=== PATIENT | male | born 1945 | race Caucasian/White ===

== ENCOUNTER 2017-10-13 13:30 | Emergency (ER) | payer MEDICARE, OTHER, SELFPAY ==
[2017-10-13 13:32] VITALS: BP 150/75; PULSE 58; RESP 14; TEMP 36.5; O2SAT 100; BMI 25.9
--- NOTE | 2017-10-13 14:58 | ED.DCSUM_ITS ---
- ER Visit Summary Date of Service: 10/13/17 Chief Complaint: Left arm injury History of Present Illness: The patient is a 72 M who wrenched his left arm when using a drill earlier today. He has continued pain in the midshaft of the left forearm. He is left-hand dominant. He denies paresthesias. Physical Examination: Vital signs are unremarkable. Patient sitting in a bedside chair. He is in no acute distress. Left upper extremity examination reveals no tenderness of the shoulder or elbow. He has mild tenderness in the midshaft of the left forearm. No obvious deformity. He has full range of motion with strong hand grasp. Strong distal pulses are noted. Test Results: Left forearm x-rays were obtained per nursing protocol and reveal a nondisplaced oblique fracture of the distal ulna. Emergency Department Course and Treatment: Test results are discussed with patient. He is placed in an AP Ortho-Glass splint. Following splint application patient has good cap refill distally. He wishes to follow-up with Dr. Smith, who family has seen in the past. Treatment Plan: [] Disposition: Discharge Impression: Left ulna fracture status post splint This note was generated with [employer] dictation software. It may contain incorrect words, spelling, and punctuation that were not noted in review of the chart prior to signing ED Disposition - Plan for ED Patient: Chief Complaint: Upper Extremity Injury Referrals: Destinee Burton MD [Primary Care Provider] -
--- NOTE | 2017-10-13 14:58 | ED.DEP ---
ED Disposition - Plan for ED Patient: Disposition: Home or Assisted Living Chief Complaint: Upper Extremity Injury Instructions: ED Fx Forearm Radius Ulna No Redu Requ Referrals: Fernando Smith DO [STAFF PHYSICIAN] - 5-7 Days
== END 2017-10-13 15:13 | disposition home or self-care (01) ==
PROVIDERS: Emergency Provider Emergency Medicine; Family Provider Internal Medicine; PCP Internal Medicine
DX: S52.692A Other fracture of lower end of left ulna, initial encounter for closed fracture (principal); X58.XXXA Exposure to other specified factors, initial encounter; Y93.89 Activity, other specified; Y92.9 Unspecified place or not applicable; I48.0 Paroxysmal atrial fibrillation; Z79.82 Long term (current) use of aspirin; Z79.899 Other long term (current) drug therapy
CPT/HCPCS: 29125; 73090; 99282

== ENCOUNTER 2017-12-26 15:27 | Emergency (ER) | payer MEDICARE, OTHER, SELFPAY ==
[2017-12-26 15:28] VITALS: BP 147/89; PULSE 56; RESP 16; TEMP 36.7; O2SAT 97; BMI 25.2
--- NOTE | 2017-12-26 15:41 | CT_ITS ---
STUDY: CT CHEST WITHOUT CONTRAST REASON FOR EXAM: Male, 72 years old. Injury. Fell. RADIATION DOSAGE (If Supplied By Facility): CTDIvol = ( 15.96 ) mGy, DLP = ( 614.25 ) mGycm TECHNIQUE: Transaxial imaging was performed without the administration of intravenous contrast material. Individualized dose optimization techniques were used for this CT. COMPARISON: None. FINDINGS: There is bilateral dependent atelectasis within the lower lobes associated with groundglass opacities, most pronounced within the right lower lobe. There is a 3.9, 4.5 and 1.5 mm nodule within the right middle lobe. There is a 4.5 mm nodule within the left upper lobe. Normal heart and pericardium. Normal mediastinum. Normal hilar regions. Normal unenhanced pulmonary arteries. There is atherosclerotic calcification of the aortic arch. There are multi-level degenerative changes of the thoracic spine. There are right posterior fourth, fifth, sixth , seventh, eighth and ninth rib fractures. The limited images of the upper abdomen demonstrate gallstones within the gallbladder. There is a left renal cyst. CT/Chest without Contrast IMPRESSION: Acute right posterior fourth through ninth rib fractures. Bilateral dependent consolidation, most pronounced within the right lower lobe associated with groundglass opacities, may reflect underlying pulmonary contusions. Bilateral pulmonary nodules measuring up to 4.5 mm within the right middle lobe. Cholelithiasis Atherosclerosis. Electronically Signed: Nara Galloway MD at 16:30 EST Tel , Service support ,
--- NOTE | 2017-12-26 15:43 | ED.VISSUMM ---
- ER Visit Summary Date of Service: 12/26/17 Chief Complaint: Fall, right upper back injury History of Present Illness: The patient is a 72 M presents evaluation of fall off a 2 foot ladder 1 hour prior to arrival. States placing stuff away in a crawl space in the house. Ladder slipped falling directly on his scapula on the right side. States he lost his breath. Denies any current dyspnea. Does complain of pain with deep breaths. Pain with palpation. No head injuries. No neck pain. No extremity pain. No chest pains. No nausea or vomiting. He does take a full dose aspirin daily along with diltiazem for paroxysmal atrial fibrillation history. 2 months ago and ulnar fracture from twisting injury from a drill followed by Dr. Smith. Physical Examination: General: Alert and oriented ?3, no acute distress HEENT: Normocephalic, atraumatic. Moist mucosa membranes Neck: supple, nontender. No midline tenderness. Cardiovascular: Regular rate and rhythm, no murmurs Respiratory: Normal breath sounds, symmetric, no distress Back: No midline tenderness. There is tenderness right mid scapula, no ecchymosis. There is no crepitus palpated. No lateral rib or anterior chest wall tenderness. Abdomen: Soft, nontender, nondistended Extremities: Nontender, no edema, pulses intact ?4. Splint to the left upper forearm Neuro: no focal neurological deficits. Test Results: Noncontrast CT chest: Rib fractures 4 through 9 on the right posterior. No scapular fracture. Possible pulmonary contusion. No pneumothorax. Small pulmonary nodules largest 4.5 mm right middle lobe. Emergency Department Course and Treatment: Patient symmetric breath sounds on exam. There is no crepitus, is tender posterior scapula. With his mechanism fallen off a two-step ladder, CT scan was obtained. Initial given oxycodone for comfort. Results noted multiple rib fractures on the right with concerns for pulmonary contusion. Pulse ox stable. Patient non-smoker. Labs were drawn for baseline, given fentanyl with improved pain control. Hemoglobin 14. He is on full dose aspirin. Isolated injury and stability I did speak with critical care information systems manager Dr. Beth who would be okay following at this hospital however he requests I speak with surgeon in case complications requiring chest tube. Spoke with Dr. oDnahue, she is concerned that he would need somebody in-house for intervention if needed in case he decompensates and recommended transfer to higher level of care. Discussed options, [facility] transfer on page. D/w Dr. Miller for transfer to ED at [facility]. Treatment Plan: [] Disposition: Transfer to [facility] emergency department Impression: 1. Multiple closed right posterior rib fracture 2. Pulmonary contusion 3. Fall 5. Pulmonary nodule This note was generated with [employer] dictation software. It may contain incorrect words, spelling, and punctuation that were not noted in review of the chart prior to signing ED Disposition - Plan for ED Patient: Disposition: [facility] Chief Complaint: Fall Diagnosis: Multiple rib fractures, Pulmonary contusion, Fall, Pulmonary nodule Referrals: Destinee Burton MD [Primary Care Provider] -
[2017-12-26 15:46] VITALS: BP 139/82; RESP 14; O2SAT 95
[2017-12-26] MEDS: oxyCODONE 5 MG Tablet PO (16:13)
[2017-12-26] MEDS: fentaNYL 100 MCG/2 ML Ampul 50 MCG IV ×2 (17:18→19:16)
[2017-12-26 17:31] LABS: Absolute Lymphocyte Count 0.96 X10^3/ul (0.83-4.51); Absolute Neutrophil Count 14.1 X10^3/uL (2.0-7.7); Basophil# 0.01 X10^3/uL; Basophil% 0.1 % (0-1); Eosinophil# 0.04 X10^3/uL; Eosinophils% 0.2 % (0-5); Hematocrit 42.4 % (40-54); Hemoglobin 14.2 g/dl (13.0-16.5); Lymphocyte # 0.96 X10^3/ul (4.0); Lymphocyte % 5.9 % (19-41); Mean Corp Hgb Conc 33.5 g/gl (32-36); Mean Corpuscular Hgb 28.4 pg (27.0-32.0); Mean Corpuscular Volume 84.8 fL (80-94); Mean Platelet Vol. 8.7 fl (6.2-12.0); Monocyte# 1.03 X10^3/uL; Monocyte% 6.4 % (0-10); Neutrophil # 14.09 X10^3/uL (2.7-7.7); Neutrophil % 86.9 % (47-70); Platelet Count 185 K/mm3 (150-450); RBC Distribution Width CV 14.1 % (11.6-14.6); RBC Distribution Width SD 43.6 fl (35.1-43.9); White Blood Count 16.2 K/mm3 (4.4-11.0)
[2017-12-26 17:33] LABS: POSITIVE COUNT NO; POSITIVE DIFFERENTIAL NO; POSITIVE MORPHOLOGY NO
[2017-12-26 17:35] LABS: Prothrombin Time (Protime)PT. 13.3 SECONDS (11.7-14.9)
[2017-12-26 17:36] LABS: Partial Thromboplast Time 32.8 Seconds (24.1-36.2)
[2017-12-26 18:23] VITALS: BP 124/84; PULSE 63; RESP 17; O2SAT 95
[2017-12-26 18:32] VITALS: BP 124/84; PULSE 61; RESP 16; TEMP 36.7; O2SAT 96
[2017-12-26 19:03] LABS: Anion Gap 8 (5-15); BUN 23 mg/dL (7-18); BUN/Creat Ratio 20.5 RATIO (10-20); Calcium,Total 8.7 mg/dL (8.5-10.1); Chloride 106 mmol/L (98-107); Creatinine, Serum 1.12 mg/dL (0.70-1.30); EST Glomerular Filtration Rate 69 mL/min (>60); Est Glom Filt Rate - Afr Amer 83 mL/min (>60); Estimated Creatinine Clearance 67.36 ml/min; Glucose 99 mg/dL (74-106); Sodium Level 141 mmol/L (136-145)
== END 2017-12-26 19:24 | disposition short-term general hospital (02) ==
PROVIDERS: Emergency Provider Emergency Medicine; Family Provider Internal Medicine; PCP Internal Medicine
DX: S22.41XA Multiple fractures of ribs, right side, initial encounter for closed fracture (principal); S27.322A Contusion of lung, bilateral, initial encounter; W11.XXXA Fall on and from ladder, initial encounter; Y93.89 Activity, other specified; Y92.008 Other place in unspecified non-institutional (private) residence as the place of occurrence of the external cause; R91.1 Solitary pulmonary nodule; I50.9 Heart failure, unspecified; I48.0 Paroxysmal atrial fibrillation; Z79.82 Long term (current) use of aspirin
CPT/HCPCS: 71250; 80048; 85025; 85610; 85730; 86850; 86900; 96374; 96376; 99284; A4216

== ENCOUNTER → 2019-08-15 08:37 | Outpatient (CLI) | payer MEDICARE, SELFPAY ==
[2019-07-26 09:40] VITALS: BMI 23.6
--- NOTE | 2019-08-15 08:40 | ECHOD_ITS ---
Procedure This was a 2D Doppler, Color Flow transthoracic echocardiogram. Exam performed in department. Left Ventricle Normal size and thickness. The estimated ejection fraction is 65 %. Stage 2 diastolic dysfunction. No regional wall motion abnormalities noted. Right Ventricle Moderately dilated right ventricle. Normal systolic function. Atria Normal left atrium. Normal right atrium. Normal atrial septum. Mitral Valve The mitral valve is structurally normal. No prolapse or stenosis seen. Trivial mitral valve insufficiency. Tricuspid Valve Normal tricuspid valve. Mild (1+) tricuspid valve insufficiency. Right ventricular systolic pressure estimated to be 31 mmHg. Aortic Valve Trisinus/trileaflet aortic valve. Mild-Moderate (1-2+) eccentric aortic valve insufficiency. Pulmonic Valve Normal pulmonic valve. Great Vessels Normal aortic root. Normal arch. Normal inferior vena cava. Inferior vena cava collapse with sniff. Pericardium/Pleural No pericardial effusion. MMode/2D Measurements & Calculations LVIDd: 4.4 cm IVSd: 1.0 cm LVOT diam: 2.0 cm LVIDs: 3.0 cm LVPWd: 1.0 cm LVOT area: 3.2 cm2 RVDd: 4.2 cm FS: 31.7 % Ao root diam: 3.6 cm LAV(MOD-bp): 67.9 ml LA A4 area: 20.2 cm2 LAV(MOD-bp) Indexed: 33.9 ml/m2 LAV(MOD-sp2): 73.6 ml LAV(MOD-sp4): 56.4 ml LA dimension(2D): 3.4 cm RA A4 area: 20.7 cm2 Time Measurements MV dec time: 0.18 sec Doppler Measurements & Calculations MV E max madhu: 71.3 cm/sec Lat Peak E' Madhu: 10.6 cm/sec Med Peak E' Madhu: 7.7 cm/sec MV A max madhu: 54.9 cm/sec E/E' lat: 6.7 E/E' med: 9.3 MV E/A: 1.3 Ao V2 max: 125.0 cm/sec AI max madhu: 504.3 cm/sec LV V1 max: 107.9 cm/sec Ao max P.3 mmHg AI max P.7 mmHg LV V1 max P.7 mmHg Ao V2 mean: 84.6 cm/sec AI dec slope: 189.4 cm/sec2 LV V1 mean P.4 mmHg Ao mean P.2 mmHg AI P1/2t: 779.8 msec LV V1 mean: 72.9 cm/sec Ao V2 VTI: 29.3 cm LV V1 VTI: 24.7 cm BRANDON(I,D): 2.7 cm2 BRANDON(V,D): 2.7 cm2 SV(LVOT): 78.5 ml PA V2 max: 85.8 cm/sec TR max madhu: 255.0 cm/sec TR max P.0 mmHg Interpretation Summary The estimated ejection fraction is 65 %. Stage 2 diastolic dysfunction. Moderately dilated right ventricle. Trivial mitral valve insufficiency. Mild (1+) tricuspid valve insufficiency. Right ventricular systolic pressure estimated to be 31 mmHg. Mild-Moderate (1-2+) eccentric aortic valve insufficiency. Compared to echo report dated 11/17/2016, LV function and pulmonary pressures have remained about the same, and aortic insufficiency has gone from mild to mild to moderate. Ordering Physician: Bakari Hernandez Referring Physician: Destinee Burton Performed By: Kelly Page, JESÚS, RVT
== END ==
PROVIDERS: PCP Internal Medicine; Referring Provider Internal Medicine Cardiovascular Disease; Visit Provider Internal Medicine Cardiovascular Disease
DX: I51.89 Other ill-defined heart diseases (principal)
CPT/HCPCS: 93306

== ENCOUNTER 2020-01-19 05:39 | Inpatient (IN) | payer MEDICARE, SELFPAY ==
[2019-07-26 09:40] VITALS: BMI 23.6
[2020-01-19] VITALS (21 sets, daily range): BP systolic 87–113; BP diastolic 63–79; PULSE 52–165; RESP 12–20; TEMP 36.3–36.8; O2SAT 94–100; BMI 25.9; BMI 25.5; BMI 25.6
--- NOTE | 2020-01-19 05:43 | EKG12_ITS ---
Test Reason : DYSRHYTHMIA Blood Pressure : / mmHG Vent. Rate : 143 BPM Atrial Rate : 187 BPM P-R Int : 000 ms QRS Dur : 080 ms QT Int : 304 ms P-R-T Axes : 000 028 -27 degrees QTc Int : 469 ms Atrial fibrillation with rapid ventricular response Nonspecific ST and T wave abnormality Abnormal ECG Confirmed by OLEG PERDOMO, MAYLIN ([id number]), news copy editor NICO MEADOWS ([id number]) on 01/21/2020 8:43:22 AM Referred By: YAMIL Confirmed By:MAYLIN DEJESUS MD
[2020-01-19 05:50] LABS: Absolute Lymphocyte Count 2.41 X10^3/uL (0.83-4.51); Basophil# 0.08 X10^3/uL; Basophil% 0.9 % (0-1); Eosinophil# 0.31 X10^3/uL; Eosinophils% 3.6 % (0-5); Hematocrit 46.9 % (40-54); Hemoglobin 15.5 g/dL (13.0-16.5); Lymphocyte # 2.41 X10^3/ul (4.0); Lymphocyte % 27.7 % (19-41); Mean Corpuscular Volume 84.7 fL (80-94); Mean Platelet Vol. 8.2 fl (6.2-12.0); Monocyte# 0.87 X10^3/uL; NRBC Flagged by Analyzer 0 % (0-5); Neutrophil # 4.99 X10^3/uL (2.7-7.7); Neutrophil % 57.5 % (47-70); Platelet Count 236 K/mm3 (150-450); RBC Distribution Width CV 13.2 % (11.6-14.6); RBC Distribution Width SD 41.2 fl (35.1-43.9); Red Blood Count 5.54 M/mm3 (4.6-6.2); White Blood Count 8.7 K/mm3 (4.4-11.0)
--- NOTE | 2020-01-19 05:52 | RAD_ITS ---
STUDY: X-RAY CHEST REASON FOR EXAM: Male, 74 years old patient experienced heart palpitations. Past medical history of of atrial fibrillation. TECHNIQUE: Single AP portable view of the chest. COMPARISON: 11/17/2016. FINDINGS: Cardiac monitoring leads are present. The lungs are hyperexpanded. Appears to be a left-sided subsegmental atelectasis. This is new since previous study. There is no demonstrated pleural abnormality. Normal size heart. Normal mediastinum and dafne. There is prominence of the pulmonary hilar arteries without peripheral pulmonary vascular congestion. There is atherosclerotic calcification of the aortic arch with tortuosity. Normal visualized thoracic spine. Normal visualized ribs, clavicles, and shoulders. There is no demonstrated abnormality of the visualized soft tissue structures of the upper abdomen. RAD/Chest 1 View (Portable) IMPRESSION: Left basilar subsegmental atelectasis. Electronically Signed: Krista Tanner MD at 6:12 EST , Service support ,
--- NOTE | 2020-01-19 05:54 | ED.DCSUM_ITS ---
- ER Visit Summary Date of Service: 01/19/20 Chief Complaint: Accelerated heart rate History of Present Illness: The patient is a 74 M history of A. fib and dilated right ventricle. Prior prostatectomy for prostate cancer. Patient is on Cardizem at home for his A. fib and aspirin. No other anticoagulation. States he is normally pretty well controlled. 4:00 this morning he noticed his heart rate was racing and is continued. He denies chest pain. He denies shortness of breath. He denies nausea. Most recent echocardiogram showed a EF of 65%. Physical Examination: Older male no acute distress vital signs stable. Afebrile. He is in A. fib rate around 140. H EENT exam unremarkable. Neck nontender. Lungs clear to auscultation bilaterally. Heart irregularly irregular tachycardic rate about 140 consistent with A. fib. No murmur appreciated. Abdomen soft nontender. Normal bowel sounds no peritoneal signs. Patient moving all 4 extremities. Nontender. No edema. Normal motor strength. Neurologically is awake alert with no focal motor deficits. Test Results: EKG shows A. fib with rapid ventricular rate of 143. Nonspecific ST-T wave changes unchanged from prior EKG from 2017 in which she was also in A. fib at that time. Order chest x-ray 1 view interpreted by myself shows normal cardiac silhouette mediastinum. No signs of pleural effusions nor congestive heart failure. Unchanged from prior chest x-ray from 2017. Normal bony structures. White count 8. Hemoglobin 15. Chemistries unremarkable normal creatinine and gap. Troponin normal. Emergency Department Course and Treatment: 74-year-old male history of prior A. fib currently in recurrent A. fib RVR. Treated with IV Cardizem bolus. Cardiac work-up. Repeat exam patient is doing well at 6:45 AM. However patient remains in A. fib RVR despite the Cardizem bolus. Heart rate is currently about 140. Blood pressure is 98/56. He will be started on Cardizem drip. I have the hospitalist on page for admission. Treatment Plan: Cardizem bolus and drip. Admission. Disposition: Admission Impression: Recurrent atrial fibrillation with rapid ventricular rate History of prostate cancer with resection This note was generated with bluebird [employer] dictation software. It may contain incorrect words, spelling, and punctuation that were not noted in review of the chart pr ior to signing ED Disposition - Plan for ED Patient: Referrals: Destinee Burton MD [Primary Care Provider] -
[2020-01-19] MEDS: dilTIAZem 25 MG/5 ML Vial IV BOLUS (05:57)
[2020-01-19 06:07] LABS: Anion Gap 5 (5-15); BUN 18 mg/dL (7-18); BUN/Creat Ratio 15.8 RATIO (10-20); Calcium,Total 9.1 mg/dL (8.5-10.1); Chloride 107 mmol/L (98-107); Creatinine, Serum 1.14 mg/dL (0.70-1.30); EST Glomerular Filtration Rate 67 mL/min (>60); Est Glom Filt Rate - Afr Amer 81 mL/min (>60); Estimated Creatinine Clearance 60.48 ml/min; Glucose 101 mg/dL (74-106); Potassium 3.9 mmol/L (3.5-5.1); Sodium Level 141 mmol/L (136-145)
--- NOTE | 2020-01-19 07:15 | HP.PCM_ITS ---
History of Present Illness Date of Admission: 01/19/20 Chief Complaint: palpitations The patient is a 74 year old M with a past medical history of A. fib and obstructive sleep apnea on CPAP as well as prostate cancer. he was admitted via the ED on 01/19/2020 with a complaint of palpitations. Symptoms started in the early hours of the day of admission. He denied any chest pain, dizziness or lightheadeness, nausea or vomiting. Review f systems was otherwise negative. He says he has been compliant with his home dose of cardizem. He only takes aspirin 325mg daily , and was told he doesnt need to be on any other anticoagulant. On admission, his heart rate was in the 130s -140s, and this required the start of cardizem drip. Chemistry was unremarkable, and initial troponin was initially negative, but trened up slightly to 0.046. BNp was 267.9, and TSh was 2.44. CBC was unremarkable. EKG showed afib with RVR. CXR showed left basilar subsegmental atelectasis. He is being admitted to be managed for Afib with RVR. 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 heart failure (Chronic) I51.89 Paroxysmal a-fib (Chronic) I48.0 Obstructive sleep apnea G47.33 CPAP Prostate cancer C61 Allergies No Known Allergies Allergy (Verified 01/14/19 08:53) Home Medications: Ambulatory Orders Medication Instructions Recorded Aspirin 325 mg PO DAILY@0800 11/17/16 omega-3 fatty acids 1,000 mg 1,000 mg PO QDAY 08/06/17 capsule Fiber Therapy 2 cap PO BID 12/26/17 levothyroxine 50 mcg capsule 50 mcg PO DAILY 01/14/19 diltiazem HCl 120 mg 120 mg PO QDAY #90 cap 07/26/19 capsule,extended release 24 hr Multivitamin [Daily Value] 1 ea PO DAILY 01/19/20 Rosuvastatin Calcium [Crestor] 10 mg PO QHS 01/19/20 Surgical History: Surgical History (Last Reviewed 07/26/19 @ 09:40 by Josephine Ferreira) H/O left inguinal hernia repair Z98.890, Z87.19 excision of tumor right knee Surgical History: tonsillectomy, - - prostatectomy Psychiatric History: No pertinent psych hx Lives: Spouse/ Significant Other Smoking Status: Never smoker Tobacco Use: Non-smoker Alcohol: None Drugs: None - *Family History Maternal Family History: Family History (Last Reviewed 07/26/19 @ 09:40 by Josephine Ferreira) Mother Heart disease Hypertension Father Hypertension History Items: Cancer - Leukemia, Dementia, Heart Disease - Atrial fibrillation, Paternal Family History: Family History (Last Reviewed 07/26/19 @ 09:40 by Josephine Ferreira) Mother Heart disease Hypertension Father Hypertension History Items: Heart Disease - [place] Sibling Family History: Family History (Last Reviewed 07/26/19 @ 09:40 by Josephine Ferreira) Mother Heart disease Hypertension Father Hypertension History Items: Heart Disease - [place],, - - Bipolar Review of Systems Constitutional: Denies: Chills, Fever, Malaise, Weakness, Weight Change Eyes: Denies: Blurred vision HEENT: Denies: Head Aches, Sinus Congestion, Sinus Drainage Cardiovascular: Reports: Palpitations. Denies: Chest Pain, Chest Pressure, Chest Tightness, Heaviness, Light Headedness, Orthopnea Respiratory: Denies: Cough, Shortness of Breath, Shortness of breath at rest, Shortness of breath upon exertion, Sputum production Gastrointestinal: Denies: Abdominal Pain, Nausea, Vomiting Genitourinary: Denies: Dysuria Musculoskeletal: Denies: Joint Pain, Joint Tenderness Skin: Denies: Rash, Wounds Neurological: Denies: Numbness, Tingling, Focal weakness Psychiatric: Denies: Anxiety, Depression, Homicidal Ideations, Suicidal Ideations Hematologic/ Lymphatic: Denies: Easy Bruising, Easy Bleeding VTE Information - Inpt Only VTE Present on Admission: No VTE Pharm Prophylaxis ordered?: Yes - Physical Exam Vitals/I&O's: Vital Signs Temp Pulse Resp BP Pulse Ox 98 F 118 H 12 94/68 95 01/19/20 05:40 01/19/20 06:44 01/19/20 06:44 01/19/20 06:44 01/19/20 06:44 Oxygen Delivery Method Room Air Weight: 180 lb 15.992 oz Body Mass Index (BMI) 25.9 General: Alert, Oriented x3, Cooperative, No apparent distress HEENT: Atraumatic, PERRLA, EOMI, Normocephalic Oral: Dry Mucosa Neck: Supple, No JVD, Negative Carotid Bruits Lungs: Clear to auscultation, Normal air movement, No rhonchi, No wheeze, No rales Cardiovascular: Irregular Rate - afib, with RVR, Tachycardic Abdomen: Bowel Sounds Present, Soft, Non Tender, Non-Distended, No Hepato- splenomegaly Extremities: No clubbing, No cyanosis, No edema, Capillary Refill Less than 3 Seconds Skin: No rashes, No breakdown Musculoskeletal: No Tenderness to Palpation of Joints or Extremities Lymphatic: No Cervical, Supraclavicular, or Inguinal Adenopathy Neurological: Cranial nerves II-XII grossly intact, Neuro grossly intact, Motor Exam 5/5 strength throughout Psych/Mental Status: Normal Affect, Appropriate, Alert and oriented to time, place, person, mood and affect Laboratory Results 01/19/20 05:48: WBC 8.7, RBC 5.54, Hgb 15.5, Hct 46.9, MCV 84.7, MCH 28.0, MCHC 33.0, RDW Std Deviation 41.2, RDW Coeff of Diane 13.2, Plt Count 236, MPV 8.2, Immature Gran % (Auto) 0.300, Neut % (Auto) 57.5, Lymph % (Auto) 27.7, Dupage % (Auto) 10.0, Eos % (Auto) 3.6, Baso % (Auto) 0.9, Absolute Neuts (auto) 5.0, Absolute Lymphs (auto) 2.41, Nucleated RBC % 0 01/19/20 05:48: Sodium 141, Potassium 3.9, Chloride 107, Carbon Dioxide 29.0, Anion Gap 5, BUN 18, Creatinine 1.14, Estim Creat Clear Calc 60.48, Est GFR (MDRD) Af Amer 81, Est GFR (MDRD) Non-Af 67, BUN/Creatinine Ratio 15.8, Glucose 101, Calcium 9.1, Troponin I < 0.015 Diagnostic Data Chest X-Ray 01/19/20 05:52 IMPRESSION: Left basilar subsegmental atelectasis. Electronically Signed: Krista Tanner MD at 6:12 EST , Service support , Current Medications Diltiazem HCl 125 mg/ Dextrose 125 mls @ 5 mls/hr IV .Q25H NAZARIO; Protocol Assessment/Plan All Active Problems (Last Reviewed 07/26/19 @ 09:40 by Josephine Ferreira) Paroxysmal atrial fibrillation with rapid ventricular response (Resolved) 74 y/o admitted with a complaint of palpitations #Afib with RVR * admit to PCU with telemetry * patient on cardizem drip; however HR was still up in the 130s and 140s even whilst on cardizem drip * consult cardiology in light of persistent afib with RVR * start on therapeutic lovenox * 2D echo ordered * TSH WNL * cycle troponins * # Hypothyroidism: on synthroid # Hyperlipidemia: on rosuvastatin #JACOB: on CPAP DVT prophylaxis: not indicated as patient is on therapeutic lovenox Code status; full code * Patient counseled extensively about different types of CODE STATUS including full code, DNR CCA and DNR CCA. Patient elects to be full code. * Total [id number]-[id number] time 16 minutes. Inpatient E&M: 96567 Init Hosp L3 Procedures: 30159 Advncd Care Plan 30 Min
[2020-01-19 09:51] LABS: Thyroid Stim Hormone (TSH) 2.44 uIU/mL (0.358-3.74)
[2020-01-19 10:14] LABS: BNP,B-Type NATRIURETIC PEPTIDE 267.9 pg/mL (0-100)
--- NOTE | 2020-01-19 10:24 | PCM.CONS.C ---
Problem List (1) Paroxysmal a-fib Status: Chronic (2) Diastolic dysfunction without heart failure Status: Chronic (3) Aortic valve insufficiency Status: Chronic Qualifiers: Cardiac valve disease etiology: nonrheumatic Qualified Code(s): I35.1 - Nonrheumatic aortic (valve) insufficiency (4) JACOB (obstructive sleep apnea) Status: Chronic Reason for Consult Date of Consultation: 01/19/20 History of Present Illness: The patient is a 74 year oldiiv-anhi-xio white male with a past cardiovascular history which is included paroxysmal atrial fibrillation, diastolic dysfunction, aortic valve insufficiency, superimposed upon a history of obstructive sleep apnea. He has previously been followed by my former colleague Dr. Bakari Hernandez for the aforementioned cardiovascular conditions. He has been on medical therapy with aspirin, diltiazem CD, and beta-blockers as needed. He states he has approximately 1-2 episodes of his atrial fibrillation per year. He notes he awoke this morning with a sensation of a fast irregular heart rate. He subsequently presented to the emergency department for further evaluation and care. He was found to be in atrial fibrillation with RVR. He was placed on medical therapy with IV diltiazem. He underwent evaluation with cardiac enzymes which were considered negative troponin I level. His ECG demonstrated atrial fibrillation with RVR with nonspecific ST/T wave abnormality. His chest x-ray was reported with no acute cardiopulmonary condition-please see official report. He has undergone previous noninvasive cardiovascular evaluation as noted below. He states other than noticing he has irregular fast heart rate he had no other concerns of chest discomfort or difficulty breathing. There was no orthopnea or PND. He has had no peripheral pitting edema. He did not have any nausea, emesis, or diaphoresis. There was no near syncope or syncope. He states he is otherwise a relatively healthy active gentleman. He states he walks approximately 2 miles per day. He also rides his bicycle. He usually feels good with doing these type of activities. [] Past Medical History Allergies/Adverse Reactions: Allergies No Known Allergies Allergy (Verified 01/14/19 08:53) Home Medications: Ambulatory Orders Medication Instructions Recorded Aspirin 325 mg PO DAILY@0800 11/17/16 omega-3 fatty acids 1,000 mg 1,000 mg PO QDAY 08/06/17 capsule Fiber Therapy 2 cap PO BID 12/26/17 levothyroxine 50 mcg capsule 50 mcg PO DAILY 01/14/19 diltiazem HCl 120 mg 120 mg PO QDAY #90 cap 07/26/19 capsule,extended release 24 hr Multivitamin [Daily Value] 1 ea PO DAILY 01/19/20 Rosuvastatin Calcium [Crestor] 10 mg PO QHS 01/19/20 Past Medical History (Chronic Problems): Chronic Problems (Last Reviewed 07/26/19 @ 09:40 by Josephine Ferreira) Aortic valve insufficiency (Chronic) JACOB (obstructive sleep apnea) (Chronic) Diastolic dysfunction without heart failure (Chronic) Paroxysmal a-fib (Chronic) Surgical History: tonsillectomy, - - prostatectomy Psychiatric History: No pertinent psych hx - *Family History Maternal Family History: Family History (Last Reviewed 07/26/19 @ 09:40 by Josephine Ferreira) Mother Heart disease Hypertension Father Hypertension History Items: Cancer - Leukemia, Dementia, Heart Disease - Atrial fibrillation, Paternal Family History: Family History (Last Reviewed 07/26/19 @ 09:40 by Josephine Ferreira) Mother Heart disease Hypertension Father Hypertension History Items: Heart Disease - [place] Sibling Family History: Family History (Last Reviewed 07/26/19 @ 09:40 by Josephine Ferreira) Mother Heart disease Hypertension Father Hypertension History Items: Heart Disease - [place],, - - Bipolar Lives: Spouse/ Significant Other Smoking Status: Never smoker Alcohol: None Drugs: None Review of Systems - Review of Systems General: Denies: Fever, Night Sweats, Fatigue Cardiovascular: Reports: Palpitations. Denies: Chest Discomfort, Shortness of Breath, Orthopnea, PND, Peripheral Edema, Lightheadedness, Dizziness, Near Syncope, Syncope Respiratory: Denies: Cough, Sputum Production, Hemoptysis Gastrointestinal: Denies: Hematemesis, Hematochezia, Melena Genitourinary: Denies: Dysuria, Hematuria Skin: Denies: Rash Subjectve: This is a pleasant 74-year-old white male who appears to be resting comfortably at the moment in no acute distress. Objective: Vital Signs Temp Pulse Resp BP Pulse Ox 98.2 F 135 H 18 90/71 98 01/19/20 09:00 01/19/20 09:15 01/19/20 09:15 01/19/20 09:15 01/19/20 09:00 Oxygen Delivery Method Room Air Weight: 178 lb 5.663 oz Body Mass Index (BMI) 25.5 Intake and Output for Last 24 Hours 01/17/20 01/18/20 01/19/20 23:59 23:59 23:59 Intake Total 18.75 / 18.75 Balance 18.75 / 18.75 General: Awake, Alert, Oriented x 3, Cooperative, No Acute Distress HEENT: Atraumatic, Normocephalic, PERRL, EOMI, Sclera Non Icteric Neck: Supple, Good ROM, No JVD Lungs: Clear to auscultation Cardiovascular: Irregular Rhythm, Normal S1, Normal S2 Vascular: No Carotid Bruits Abdomen: Bowel Sounds Present, Soft, Non Tender Extremities: No edema Neurological: No Focal Motor or Sensory Deficit Psych/Mental Status: Appropriate 01/19/20 05:48: WBC 8.7, RBC 5.54, Hgb 15.5, Hct 46.9, MCV 84.7, MCH 28.0, MCHC 33.0, Plt Count 236, MPV 8.2, Immature Gran % (Auto) 0.300, Neut % (Auto) 57.5, Lymph % (Auto) 27.7, [place] % (Auto) 10.0, Eos % (Auto) 3.6, Baso % (Auto) 0.9, Absolute Neuts (auto) 5.0, Nucleated RBC % 0 01/19/20 05:48: Sodium 141, Potassium 3.9, Chloride 107, Carbon Dioxide 29.0, Anion Gap 5, BUN 18, Creatinine 1.14, Est GFR (MDRD) Af Amer 81, Est GFR (MDRD) Non-Af 67, BUN/Creatinine Ratio 15.8, Glucose 101, Calcium 9.1, Troponin I < 0.015 01/19/20 05:48: B-Natriuretic Peptide 267.9 H 01/19/20 09:40: Troponin I 0.038 Rhythm: Atrial fibrillation EKG: Atrial fibrillation with RVR; nonspecific ST/T wave abnormality ECHO: ? Interpretation Summary The estimated ejection fraction is 65 %. Stage 2 diastolic dysfunction. Moderately dilated right ventricle. Trivial mitral valve insufficiency. Mild (1+) tricuspid valve insufficiency. Right ventricular systolic pressure estimated to be 31 mmHg. Mild-Moderate (1-2+) eccentric aortic valve insufficiency. Compared to echo report dated 11/17/2016, LV function and pulmonary pressures have remained about the same, and aortic insufficiency has gone from mild to mild to moderate. Stress Test: 11-18-2016 Stress Test Report: Treadmill EKG report: Resting EKG sinus bradycardia, normal axis, normal intervals, no evidence of previous myocardial infarction. Treadmill EKG patient exercised according to a Grzegorz protocol for 9 minutes achieving a maximum workload of 10.10 mets. Resting heart rate was initially 50 beats a minute and radhika to maximum 139 beats a minute which represents 92% of the maximal age corrected heart rate. Resting blood pressure was 1 2 0/72, and radhika to maximum 160/82. Test terminated due to chest discomfort and attainment of target heart rate. No chest pain noted. During exercise the patient's heart rate increased as expected. Patient had no dynamic EKG changes to suggest ischemia. Patient had rare PACs noted. No ventricular arrhythmias noted. Conclusions normal adequate treadmill EKG. Negative for ischemia by EKG criteria. No anginal symptoms noted although the patient did describe chest discomfort. Appropriate blood pressure response to exercise. Average exercise capacity for age. Patient taught procedure well no complications, nuclear medicine results to follow. IMPRESSION: 1. NORMAL REST-MAXIMAL STRESS 99m Tc SESTAMIBI MYOCARDIAL PERFUSION SPECT. A. No evidence of maximal exercise induced left ventricular ischemia. B. Preservation of resting left ventricular systolic function. (Mary et al, J Nucl Med 37: 105P, 1995). Electronically Signed: Bin uY DO at 9:05 EDT CXR: FINDINGS: Cardiac monitoring leads are present. The lungs are hyperexpanded. Appears to be a left-sided subsegmental atelectasis. This is new since previous study. There is no demonstrated pleural abnormality. Normal size heart. Normal mediastinum and dafne. There is prominence of the pulmonary hilar arteries without peripheral pulmonary vascular congestion. There is atherosclerotic calcification of the aortic arch with tortuosity. Normal visualized thoracic spine. Normal visualized ribs, clavicles, and shoulders. There is no demonstrated abnormality of the visualized soft tissue structures of the upper abdomen. RAD/Chest 1 View (Portable) IMPRESSION: Left basilar subsegmental atelectasis. Electronically Signed: Krista Tanner MD at 6:12 EST Assessment/Plan 1. Atrial fibrillation The patient has a longstanding history of paroxysmal atrial fibrillation with RVR. He states he has approximately 1-2 episodes per year. He has undergone noninvasive evaluation as noted in the past. He has been treated medically with aspirin therapy and rate control therapy. At the present time as his episode appears to be lasting somewhat longer than his usual he presented to the hospital for further evaluation. He will continue to be monitored. He will continue rate control therapy as he is on IV diltiazem which can be adjusted as needed. He will have an attempted additional rate control therapy with IV digitalis x1. It may be reasonable to consider additional medical therapy with IV amiodarone with the hopes of assisting with rate control and regaining sinus rhythm. He is also been placed on anticoagulant therapy with Lovenox. Depending upon his clinical course, if he returns to sinus rhythm, then he may need continued antiplatelet/anticoagulant therapy and rate control therapy. Consideration would be given as to whether or not he needs long-term arrhythmic therapy. If his rhythm does not return then he may need to be considered for future synchronized biphasic DC cardioversion. 2. Diastolic dysfunction The patient is reported as having a history of diastolic dysfunction. He has not had any evidence of acute CHF or pulmonary edema. He will continue his cardiovascular evaluation and medical therapy. 3. Aortic valve insufficiency He also has a history of aortic valve insufficiency which has been followed by echocardiographic studies as noted. On examination, at least during his atrial fibrillation with RVR, it was challenging to detect his aortic valve insufficiency. He will be followed with echocardiographic studies. 4. Obstructive sleep apnea He does have a history of JACOB. This may be part of his etiology of his atrial fibrillation. He states he does wear device at night. This note was generated using a voice recognition system and there may be incorrect words, spelling or punctuation that were not noted when reviewing the office note prior to saving.
--- NOTE | 2020-01-19 11:22 | EKG12_ITS ---
Test Reason : Blood Pressure : / mmHG Vent. Rate : 055 BPM Atrial Rate : 055 BPM P-R Int : 216 ms QRS Dur : 074 ms QT Int : 408 ms P-R-T Axes : 049 028 024 degrees QTc Int : 390 ms Sinus bradycardia with sinus arrhythmia with 1st degree A-V block Otherwise normal ECG Confirmed by OLEG PERDOMO, MAYLIN ([id number]), content editor NICO MEADOWS ([id number]) on 01/22/2020 1:21:31 PM Referred By: YOANNA Confirmed By:MAYLIN DEJESUS MD
[2020-01-19] MEDS: Enoxaparin 80 MG/0.8 ML Syringe SC ×2 (11:45→22:36)
[2020-01-19] MEDS: Aspirin 325 MG Tablet PO (11:45)
[2020-01-19] MEDS: dilTIAZem CD 120 MG Capsule PO (12:15)
[2020-01-19] MEDS: Atorvastatin Calcium 20 MG Tablet PO (22:35)
[2020-01-20] VITALS (7 sets, daily range): BP systolic 106–135; BP diastolic 63–85; PULSE 51–59; RESP 12–17; TEMP 35.9–36.8; O2SAT 98–100
--- NOTE | 2020-01-20 05:55 | EKG12_ITS ---
Test Reason : AM EKG Blood Pressure : / mmHG Vent. Rate : 053 BPM Atrial Rate : 053 BPM P-R Int : 200 ms QRS Dur : 082 ms QT Int : 446 ms P-R-T Axes : 057 048 047 degrees QTc Int : 418 ms Sinus bradycardia Otherwise normal ECG Confirmed by OLEG PERDOMO, MAYLIN ([id number]), acquisitions editor NICO MEADOWS ([id number]) on 01/22/2020 1:39:11 PM Referred By: YOANNA Confirmed By:MAYLIN DEJESUS MD
--- NOTE | 2020-01-20 05:55 | ECHOD_ITS ---
Version 2 Reason For Study: AFIB Procedure This was a 2D Doppler, Color Flow transthoracic echocardiogram. Exam performed portable in patient room. Left Ventricle Normal LV size. Left ventricular systolic function is normal. The estimated ejection fraction is 60 %. Stage 2 diastolic dysfunction. No regional wall motion abnormalities noted. Right Ventricle Normal RV size. Normal systolic function. Atria Normal left atrium. Normal right atrium. Mitral Valve Normal mitral valve. Tricuspid Valve Normal tricuspid valve. Mild tricuspid valve insufficiency. Pulmonary artery systolic pressure is 30 mmHg. Aortic Valve Normal aortic valve. Trisinus/trileaflet aortic valve. Mild (1+) eccentric aortic valve insufficiency. Pulmonic Valve Normal pulmonic valve. Great Vessels Mildly dilated aortic root. The pulmonary artery is normal size. Normal inferior vena cava. Pericardium/Pleural No pericardial effusion. MMode/2D Measurements & Calculations LVIDd: 4.4 cm IVSd: 1.2 cm Ao root diam: 4.1 cm LVIDs: 3.0 cm LVPWd: 0.93 cm RVDd: 4.2 cm FS: 31.6 % LAV(MOD-bp): 69.1 ml LVAd ap4: 32.0 cm2 SV(MOD-sp4): 62.3 ml LAV(MOD-bp) Indexed: 34.8 ml/m2 EDV(MOD-sp4): 96.6 ml LAV(MOD-sp2): 82.0 ml EDV(sp4-el): 101.7 ml LAV(MOD-sp4): 53.8 ml LVAs ap4: 16.7 cm2 ESV(MOD-sp4): 34.2 ml ESV(sp4-el): 35.0 ml EF(MOD-sp4): 64.6 % EF(sp4-el): 65.6 % SV(sp4-el): 66.7 ml LA A4 area: 19.8 cm2 LA dimension(2D): 3.7 cm RA A4 area: 17.8 cm2 Time Measurements MV dec time: 0.19 sec Doppler Measurements & Calculations MV E max madhu: 60.9 cm/sec Lat Peak E' Madhu: 9.4 cm/sec Med Peak E' Madhu: 6.1 cm/sec MV A max madhu: 43.4 cm/sec E/E' lat: 6.5 E/E' med: 10.0 MV E/A: 1.4 Ao V2 max: 111.8 cm/sec AI max madhu: 478.3 cm/sec LV V1 max: 116.6 cm/sec Ao max P.0 mmHg AI max P.6 mmHg LV V1 max P.4 mmHg AI dec slope: 183.9 cm/sec2 AI P1/2t: 761.8 msec PA V2 max: 82.2 cm/sec TR max madhu: 253.2 cm/sec TR max P.7 mmHg Interpretation Summary Normal LV size. Left ventricular systolic function is normal. The estimated ejection fraction is 60 %. Stage 2 diastolic dysfunction. Mildly dilated aortic root. Mild (1+) eccentric aortic valve insufficiency. Pulmonary artery systolic pressure is 30 mmHg. The global longitudinal strain is normal. The global longitudinal strain = -20 % (normal). Ordering Physician: Leydi Ag Performed By: Marina Best, JESÚS, RVT
[2020-01-20 06:23] LABS: Absolute Lymphocyte Count 2.08 X10^3/uL (0.83-4.51); Absolute Neutrophil Count 3.4 X10^3/uL (2.0-7.7); Basophil# 0.06 X10^3/uL; Basophil% 0.9 % (0-1); Eosinophil# 0.25 X10^3/uL; Eosinophils% 3.8 % (0-5); Hematocrit 39.9 % (40-54); Hemoglobin 13.3 g/dL (13.0-16.5); Lymphocyte # 2.08 X10^3/ul (4.0); Lymphocyte % 31.4 % (19-41); Mean Corp Hgb Conc 33.3 g/dL (32-36); Mean Corpuscular Hgb 27.9 pg (27.0-32.0); Mean Corpuscular Volume 83.8 fL (80-94); Mean Platelet Vol. 8.2 fl (6.2-12.0); Monocyte# 0.78 X10^3/uL; Monocyte% 11.8 % (0-10); NRBC Flagged by Analyzer 0 % (0-5); Neutrophil # 3.43 X10^3/uL (2.7-7.7); Neutrophil % 51.8 % (47-70); Platelet Count 180 K/mm3 (150-450); RBC Distribution Width CV 13.2 % (11.6-14.6); RBC Distribution Width SD 41.1 fl (35.1-43.9); Red Blood Count 4.76 M/mm3 (4.6-6.2); White Blood Count 6.6 K/mm3 (4.4-11.0)
[2020-01-20] MEDS: Levothyroxine 50 MCG Tablet PO (06:36)
[2020-01-20] MEDS: Aspirin 325 MG Tablet PO (06:36)
[2020-01-20 06:57] LABS: Anion Gap 6 (5-15); BUN 22 mg/dL (7-18); BUN/Creat Ratio 20.6 RATIO (10-20); Calcium,Total 8.4 mg/dL (8.5-10.1); Chloride 107 mmol/L (98-107); Creatinine, Serum 1.07 mg/dL (0.70-1.30); EST Glomerular Filtration Rate 72 mL/min (>60); Est Glom Filt Rate - Afr Amer 87 mL/min (>60); Estimated Creatinine Clearance 64.43 ml/min; Glucose 89 mg/dL (74-106); Sodium Level 138 mmol/L (136-145)
--- NOTE | 2020-01-20 08:05 | NURSING ---
To stress test.
[2020-01-20] MEDS: Multivitamins,Therapeutic Tablet 1 TABLET PO (10:39)
[2020-01-20] MEDS: dilTIAZem CD 120 MG Capsule PO (10:39)
[2020-01-20] MEDS: Senna/Docusate Sodium 1 Tablet PO (10:39)
[2020-01-20] MEDS: Omega-3 Acid Ethyl Esters 1 GM Capsule PO (10:39)
--- NOTE | 2020-01-20 10:55 | NURSING ---
Returned from stress testing
--- NOTE | 2020-01-20 12:33 | STRESSREP ---
Stress Test Report Date: 01-20-2020 Procedure: Exercise tolerance test/imaging study Indications: Atrial fibrillation; abnormal cardiac enzymes Consent: Per the patient Procedure: The patient exercised on a Grzegorz protocol for 7 minutes completing Stage II and 1 minute of Stage III achieving a peak heart rate of 136 bpm (91% predicted maximal heart rate) with a peak blood pressure 166/88 mmHg and a peak MET capacity of 8 METs. The baseline ECG demonstrated normal sinus rhythm. The peak exercise ECG demonstrated somatic/motion artifact with subtle diffuse nonspecific ST segment variability with resolution towards baseline less than 1 minute in recovery. There were occasional PACs pretest and in recovery as well as an atrial triplet in recovery. The functional capacity was considered good. There was no complaint of chest discomfort during exercise or recovery. The examination was discontinued secondary to dyspnea. Impression: 1. Technically adequate (percent predicted maximal heart rate greater than 85%) exercise tolerance test 2. Peak exercise ECG with somatic/motion artifact with subtle diffuse nonspecific ST segment variability with resolution towards baseline less than 1 minute in recovery 3. There were occasional PACs pretest and in recovery as well as an atrial triplet in recovery 4. Nuclear images pending Myocardial perfusion imaging study: Technique: The patient was injected with 11.5 mCi of technetium 99m Cardiolite and subsequently rest SPECT Cardiolite nuclear imaging was obtained in the horizontal long, vertical long, and short axis views. The patient exercised on a Grzegorz protocol for 7 minutes completing Stage II and 1 minute of Stage III achieving a peak heart rate of 136 bpm (91% predicted maximal heart rate) with a peak blood pressure 166/88 mmHg and a peak MET capacity of 8 METs. The patient was injected with 34.2 mCi of technetium 99m Cardiolite and subsequently stress SPECT Cardiolite nuclear imaging was obtained in the horizontal long, vertical long, and short axis views. A gated Cardiolite study at peak stress was obtained. Interpretation: Rest and stress SPECT Cardiolite nuclear imaging status post realignment, normalization, and attenuation correction, demonstrates an element of body motion during image acquisition and also demonstrates an area of extracardiac/gastrointestinal tracer uptake near the inferior segments and otherwise demonstrates relative uniform tracer uptake and myocardial perfusion appearing within normal limits. There is end systolic thickening and brightening. The gated Cardiolite study demonstrates myocardial thickening and inward wall motion. The reported LVEF is 68%. Impression: 1. Rest and stress SPECT Cardiolite nuclear imaging demonstrate relative uniform tracer uptake and myocardial perfusion appearing within normal limits. 2. The gated Cardiolite study reports an LVEF of 68%. This note was generated with [employer] software. It may contain incorrect words, spelling, and punctuation that were not noted in checking the note before signing.
--- NOTE | 2020-01-20 12:55 | CASEMGMT ---
RN JAQUAN MERCHANDISE EXECUTION LEADER CM to room to meet with patient for initial transition planning/care coordination assessment. RN JAQUAN introduced self and role at [facility]. Pt voices understanding and consents to assessment at this time. Pt resting in bed in no distress at this time. Pt is A/O at this time and answers all questions appropriately. Care providers, pharmacy, and demographics verified/updated at this time. PCP: Dr Burton Specialists: [facility]--cardiology Preferred Pharmacy:[facility]. Insurance: [employer] [facility] Prescription Benefit: Yes Living Will/HPOA: Has both LW and Healthcare POA, who is his , Jazmyn LNOK: , Jazmyn. 2 living adult children. Living Arrangements: Lives w/his , Jazmyn. Independent. Transportation: Pt states drives self and states no transportation concerns at this time. will take him home @ d/c. DME: Has a CPAP. Pt states no need for further DME at this time. HHC/SNF: No history of either. No needs identified. Pt wishes to return home and states has no concerns with going home at time of discharge. CM to follow for any discharge planning/needs. Pt voices no concerns/needs at this time. Advised pt to ask for CM if any questions/concerns/needs arise. Voices understanding. PLAN: Home Jimi GONZALES RN, CM
--- NOTE | 2020-01-20 13:49 | DCINST_ITS ---
- Discharge Diagnoses Current Active Problems: Current Active and Chronic Problems (Last Reviewed 07/26/19 @ 09:40 by Josephine Ferreira) Aortic valve insufficiency (Chronic) JACOB (obstructive sleep apnea) (Chronic) Diastolic dysfunction without heart failure (Chronic) Paroxysmal a-fib (Chronic) You will use the following diet at home:: Cardiac Discharge Activity: Return to Normal Activity Call your doctor if you observe: Shortness of breath, Dizziness, Fainting spells, Chest pain, Increased palpitations (irregular heartbeat) Allergies/Adverse Reactions: Allergies No Known Allergies Allergy (Verified 01/14/19 08:53) Medications to take at Discharge Aspirin 325 mg PO DAILY@0800 11/17/16 omega-3 fatty acids 1,000 mg capsule 1,000 mg PO QDAY 08/06/17 Fiber Therapy 2 cap PO BID 12/26/17 levothyroxine 50 mcg capsule 50 mcg PO DAILY 01/14/19 diltiazem HCl 120 mg capsule,extended release 24 hr 120 mg PO QDAY #90 cap 07/26/19 Multivitamin [Daily Value] 1 ea PO DAILY 01/19/20 Rosuvastatin Calcium [Crestor] 10 mg PO QHS 01/19/20 Primary Care Physician: Destinee Burton MD [Primary Care Provider] - Please follow up with your Primary Care Physician in: 1 Week Test Results: Test results from this visit will be discussed in further detail at your follow- up appointment, if applicable. Please Follow Up With: Shirin Wilcox, PA When: As scheduled 01/23/2020 Proposed Discharge Date: 01/20/20
--- NOTE | 2020-01-20 13:51 | DS.PCM_ITS ---
<Amaya Allen DIRECTOR OF FOOD AND NUTRITION SERVICES - Last Filed: 01/20/20 14:00> Discharge Date and Diagnosis Date of Admission: 01/19/20 Date of Discharge: 01/20/20 - Primary Discharge Diagnosis Acute Problems: 1. Paroxysmal atrial fibrillation with RVR 2. Indeterminate troponin, demand ischemia as a result of #1 3. Chronic diastolic dysfunction 4. Aortic valve insufficiency 5. Hypothyroidism 6. Hyperlipidemia 7. JACOB - Secondary Discharge Diagnosis Chronic Problems: Chronic Problems (Last Reviewed 07/26/19 @ 09:40 by Josephine Ferreira) Aortic valve insufficiency (Chronic) JACOB (obstructive sleep apnea) (Chronic) Diastolic dysfunction without heart failure (Chronic) Paroxysmal a-fib (Chronic) Hospital Course and Treatment Imaging Results: Diagnostic Data Chest X-Ray 01/19/20 05:52 IMPRESSION: Left basilar subsegmental atelectasis. Electronically Signed: Krista Tanner MD at 6:12 EST , Service support , Dr. Ramirez- Cardiology Operations: None Procedures: 2-D Echocardiogram, Stress test Summary of Care Provided: The patient is a 74 year old M admitted 01/19/2020 due to palpitations. 1. Paroxysmal atrial fibrillation with RVR-patient received IV Cardizem admission along with IV digoxin x1. Converted to sinus rhythm. Patient underwent nuclear stress test which was negative for ischemia, LVEF 68%. Echocardiogram completed, report pending and will be reviewed prior to discharge. Patient had recent echo August 2019 as noted below. Plan to continue home aspirin 325 mg daily and home Cardizem 120 mg daily regimen per cardiology recommendations. Patient has upcoming follow-up with cardiology 01/23/2020 for further outpatient follow-up. 2. Indeterminate troponin, demand ischemia as a result of #1-enzymes did not trend. 3. Chronic diastolic dysfunction-echo August 2019 with EF 65%, stage II diastolic dysfunction, mild tricuspid valve insufficiency, mild to moderate aortic valve insufficiency, RVSP estimated to be 31 mmHg. Repeat echo completed during admission, report pending. 4. Aortic valve insufficiency-mild to moderate aortic valve insufficiency noted on echo August 2019. 5. Hypothyroidism-continue Synthroid. 6. Hyperlipidemia-continue statin. 7. JACOB-on CPAP. Patient seen and examined prior to discharge. Physical assessment as noted below. Patient is stable for discharge with follow up recommendations as noted above. This patient was seen by ELAYNE Larkin under the supervision of Dr. Choudhury. - Physical Exam Vitals/I&O's: Vital Signs Temp Pulse Resp BP Pulse Ox 96.6 F L 56 L 12 109/76 100 01/20/20 10:36 01/20/20 10:36 01/20/20 10:36 01/20/20 10:36 01/20/20 10:36 Oxygen Delivery Method Room Air Weight: 178 lb 5.663 oz Body Mass Index (BMI) 25.5 Intake and Output for Last 24 Hours 01/18/20 01/19/20 01/20/20 23:59 23:59 23:59 Intake Total 540.00 / 540.00 850 / 850 Balance 540.00 / 540.00 850 / 850 General: Alert, Oriented x3, Cooperative HEENT: Atraumatic, PERRLA, EOMI, Normocephalic Neck: Supple, No JVD, Negative Carotid Bruits Lungs: Clear to auscultation, Normal air movement Cardiovascular: Regular Rhythm, Bradycardic Abdomen: Bowel Sounds Present, Soft, Non Tender, Non-Distended Extremities: No clubbing, No cyanosis, No edema, Capillary Refill Less than 3 Seconds Skin: No rashes, No breakdown Musculoskeletal: No Tenderness to Palpation of Joints or Extremities Neurological: Cranial nerves II-XII grossly intact, Neuro grossly intact Psych/Mental Status: Normal Affect, Appropriate Laboratory Results 01/20/20 06:15: WBC 6.6, RBC 4.76, Hgb 13.3, Hct 39.9 L, MCV 83.8, MCH 27.9, MCHC 33.3, RDW Std Deviation 41.1, RDW Coeff of Diane 13.2, Plt Count 180, MPV 8.2, Immature Gran % (Auto) 0.300, Neut % (Auto) 51.8, Lymph % (Auto) 31.4, Walton % (Auto) 11.8 H, Eos % (Auto) 3.8, Baso % (Auto) 0.9, Absolute Neuts (auto) 3.4, Absolute Lymphs (auto) 2.08, Nucleated RBC % 0 01/20/20 06:15: Sodium 138, Potassium 4.0, Chloride 107, Carbon Dioxide 25.0, Anion Gap 6, BUN 22 H, Creatinine 1.07, Estim Creat Clear Calc 64.43, Est GFR (MDRD) Af Amer 87, Est GFR (MDRD) Non-Af 72, BUN/Creatinine Ratio 20.6 H, Glucose 89, Calcium 8.4 L, Troponin I 0.024 Current Medications Aspirin (Aspirin 325 Mg Tablet) 325 mg PO DAILY@0800 [facility] Last Admin: 01/20/20 06:36 Dose: 325 mg Documented by: Atorvastatin Calcium (Atorvastatin Calcium 20 Mg Tablet) 20 mg PO QHS [facility] Last Admin: 01/19/20 22:35 Dose: 20 mg Documented by: Diltiazem HCl (Diltiazem Cd 120 Mg Capsule) 120 mg PO DAILY [facility] Last Admin: 01/20/20 10:39 Dose: 120 mg Documented by: Enoxaparin Sodium (Enoxaparin 80 Mg/0.8 Ml Syringe) 80 mg SC Q12 [facility] Last Admin: 01/19/20 22:36 Dose: 80 mg Documented by: Levothyroxine Sodium (Levothyroxine 50 Mcg Tablet) 50 mcg PO DAILY@0600 [facility] Last Admin: 01/20/20 06:36 Dose: 50 mcg Documented by: Multivitamins (Multivitamins,Therapeutic Tablet) 1 tablet PO DAILYCM [facility] Last Admin: 01/20/20 10:39 Dose: 1 tablet Documented by: Nitroglycerin (Nitroglycerin (Inpatient Use) 0.4 Mg Tab.Subl) 0.4 mg SUBLINGUAL Q5M PRN PRN Reason: CARDIAC/CHEST PAIN [id number] Ethyl Esters ([place]-3 Acid Ethyl Esters 1 Gm Capsule) 1 gm PO DAILY [facility] Last Admin: 01/20/20 10:39 Dose: 1 gm Documented by: Ondansetron HCl (Ondansetron 4 Mg/2 Ml Vial) 4 mg IV Q8H PRN PRN PRN Reason: NAUSEA/VOMITING Senna/Docusate Sodium (Senna/Docusate Sodium 1 Tablet) 1 tablet PO BID [facility] Last Admin: 01/20/20 10:39 Dose: 1 tablet Documented by: Sodium Chloride (0.9% Saline Lock 10 Ml Syringe) 10 - 40 ml IV UD PRN PRN Reason: SALINE FLUSH Discharge Diet: Low fat/ Low Cholesterol Discharge Activity: Return to Normal Activity Call your doctor if you observe: Shortness of breath, Dizziness, Fainting spells, Chest pain, Increased palpitations (irregular heartbeat) Home Medications: Medications to take at Discharge Aspirin 325 mg PO DAILY@0800 11/17/16 omega-3 fatty acids 1,000 mg capsule 1,000 mg PO QDAY 08/06/17 Fiber Therapy 2 cap PO BID 12/26/17 levothyroxine 50 mcg capsule 50 mcg PO DAILY 01/14/19 diltiazem HCl 120 mg capsule,extended release 24 hr 120 mg PO QDAY #90 cap 07/26/19 Multivitamin [Daily Value] 1 ea PO DAILY 01/19/20 Rosuvastatin Calcium [Crestor] 10 mg PO QHS 01/19/20 Primary Care Physician: Destinee Burton MD [Primary Care Provider] - Please follow up with your Primary Care Physician in: 1 Week Please Follow Up With: Shirin Wilcox, PA When: As scheduled 01/23/2020 Disposition: Home Minutes spent on discharge:: 35 Patient Condition:: Stable Medical Necessity - Tobacco Use Smoking Status: Never smoker Tobacco Use: Non-smoker Meaningful Use Info Meaningful Use Diagnoses (Choose all that apply): None applicable <Douglas Choudhury - Last Filed: 01/20/20 15:25> Discharge Date and Diagnosis - Secondary Discharge Diagnosis Chronic Problems: Chronic Problems (Last Reviewed 07/26/19 @ 09:40 by Josephine Ferreira) Aortic valve insufficiency (Chronic) JACOB (obstructive sleep apnea) (Chronic) Diastolic dysfunction without heart failure (Chronic) Paroxysmal a-fib (Chronic) Hospital Course and Treatment Operations: None Procedures: 2-D Echocardiogram, Stress test Summary of Care Provided: Patient seen and examined independently. Data reviewed. I agree with the above note by the nurse practitioner. The patient is a 74 year old M presents with palpitations. Patient was found in A. fib with RVR. Patient did receive one-time dose of digoxin. Patient has remained in sinus rhythm. Patient was seen in consultation by cardiology. S tress test was performed and was unremarkable. Patient will follow up with cardiology as outpatient. Patient did also have slight elevation in troponins but that is likely related with atrial fibrillation. [] - Physical Exam Vitals/I&O's: Vital Signs Temp Pulse Resp BP Pulse Ox 35.9 C L 56 L 12 109/76 100 01/20/20 10:36 01/20/20 10:36 01/20/20 10:36 01/20/20 10:36 01/20/20 10:36 Oxygen Delivery Method Room Air Weight: 80.9 kg Body Mass Index (BMI) 25.5 Intake and Output for Last 24 Hours 01/18/20 01/19/20 01/20/20 23:59 23:59 23:59 Intake Total 540.00 / 540.00 850 / 850 Balance 540.00 / 540.00 850 / 850 General: Alert, Cooperative HEENT: Atraumatic, Normocephalic Lungs: Clear to auscultation, Normal air movement Cardiovascular: Regular Rhythm, Bradycardic Abdomen: Bowel Sounds Present, Soft, Non Tender, Non-Distended Extremities: No edema, No Calf Tenderness Skin: No rashes, No breakdown Neurological: Cranial nerves II-XII grossly intact, Neuro grossly intact Psych/Mental Status: Normal Affect, Appropriate Laboratory Results 01/20/20 06:15: WBC 6.6, RBC 4.76, Hgb 13.3, Hct 39.9 L, MCV 83.8, MCH 27.9, MCHC 33.3, RDW Std Deviation 41.1, RDW Coeff of Diane 13.2, Plt Count 180, MPV 8.2, Immature Gran % (Auto) 0.300, Neut % (Auto) 51.8, Lymph % (Auto) 31.4, Walton % (Auto) 11.8 H, Eos % (Auto) 3.8, Baso % (Auto) 0.9, Absolute Neuts (auto) 3.4, Absolute Lymphs (auto) 2.08, Nucleated RBC % 0 01/20/20 06:15: Sodium 138, Potassium 4.0, Chloride 107, Carbon Dioxide 25.0, Anion Gap 6, BUN 22 H, Creatinine 1.07, Estim Creat Clear Calc 64.43, Est GFR (MDRD) Af Amer 87, Est GFR (MDRD) Non-Af 72, BUN/Creatinine Ratio 20.6 H, Glucose 89, Calcium 8.4 L, Troponin I 0.024 Current Medications Aspirin (Aspirin 325 Mg Tablet) 325 mg PO DAILY@0800 [facility] Last Admin: 01/20/20 06:36 Dose: 325 mg Documented by: Atorvastatin Calcium (Atorvastatin Calcium 20 Mg Tablet) 20 mg PO QHS [facility] Last Admin: 01/19/20 22:35 Dose: 20 mg Documented by: Diltiazem HCl (Diltiazem Cd 120 Mg Capsule) 120 mg PO DAILY [facility] Last Admin: 01/20/20 10:39 Dose: 120 mg Documented by: Enoxaparin Sodium (Enoxaparin 80 Mg/0.8 Ml Syringe) 80 mg SC Q12 [facility] Last Admin: 01/19/20 22:36 Dose: 80 mg Documented by: Levothyroxine Sodium (Levothyroxine 50 Mcg Tablet) 50 mcg PO DAILY@0600 [facility] Last Admin: 01/20/20 06:36 Dose: 50 mcg Documented by: Multivitamins (Multivitamins,Therapeutic Tablet) 1 tablet PO DAILYCM [facility] Last Admin: 01/20/20 10:39 Dose: 1 tablet Documented by: Nitroglycerin (Nitroglycerin (Inpatient Use) 0.4 Mg Tab.Subl) 0.4 mg SUBLINGUAL Q5M PRN PRN Reason: CARDIAC/CHEST PAIN Hdfnw-6-Yhyd Ethyl Esters ([place]-3 Acid Ethyl Esters 1 Gm Capsule) 1 gm PO DAILY [facility] Last Admin: 01/20/20 10:39 Dose: 1 gm Documented by: Ondansetron HCl (Ondansetron 4 Mg/2 Ml Vial) 4 mg IV Q8H PRN PRN PRN Reason: NAUSEA/VOMITING Senna/Docusate Sodium (Senna/Docusate Sodium 1 Tablet) 1 tablet PO BID [facility] Last Admin: 01/20/20 10:39 Dose: 1 tablet Documented by: Sodium Chloride (0.9% Saline Lock 10 Ml Syringe) 10 - 40 ml IV UD PRN PRN Reason: SALINE FLUSH Discharge Diet: Low fat/ Low Cholesterol Discharge Activity: Return to Normal Activity Call your doctor if you observe: Shortness of breath, Dizziness, Fainting spells, Chest pain, Increased palpitations (irregular heartbeat) Disposition: Home Minutes spent on discharge:: 35 Patient Condition:: Stable Medical Necessity - Tobacco Use Smoking Status: Never smoker Tobacco Use: Non-smoker Meaningful Use Info Meaningful Use Diagnoses (Choose all that apply): None applicable Inpatient E&M: 13326 [facility]
--- NOTE | 2020-01-20 14:07 | PHA.DC.MR ---
Pharmacy Service has performed discharge medication reconciliation for this patient. The patient's discharge medication list was reviewed for discrepancies and discrepancies were resolved. Home Medications Aspirin 325 mg PO DAILY@0800 11/17/16 omega-3 fatty acids 1,000 mg capsule 1,000 mg PO QDAY 08/06/17 Fiber Therapy 2 cap PO BID 12/26/17 levothyroxine 50 mcg capsule 50 mcg PO DAILY 01/14/19 diltiazem HCl 120 mg capsule,extended release 24 hr 120 mg PO QDAY #90 cap 07/26/19 Multivitamin [Daily Value] 1 ea PO DAILY 01/19/20 Rosuvastatin Calcium [Crestor] 10 mg PO QHS 01/19/20
== END 2020-01-20 16:44 | disposition home or self-care (01) | DRG 309 ==
LOC: ED 06:26 → PCU 08:05
PROVIDERS: Admitting Provider Student in an Organized Health Care Education/Training Program; Emergency Provider Emergency Medicine; PCP Internal Medicine
DX: I48.0 Paroxysmal atrial fibrillation (principal); I24.8 Other forms of acute ischemic heart disease; I50.32 Chronic diastolic (congestive) heart failure; I08.2 Rheumatic disorders of both aortic and tricuspid valves; E03.9 Hypothyroidism, unspecified; E78.5 Hyperlipidemia, unspecified; G47.33 Obstructive sleep apnea (adult) (pediatric); Z85.46 Personal history of malignant neoplasm of prostate; Z90.79 Acquired absence of other genital organ(s); Z79.82 Long term (current) use of aspirin; Z79.890 Hormone replacement therapy; Z79.01 Long term (current) use of anticoagulants; Z79.899 Other long term (current) drug therapy
CPT/HCPCS: 36415; 71045; 78452; 80048; 83880; 84443; 84484; 85025; 93005; 93017; 93306; 99285; A9500; A4216; J2785

== ENCOUNTER → 2022-07-27 | Outpatient (CLI) | payer MEDICARE, SELFPAY ==
--- NOTE | 2022-07-27 07:37 | CT_ITS ---
STUDY: CTA CHEST REASON FOR EXAM: Male, 76 years old. Dilated aortic root RADIATION DOSAGE (If Supplied By Facility): CTDIvol = ( 9.71 ) mGy, DLP = ( 352.91 ) mGycm TECHNIQUE: The examination was performed with the intravenous administration of IV 100mL Isovue-370. Post-processing of the angiographic images was performed, with multiplanar reformation and 3D reconstruction. Individualized dose optimization techniques were used for this CT. COMPARISON: Comparison is made with prior examination dated December 26, 2017. FINDINGS: Normal enhancement of the main pulmonary artery and right and left pulmonary arteries. Normal enhancement of the bilateral peripheral pulmonary arteries. There is no demonstrated pulmonary embolism. There is aneurysmal dilatation of the ascending aorta. The transverse diameter of the ascending aorta measures 40.5 mm''s. There is no demonstrated aortic dissection. Normal heart and pericardium. There are calcifications of the coronary arteries. Normal mediastinum. Normal hilar regions. Normal visualized trachea and bronchi. Hyperinflation. Mild degree of emphysematous changes. Increased linear markings at the lung bases suggestive of linear scarring. There has been improvement as compared to prior study. Stable 4 mm and 1.5 mm noncalcified nodules in the peripheral aspect of the right middle lobe. Stable 4.5 mm noncalcified nodule in the posterior lateral aspect of the left upper lobe. Normal pleura. Normal chest wall structures. There are degenerative changes of thoracic spine. Once again, there is evidence of a healed right posterior fourth fifth and sixth rib fractures. Left renal cyst. This measures [address]/CTA Chest W/WO Contrast IMPRESSION: The root of the ascending thoracic aorta measures 40.5 mm. Stable tiny nodules in the right middle lobe and lingular segment of the left upper lobe. Electronically Signed: Ulysses Wilburn MD at 15:12 EDT ,
[2022-07-27 08:14] LABS: CREATININE FINGERSTICK < 0.9 mg/dL (0.70-1.30)
== END | disposition home or self-care (01) ==
PROVIDERS: PCP Internal Medicine; Referring Provider Physician Assistant Medical; Visit Provider Physician Assistant Medical
DX: I77.810 Thoracic aortic ectasia (principal)
CPT/HCPCS: 71275; Q9967

== ENCOUNTER → 2023-06-09 | Outpatient (CLI) | payer MEDICARE, SELFPAY | END | disposition home or self-care (01) | LOC: PSN 07:17 | PROVIDERS: PCP Internal Medicine; Referring Provider Nurse Practitioner Family; Visit Provider Nurse Practitioner Family | DX: I48.0 Paroxysmal atrial fibrillation (principal) | CPT/HCPCS: 93225; 93226 ==

== ENCOUNTER → 2024-01-09 | Outpatient (CLI) | payer MEDICARE, SELFPAY | END | disposition home or self-care (01) | LOC: PSN 07:26 | PROVIDERS: PCP Internal Medicine; Referring Provider Physician Assistant Medical; Visit Provider Physician Assistant Medical | DX: R00.2 Palpitations (principal); I48.91 Unspecified atrial fibrillation; R00.0 Tachycardia, unspecified | CPT/HCPCS: 93225; 93226 ==

== ENCOUNTER 2024-01-24 10:21 | Day surgery (SDC) | payer MEDICARE, SELFPAY ==
--- NOTE | 2024-01-16 21:19 | HP.PCM_ITS ---
History and Physical Date of Admission: 01/24/24 ZORAIDA AMBROSE, is a 78 M who presents to the cardiac cath lab radiology technologist today for a cardioversion.? He has a cardiac history of paroxysmal atrial fibrillation and diastolic dysfunction.? He also has a history of objective sleep apnea with CPAP therapy and prostate cancer.? He was admitted in November 2016 for atrial fibrillation.? He converted on his own.? He had a Holter from monitor placed in May of this year and had an episode of atrial fibrillation approximately 0.1% of the time and was started on anticoagulation. He had a Holter monitor completed in December 2023 that showed atrial fibrillation with an elevated heart rate. On account of this, he will proceed with cardioversion. Previous 12 lead ECG in November 2023 show sinus rhythm. He denies chest, arm, jaw, or neck discomfort. He states intermittent palpitations. He denies bilateral lower extremity edema. He denies claudication. He denies shortness of breath with activity, shortness of breath at rest, orthopnea, or PND. He denies chronic cough. He denies significant, sudden weight gain. He denies lightheadedness, dizziness, near-syncope, or syncope. He denies blood in urine, blood in stool, or epistaxis. He denies fever with chills. He denies myalgia. He denies fatigue. His exercise level has remained stable two miles a day. Intake Vital Signs: See EMR Intake Visit Reasons: 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 Required: No Accompanied by: Self Is patient in pain?: No Allergies No Known Allergies Allergy (Verified 12/14/23 13:11) Medications: See EMR Have you fallen in the past year?: No PFSH Medical History JACOB on CPAP Nonrheumatic aortic (valve) insufficiency Aortic valve insufficiency Diastolic dysfunction without heart failure Prostate cancer Obstructive sleep apnea Paroxysmal a-fib Surgical History excision of tumor right knee H/O left inguinal hernia repair Family History Mother Heart disease A-FIB HypertensionFather Hypertension Social History Smoking Status: Never smoker ROS Const Const: Negative for fatigue, weakness, headache(s), daytime sleepiness or difficulty sleeping ENT ENT: Negative for headache(s), dizziness or Nosebleed/epistaxis Cardio Chest Pain: No Palpitations: Yes (rarely usually at night) Resp Respiratory: Negative for SOB with activity, SOB at rest, SOB orthopnea\SOB lying down or Cough GI GI: Negative nausea, vomiting or heartburn Neuro Neuro: Negative for dizziness, lightheadedness, near syncope, headache(s) or weakness Endo Endo: Negative for fatigue Cardiology Exam Const Appearance: cooperative, healthy appearing, comfortable and no acute distress Nutritional Appearance: well nourished and overweight Orientation: alert, awake and oriented x3 Head Head: normal to inspection Ears: hearing grossly normal bilaterally Nose: external nose normal Face and Sinus: face symmetric Mouth: moist mucous membranes Eyes General: appearance normal, both eyes and all related structures Eyelids: eyelids normal EOM: EOM intact bilaterally Neck Neck: normal visual inspection and no JVD Carotids: normal carotid upstroke Chest Chest inspection: normal inspection of the chest, symmetric chest movement and normal respiratory effort; Negative cough Auscultation: Bilateral: Clear to Auscultation Cardio Rhythm: irregular rhythm Heart sounds: S1 normal and S2 normal; Negative rub, gallop or murmur GI GI: normal to inspection Neuro General: patient alert, patient awake, patient oriented x3 and CN's II-XI intact bilaterally Skin Skin: no rashes or lesions noted Extremities Pulses: Normal: Right Posterior Tibial Pulse, Left Posterior Tibial Pulse, Right Radial Pulse and Left Radial Pulse Lower Extremity Edema: None: Bilateral Psych Psychological: normal affect Supplemental Info Supplemental Information Echocardiogram 01/20/2020: Normal LV size. Left ventricular systolic function is normal. The estimated ejection fraction is 60 %. Stage 2 diastolic dysfunction. Mildly dilated aortic root. Mild (1+) eccentric aortic valve insufficiency. Pulmonary artery systolic pressure is 30 mmHg. The global longitudinal strain is normal. The global longitudinal strain = -20 % (normal). Stress Test Report 01-20-2020 Impression: 1. Rest and stress SPECT Cardiolite nuclear imaging demonstrate relative uniform tracer uptake and myocardial perfusion appearing within normal limits. 2. The gated Cardiolite study reports an LVEF of 68%. Chest CTA 07/27/22 FINDINGS: Normal enhancement of the main pulmonary artery and right and left pulmonary arteries. Normal enhancement of the bilateral peripheral pulmonary arteries. There is no demonstrated pulmonary embolism. There is aneurysmal dilatation of the ascending aorta. The transverse diameter of the ascending aorta measures 40.5 mm''s. There is no demonstrated aortic dissection. Normal heart and pericardium. There are calcifications of the coronary arteries. Assessment and Plan Assessment and Plan (1) Paroxysmal a-fib: Status: Chronic Plan: He does have a history of paroxysmal atrial fibrillation. Based on Holter results and ongoing atrial fibrillation, he will proceed with cardioversion. (2) Dilated aortic root: Status: Chronic Plan: He does have a mildly dilated aortic root. Will continue to monitor the above. His CT scan from 2022 demonstrated a transverse ascending aorta measuring 4 cm. (3) Nonrheumatic aortic (valve) insufficiency: Status: Chronic Plan: He has mild aortic regurgitation which is likely secondary to the dilated aortic root. We will follow.
[2024-01-23 08:38] VITALS: BMI 25.4
--- NOTE | 2024-01-24 10:40 | EKG12_ITS ---
Test Reason : AFIB Blood Pressure : */* mmHG Vent. Rate : 125 BPM Atrial Rate : 107 BPM P-R Int : * ms QRS Dur : 76 ms QT Int : 332 ms P-R-T Axes : * 14 -36 degrees QTcB Int : 479 ms Atrial fibrillation Nonspecific ST abnormality , probably digitalis effect Abnormal ECG Confirmed by ANGEL PERDOMO, RANDY ([id number]), design editor NICO MEADOWS ([id number]) on 01/25/2024 6:28:45 AM Referred By: Randy Sousa Confirmed By: RANDY SOUSA MD
--- NOTE | 2024-01-24 12:14 | PRO.PCM_ITS ---
Problems Associated Problem List Diagnoses (1) Paroxysmal a-fib: Non-invasive Procedural Procedure Information Date of Procedure: 01/24/24 Pre-Procedure Diagnosis: Atrial fibrillation Post-Procedure Diagnosis: Same Procedure Performed:: DC cardioversion Procedure Time Out: : Procedure Start Time: :07 Procedure Stop Time: :08 Special Medications: Intravenous propofol 40 mg Fluids Replaced: KVO Description of procedure: Patient was brought to the cardiac catheterization lab in the postabsorptive nonsedated state. Informed consent was obtained. The patient was seen by Dr. Villatoro of the critical care division. Informed consent was obtained. Anterior- posterior pads were applied. The patient was administered 40 mg intravenous propofol. 200 J of synchronized biphasic DC cardioversion energy were applied with prompt reversal to sinus rhythm. Procedure findings: Successful DC cardioversion from atrial fibrillation to sinus rhythm Complications Complications: No
--- NOTE | 2024-01-24 12:55 | CARDIOVERS ---
Cardioversion Cardioversion: CONSCIOUS SEDATION REPORT DATE OF SERVICE: January 24, 2024 BRIEF HISTORY OF PRESENT ILLNESS: The patient is a 78-year-old male who presented to [facility] to undergo an elective outpatient cardioversion due to underlying atrial fibrillation. The patient is a lifelong non-smoker. He denied any prior anesthetic complications. The patient is systemically anticoagulated on Eliquis. His last surface echocardiogram demonstrated an ejection fraction of approximately 60%. The patient does have a known history of obstructive sleep apnea on nocturnal PAP therapy. PHYSICAL EXAMINATION: VITAL SIGNS: Reviewed and were acceptable. GENERAL: The patient is a male, in no apparent distress, speaking in full sentences. HEENT: Normocephalic, atraumatic. Mucous membranes are moist and pink. Good mouth opening noted. Trachea is midline. Good neck mobility. CHEST: S1, S2 irregularly irregular. No murmurs, rubs or gallops were noted. LUNGS: Clear to auscultation bilaterally without appreciable wheezes, rales or rhonchi. ABDOMEN: Soft, nontender, nondistended. Positive bowel sounds. EXTREMITIES: There is no clubbing, cyanosis or edema. ASA Class: II DESCRIPTION OF PROCEDURE: After confirmation of informed consent, the patient's anesthesia plan was reviewed in detail. Propofol was chosen. Risks and benefits were reviewed and the patient agreed to proceed. At 1207, the patient was given 40 mg of propofol. The patient achieved an appropriate level of sedation and was given a 200 joule synchronized cardioversion by Dr. Sousa at the bedside. This was successful in achieving normal sinus rhythm. The patient was monitored until 1220, at which time he reached his baseline mental status and function. The patient tolerated the procedure well. COMPLICATIONS: None ESTIMATED BLOOD LOSS: None RECOMMENDATIONS: Okay to recover in usual fashion. Procedures Pulmonary Pulmonary Procedures /Diagnostic Testin Con Sedation
== END 2024-01-24 13:15 | disposition home or self-care (01) ==
PROVIDERS: PCP Internal Medicine; Referring Provider Internal Medicine Cardiovascular Disease; Visit Provider Internal Medicine Cardiovascular Disease
DX: I48.0 Paroxysmal atrial fibrillation (principal); I35.1 Nonrheumatic aortic (valve) insufficiency; I77.819 Aortic ectasia, unspecified site
CPT/HCPCS: 92960; 93005

== ENCOUNTER → 2024-11-21 | Outpatient (CLI) | payer MEDICARE, SELFPAY ==
--- NOTE | 2024-11-21 09:14 | ECHOD_ITS ---
Reason For Study Reason For Study: AFib/Flutter Procedure This was a 2D Doppler, Color Flow transthoracic echocardiogram. Techncially difficult due to HR. Exam performed in department. Left Ventricle Normal LV size. The left ventricular ejection fraction is 45 %. No regional wall motion abnormalities noted. Right Ventricle Mildly dilated right ventricle. Normal systolic function. Atria The left atrium is moderately enlarged. The right atrium is moderately enlarged. Tricuspid Valve Normal tricuspid valve. Mild (1+) tricuspid valve insufficiency. Pulmonary artery systolic pressure is 25 mmHg. Aortic Valve Trisinus/trileaflet aortic valve. Mild diffuse aortic valve thickening. Mild (1+) eccentric aortic valve insufficiency. Pulmonic Valve Normal pulmonic valve. Great Vessels Mild to moderately dilated aortic root. The pulmonary artery is normal size. Inferior vena cava collapse with respiration. Pericardium/Pleural No pericardial effusion. MMode/2D Measurements & Calculations LVIDd: 4.4 cm IVSd: 1.2 cm Ao root diam: 4.1 cm LVIDs: 2.7 cm LVPWd: 0.82 cm RVDd: 4.0 cm FS: 38.5 % asc Aorta Diam: 3.9 cm LAV(MOD-bp): 81.2 ml LVAd ap4: 23.4 cm2 LAV(MOD-bp) Indexed: 41.3 ml/m2 LVLd ap4: 7.3 cm LAV(MOD-sp2): 73.1 ml EDV(MOD-sp4): 62.2 ml LAV(MOD-sp4): 93.0 ml EDV(sp4-el): 63.9 ml LVAs ap4: 16.4 cm2 LVLs ap4: 6.5 cm ESV(MOD-sp4): 35.3 ml ESV(sp4-el): 35.0 ml EF(MOD-sp4): 43.2 % EF(sp4-el): 45.2 % SV(MOD-sp4): 26.8 ml SV(sp4-el): 28.9 ml LA A4 area: 27.2 cm2 SI(MOD-sp4): 13.6 ml/m2 LA dimension(2D): 4.1 cm RA A4 area: 27.0 cm2 Doppler Measurements & Calculations MV E max ana: 73.7 cm/sec MV V2 max: 82.0 cm/sec Ao V2 max: 77.8 cm/sec MV max P.7 mmHg Ao max P.4 mmHg MV V2 mean: 41.4 cm/sec MV mean P.89 mmHg MV V2 VTI: 10.1 cm AI max ana: 483.2 cm/sec LV V1 max: 57.2 cm/sec MR max ana: 447.7 cm/sec AI max P.4 mmHg LV V1 max P.3 mmHg MR max P.2 mmHg AI dec slope: 328.8 cm/sec2 AI P1/2t: 430.4 msec TR max ana: 235.7 cm/sec TR max P.4 mmHg ECHO/Echo Complete Interpretation Summary The left ventricular ejection fraction is 45 %. Normal LV size. Mildly dilated right ventricle. Mild to moderately dilated aortic root. The left atrium is moderately enlarged. The right atrium is moderately enlarged. Ordering Physician: Luther Ryan Referring Physician: Luther Ryan Performed By: Prashant Zuñiga RCS
[2024-11-21 09:39] LABS: Hematocrit 41.2 % (40-54); Hemoglobin 14.2 g/dL (13.0-16.5); Immature Granulocytes Count 0.020 X10^3/uL (0.0-0.0); Mean Corp Hgb Conc 34.5 g/dL (32-36); Mean Corpuscular Volume 87.5 fL (80-94); Mean Platelet Vol. 8.9 fl (6.2-12.0); NRBC Flagged by Analyzer 0 % (0-5); Platelet Count 174 K/mm3 (150-450); RBC Distribution Width CV 13.4 % (11.6-14.6); RBC Distribution Width SD 43.0 fl (35.1-43.9); Red Blood Count 4.71 M/mm3 (4.6-6.2); White Blood Count 7.3 K/mm3 (4.4-11.0)
[2024-11-21 10:21] LABS: Magnesium 2.2 mg/dL (1.5-2.2)
[2024-11-21 11:55] LABS: Anion Gap 9 (5-15); BUN 19 mg/dL (4-19); BUN/Creat Ratio 18.4 RATIO (10-20); Calcium,Total 9.3 mg/dL (7.6-11.0); Carbon Dioxide 25.8 mmol/L (21.0-32.0); Chloride 103 mmol/L (98-108); Glucose 87 mg/dL (70-99); Potassium 4.7 mmol/L (3.3-5.1)
== END | disposition home or self-care (01) ==
PROVIDERS: PCP Internal Medicine; Referring Provider Nurse Practitioner Family; Visit Provider Nurse Practitioner Family
DX: I77.810 Thoracic aortic ectasia (principal); I48.0 Paroxysmal atrial fibrillation; I35.1 Nonrheumatic aortic (valve) insufficiency; I51.89 Other ill-defined heart diseases
CPT/HCPCS: 36415; 80048; 83735; 84439; 84443; 85025; 93306

== ENCOUNTER 2024-11-25 10:08 | Day surgery (SDC) | payer MEDICARE, SELFPAY ==
--- NOTE | 2024-11-21 09:15 | RAD_ITS ---
PROCEDURE: CHEST PA AND LATERAL 11/21/2024 REASON FOR EXAM: PRE-OPERATIVE: DCCV TECHNIQUE: Procedure Code: RADCXR Modality: DX Procedure: CHEST PA AND LATERAL COMPARISON: None FINDINGS: Hardware: None Heart: The heart size is normal. Mediastinum: The mediastinal contour is unremarkable. Lungs: Chronic interstitial changes in both lung [place] without a superimposed acute pulmonary process Bones: Degenerative bony changes, old healed right rib fractures RAD/Chest PA and Lateral IMPRESSION: Chronic interstitial changes, no superimposed acute pulmonary process Reading Location: [place] [id number]
[2024-11-22 08:58] VITALS: BMI 25.0
--- NOTE | 2024-11-25 12:20 | PRO.PCM_ITS ---
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 Informed consent was obtained. Patient was seen by Dr. Villatoro electrical cardioversion. Anterior-posterior pads were applied. 40 mg of intravenous propofol was administered and then 200 J of DC cardioversion energy with prompt reversal to sinus rhythm. Patient tolerated the procedure well. Procedure findings: Successful DC cardioversion from atrial fibrillation to sinus rhythm.
--- NOTE | 2024-11-25 12:47 | PRO.PCM_ITS ---
Procedures Pulmonary Pulmonary Procedures /Diagnostic Testin Con Sedation Bedside Procedural Bedside Procedure Information Date of Procedure: 11/25/24 Description of procedure: CONSCIOUS SEDATION REPORT DATE OF SERVICE: November 25, 2024 BRIEF HISTORY OF PRESENT ILLNESS: The patient is a 79-year-old male who presented to [facility] to undergo an elective outpatient cardioversion due to underlying atrial fibri llation. The patient is a lifelong non-smoker. He did undergo a prior cardioversion in January 2024. He denied any history of any anesthetic complications. The patient is systemically anticoagulated on Eliquis. His last surface echocardiogram demonstrated an ejection fraction of approximately 60%. He does have a known history of obstructive sleep apnea on nocturnal PAP therapy. PHYSICAL EXAMINATION: VITAL SIGNS: Reviewed and were acceptable. GENERAL: The patient is a male, in no apparent distress, speaking in full sentences. HEENT: Normocephalic, atraumatic. Mucous membranes are moist and pink. Good mouth opening noted. Trachea is midline. Good neck mobility. CHEST: S1, S2 irregularly irregular. No murmurs, rubs or gallops were noted. LUNGS: Clear to auscultation bilaterally without appreciable wheezes, rales or rhonchi. ABDOMEN: Soft, nontender, nondistended. Positive bowel sounds. EXTREMITIES: There is no clubbing, cyanosis or edema. ASA Class: II DESCRIPTION OF PROCEDURE: After confirmation of informed consent, the patient's anesthesia plan was reviewed in detail. Propofol was chosen. Risks and benefits were reviewed and the patient agreed to proceed. At 1212, the patient was given 40 mg of propofol. The patient achieved an appropriate level of sedation and was given a 200 joule synchronized cardioversion by Dr. Sousa at the bedside. This was successful in achieving normal sinus rhythm. The patient was monitored until 1226, at which time he reached his baseline mental status and function. The patient tolerated the procedure well. COMPLICATIONS: None ESTIMATED BLOOD LOSS: None RECOMMENDATIONS: Okay to recover in usual fashion.
== END 2024-11-25 13:20 | disposition home or self-care (01) ==
PROVIDERS: PCP Internal Medicine; Referring Provider Internal Medicine Cardiovascular Disease; Visit Provider Internal Medicine Cardiovascular Disease
DX: I48.0 Paroxysmal atrial fibrillation (principal); I48.19 Other persistent atrial fibrillation; Z79.01 Long term (current) use of anticoagulants; Z79.899 Other long term (current) drug therapy; Z79.82 Long term (current) use of aspirin; Z79.890 Hormone replacement therapy; I35.1 Nonrheumatic aortic (valve) insufficiency; I51.89 Other ill-defined heart diseases; I77.810 Thoracic aortic ectasia; Z99.89 Dependence on other enabling machines and devices
CPT/HCPCS: 71046; 92960; 93005

== ENCOUNTER 2024-12-30 10:41 | Day surgery (SDC) | payer MEDICARE, SELFPAY ==
[2024-12-17 15:35] LABS: Anion Gap 9 (5-15); BUN 25 mg/dL (4-19); BUN/Creat Ratio 24.2 RATIO (10-20); Calcium,Total 9.3 mg/dL (7.6-11.0); Carbon Dioxide 25.3 mmol/L (21.0-32.0); Chloride 105 mmol/L (98-108); Glucose 80 mg/dL (70-99); Potassium 4.5 mmol/L (3.3-5.1)
[2024-12-27 09:07] VITALS: BMI 25.2
--- NOTE | 2024-12-30 12:27 | PCM.OP.PRO2 ---
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 Informed consent was obtained. Anterior-posterior pads were applied. The patient was seen by Dr. Villatoro of the critical care division. 40 mg of intravenous propofol was administered and then 200 J of synchronized biphasic DC cardioversion energy were applied with prompt reversal to sinus rhythm. Patient tolerated the procedure well. Procedure findings: Continue anticoagulation Continue antiarrhythmic for least 2 to 3 months and then see how patient is doing and consider discontinuation. Patient claims that he is short of breath since starting the antiarrhythmic.
--- NOTE | 2024-12-30 12:33 | EKG12_ITS ---
Test Reason : DCCV Blood Pressure : */* mmHG Vent. Rate : 45 BPM Atrial Rate : 45 BPM P-R Int : 226 ms QRS Dur : 78 ms QT Int : 508 ms P-R-T Axes : 5 21 1 degrees QTcB Int : 439 ms Sinus bradycardia with 1st degree A-V block with Premature atrial complexes Otherwise normal ECG When compared with ECG of 30-Dec-2024 11:06, MANUAL COMPARISON REQUIRED DATA IS UNCONFIRMED Confirmed by ANGEL PERDOMO, RANDY ([id number]), videotape editor NICO MEADOWS ([id number]) on 12/30/2024 1:50:56 PM Referred By: Randy Sousa Confirmed By: RANDY SOUSA MD
--- OUTSIDE RECORDS SUMMARY | 2024-12-30 12:34 | XMS RPT_ITS | CCD ---
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 Amrit Birmingham MD Primary Care Provider Dr. Amrit Birmingham MD Referring Provider Roof WASHER OPERATOR-CJacobo Attending Provider Dr. Amrit Birmingham MD Primary Care Physician Shelby WASHER OPERATOR-Jacobo Falcon Attending Physician Kathi Sanchez Attending Physician Shelby WASHER OPERATOR-CJacobo Referring Provider Dr. Randy Sousa MD Attending Physician Dr. Randy Sousa MD Referring Provider Dr. Randy Sousa MD Nurse Practitioner Dr. Jhon Villatoro DO Attending Physician AMRIT BIRMINGHAM Attending Unavailable AMRIT BIRMINGHAM Primary Care Unavailable OLDER, LALY Referring Unavailable AMRIT BIRMINGHAM Primary Care Unavailable AMRIT BIRMINGHAM Primary Care Unavailable OLDER, LALY Attending Unavailable LENI TANNER Referring Unavailable GANTA, AMRIT Primary Care Unavailable LENI TANNER Attending Unavailable GANTA, AMRIT Primary Care Unavailable GANTA, AMRIT Primary Care Unavailable GANTA, AMRIT Referring Unavailable GANTA, AMRIT Primary Care Unavailable SELF Referring Unavailable GANTA, AMRIT Attending Unavailable GANTA, AMRIT Primary Care Unavailable GANTA, AMRIT Primary Care Unavailable GANTA, AMRIT Referring Unavailable GANTA, AMRIT Primary Care Unavailable ROOF JACOBO H Referring Unavailable GANTA, AMRIT Primary Care Unavailable Ganta, Amrit Primary Care Unavailable Merry, Randy Attending Unavailable Merry, Joliet Referring Unavailable Ganta, Amrit Primary Care Unavailable Shirin Eagle Referring Unavail able Shirin Eagle Attending Unavail able Tyson WASHER OPERATOR, Kathi Attending Unavailable Ganta, Amrit Primary Care Unavailable Ganta, Amrit Referring Unavailable Tyson WASHER OPERATOR, Kathi Attending Unavailable Ganta, Amrit Primary Care Unavailable Ganta, Amrit Referring Unavailable Tyson WASHER OPERATOR, Kathi Attending Unavailable Ganta, Amrit Primary Care Unavailable Ganta, Amrit Referring Unavailable Ganta, Amrit Primary Care Unavailable Ganta, Amrit Referring Unavailable Merry, Randy Attending Unavailable Ganta, Amrit Primary Care Unavailable Merry, Joliet Attending Unavailable Ganta, Amrit Primary Care Unavailable Merry, Randy Attending Unavailable Merry, Randy Consulting Unavailable Merry, Randy Referring Unavailable BrownJhon Attending Unavailable Ganta, Amrit Primary Care Unavailable Merry, Joliet Consulting Unavailable Merry, Randy Referring Unavailable Merry, Randy Referring Unavailable Ganta, Amrit Primary Care Unavailable Merry, Joliet Attending Unavailable Merry, Joliet Consulting Unavailable Ganta, Amrit Primary Care Unavailable Merry, Joliet Consulting Unavailable Merry, Joliet Attending Unavailable Merry, Randy Referring Unavailable [place] Attending Unavailable Ganta, Amrit Primary Care Unavailable Merry, Joliet Consulting Unavailable Ganta, Amrit Primary Care Unavailable Reji Nevarez Attending Unavailable Shirin Eagle Referring Unavail able Ganta, Amrit Primary Care Unavailable Ganta, Amrit Referring Unavailable Roof WASHER OPERATOR, Jacobo Arora Attending Unavailable Merry, Joliet Referring Unavailable Ganta, Amrit Primary Care Unavailable Merry, Randy Attending Unavailable Ganta, Amrit Primary Care Unavailable Merry, Joliet Referring Unavailable Merry, Randy Attending Unavailable Ganta, Amrit Primary Care Unavailable Shelby WASHER OPERATORJacobo Referring Unavailable [facility] WASHER OPERATOR, Jacobo Arora Attending Unavailable Dr. Amrit Birmingham MD Primary Care Physician Josephine PERDOMO, Dr. Felipe Referring Provider Shelby WASHER OPERATOR-C, Jacobo Arora Attending Physician Kathi Sanchez Attending Physician Shelby WASHER OPERATOR-C, Jacobo Arora Referring Provider Merry PERDOMO, Dr. Padilla Attending Physician Dr. Randy Sousa MD Referring Provider Dr. Randy Sousa MD Nurse Practitioner Dr. Jhon Villatoro DO Attending Physician Allergies Allergy Classification Reported Allergen(s) Allergy Type Date of Onset Reaction(s) Facility (20 sources) Seasonal allergy; Translations: [SEASONAL ALLERGIES] Allergy to substance 7 Other: See Comments [facility] Work Phone: Medications Current Medications Medication Drug Class(es) Dates Sig (Normalized) Sig (Original) amiodarone hydrochloride 200 mg oral tablet (1 source) Antiarrhythmic Start: 12-13-2024 take 1 tablet by mouth twice daily, then take 1 tablet by mouth once daily Start: 12-13-2024 take 1 tablet by marvin th twice daily, then take 1 tablet by mouth once daily aspirin 81 mg delayed release oral tablet (20 sources) Nonsteroidal Anti-inflammatory Drug Start: 11-22-2023 take 1 tablet by mouth once daily Start: 11-17-2016 End: 07-17-2023 take 1 tablet by mouth once daily Aspirin 325 MG tablet Discontinued 325 mg PO DAILY@0800 November 16, 2016 11:00pm July 17, 2023 4:19pm ANTIPLATELET Start: 01-21-2013 End: 11-22-2023 take 1 tablet by mouth once daily at mealtime aspirin, enteric coated 325 mg EC tablet Take 1 tablet by mouth once daily. Take with food. 30 tablet 11 01/21/2013 11/22/2023 Discontinued Comment on above: Take 1 tablet by marvin th once daily. Take with food. benzonatate 100 mg oral capsule (6 sources) Non-narcotic Antitussive Start: 5 End: take 1 capsule by mouth three times daily as needed for cough benzonatate (TESSALON PERLE) 100 mg capsule Indications: Community acquired pneumonia, unspecified laterality Take 1 capsule by mouth three times a day as needed for cough for up to 7 days. 21 capsule 10/28/2024 11/04/2024 Active Start: 02-01-2023 End: 02-17-2023 take 1 capsule by mouth every eight hours as needed benzonatate (TESSALON PERLES) 100 mg capsule Take 1 capsule by mouth three times a day as needed for cough. 14 capsule 02/01/2023 02/17/2023 Discontinued Comment on above: Take 1 capsule by mo ut three times a day as needed for cough. cholecalciferol 0.05 mg oral capsule (6 sources) Vitamin D Start: 01-23-2020 take 1 capsule by mouth once daily coconut oil 1000 mg oral capsule (4 sources) Start: 12-14-2023 take 1 capsule by mouth once daily CPAP/BIPAP/OTHER (20 sources) Start: 10-22-2024 End: 03-08-2052 CPAP/BIPAP/OTHER Type .CPAPSettings into a note to see current settings/supplie s/DME information. 1 each 10/22/2024 03/08/2052 Active Start: 07-27-2022 End: 12-11-2049 CPAP/BIPAP/OTHER Indications : Sleep apnea, unspecified type Type .CPAPSettings into a note to see current settings/supplies/DME information. 1 Each 07/27/2022 12/11/2049 Active Start: 07-27-2022 End: 12-11-2049 CPAP/BIPAP/OTHER Indications : Sleep apnea, unspecified type Type .CPAPSettings into a note to see current settings/supplies/DME information. 1 Each 0 07/27/2022 12/11/2049 Active Comment on above: Type .CPAPSettings i nto a note to see current settings/supplies/DME information. doxycycline hyclate 100 mg oral capsule (3 sources) Tetracycline-class Drug Start: 025 End: 025 take 1 capsule by mouth twice daily doxycycline hyclate (VIBRAMYCIN) 100 mg capsule Indications: Community acquired pneumonia, unspecified laterality Take 1 capsule by mouth two times a day for 5 days. 10 capsule 10/28/2024 11/02/2024 Active Fiber Therapy (6 sources) Start: 018 Start: 12-26-2017 Start: 12-26-2017 Fiber Therapy Active 2 NMA PO TWICE A DAY December 26, 2017 1:00am fiber Complies with drug therapy Start: 12-26-2017 Fiber Therapy Active 2 NMA PO TWICE A DAY December 26, 2017 1:00am fiber Start: 12-26-2017 take 2 capsules by m outh twice daily Fiber Therapy Active 2 CAP PO TWICE A DAY December 26, 2017 1:00am levocetirizine dihydrochloride 5 mg oral tablet (7 sources) Histamine-1 Receptor Antagonist Start: 11-21-2024 take 1 tablet by mouth once daily Start: 12-14-2023 End: 10-23-2024 take 1 tablet by mouth once daily Levocetirizine (Xyzal) 5 mg tablet Discontinued 5 mg PO daily December 13, 2023 11:00pm October 23, 2024 9:08am levothyroxine sodium 0.05 mg oral tablet (20 sources) l-Thyroxine Start: 10-23-2024 take 1 tablet by marvin th once daily Start: 11-03-2021 End: 06-20-2023 take 1 tablet by mouth once daily for thyroid dysfunction levothyroxine (LEVOXYL) 50 mcg tablet Indications: Acquired hypothyroidism Take 1 tablet by mouth once daily. Take on empty stomach. For Thyroid 90 tablet 3 06/20/2023 Active Start: 01-04-2021 take 1 tablet by marvin th once daily for thyroid dysfunction levothyroxine (LEVOXYL) 50 mcg tablet Indications: Acquired hypothyroidism Take 1 tablet by mouth once daily. Take on empty stomach. For Thyroid 90 tablet 3 01/04/2021 Active Start: 01-14-2019 End: 10-23-2024 take 1 capsule by mouth once daily Levothyroxine 50 mcg capsule Discontinued 50 ug PO DAILY January 14, 2019 12:00am October 23, 2024 9:08am thyroid Comment on above: Take 1 tablet by marvin th once daily. Take on empty stomach. For Thyroid Magnesium Aspart,Citrate,Oxi de 400 mg magnesium capsule (8 sources) Start: 12-14-2023 Start: 12-14-2023 Start: 12-14-2023 Magnesium Aspa rt,Citrate,Oxide 400 mg magnesium capsule Active 250 mg PO DAILY December 14, 2023 1:12pm Complies with drug therapy Start: 12-14-2023 Magnesium Aspa rt,Citrate,Oxide 400 mg magnesium capsule Active 250 mg PO DAILY December 14, 2023 1:12pm Start: 08-30-2021 End: 12-14-2023 take 1 capsule by mouth once daily Magnesium Aspart,Citrate,Oxide 400 mg magnesium capsule Discontinued 400 mg PO DAILY August 29, 2021 11:00pm December 14, 2023 12:14pm Start: 08-30-2021 End: 12-14-2023 take 1 capsule by mouth once daily Magnesium Aspart,Citrate,Oxide 400 mg magnesium capsule Discontinued 400 mg PO DAILY August 30, 2021 12:00am December 14, 2023 1:14pm Magnesium Oxide,Aspartate,Citr (2 sources) Start: 08-30-2021 take 400 mg by mouth once daily Magnesium Oxide,Aspartate,Citr Active 400 MG PO DAILY August 30, 2021 12:00am MAGNESIUM OXIDE,ASPARTATE,CITR ORAL (20 sources) Start: 08-30-2021 MAGNESIUM OXIDE,ASPARTATE,CITR ORAL Take by mouth. 08/30/2021 Active Start: 08-30-2021 MAGNESIUM OXID E,ASPARTATE,CITR ORAL Take by mouth. 0 08/30/2021 Active Comment on above: Take by mouth. metoprolol tartrate 50 mg oral tablet (20 sources) beta-Adrenergic Mega Start: 12-05-2024 take 1 tablet by mouth twice daily Start: 12-05-2024 take 1 tablet by marvin th twice daily Metoprolol Tartrate 50 mg tablet Active 50 mg PO TWICE A DAY 60 December 05, 2024 10:20am afib Complies with drug therapy Start: 12-05-2024 End: 12-05-2024 take 2 tablets by mouth twice daily Metoprolol Tartrate 25 mg tablet Discontinued 50 mg PO TWICE A DAY 180 December 05, 2024 8:25am December 05, 2024 9:20am afib Start: 01-24-2020 End: 10-23-2025 take 1 tablet by mouth twice daily Metoprolol Tartrate 25 mg tablet Discontinued 25 mg PO TWICE A DAY 60 January 10, 2024 4:12pm October 23, 2024 9:10am palpitions Start: 01-23-2020 End: 01-10-2024 take 1 tablet by mouth once daily as needed Metoprolol Tartrate 25 mg tablet Discontinued 25 mg PO DAILY as needed for palpitions 30 June 20, 2023 10:52am January 10, 2024 4:13pm Start: 01-19-2018 End: 01-14-2019 take 1 tablet by mouth once daily as needed Metoprolol Tartrate 25 mg tablet Discontinued 25 mg PO DAILY as needed for Elevated heart rate 10 January 19, 2018 12:00am January 14, 2019 9:07am Comment on above: Use 2/3 times a day 6 hours apart for increased heart rate prn Multivitamin 1 EACH tablet (4 sources) Start: 01-19-2020 Start: 01-19-2020 Start: 01-19-2020 Multivitamin 1 EACH tablet Active 1 NMA PO DAILY January 19, 2020 1:00am vitamin Complies with drug therapy Start: 01-19-2020 Multivitamin 1 EACH tablet Active 1 NMA PO DAILY January 19, 2020 1:00am vitamin Multivitamin preparation (2 sources) Start: 01-19-2020 Multivitamin A ctive 1 EACH PO DAILY January 19, 2020 1:00am multivitamin tablet (20 sources) take 1 tablet by mouth once daily multivitamin tablet Take 1 tablet by mouth once daily. Active take 1 tablet by mouth once [place] multivitamin tablet Take 1 tablet by mouth once daily. 0 Active Comment on above: Take 1 tablet by marvin once daily. nutraceuticals q defend capsule (3 sources) Start: 11-21-2024 take 1 capsule by mouth once daily Start: 11-21-2024 take 1 capsule by mo ut once daily Start: 11-21-2024 take 1 capsule by mo [facility] once daily nutraceuticals q defend capsule Active PO daily November 21, 2024 12:00am Complies with drug therapy omega 7-ddb-wlz-fish oil (FI SH OIL) 100-160-1,000 mg cap (20 sources) omega 3-dha-epa- fish oil (FISH OIL) 100-160-1,000 mg cap Take 1,000 mg by mouth. Active omega 3-dha-epa- fish oil (FISH OIL) 100-160-1,000 mg cap Take 1,000 mg by mouth. 0 Active Comment on above: Take 1,000 mg by marvin th. [place]-3 Fatty Acids (2 sources) Start: 08-06-2017 take 1000 mg by mouth once daily [place]-3 Fatty Acids Active 1000 MG PO daily August 06, 2017 12:00am [place]-3 Fatty Acids 1,000 mg capsule (4 sources) Start: 08-06-2017 take 1 capsule by mouth once daily Start: 08-06-2017 take 1 capsule by mo uth once daily Start: 08-06-2017 take 1 capsule by mo uth once daily [place]-3 Fatty Acids 1,000 mg capsule Active 1000 mg PO daily August 06, 2017 12:00am SUPPLEMENT Complies with drug therapy Start: 08-06-2017 take 1 capsule by mo uth once daily [place]-3 Fatty Acids 1,000 mg capsule Active 1000 mg PO daily August 06, 2017 12:00am SUPPLEMENT rosuvastatin calcium 10 mg oral tablet (20 sources) HMG-CoA Reductase Inhibitor Start: 11-29-2024 take 1 tablet by mouth at bedtime Start: 11-29-2024 take 1 tablet by marvin th at bedtime Start: 01-03-2020 End: 11-29-2024 take 1 tablet by mouth at bedtime Rosuvastatin 10 mg tablet Discontinued 10 mg PO AT BEDTIME 90 4 August 30, 2023 4:10pm November 29, 2024 1:08pm cholesterol Comment on above: Take 1 tablet by marvin th once daily. sodium chloride 0.111 meq/ml nasal spray (3 sources) Start: 10-28-2024 sodium chloride (SALINE NASAL) 0.65 % nasal spray Indications: Community acquired pneumonia, unspecified laterality Use 1 spray in the nose two times a day. 10/28/2024 Active Vitamin B Complex (2 sources) Start: 12-07-2020 take 1 capsule by mouth once daily Vitamin B Complex Active 1 CAP PO DAILY December 07, 2020 12:00am Vitamin B Complex capsule (4 sources) Start: 12-07-2020 Start: 12-07-2020 Start: 12-07-2020 Vitamin B Comp chris capsule Active 1 NMA PO DAILY December 07, 2020 12:00am Complies with drug therapy Start: 12-07-2020 Vitamin B Comp chris capsule Active 1 NMA PO DAILY December 07, 2020 12:00am vitamin b12 1 mg oral tablet (3 sources) Vitamin B12 Start: 11-21-2024 take 1 tablet by marvin once daily vitamin e 180 mg oral capsule (4 sources) Start: 12-14-2023 Completed/Discontinued Medications Medication Drug Class(es) Dates Sig (Normalized) Sig (Original) apixaban 5 mg oral tablet (20 sources) Factor Xa Inhibitor Start: 07-17-2023 End: 11-21-2024 take 1 tablet by mouth twice daily Apixaban (Eliquis) 5 mg tablet Discontinued 5 mg PO TWICE A DAY 180 3 September 19, 2024 8:07am November 21, 2024 7:39am cetirizine hydrochloride 10 mg oral tablet (3 sources) Histamine-1 Receptor Antagonist Start: 12-06-2016 take 1 tablet by mouth once daily CETIRIZINE HCL 10 MG TABS One tablet by mouth daily CETIRIZINE HCL [id number] Shirin Wilcox PA-C 24 hr dilTIAZem hydrochloride 120 mg extended release oral capsule (20 sources) Calcium Channel Mega Start: 08-06-2017 End: 12-13-2024 take 1 capsule by mouth once daily, then take 1 capsule by mouth every twenty-four hours Diltiazem Hcl (Cardizem Cd) 120 mg capsule,extended release 24hr Discontinued 120 mg PO daily 90 3 January 03, 2024 10:57am October 23, 2024 7:05am atrial fibrillation Start: 01-10-2017 CARDIZEM CD 12 0 MG [id number] One tablet by mouth as needed for atrial fibrillation. DILTIAZEM HCL [place]ATED [place] [id number] Bakari Hernandez MD Comment on above: Take 1 capsule by mo [facility] once daily. loratadine 10 mg oral tablet (6 sources) Start: 08-07-2017 End: 08-23-2018 take 1 tablet by mouth once daily Loratadine (Allergy Relief (Loratadine)) 10 mg tablet Discontinued 10 mg PO daily August 06, 2017 11:00pm August 23, 2018 12:20pm ALLERGIES MULTIPLE VITAMINS-MINERALS (3 sources) Start: 12-06-2016 take 1 tablet by mouth once daily MULTIVITAMIN ADULT TABS One tablet by mouth daily MULTIPLE VITAMINS-MINERALS [id number] Shirin Wilcox PA-C [place]-3 FATTY ACIDS (3 sources) Start: 12-06-2016 take 1 tablet by mouth once daily OMEGA 3 1000 MG CAPS One tablet by mouth daily OMEGA-3 FATTY ACIDS [id number] Shirin Wilcox PA-C [place]-3 Fatty Acids-Vitamin E (FISH OIL) 1,000 mg cap (3 sources) take 1 capsule by mouth once daily [place]-3 Fatty Acids-Vitamin E (FISH OIL) 1,000 mg cap Take 1 capsule by mouth once daily. 0 Active Comment on above: Take 1 capsule by mo ut once daily. [place]-3 Fatty Acids-Vitamin E 1,000 mg cap (1 source) take 1 capsule by mouth once daily [place]-3 Fatty Acids-Vitamin E 1,000 mg cap Take 1 capsule by mouth once daily. 0 Active Comment on above: Take 1 capsule by [facility] once daily. predniSONE 20 mg oral tablet (2 sources) Start: 02-01-2023 End: 02-05-2023 take 2 tablets by mouth once daily at mealtime predniSONE (DELTASONE) 20 mg tablet Take 2 tablets by mouth once daily for 4 days. Take daily with food. 8 tablet 02/01/2023 02/05/2023 Comment on above: Take 2 tablets by [facility] once daily for 4 days. Take daily with food. psyllium (20 sources) Start: 12-06-2016 take 1 tablet by mouth three times daily FIBER LAXATIVE 0.52 GM CAPS One tablet by mouth three times daily PSYLLIUM [id number] Shirin Wilcox PA-C psyllium Husk 0. 52 gram capsule Take 0.52 g by mouth three times daily. Active Comment on above: Take 0.52 g by mouth three times daily. Problems Active Problems Problem Classification Problem Date Documented Date Episodic/Chronic Aortic; peripheral; and visceral artery aneurysms (20 sources) Aortic root dilatation; Translations: [Thoracic aortic ectasia] Onset: 02-17-2023 08-30-2021 Chronic Cardiac dysrhythmias (20 sources) Permanent atrial fibrillation ; Translations: [Atrial arrhythmia] Onset: 09-20-2016 12-06-2016 Chronic Comment on above: DCCV on 11/25/2024; Cardiac dysrhythmias (14 sources) Palpitations; Translations: [Palpitations] Onset: 01-16-2024 05-31-2023 Episodic Crushing injury or internal injury (6 sources) Contusion of lung; Translations: [Contusion of lung, unspecified, initial encounter] 12-27-2017 Episodic Disorders of lipid metabolism (3 sources) Hyperlipidemia; Translations: [Hyperlipidemia, unspecified] Chronic Disorders of teeth and jaw (6 sources) Degenerative arthritis of temporomandibular joint; 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] Onset: 07-30-2024 07-30-2024 Episodic E Codes: Fall (6 sources) Fall; Translations: [Unspecified fall, initial encounter] 12-27-2017 Episodic Essential hypertension (2 sources) Essential hypertension; Translations: [Essential (primary) hypertension] Onset: 07-30-2024 07-30-2024 Chronic Heart valve disorders (20 sources) Aortic incompetence, non-rheumatic ; Translations: [Nonrheumatic aortic (valve) insufficiency] Onset: 10-23-2024 11-23-2020 Chronic Immunizations and screening for infectious disease (7 sources) Patient encounter status; Translations: [Encounter for immunization] Episodic Other and ill-defined heart disease (13 sources) Diastolic dysfunction; Translations: [Other ill-defined heart diseases] 08-06-2017 Chronic Other and ill-defined heart disease (3 sources) Other ill-defined heart diseases; Translations: [Other ill-defined heart diseases] Onset: 10-23-2024 Chronic Other and unspecified benign neoplasm (1 source) Benign neoplasm, unspecified site; Translations: [Tubular adenoma] Onset: 12-12-2024 Episodic Other circulatory disease (6 sources) Elevated blood-pressure reading without diagnosis of hypertension; Translations: [Elevated blood-pressure reading, without diagnosis of hypertension] 08-30-2021 Episodic Other circulatory disease (1 source) Elevated blood-pressure reading, without diagnosis of hypertension; Translations: [Elevated blood-pressure reading, without diagnosis of hypertension] Onset: 12-03-2024 Episodic Other diseases of kidney and ureters (2 sources) Cyst of kidney; Translations: [Cyst of kidney, acquired] 11-22-2023 Episodic Other ear and sense organ disorders (6 sources) Sudden idiopathic hearing loss; Translations: [Sudden idiopathic hearing loss, left ear] Onset: 07-30-2024 07-30-2024 Episodic Other fractures (6 sources) Fracture of multiple ribs ; Translations: [Multiple fractures of ribs, unspecified side, initial encounter for closed fracture] 12-27-2017 Episodic Other lower respiratory disease (6 sources) Nodule of lung; Translations: [Solitary pulmonary nodule] 12-27-2017 Episodic Other lower respiratory disease (2 sources) Cough; Translations: [Acute cough] 02-01-2023 Episodic Other lower respiratory disease (3 sources) Multiple nodules of lung; Translations: [Other nonspecific abnormal finding of lung field] 02-17-2023 Episodic Other screening for suspected conditions (not mental disorders or infectious disease) (5 sources) Raised TSH level; Translations: [Other specified abnormal findings of blood chemistry] Onset: 01-21-2013 01-21-2013 Episodic Pneumonia (except that caused by tuberculosis or sexually transmitted disease) (3 sources) Community acquired pneumonia; Translations: [Pneumonia, unspecified organism] Onset: 12-06-2024 10-28-2024 Episodic Residual codes; unclassified (20 sources) Obstructive sleep apnea syndrome; Translations: [Obstructive sleep apnea (adult) (pediatric)] Onset: 07-20-2015 07-20-2015 Chronic Residual codes; unclassified (2 sources) Sleep apnea; Translations: [Sleep apnea, unspecified] 07-30-2024 Chronic Residual codes; unclassified (2 sources) Obstructive sleep apnea (adult) (pediatric); Translations: [Obstructive sleep apnea syndrome] Onset: 07-20-2015 Chronic Residual codes; unclassified (1 source) Sleep apnea, unspecified; Translations: [Sleep apnea, unspecified type] Onset: 09-17-2024 Chronic Residual codes; unclassified (1 source) Dependence on other enabling machines and devices; Translations: [Dependence on other enabling machines and devices] Onset: 12-03-2024 Chronic Thyroid disorders (20 sources) Acquired hypothyroidism; Translations: [Hypothyroidism, unspecified] Onset: 01-04-2022 Chronic Unclassified (1 source) Osteoarthritis of temporomandibular joint; 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] Onset: 07-30-2024 Unclassified (2 sources) Other persistent atrial fibrillation; Translations: [Other persistent atrial fibrillation] Onset: 02-23-2024 Past or Other Problems Problem Classification Problem Date Documented Date Episodic/Chronic Abdominal hernia (20 sources) Left inguinal hernia ; Translations: [Unilateral inguinal hernia, without obstruction or gangrene, not specified as recurrent] Onset: 08-05-2015 Resolved: 01-04-2022 08-05-2015 Episodic Cancer of prostate (20 sources) History of malignant neoplasm of prostate; Translations: [Personal history of malignant neoplasm of prostate] Onset: 01-21-2013 02-08-2021 Episodic Malignant neoplasm without specification of site (20 sources) Malignant neoplastic disease; Translations: [Malignant (primary) neoplasm, unspecified] Onset: 02-17-2023 Resolved: 11-22-2023 02-19-2023 Chronic Other aftercare (1 source) Other detention (current) drug therapy; Translations: [Medication management] Onset: 07-25-2024 Episodic Other ear and sense organ disorders (1 source) Sudden idiopathic hearing loss, left ear; Translations: [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, unspecified hearing status on contralateral side] Onset: 07-30-2024 Episodic Unclassified (3 sources) Body mass index (BMI) 25.0-25.9, adult; Translations: [Body mass index (BMI) 25.0-25.9, adult] Onset: 12-06-2016 12-06-2016 Episodic Results Test Name Value Interpretation Reference Range Facility Basic Metabolic Profile (BMP )on 12-17-2024 BUN/CRE 24.2 RATIO High 12-02 [facility] Comment on above: Performed By: #### L 500.2500 #### [facility] [address] [place], [address] Calcium [Mass/Vol] 9.3 mg/dL Normal 7.6-11.0 [facility] Comment on above: Performed By: #### L 500.2500 #### [facility] [address] [place], [address] Chloride [Moles/Vol] 105 mmol/L Normal 98-108 [facility] Comment on above: Performed By: #### L 500.2500 #### [facility] [address] [place], [address] CO2 [Moles/Vol] 25.3 mmol/L Normal 21.0-32.0 [facility] Comment on above: Performed By: #### L 500.2500 #### [facility] [address] [place], [address] Creatinine [Mass/Vol] 1.02 mg/dL Normal 0.70-1.20 [facility] Comment on above: Performed By: #### L 500.2500 #### [facility] [address] [place], [address] GAP 9 Normal 5-15 [facility] Comment on above: Performed By: #### L 500.2500 #### [facility] [address] [place], [address] GFR/1.73 sq M.predicted among non-blacks MDRD (S/P/Bld) [Vol rate/Area] 76 mL/min/{1.73_m2} Normal >60 [facility] Comment on above: Result Comment: mL/m in/1.73m2 CKD-EPI Creatinine Equation (2020) Performed By: #### L 500.2500 #### [facility] [address] [place], [address] Glucose [Mass/Vol] 80 mg/dL Normal 70-99 [facility] Comment on above: Performed By: #### L 500.2500 #### [facility] [address] [place], [address] Potassium [Moles/Vol] 4.5 mmol/L Normal 3.3-5.1 [facility] Comment on above: Performed By: #### L 500.2500 #### [facility] [address] [place], [address] Sodium [Moles/Vol] 139 mmol/L Normal 133-145 [facility] Comment on above: Performed By: #### L 500.2500 #### [facility] [address] [place], [place], [address] Urea nitrogen [Mass/Vol] 25 mg/dL High 4-19 [facility] Comment on above: Performed By: #### L 500.2500 #### [facility] [address] [place], [place], [address] Cardiology Visit Reporton Cardiology Visit Report [facility] [address] [place], [place] [address] OFFICE VISIT Date of Service: 12/13/24 MR#: [id number] Acct: [id number] Name: ZORAIDA AMBROSE [facility] Rep #: [id number] : 1945 Provider: ELAYNE strickland Age/Sex: 79/M [place] [facility] [place] Status: Signed HPI HPI History of Present Illness Surgical H P: Yes Details: ZORAIDA AMBROSE, is a 79 M who presents to the office today for a cardiovascular follow-up.??? He has a cardiac history of paroxysmal atrial fibrillation and diastolic dysfunction.??? He also has a history of objective sleep apnea with CPAP therapy and prostate cancer.??? He was admitted in November 2016 for atrial fibrillation.??? He converted on his own.??? He had a Holter from monitor placed in May of 2023 and had an episode of atrial fibrillation approximately 0.1% of the time and was started on anticoagulation. He had presented to our office in October in atrial fibrillation. He underwent a cardioversion, which was successful, but a few days later he returned to atrial fibrillation. From a cardiac standpoint, the patient is doing well. He denies any palpitations, chest pain, pressure or heaviness. He does acknowledge SOB with exertion-this is nothing new or worsening. He denies Orthopnea, and PND. He does not have bleeding issues; no blood in urine, stool, or nosebleeds. He does acknowledge occasional fatigue. He denies any decrease in energy level, myalgias, or claudication. He does not have edema, or sudden weight gain. He denies lightheadedness, dizziness, syncopal or near syncopal episodes, and headaches. 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 Is patient in pain?: No Allergies No Known Allergies Allergy (Verified 12/13/24 09:05) Medications ???Medication ???Instructions ???Recorded ???Confirmed ???Type omega-3 fatty acids 1,000 mg 1,000 mg PO QDAY SUPPLEMENT 12/13/24 History capsule Fiber Therapy 2 cap PO BID fiber 12/26/17 History multivitamin 1 ea PO DAILY vitamin 01/19/20 History cholecalciferol (vitamin D3) 50 50 mcg PO DAILY 01/23/20 12/13/24 History mcg (2,000 unit) capsule vitamin B complex 1 cap PO DAILY 12/07/20 12/13/24 H istory aspirin 81 mg tablet,delayed 81 mg PO QDAY 12/14/23 12/13/24 Hi story release (Adult Aspirin Regimen) coconut oil 1,000 mg capsule 1,000 mg PO DAILY 12/14/23 5 History magnesium aspart,citrate,oxide 250 mg PO DAILY 12/14/23 12/13/24 History vitamin E mixed 400 unit capsule unit PO 12/14/23 12/13/24 History levothyroxine 50 mcg tablet 50 mcg PO QDAY 10/23/24 12/13/24 H istory apixaban 5 mg tablet (Eliquis) 5 mg PO BID #180 tabs 11/21/24 Rx cyanocobalamin (vitamin B-12) 1,000 mcg PO QDAY 11/21/24 5 History 1,000 mcg tablet levocetirizine 5 mg tablet (Xyzal) 5 mg PO QDAY 11/21/24 12/13/24 H istory nutraceuticals q defend PO QDAY 11/21/24 12/13/24 History rosuvastatin 10 mg tablet 10 mg PO QHS cholesterol #90 tabs 11/29/24 12/13/24 Rx metoprolol tartrate 50 mg tablet 50 mg PO BID afib #60 tabs 5 12/13/24 Rx amiodarone 200 mg tablet 200 mg PO QDAY #37 tabs 12/13/24 1 Rx Ejection fraction %: 60 Have you fallen in the past year?: No PFSH Medical History Paroxysmal a-fib JACOB on CPAP Nonrheumatic aortic (valve) insufficiency Aortic valve insufficiency Diastolic dysfunction without heart failure Prostate cancer Obstructive sleep apnea Surgical History History of cardioversion excision of tumor right knee H/O left inguinal hernia repair Family History Mother Heart disease A-FIB Hypertension Father Hypertension Social History Smoking Status: Never smoker alcohol intake: current alcohol intake frequency: holidays/special occasions only Alcohol type: beer substance use type: does not use caffeine: No ROS Const Const: Positive for fatigue; Negative for weakness, headache(s) or frequent falls Eyes Eyes: Negative for blurry vision ENT ENT: Negative for headache(s), dizziness or Nosebleed/epistaxis Cardio Chest Pain: No Palpitations: No Edema: None Muscle aches with walking: None Resp Respiratory: Positive for SOB with activity; Negative for SOB at res (more content not included)... Normal [facility] CNOVon 12-12-2024 [facility] Office Visit (GERIWR) ZORAIDA AMBROSE ([id number]) 1945 [facility] Date Time Provider Department 12/12/24 3:30 PM [facility] [place] During your visit today, we recorded the following information about you: Pulse Respiration Blood pressure Weight 60/minute 16/minute 94/62 80.3 kg Amrit Birmingham MD 12/12/2024 3:58 PM Signed We discussed your atrial fibrillation and recent cardioversion: - You had a cardioversion about two weeks ago, but it did not keep your heart in normal rhythm for long. You remain in atrial fibrillation, and your main symptom is shortness of breath. - You are currently taking metoprolol tartrate 250 mg daily and diltiazem to help control your heart rate. - You have a follow-up appointment with your photographic equipment assembler tomorrow to discuss next steps, which may include adjusting your medications or considering an ablation procedure. We discussed your obstructive sleep apnea: - Your home sleep study showed moderate obstructive sleep apnea. - You are using your CPAP machine every night, which is helpful for your heart and overall health. Please continue using your CPAP as you have been. We discussed your colon cancer screening: - Your last colonoscopy was in March 2019, and you were advised to repeat it in five years. - You are now due for another colonoscopy. You plan to schedule this in [place], where you had your previous procedure. We discussed your blood pressure: - Your blood pressure was low today, but you are not experiencing symptoms such as tiredness or dizziness. We will continue to monitor this. Follow-up: - Please follow up with your photographic equipment assembler tomorrow to review your atrial fibrillation and discuss further management. - You plan to schedule your colonoscopy in [place]. Amrit Birmingham MD 12/12/2024 4:59 PM Signed Reason for Visit Follow up HPI Zach Ambrose is a 79-year-old male with a history of A-fib and moderate JACOB, presenting for follow-up. Zach underwent cardioversion on the , which was reportedly ineffective, as he was found to be in A-fib again within a few days. An ECG performed last week confirmed A-fib, and he is scheduled for a follow-up appointment tomorrow to discuss further management options, including the possibility of an ablation. He reports a family history of A-fib, with his mother having had the condition. He is currently experiencing dyspnea as his main symptom, particularly when initiating physical activities such as his daily 2-3 mile walks with his dog. The dyspnea improves after a few minutes of walking. He denies feeling tired or experiencing low heart rate while sitting, but notes that his heart rate is usually around 100-110 bpm, as measured by his ring monitor. He is currently on diltiazem and metoprolol tartrate 250 mg daily for heart rate control, and suspects that these medications may be contributing to occasional naps. He has been diagnosed with moderate JACOB and uses a CPAP machine every night, which he believes has improved his condition. However, he notes a change in his sleep habits, now sometimes staying awake for 30-60 minutes after getting up at night, which he attributes to age. He denies feeling tired during the day. He inquires about his last colonoscopy, which was performed in 2019 by Jacobo Rich and revealed a colon polyp. He was advised to repeat the procedure in 5 years and plans to schedule it soon. He mentions that he will be moving to [place], [place], near [place], around January 22, and will be flexible with scheduling medical appointments. SOCIAL HISTORY[1] Past medical history, appointments, medications, allergies reviewed. Pertinent Lab/Diagnostic Studies are reviewed and discussed today Current Outpatient Medications: metoprolol tartrate, short acting, (LOPRESSOR) 50 mg tablet levothyroxine (LEVOXYL) 50 mcg tablet apixaban (ELIQUIS) 5 mg tab(s) CPAP/BIPAP/OTHER aspirin, enteric coated (ASPIRIN, ENTERIC COATED) 81 mg EC tablet ELIQUIS 5 mg tab(s) CPAP/BIPAP/OTHER MAGNESIUM OXIDE,ASPARTATE,CITR ORAL omega 5-pjs-nzi-fish oil (FISH OIL) 100-160-1,000 mg cap rosuvastatin (CRESTOR) 10 mg tablet dilTIAZem CD (CARDIZEM CD, CARTIA XT) 120 mg 24 hr capsule psyllium Husk 0.52 gram capsule multivitamin tablet azithromycin (ZITHROMAX Z-ROSS) 250 mg tablet sodium chloride (SALINE NASAL) 0.65 % nasal spray metoprolol tartrate, short acting, (LOPRESSOR) 25 mg tablet Health Maintenance DTaP,Tdap,Td Vaccine(2 - Td or Tdap) RSV Vaccine(1 - 1-dose 75+ series) Advance Directive Discussion@ Review Of Systems Constitutional: (-) fatigue Respiratory: (+) shortness of breath Psychiatric: (+) insomnia Physical Exam BP 94/62 Pulse 60 Resp 16 Wt 80.3 kg (177 lb) BMI 25.20 kg/m? GENERAL: NAD, alert and oriented. SKIN: Unremarkable, no rash or skin lesions. H (more content not included)... Normal [facility] XR CHEST 2V FRONTAL/LATon XR CHEST 2V FRONTAL/LAT * * *Final Repor t* * * DATE OF EXAM: Dec 06 2024 10:10AM [id number] [id number] - XR CHEST 2V FRONTAL/LAT / PROCEDURE REASON: Community acquired pneumonia, unspecified laterality * * * * Physician Interpretation * * * * EXAMINATION: CHEST RADIOGRAPH (2 VIEW FRONTAL and LATERAL) CLINICAL HISTORY: Community acquired pneumonia, unspecified laterality MQ: [id number] EXAM DATE/TIME: 12/06/2024 10:10 AM COMPARISON: 10/28/2024 RESULT: Lines, tubes, and devices: None. Lungs and pleura: On the lateral view there is bronchiectasis noted in the posterior lungs possibly in the left lower lobe. Mild peripheral scarring in the right lower lung. No pneumothorax is seen. Cardiomediastinal silhouette: Normal cardiomediastinal silhouette. Bones and soft tissues: Unremarkable. IMPRESSION: Basilar scarring and bronchiectasis. No pneumothorax is seen. Likely chronic change Manager Of Transportation: EDDIE Transcribe Date/Time: Dec 10 2024 4:35P Dictated by : DIVINE ANDRE MD This examination was interpreted and the report reviewed and electronically signed by: DIVINE ANDRE MD on Dec 10 2024 4:35PM EST [id number] Normal [facility] Procedure Reporton 5 Procedure Report [facility] Medical Records Department [address] [place] [address] Procedure Report 11/25/24 1247 MR#: [id number] Acct: [id number] Name: ZORAIDA AMBROSE Rep #: [id number] : 1945 79 From: Jhon Villatoro DO PCP: Dr. Amrit Birmingham MD Status:REG [facility] [place] Location: [facility] Procedures Pulmonary Pulmonary Procedures /Diagnostic Testin Con Sedation Bedside Procedural Bedside Procedure Information Date of Procedure: 11/25/24 Description of procedure: CONSCIOUS SEDATION REPORT DATE OF SERVICE: November 25, 2024 BRIEF HISTORY OF PRESENT ILLNESS: The patient is a 79-year-old male who presented to [facility] to undergo an elective outpatient cardioversion due to underlying atrial fibrillation. The patient is a lifelong non- smoker. He did undergo a prior cardioversion in January 2024. He denied any history of any anesthetic complications. The patient is systemically anticoagulated on Eliquis. His last surface echocardiogram demonstrated an ejection fraction of approximately 60%. He does have a known history of obstructive sleep apnea on nocturnal PAP therapy. PHYSICAL EXAMINATION: VITAL SIGNS: Reviewed and were acceptable. GENERAL: The patient is a male, in no apparent distress, speaking in full sentences. HEENT: Normocephalic, atraumatic. Mucous membranes are moist and pink. Good mouth opening noted. Trachea is midline. Good neck mobility. CHEST: S1, S2 irregularly irregular. No murmurs, rubs or gallops were noted. LUNGS: Clear to auscultation bilaterally without appreciable wheezes, rales or rhonchi. ABDOMEN: Soft, nontender, nondistended. Positive bowel sounds. EXTREMITIES: There is no clubbing, cyanosis or edema. ASA Class: II DESCRIPTION OF PROCEDURE: After confirmation of informed consent, the patient's anesthesia plan was reviewed in detail. Propofol was chosen. Risks and benefits were reviewed and the patient agreed to proceed. At 1212, the patient was given 40 mg of propofol. The patient achieved an appropriate level of sedation and was given a 200 joule synchronized cardioversion by Dr. Sousa at the bedside. This was successful in achieving normal sinus rhythm. The patient was monitored until 1226, at which time he reached his baseline mental status and function. The patient tolerated the procedure well. COMPLICATIONS: None ESTIMATED BLOOD LOSS: None RECOMMENDATIONS: Okay to recover in usual fashion. 11/25/24 1249 Cosigner Signature (if applicable): CC: Dr. Amrit Birmingham MD; Dr. Randy Sousa MD; Dr. Jhon Villatoro DO Signed Normal [facility] Procedure Report [facility] Medical Records Department [address] [place] [address] Procedure Report 11/25/24 1220 MR#: [id number] Acct: [id number] Name: ZORAIDA AMBROSE [facility] Rep #: [id number] : 1945 79 From: Randy Sousa MD PCP: Dr. Amrit Birmingham MD Status[facility] Location: [facility] Bedside Procedural Bedside Procedure Information Date of Procedure: 11/25/24 Pre-Procedure Diagnosis: Atrial fibrillation Post-Procedure Diagnosis: Atrial fibrillation Procedure Performed:: DC cardioversion press breaker: No Procedure Time Out: 12:12 Procedure Start Time: 12:14 Procedure Stop Time: 12:15 Special Medications: Intravenous propofol 40 mg Description of procedure: Patient was brought to cardiac catheterization lab in the postabsorptive nonsedated state. Informed consent was obtained. Patient was seen by Dr. Villatoro electrical cardioversion. Anterior-posterior pads were applied. 40 mg of intravenous propofol was administered and then 200 J of DC cardioversion energy with prompt reversal to sinus rhythm. Patient tolerated the procedure well. Procedure findings: Successful DC cardioversion from atrial fibrillation to sinus rhythm. 11/25/24 1223 Cosigner Signature (if applicable): CC: Dr. Amrit Birmingham MD; Dr. Randy Sousa MD Signed Normal [facility] Absolute lymphocyte countOrd ered By: Jacobo Ryan on 11-21-2024 Lymphocytes Auto (Unsp spec) [#/Vol] 2.26 10*3/uL 0.83-4.51 [facility] Absolute neutrophil countOrd ered By: Jacobo Ryan on 11-21-2024 Neutrophils (Bld) [#/Vol] 3.9 10*3/uL 2.0-7.7 [facility] Anion gap in Serum or Plasma Ordered By: Jacobo Ryan on 11-21-2024 Anion gap [Moles/Vol] 9 mmol/L - [facility] Automated lymphocyte count a s percentage of total leukocytesOrdered By: Jacobo Ryan on 11-21-2024 Lymphocytes/100 WBC Auto (Unsp spec) 31.1 % - [facility] BUN/creatinine ratioOrdered By: Jacobo Ryan on 11-21-2024 Urea nitrogen/Creatinine [Mass ratio] 18.4 mg/mg - [facility] Basic Metabolic Profile (BMP )on 11-21-2024 BUN/CRE 18.4 RATIO Normal 12-02 [facility] Comment on above: Order Comment: for C ardioversion Performed By: #### L 100.0100, L501.9520, L500.2500, L506.0400, L501.5200 #### [facility] [address] [place], [address] Calcium [Mass/Vol] 9.3 mg/dL Normal 7.6-11.0 [facility] Comment on above: Order Comment: for C ardioversion Performed By: #### L 100.0100, L501.9520, L500.2500, L506.0400, L501.5200 #### [facility] [address] [place], [address] Chloride [Moles/Vol] 103 mmol/L Normal 98-108 [facility] Comment on above: Order Comment: for C ardioversion Performed By: #### L 100.0100, L501.9520, L500.2500, L506.0400, L501.5200 #### [facility] [address] [place], [address] CO2 [Moles/Vol] 25.8 mmol/L Normal 21.0-32.0 [facility] Comment on above: Order Comment: for C ardioversion Performed By: #### L 100.0100, L501.9520, L500.2500, L506.0400, L501.5200 #### [facility] [address] [place], [address] Creatinine [Mass/Vol] 1.05 mg/dL Normal 0.70-1.20 [facility] Comment on above: Order Comment: for C ardioversion Performed By: #### L 100.0100, L501.9520, L500.2500, L506.0400, L501.5200 #### [facility] [address] [place], [address] GAP 9 Normal 5-15 [facility] Comment on above: Order Comment: for C ardioversion Performed By: #### L 100.0100, L501.9520, L500.2500, L506.0400, L501.5200 #### [facility] [address] [place], [address] GFR/1.73 sq M.predicted among non-blacks MDRD (S/P/Bld) [Vol rate/Area] 73 mL/min/{1.73_m2} Normal >60 [facility] Comment on above: Order Comment: for C ardioversion Result Comment: mL/m in/1.73m2 CKD-EPI Creatinine Equation (2020) Performed By: #### L 100.0100, L501.9520, L500.2500, L506.0400, L501.5200 #### [facility] [address] [place], [address] Glucose [Mass/Vol] 87 mg/dL Normal 70-99 [facility] Comment on above: Order Comment: for C ardioversion Performed By: #### L 100.0100, L501.9520, L500.2500, L506.0400, L501.5200 #### [facility] [address] [place], [address] Potassium [Moles/Vol] 4.7 mmol/L Normal 3.3-5.1 [facility] Comment on above: Order Comment: for C ardioversion Performed By: #### L 100.0100, L501.9520, L500.2500, L506.0400, L501.5200 #### [facility] [address] [place], [address] Sodium [Moles/Vol] 138 mmol/L Normal 133-145 [facility] Comment on above: Order Comment: for C ardioversion Performed By: #### L 100.0100, L501.9520, L500.2500, L506.0400, L501.5200 #### [facility] [address] [place], [address] Urea nitrogen [Mass/Vol] 19 mg/dL Normal 4-19 [facility] Comment on above: Order Comment: for C ardioversion Performed By: #### L 100.0100, L501.9520, L500.2500, L506.0400, L501.5200 #### [facility] [address] [place], [address] Basophil percentageOrdered B y: Jacobo Shelby on 11-21-2024 Basophils/100 WBC (Bld) 1.4 % High 0-1 [facility] CBC W/Diff, Automatedon Absolute Lymph 2.26 X10 3/uL Normal 0.83-4.51 [facility] Comment on above: Performed By: #### L 100.0100, L501.9520, L500.2500, L506.0400, L501.5200 #### [facility] [address] [place], [address] Absolute Neut 3.9 X10 3/uL Normal 2.0-7.7 [facility] Comment on above: Performed By: #### L 100.0100, L501.9520, L500.2500, L506.0400, L501.5200 #### [facility] [address] [place], [address] Basophils/100 WBC (Bld) 1.4 % High 0-1 [facility] Comment on above: Performed By: #### L 100.0100, L501.9520, L500.2500, L506.0400, L501.5200 #### [facility] [address] [place], [address] Eosinophils/100 WBC (Bld) 3.4 % Normal 0-5 [facility] Comment on above: Performed By: #### L 100.0100, L501.9520, L500.2500, L506.0400, L501.5200 #### [facility] [address] [place], [address] Erythrocyte distribution width (RBC) [Ratio] 13.4 % Normal 11.6-14.6 [facility] Comment on above: Performed By: #### L 100.0100, L501.9520, L500.2500, L506.0400, L501.5200 #### [facility] [address] [place], [address] Hematocrit (Bld) [Volume fraction] 41.2 % Normal 40-54 [facility] Comment on above: Performed By: #### L 100.0100, L501.9520, L500.2500, L506.0400, L501.5200 #### [facility] [address] [place], [address] Hemoglobin (Bld) [Mass/Vol] 14.2 g/dL Normal 13.0-16.5 [facility] Comment on above: Performed By: #### L 100.0100, L501.9520, L500.2500, L506.0400, L501.5200 #### [facility] [address] [place], [address] IG% 0.300 Normal 0.0-0.9 [facility] [facility] Comment on above: Result Comment: IG% - Immature Granulocytes (promyelocytes, myelocytes and metamyelocytes) > 1% indicates that a LEFT SHIFT is Present. Performed By: #### L 100.0100, L501.9520, L500.2500, L506.0400, L501.5200 #### [facility] [address] [place], [address] Lymphocytes/100 WBC (Bld) 31.1 % Normal 19-41 [facility] Comment on above: Performed By: #### L 100.0100, L501.9520, L500.2500, L506.0400, L501.5200 #### [facility] [address] [place], [address] MCH (RBC) [Entitic mass] 30.1 pg Normal 27.0-32.0 [facility] Comment on above: Performed By: #### L 100.0100, L501.9520, L500.2500, L506.0400, L501.5200 #### [facility] [address] [place], [address] MCHC (RBC) [Mass/Vol] 34.5 g/dL Normal 32-36 [facility] Comment on above: Performed By: #### L 100.0100, L501.9520, L500.2500, L506.0400, L501.5200 #### [facility] [address] [place], [address] MCV (RBC) [Entitic vol] 87.5 fL Normal 80-94 [facility] Comment on above: Performed By: #### L 100.0100, L501.9520, L500.2500, L506.0400, L501.5200 #### [facility] [address] [place], [address] Monocytes/100 WBC (Bld) 10.0 % Normal 0-10 [facility] Comment on above: Performed By: #### L 100.0100, L501.9520, L500.2500, L506.0400, L501.5200 #### [facility] [address] [place], [address] Neutrophils/100 WBC (Bld) 53.8 % Normal 47-70 [facility] Comment on above: Performed By: #### L 100.0100, L501.9520, L500.2500, L506.0400, L501.5200 #### [facility] [address] [place], [address] Nucleated RBC (Bld) [#/Vol] 0 10*3/uL Normal 0-5 [facility] Comment on above: Performed By: #### L 100.0100, L501.9520, L500.2500, L506.0400, L501.5200 #### [facility] [address] [place], [address] Platelet mean volume (Bld) [Entitic vol] 8.9 fL Normal 6.2-12.0 [facility] Comment on above: Performed By: #### L 100.0100, L501.9520, L500.2500, L506.0400, L501.5200 #### [facility] [address] [place], [address] Platelets (Bld) [#/Vol] 174 10*3/uL Normal 150-450 [facility] Comment on above: Performed By: #### L 100.0100, L501.9520, L500.2500, L506.0400, L501.5200 #### [facility] [address] [place], [address] RBC (Bld) [#/Vol] 4.71 10*6/uL Normal 4.6-6.2 [facility] Comment on above: Performed By: #### L 100.0100, L501.9520, L500.2500, L506.0400, L501.5200 #### [facility] [address] [place], [address] RDW SD 43.0 fl Normal 35.1-43.9 [facility] Comment on above: Performed By: #### L 100.0100, L501.9520, L500.2500, L506.0400, L501.5200 #### [facility] [address] [place], [address] WBC (Bld) [#/Vol] 7.3 10*3/uL Normal 4.4-11.0 [facility] Comment on above: Performed By: #### L 100.0100, L501.9520, L500.2500, L506.0400, L501.5200 #### [facility] [address] [place], [address] Carbon dioxide, total [Moles /volume] in Central venous bloodOrdered By: Jacobo Ryan on 11-21-2024 CO2 [Moles/Vol] 25.8 mmol/L 21.0-32.0 [facility] Cardiology Visit Reporton Cardiology Visit Report [facility] [address] [place] [address] OFFICE VISIT Date of Service: 11/21/24 MR#: [id number] Acct: [id number] Name: ZORAIDA AMBROSE [facility] Rep #: [id number] : 1945 Provider: ELAYNE strickland Age/Sex: 79/M [place] [facility] [place] Status: Signed HPI HPI History of Present Illness Surgical H P: Yes Details: ZORAIDA AMBROSE, is a 79 M who presents to the office today for a cardiovascular follow-up.??? He has a cardiac history of paroxysmal atrial fibrillation and diastolic dysfunction.??? He also has a history of objective sleep apnea with CPAP therapy and prostate cancer.??? He was admitted in November 2016 for atrial fibrillation.??? He converted on his own.??? He had a Holter from monitor placed in May of 2023 and had an episode of atrial fibrillation approximately 0.1% of the time and was started on anticoagulation. From a cardiac standpoint, the patient is doing well. He does acknowledge occasional fkwtyhqophit-lfsp-lp opping sensation at night. He denies chest pain, pressure or heaviness. He does acknowledge SOB with exertion. He denies Orthopnea, and PND. He does not have bleeding issues; no blood in urine, stool, or nosebleeds. He denies any decrease in energy level, myalgias, or claudication. He does not have edema, or sudden weight gain. He denies lightheadedness, dizziness, syncopal or near syncopal episodes, and headaches. 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 Accompanied by: Self Is patient in pain?: No Allergies No Known Allergies Allergy (Verified 11/21/24 08:34) Medications ???Medication ???Instructions ???Recorded ???Confirmed ???Type omega-3 fatty acids 1,000 mg 1,000 mg PO QDAY SUPPLEMENT 11/21/24 History capsule Fiber Therapy 2 cap PO BID fiber 12/26/17 History multivitamin 1 ea PO DAILY vitamin 01/19/2011/07 History cholecalciferol (vitamin D3) 50 50 mcg PO DAILY 01/23/20 11/21/24 History mcg (2,000 unit) capsule vitamin B complex 1 cap PO DAILY 12/07/20 11/21/24 H istory rosuvastatin 10 mg tablet 10 mg PO QHS cholesterol #90 tabs 08/30/23 11/21/24 Rx aspirin 81 mg tablet,delayed 81 mg PO QDAY 12/14/23 11/21/24 Hi story release (Adult Aspirin Regimen) coconut oil 1,000 mg capsule 1,000 mg PO DAILY 12/14/23 5 History magnesium aspart,citrate,oxide 250 mg PO DAILY 12/14/23 11/21/24 History vitamin E mixed 400 unit capsule unit PO 12/14/23 11/21/24 History diltiazem HCl 120 mg 120 mg PO QDAY atrial fibrillation 10/23/24 11/21/24 Rx capsule,extended release 24 hr #90 caps (Cardizem CD) levothyroxine 50 mcg tablet 50 mcg PO QDAY 10/23/24 11/21/24 H istory metoprolol tartrate 25 mg tablet 25 mg PO BID afib #180 tabs 11/21/24 Rx apixaban 5 mg tablet (Eliquis) 5 mg PO BID #180 tabs 11/21/2411/07 Rx cyanocobalamin (vitamin B-12) 1,000 mcg PO QDAY 11/21/24 5 History 1,000 mcg tablet levocetirizine 5 mg tablet (Xyzal) 5 mg PO QDAY 11/21/24 11/21/24 H istory nutraceuticals q defend PO QDAY 11/21/24 11/21/24 History Ejection fraction %: 60 Have you fallen in the past year?: No PFSH Medical History JACOB on CPAP Nonrheumatic aortic (valve) insufficiency Aortic valve insufficiency Diastolic dysfunction without heart failure Prostate cancer Obstructive sleep apnea Paroxysmal a-fib Surgical History excision of tumor right knee H/O left inguinal hernia repair Family History Mother Heart disease A-FIB Hypertension Father Hypertension Social History Smoking Status: Never smoker alcohol intake: current alcohol intake frequency: holidays/special occasions only Alcohol type: beer substance use type: does not use caffeine: No ROS Const Const: Negative for fatigue, weakness, headache(s) or frequent falls Eyes Eyes: Negative for blurry vision ENT ENT: Negative for headache(s), dizziness or Nosebleed/epistaxis Cardio Chest Pain: No Palpitations: Yes Edema: None Muscle aches with walking: None Resp Respiratory: Positive for SOB with activity; Negative for SOB at rest or SOB orthopnea SOB lying down GI GI: Negative nausea, vomiting, heartburn, bright, red blood in stools or black,tarry stools : Negative for hematuria Neuro Neuro: Negative for diz (more content not included)... Normal [facility] Chest PA and Lateralon 11-21 Chest PA and Lateral [facility] Imaging Services [address] [place] [address] Chest PA and Lateral MR#: [id number] Acct: [id number] Name: ZORAIDA AMBROSE Rep #: [id number] : 1945 79 From: Ganesh Humphrey MD PCP: Dr. Amrit Birmingham MD Status: PRE [facility] [place] Study: Chest PA and Lateral Date of Exam: 11/21/24 Exam# [id number] Ordering Dr: Kathi Tyson NP WASHER OPERATOR- C PROCEDURE: CHEST PA AND LATERAL 11/21/2024 REASON FOR EXAM: PRE-OPERATIVE: DCCV TECHNIQUE: Procedure Code: RADCXR Modality: DX Procedure: CHEST PA AND LATERAL COMPARISON: None FINDINGS: Hardware: None Heart: The heart size is normal. Mediastinum: The mediastinal contour is unremarkable. Lungs: Chronic interstitial changes in both lung headley without a superimposed acute pulmonary process Bones: Degenerative bony changes, old healed right rib fractures RAD/Chest PA and Lateral IMPRESSION: Chronic interstitial changes, no superimposed acute pulmonary process Reading Location: [place] [address] CC: WASHER OPERATOR-C Kathi Tyson; Dr. Amrit Birmingham MD Manager Of Transportation: Signed Normal [facility] Chloride assayOrdered By: Sierra Ryan on 11-21-2024 Chloride [Moles/Vol] 103 mmol/L 98-108 [facility] Echo Completeon 11-21-2024 Echo Complete [facility] [address] [place] [address] Echo Complete 11/21/24 0942 MR#: [id number] Acct: [id number] Name: ZORAIDA AMBROSE Rep #: [id number] : 1945 79 From: Randy Sousa MD Attending Dr: ELAYNE Lam Status: REG CLI Ordering Dr: Jacobo Ryan NP WASHER OPERATOR-C Date: 11/21/24 Location: [facility] Sex: M C Admitted: Reason For Study Reason For Study: AFib/Flutter Procedure This was a 2D Doppler, Color Flow transthoracic echocardiogram. Techncially difficult due to HR. Exam performed in department. Left Ventricle Normal LV size. The left ventricular ejection fraction is 45 %. No regional wall motion abnormalities noted. Right Ventricle Mildly dilated right ventricle. Normal systolic function. Atria The left atrium is moderately enlarged. The right atrium is moderately enlarged. Tricuspid Valve Normal tricuspid valve. Mild (1+) tricuspid valve insufficiency. Pulmonary artery systolic pressure is 25 mmHg. Aortic Valve Trisinus/trileaflet aortic valve. Mild diffuse aortic valve thickening. Mild (1+) eccentric aortic valve insufficiency. Pulmonic Valve Normal pulmonic valve. Great Vessels Mild to moderately dilated aortic root. The pulmonary artery is normal size. Inferior vena cava collapse with respiration. Pericardium/Pleural No pericardial effusion. MMode/2D Measurements Calculations LVIDd: 4.4 cm IVSd: 1.2 cm Ao root diam: 4.1 cm LVIDs: 2.7 cm LVPWd: 0.82 cm RVDd: 4.0 cm FS: 38.5 % asc Aorta Diam: 3.9 cm LAV(MOD-bp): 81.2 ml LVAd ap4: 23.4 cm2 LAV(MOD-bp) Indexed: 41.3 ml/m2 LVLd ap4: 7.3 cm LAV(MOD-sp2): 73.1 ml EDV(MOD-sp4): 62.2 ml LAV(MOD-sp4): 93.0 ml EDV(sp4-el): 63.9 ml LVAs ap4: 16.4 cm2 LVLs ap4: 6.5 cm ESV(MOD-sp4): 35.3 ml ESV(sp4-el): 35.0 ml EF(MOD-sp4): 43.2 % EF(sp4-el): 45.2 % SV(MOD-sp4): 26.8 ml SV(sp4-el): 28.9 ml LA A4 area: 27.2 cm2 SI(MOD-sp4): 13.6 ml/m2 LA dimension(2D): 4.1 cm RA A4 area: 27.0 cm2 Doppler Measurements Calculations MV E max ana: 73.7 cm/sec MV V2 max: 82.0 cm/sec Ao V2 max: 77.8 cm/sec MV max P.7 mmHg Ao max P.4 mmHg MV V2 mean: 41.4 cm/sec MV mean P.89 mmHg MV V2 VTI: 10.1 cm AI max ana: 483.2 cm/sec LV V1 max: 57.2 cm/sec MR max ana: 447.7 cm/sec AI max P.4 mmHg LV V1 max P.3 mmHg MR max P.2 mmHg AI dec slope: 328.8 cm/sec2 AI P1/2t: 430.4 msec TR max ana: 235.7 cm/sec TR max P.4 mmHg ECHO/Echo Complete Interpretation Summary The left ventricular ejection fraction is 45 %. Normal LV size. Mildly dilated right ventricle. Mild to moderately dilated aortic root. The left atrium is moderately enlarged. The right atrium is moderately enlarged. Ordering Physician: Jacobo Ryan Referring Physician: Jacobo Ryan Performed By: Prashant Zuñiga RCS 11/21/24 1243 Date Randy Suosa MD CC: WASHER OPERATOR-C Jacobo Ryan; Dr. Amrit Birmingham MD Date Dictated: 11/21/24941 Date Transcribed: 11/21/241242 Manager Of Transportation: Signed Normal [facility] Eosinophil percentageOrdered By: Jacobo Ryan on 11-21-2024 Eosinophils/100 WBC (Bld) 3.4 % 0-5 [facility] Erythrocyte distribution wid th ratioOrdered By: Jacobo Ryan on 11-21-2024 Erythrocyte distribution width (RBC) [Ratio] 13.4 % 11.6-14.6 [facility] Erythrocyte distribution wid th standard deviationOrdered By: Jacobo Ryan on 11-21-2024 Erythrocyte distribution width (RBC) [Ratio] 43.0 fl 35.1-43.9 [facility] Glomerular filtration rate ( GFR) estimation/1.73 sq m using serum, plasma, or whole bOrdered By: Jacobo Ryan on 11-21-2024 GFR/1.73 sq M.predicted among non-blacks MDRD (S/P/Bld) [Vol rate/Area] 73 mL/min/{1.73_m2} >60 [facility] Comment on above: mL/min/1.73m2 CKD-EP I Creatinine Equation (2020) Hematocrit Auto (Bld) [Volum e fraction]Ordered By: Jacobo Ryan on 11-21-2024 Hematocrit (Bld) [Volume fraction] 41.2 % 40-54 [facility] Hemoglobin measurementOrdere d By: Jacobo Ryan on 11-21-2024 Hemoglobin (Bld) [Mass/Vol] 14.2 g/dL 13.0-16.5 [facility] Immature granulocytes/100 WB C Auto (Bld)Ordered By: Jacobo Ryan on 11-21-2024 Immature granulocytes/100 WBC (Bld) 0.300 % 0.0-0.9 [facility] Comment on above: IG% - Immature Granu locytes (promyelocytes, myelocytes and metamyelocytes) > 1% indicates that a LEFT SHIFT is Present. MCV (mean corpuscular volume ) determinationOrdered By: Jacobo Ryan on 11-21-2024 MCV (RBC) [Entitic vol] 87.5 fL 80-94 [facility] Magnesiumon 11-21-2024 Magnesium [Mass/Vol] 2.2 mg/dL Normal 1.5-2.2 [facility] Comment on above: Performed By: #### L 100.0100, L501.9520, L500.2500, L506.0400, L501.5200 #### [facility] [address] [facility] [place], [address] Magnesium measurement (mass/ volume)Ordered By: Jacobo Ryan on 11-21-2024 Magnesium (Unsp spec) [Mass/Vol] 2.2 mg/dL 1.5-2.2 [facility] Mean corpuscular hemoglobin (MCH) determinationOrdered By: Jacobo Ryan on 11-21-2024 MCH (RBC) [Entitic mass] 30.1 pg 27.0-32.0 [facility] Mean corpuscular hemoglobin concentration (MCHC) determinationOrdered By: Jacobo Ryan on 11-21-2024 MCHC (RBC) [Mass/Vol] 34.5 g/dL 32-36 [facility] Mean platelet volume determi nationOrdered By: Jacobo Ryan on 11-21-2024 Platelet mean volume (Bld) [Entitic vol] 8.9 fL 6.2-12.0 [facility] Monocyte percentageOrdered B y: Jacobo Ryan on 11-21-2024 Monocytes/100 WBC (Bld) 10.0 % 0-10 [facility] Neutrophil percentageOrdered By: Jacobo Ryan on 11-21-2024 Neutrophils/100 WBC (Bld) 53.8 % 47-70 [facility] Nucleated red blood cell per centageOrdered By: Jacobo Ryan on 11-21-2024 Nucleated RBC/100 WBC (Bld) [Ratio] 0 % 0-5 [facility] Platelet countOrdered By: Sierra Ryan on 11-21-2024 Platelets (Bld) [#/Vol] 174 10*3/uL 150-450 [facility] Potassium measurement (mass/ volume)Ordered By: Jacobo Ryan on 11-21-2024 Potassium (Unsp spec) [Mass/Vol] 4.7 mmol/L 3.3-5.1 [facility] RBC Auto (Bld) [#/Vol]Ordere d By: Jacobo Ryan on 11-21-2024 RBC (Bld) [#/Vol] 4.71 10*6/uL 4.6-6.2 [facility] Serum creatinine measurement (mass/volume)Ordered By: Jacobo Ryan on 11-21-2024 Creatinine [Mass/Vol] 1.05 mg/dL 0.70-1.20 [facility] Serum glucose measurement (m ass/volume)Ordered By: Jacobo Ryan on 11-21-2024 Glucose [Mass/Vol] 87 mg/dL 70-99 [facility] Serum or plasma calcium pat urement (mass/volume)Ordered By: Jacobo Ryan on 11-21-2024 Calcium [Mass/Vol] 9.3 mg/dL 7.6-11.0 [facility] Serum or plasma urea nitroge n measurement (mass/volume)Ordered By: Jacobo Ryan on 11-21-2024 Urea nitrogen [Mass/Vol] 19 mg/dL 4-19 [facility] Sodium levelOrdered By: Jacobo Ryan on 11-21-2024 Sodium [Moles/Vol] 138 mmol/L 133-145 [facility] T4 Free Directon 11-21-2024 T4 FREE DIRECT 1.30 ng/dL Normal 0.76-1.46 [facility] Comment on above: Order Comment: for C ardioversion Performed By: #### L 100.0100, L501.9520, L500.2500, L506.0400, L501.5200 #### [facility] [address] [place], [place], [address] T4 freeOrdered By: Jacobo Ryan on 11-21-2024 Free T4 [Mass/Vol] 1.30 ng/dL 0.76-1.46 [facility] TSH DL <= 0.005 mIU/L QnOrde red By: Jacobo Ryan on 11-21-2024 TSH Qn 3.400 uIU/mL 0.300-4.200 [facility] Thyroid Stim Hormone (TSH)on 11-21-2024 TSH 3.400 uIU/mL Normal 0.300-4.200 [facility] Comment on above: Performed By: #### L 100.0100, L501.9520, L500.2500, L506.0400, L501.5200 #### [facility] [address] [place], [place], [address] White blood cell (WBC) count Ordered By: Jacobo Ryan on 11-21-2024 WBC (Bld) [#/Vol] 7.3 10*3/uL 4.4-11.0 [facility] CNOVon 11-06-2024 CNOV Office Visit (INTMWS) ZORAIDA AMBROSE ([id number]) 1945 [facility] Date Time Provider Department 11/06/24 7:40 AM LALY COLON INTJESSIE During your visit today, we recorded the following information about you: Temperature Pulse Respiration Blood pressure 96.9 degrees 77/minute 16/minute 104/72 Laly Colon APRN.CNP 11/06/2024 11:37 AM Signed CC: Patient presents with: Recheck: Follow up UC, cough HPI Zoraida Ambrose is a 79 year old male who presents today for cough and UC pneumonia follow up. Has had a productive cough of yellow sputum for 2 weeks, dyspnea but unsure if this is due to his a-fib, small amount of sinus drainage, and fatigue. Denies fever, chills, chest pain, wheezing, edema, dizziness, syncope or GI symptoms. Has been taking nyquil which helps some. Went to urgent care on 10/28 and was given 5 days doxycycline for suspected CAP as CXR showed some linear opacities which thought to be scarring or atelectasis. Sore throat resolved with treatment and cough somewhat improved but is still deep and concerning to him. Is having a cardioversion on 11/25 and is worried doing this with ongoing cough and illness. 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 Dermatofibroma left leg Herpes zoster Left inguinal hernia 08/05/2015 Mitral regurgitation Obstructive sleep apnea Paroxysmal atrial fibrillation (HCC) Pneumonia Prostate cancer (HCC) 09/2009 Seborrheic keratoses PAST SURGICAL HISTORY Procedure Laterality Date COLONOSCOPY 01/2010 HERNIA REPAIR W/MESH 05/2011 by -right inguinal HERNIA REPAIR W/MESH Left 11/11/15 REMOVE TUMOR,TEMPORAL BONE right knee SKIN BIOPSY HX 02/21/2012 left medial thigh TONSILLECTOMY HX TRURL ELECTROSURG RESCJ PROSTATE BLEED COMPLETE 09/2009 done at [facility]- prostate cancer ALLERGIES Seasonal Allergies MEDICATIONS apixaban (ELIQUIS) 5 mg tab(s) Take by mouth two times a day. sodium chloride (SALINE NASAL) 0.65 % nasal spray Use 1 spray in the nose two times a day. CPAP/BIPAP/OTHER Type .CPAPSettings into a note to see current settings/supplies/DM E information. aspirin, enteric coated (ASPIRIN, ENTERIC COATED) 81 mg EC tablet Take 1 tablet by mouth once daily. Take with food. ELIQUIS 5 mg tab(s) Take 5 mg by mouth two times a day. levothyroxine (LEVOXYL) 50 mcg tablet Take 1 tablet by mouth once daily. Take on empty stomach. For Thyroid CPAP/BIPAP/OTHER Type .CPAPSettings into a note to see current settings/supplies/DM E information. MAGNESIUM OXIDE,ASPARTATE,CITR ORAL Take by mouth. omega 1-wds-npm-fish oil (FISH OIL) 100-160-1,000 mg cap Take 1,000 mg by mouth. metoprolol tartrate, short acting, (LOPRESSOR) 25 mg tablet Use 2/3 times a day 6 hours apart for increased heart rate prn rosuvastatin (CRESTOR) 10 mg tablet Take 1 tablet by mouth once daily. dilTIAZem CD (CARDIZEM CD, CARTIA XT) 120 mg 24 hr capsule Take 1 capsule by mouth once daily. psyllium Husk 0.52 gram capsule Take 0.52 g by mouth three times daily. multivitamin tablet Take 1 tablet by mouth once daily. FAMILY HISTORY Problem Relation Age of Onset Diabetes Mother Heart Mother other (leukemia) Mother Prostate Cancer Father Prostate Alzheimer's Disease Father Prostate Cancer Brother Prostate Psychiatry Brother Manic Depressive SOCIAL HISTORY[1] PHYSICAL EXAM BP 104/72 Pulse 77 Temp 36.1 ?C (96.9 ?F) (Temporal) Resp 16 SpO2 99% General Appearance: well appearing, in no acute distress, alert Lungs: Lungs with expiratory low pitched wheezing in the bases. No rhonchi, rales. Heart: apical irregular without murmur, gallop, or rubs. No ectopy Health maintenance reviewed with patient: Depression Screening Never done Anxiety Screening Never done DTaP,Tdap,Td Vaccine(2 - Td or Tdap) due on 09/14/2021 RSV Vaccine(1 - 1-dose 75+ series) Never done Advance Directive Discussion due on 02/14/2024 Medicare Advantage Annual Wellness Visit Never done Influenza Vaccine(1) due on 10/14/2024 Annual PCP Team Chronic Disease Visit due on 11/06/2025 Diabetes Screening due on 10/24/2027 Hepatitis C Screening Completed Shingrix Vaccine Completed Pneumococcal Vaccine: 50+ Completed Colorectal Cancer Screening Discontinued DATA REVIEWED: Most recent labs and imaging results. Assessment/Plan ASSESSMENT/PLAN: 1. Community acquired pneumonia, unspecified laterality - ICD9: 486, ICD10: J18.9 (primary diagnosis) With the abnormal lung sounds fatigue and xray will treat for pneumonia prior to his cardioversion. Will be done with treatment 2 weeks prior to the cardioversion. Patient to update his cardiology team so they are aware of current infection. Will also fax this note to their office as well. Repeat cxr in 6 (more content not included)... Normal [facility] CNOVon 10-28-2024 CNOV Office Visit (WOUCA) ZORAIDA AMBROSE ([id number]) 1945 [facility] Date Time Provider Department 10/28/24 9:00 AM LENI TANNER During your visit today, we recorded the following information about you: Temperature Pulse Respiration Blood pressure 97.5 degrees 117/minute 20/minute 118/84 Weight 79 kg Leni Tanner APRN.DUCT LAYER 10/28/2024 9:15 AM Signed GENERAL INFORMATION: Pneumonia is a lung infection caused by bacteria, viruses, or bacteria-like germs. It usually cannot be spread to other people. INSTRUCTIONS: 1. If you are given a prescription for antibiotics, take them as ordered by your doctor until they are all gone. 2. Use a cool-mist humidifier or vaporizer to increase air moisture. This will make it easier for you to breathe. Do not use hot steam. 3. Rest in until your temperature is normal (98.6 F or 37 C) and your chest pain and shortness of breath are gone. 4. Slowly restart your normal activities. You may feel weak and tired for up to six weeks. 5. Drink at least one glass of water or other liquid every hour. This will help thin sputum and make it easier to cough up. 6. If you have chest pain, applying a heating pad or warm compresses for 10 to 20 minutes several times a day to the painful area may lessen the pain. 7. Take several deep breaths and then cough frequently during the day. This will help get rid of the infection. 8. You may take medicines that you can buy without a prescription to treat pain and fever. Use cough medicine only if absolutely necessary as coughing helps clear the infection. CONTACT YOUR DOCTOR IF: 1. Your temperature is over 102 F (39 C). 2. Your chest pain, fever or chills do not get better with medicine in 2-3 days. 3. You develop nausea, vomiting or diarrhea. 4. You are coughing up large amounts of bloody sputum. 5. You have any problems that may be related to the medicine that you are taking (such as rash, itching, swelling, or stomach pain). RETURN TO THE EMERGENCY DEPARTMENT IF: 1. You have a lot of trouble breathing or you have dark or bluish fingernails, toenails, or skin. 2. You have a severe headache, neck stiffness, or feel confused. Leni Tanner, DENISE.DUCT LAYER 10/28/2024 9:31 AM Signed [facility] Subjective Zoraida Ambrose is a 79 year old male. Recording using Heap software for draft documentation of the visit was discussed with the patient/authorized signs sales representative; all questions welcomed and answered. Patient/authorized signs sales representative agreed to proceed Patient presents with: Cough: Sore throat x 5 days HPI The patient is a 79-year-old male with a history of atrial fibrillation, presenting with cough and dyspnea x5 days. Cough and Dyspnea: - Symptoms began 5 days ago; no improvement since onset. - Cough is sometimes productive; denies hemoptysis. - c/o some shortness of breath - Associated postnasal drip; denies significant facial or sinus pressure. - Denies otalgia, cephalgia, nausea, emesis, diarrhea, or abdominal discomfort. - Taking NyQuil for symptom relief; no use of nasal sprays. - Denies exposure to sick contacts. - Denies history of asthma or inhaler use. - Denies tobacco use. - No known allergies to antibiotics. Atrial Fibrillation: - Experiences episodes of atrial fibrillation. - Current medications include aspirin, Eliquis, levothyroxine, magnesium, omega, metoprolol, Crestor, Cardizem, and psyllium. Review of Systems Head: (-) headache Ears/Nose/Mouth/Thro at: (+) postnasal drip, (-) ear pain, (-) facial pressure Respiratory: (+) cough, (+) sputum production, (+) dyspnea, (-) wheezing, (-) hemoptysis Gastrointestinal: (-) nausea, (-) vomiting, (-) diarrhea, (-) abdominal pain Objective BP 118/84 Pulse 117 Temp 36.4 ?C (97.5 ?F) Resp 20 Wt 79 kg (174 lb 2.6 oz) SpO2 97% BMI 24.79 kg/m? Physical Exam Vitals and nursing note reviewed. Constitutional: General: He is not in acute distress. Appearance: Normal appearance. He is not ill-appearing or toxic-appearing. HENT: Head: Normocephalic and atraumatic. Right Ear: Ear canal and external ear normal. Left Ear: Ear canal and external ear normal. Ears: Comments: TM's slightly bulging with clear fluid Nose: Congestion (mild mucosal edema) and rhinorrhea (clear fluid in nares) present. Right Turbinates: Swollen. Left Turbinates: Swollen. Right Sinus: No maxillary sinus tenderness or frontal sinus tenderness. Left Sinus: No maxillary sinus tenderness or frontal sinus tenderness. Mouth/Throat: Mouth: Mucous membranes are moist. Pharynx: Oropharynx is clear. Posterior oropharyngeal erythema (mild with clear fluid) present. No pharyngeal swelling or oropharyngeal exudate. Eyes: Extraocular Movements: Extraocular movements intact. Conjunctiva/sclera: Conjunctivae normal. Pupils: Pupils are equa (more content not included)... Normal [facility] XR CHEST 2V FRONTAL/LATon XR CHEST 2V FRONTAL/LAT * * *Final Repor t* * * DATE OF EXAM: Oct 28 2024 9:37AM WOX 5291 - XR CHEST 2V FRONTAL/LAT / PROCEDURE REASON: Community acquired pneumonia, unspecified laterality * * * * Physician Interpretation * * * * EXAMINATION: CHEST RADIOGRAPH (2 VIEW FRONTAL and LATERAL) CLINICAL HISTORY: Community acquired pneumonia, unspecified laterality MQ: XC2_6 EXAM DATE/TIME: 10/28/2024 9:37 AM COMPARISON: 01/16/2024, 05/22/2023 RESULT: Lines, tubes, and devices: None. Lungs and pleura: Similar right basilar scarring. Similar linear opacities in the left lung base. No pneumothorax or pleural effusion. Cardiomediastinal silhouette: Normal cardiomediastinal silhouette. Bones and soft tissues: Unremarkable. IMPRESSION: Similar right basilar scarring. Similar left basilar linear opacities as well suspected to represent atelectasis or scarring. Manager Of Transportation: EDDIE Transcribe Date/Time: Oct 28 2024 9:42A Dictated by : MARGARITO MANCIA MD This examination was interpreted and the report reviewed and electronically signed by: MARGARITO MANCIA MD on Oct 28 2024 9:44AM EST [id number] Normal [facility] XR Chest PA and Lateralon IMPRESSION: Similar right basilar scarring. Similar left basilar linear opacities as well suspected to represent atelectasis or scarring. Manager Of Transportation: [facility] Transcribe Date/Time: Oct 28 2024 9:42A Dictated by : MARGARITO MANCIA MD This examination was interpreted and the report reviewed and electronically signed by: MARGARITO MANCIA MD on Oct 28 2024 9:44AM EST DIVISION OF RADIOLOGY * * *Final Report* * * DATE OF EXAM: Oct 28 2024 9:37AM WOX [id number] - XR CHEST 2V FRONTAL/LAT / PROCEDURE REASON: Community acquired pneumonia, unspecified laterality * * * * Physician Interpretation * * * * EXAMINATION: CHEST RADIOGRAPH (2 VIEW FRONTAL & LATERAL) CLINICAL HISTORY: Community acquired pneumonia, unspecified laterality MQ: XC2_6 EXAM DATE/TIME: 10/28/2024 9:37 AM COMPARISON: 01/16/2024, 05/22/2023 RESULT: Lines, tubes, and devices: None. Lungs and pleura: Similar right basilar scarring. Similar linear opacities in the left lung base. No pneumothorax or pleural effusion. Cardiomediastinal silhouette: Normal cardiomediastinal silhouette. Bones and soft tissues: Unremarkable. DIVISION OF RADIOLOGY Provider, [facility] - 10/28/2024 * * *Final Report* * * DATE OF EXAM: Oct 28 2024 9:37AM WOX 5291 - XR CHEST 2V FRONTAL/LAT / PROCEDURE REASON: Community acquired pneumonia, unspecified laterality * * * * Physician Interpretation * * * * EXAMINATION: CHEST RADIOGRAPH (2 VIEW FRONTAL & LATERAL) CLINICAL HISTORY: Community acquired pneumonia, unspecified laterality MQ: XC2_6 EXAM DATE/TIME: 10/28/2024 9:37 AM COMPARISON: 01/16/2024, 05/22/2023 RESULT: Lines, tubes, and devices: None. Lungs and pleura: Similar right basilar scarring. Similar linear opacities in the left lung base. No pneumothorax or pleural effusion. Cardiomediastinal silhouette: Normal cardiomediastinal silhouette. Bones and soft tissues: Unremarkable. IMPRESSION IMPRESSION: Similar right basilar scarring. Similar left basilar linear opacities as well suspected to represent atelectasis or scarring. Manager Of Transportation: EDDIE Transcribe Date/Time: Oct 28 2024 9:42A Dictated by : MARGARITO MANCIA MD This examination was interpreted and the report reviewed and electronically signed by: MARGARITO MANCIA MD on Oct 28 2024 9:44AM EST [facility] Radiology Study observation (narrative) [facility] XR Chest PA and LateralOrder ed By: [facility] Provider on 10-28-2024 [facility] Basic metabolic 2000 panelon 10-23-2024 Anion gap [Moles/Vol] 9 mmol/L Normal 8-15 [facility] Comment on above: Order Comment: Speci men Type: BLOOD SPECIMENOrdering Facility: [facility] Address: [address] [place], [place] [address] [place] [address] Performed By: #### 2 4321-2, 67368-3, 3024-7, 3016-3 ####[facility] [id number] [address] [address] [place] Calcium [Mass/Vol] 9.2 mg/dL Normal 8.5-10.2 [facility] Comment on above: Order Comment: Speci [facility] Type: BLOOD SPECIMENOrdering Facility: [facility] Address: [address] [place], [place] [address]A [address] [place] [address] Performed By: #### 2 4321-2, 99473-7, 3024-7, 3016-3 ####[facility] LABIA [id number] [address] [address] [place] Chloride [Moles/Vol] 104 mmol/L Normal 98-107 [facility] Comment on above: Order Comment: Speci men Type: BLOOD SPECIMENOrdering Facility: [facility] Address: [address] [place], [place] [address] [place] [address] Performed By: #### 2 4321-2, 21497-8, 3023-7, 6-3 ####[facility] LABCLIA [id number] [address] [address] [place] CO2 [Moles/Vol] 25 mmol/L Normal 22-30 [facility] Comment on above: Order Comment: Speci men Type: BLOOD SPECIMENOrdering Facility: [facility] Address: [address] [place] [address] [place] [address] Performed By: #### 2 4321-2, 18973-1, 3023-7, 6-3 ####[facility] LABIA [id number] [place] [id number] [place] Creatinine [Mass/Vol] 1.06 mg/dL Normal 0.73-1.22 [facility] Comment on above: Order Comment: Speci men Type: BLOOD SPECIMENOrdering Facility: [facility] Address: [address] [place] [address] Performed By: #### 2 4321-2, 14935-2, 7, 3 ####[facility] [id number] [place] [address] [place] eGFRcr SerPlBld CKD-EPI 2020 72 mL/min/1.73m??? Normal >=60 [facility] Comment on above: Order Comment: [facility] Type: BLOOD SPECIMENOrdering Facility: [facility] Address: [address] [place] [address] Result Comment: Marina mated Glomerular Filtration Rate (eGFR) is calculated using the 2020 CKD-EPI creatinine equation. This equation utilizes serum creatinine, sex, and age as parameters. The creatinine assay has traceable calibration to isotope dilution-mass spectrometry. Refer to KDIGO guidelines for clinical interpretation. In patients with unstable renal function, e.g. those with acute kidney injury, the eGFR may not accurately reflect actual GFR. Performed By: #### 2 4321-2, 51507-7, 3023-7, 6-3 ####[facility] LABCLIA [id number] [address] [address] [place] Glucose [Mass/Vol] 86 mg/dL Normal 74-99 [facility] Comment on above: Order Comment: Speci men Type: BLOOD SPECIMENOrdering Facility: [facility] Address: [address], [place] [address] Result Comment: The [place] [employer] (ADA) provides guidance for cutoff values for fasting glucose and random glucose. The ADA defines fasting as no caloric intake for at least 8 hours. Fasting plasma glucose results between 100 to 125 mg/dL indicate increased risk for diabetes (prediabetes). Fasting plasma glucose results greater than or equal to 126 mg/dL meet the criteria for diagnosis of diabetes. In the absence of unequivocal hyperglycemia, results should be confirmed by repeat testing. In a patient with classic symptoms of hyperglycemia or hyperglycemic crisis, random plasma glucose results greater than or equal to 200 mg/dL meet the criteria for diagnosis of diabetes. Reference: Standards of Medical Care in Diabetes 2016, [place] [employer]. Diabetes Care. 2016.39(Suppl 1). Performed By: #### 2 4321-2, 22416-6, 3024-7, 3016-3 ####[facility] LABIA [id number] [address] [address] [place] Potassium [Moles/Vol] 4.7 mmol/L Normal 3.7-5.1 [facility] Comment on above: Order Comment: Speci men Type: BLOOD SPECIMENOrdering Facility: [facility] Address: [facility] [address] [place] [address] Performed By: #### 2 4321-2, 98959-3, 3024-7, 3016-3 ####[facility] LABIA [id number] [address] [address] [place] Sodium [Moles/Vol] 138 mmol/L Normal 136-144 [facility] Comment on above: Order Comment: Speci men Type: BLOOD SPECIMENOrdering Facility: [facility] Address: [address]US[facility]ily [address] [place] [address] Performed By: #### 2 4321-2, 80013-3, 3024-7, 3016-3 ####[facility] LABCLIA [id number] [address] [address] [place] [facility] Urea nitrogen [Mass/Vol] 19 mg/dL Normal 9-24 [facility] Comment on above: Order Comment: Speci men Type: BLOOD SPECIMENOrdering Facility: [facility] Address: [address] [place], [place] [address] [place] [address] Performed By: #### 2 4321-2, 83242-3, 3024-7, 3016-3 ####[facility] LABCLIA [id number] [place] [id number] [place] CBC W Auto Differential pane l (Bld)on 10-23-2024 Basophils (Bld) [#/Vol] 0.09 10*3/uL Normal <0.11 [facility] Comment on above: Order Comment: Speci men Type: BLOOD SPECIMENOrdering Facility: [facility] Address: [address] [place], [place] [address] [place] [id number] Performed By: #### 5 7021-8 ####[facility] LABIA [id number] [address] [place] Basophils/100 WBC (Bld) 1.1 % Normal C [facility] Comment on above: Order Comment: Speci men Type: BLOOD SPECIMENOrdering Facility: [facility] Address: [address] [place], [place] [address] [place] [address] Performed By: #### 5 7021-8 ####[facility] LABCLIA [id number] [place] [id number] [facility] Differential cell count method Nom (Bld) Auto Normal [facility] Comment on above: Order Comment: Speci men Type: BLOOD SPECIMENOrdering Facility: [facility] Address: [address] [place], [place] [address] [place] [address] Performed By: #### 5 7021-8 ####[facility] LABCLIA [id number] [address] [address] [place] Eosinophils (Bld) [#/Vol] 0.15 10*3/uL Normal <0.46 [facility] Comment on above: Order Comment: Speci men Type: BLOOD SPECIMENOrdering Facility: [facility] Address: [address] [place] [address] Performed By: #### 5 7021-8 ####[facility] LABCLIA [id number] [address] [address] [place] Eosinophils/100 WBC (Bld) 1.8 % Normal [facility] Comment on above: Order Comment: Speci men Type: BLOOD SPECIMENOrdering Facility: [facility] Address: [address] [place] [address] Performed By: #### 5 7021-8 ####[facility] LABCLIA [id number] [place] [id number] [place] Erythrocyte distribution width (RBC) [Ratio] 14.2 % Normal 11.5-15.0 [facility] Comment on above: Order Comment: Speci men Type: BLOOD SPECIMENOrdering Facility: [facility] Address: [address] [place] [address] Performed By: #### 5 7021-8 ####[facility] LABCLIA [id number] [place] [address] [place] Hematocrit (Bld) [Volume fraction] 42.2 % Normal 39.0-51.0 [facility] Comment on above: Order Comment: Speci men Type: BLOOD SPECIMENOrdering Facility: [facility] Address: [address] [place] [address] Performed By: #### 5 7021-8 ####[facility] LABCLIA [id number] [address] [address] [place] Hemoglobin (Bld) [Mass/Vol] 13.6 g/dL Normal 13.0-17.0 [facility] Comment on above: Order Comment: Speci men Type: BLOOD SPECIMENOrdering Facility: [facility] Address: [facility] [address] [place] [address] Performed By: #### 5 7021-8 ####[facility] LABCLIA [id number] [address] [address] [place] Immature granulocytes (Bld) [#/Vol] 10*3/uL Normal <0.10 [facility] Comment on above: Order Comment: Speci men Type: BLOOD SPECIMENOrdering Facility: [facility] Address: [address] [place], [place] [address] [place] [address] Performed By: #### 5 7021-8 ####[facility]CLIA [id number] [place] [id number] [place] Immature granulocytes/100 WBC (Bld) 0.2 % Normal [facility] Comment on above: Order Comment: Speci men Type: BLOOD SPECIMENOrdering Facility: [facility] Address: [address] [place], [place] [address] [place] [address] Performed By: #### 5 7021-8 ####[facility] LABCLIA [id number] [address] [address] [place] Lymphocytes (Bld) [#/Vol] 1.73 10*3/uL Normal 1.00-4.00 [facility] Comment on above: Order Comment: Speci men Type: BLOOD SPECIMENOrdering Facility: [facility] Address: [address] [place], [place] [address] [place] [address] Performed By: #### 5 7021-8 ####[facility] LABCLIA [id number] [address] [address] [place] Lymphocytes/100 WBC (Bld) 20.4 % Normal [facility] Comment on above: Order Comment: Speci men Type: BLOOD SPECIMENOrdering Facility: [facility] Address: [address] [place], [place] [address] [place] [address] Performed By: #### 5 7021-8 ####[facility] LABIA [id number] [place] [address] [place] MCH (RBC) [Entitic mass] 29.4 pg Normal 26.0-34.0 [facility] Comment on above: Order Comment: Speci men Type: BLOOD SPECIMENOrdering Facility: [facility] Address: [address] [place] [address] Performed By: #### 5 7021-8 ####[facility]IA [id number] [place] [address] [place] MCHC (RBC) [Mass/Vol] 32.2 g/dL Normal 30.5-36.0 [facility] Comment on above: Order Comment: Speci men Type: BLOOD SPECIMENOrdering Facility: [facility] Address: [address] [place] [address] Performed By: #### 5 7021-8 ####[facility] [id number] [address] [place] MCV (RBC) [Entitic vol] 91.3 fL Normal 80.0-100.0 C [facility] Comment on above: Order Comment: Speci men Type: BLOOD SPECIMENOrdering Facility: [facility] Address: [address] [place] [address] Performed By: #### 5 7021-8 ####[facility] [id number] [place] [address] [place] Monocytes (Bld) [#/Vol] 0.84 10*3/uL Normal <0.87 [facility] Comment on above: Order Comment: Speci men Type: BLOOD SPECIMENOrdering Facility: [facility] Address: [address] [place] [address] Performed By: #### 5 7021-8 ####[facility] [id number] [address] [id number] [address] [place] Monocytes/100 WBC (Bld) 9.9 % Normal [facility] Comment on above: Order Comment: Speci men Type: BLOOD SPECIMENOrdering Facility: [facility] Address: [address] [place], [place] [address] [place] [address] Performed By: #### 5 7021-8 ####[facility] LABCLIA [id number] [place] [address] [place] Neutrophils (Bld) [#/Vol] 5.65 10*3/uL Normal 1.45-7.50 [facility] Comment on above: Order Comment: Speci men Type: BLOOD SPECIMENOrdering Facility: [facility] Address: [address] [place], [place] [address] [address] Performed By: #### 5 7021-8 ####[facility] LABCLIA [id number] [place] [address] [place] Neutrophils/100 WBC (Bld) 66.6 % Normal [facility] Comment on above: Order Comment: Speci men Type: BLOOD SPECIMENOrdering Facility: [facility] Address: [address] [place], [place] [address] [address] Performed By: #### 5 7021-8 ####[facility] LABCLIA [id number] [place] [address] [place] Nucleated RBC (Bld) [#/Vol] 10*3/uL Normal <0.01 [facility] Comment on above: Order Comment: Speci men Type: BLOOD SPECIMENOrdering Facility: [facility] Address: [address] [place], [place] [address] [address] Performed By: #### 5 7021-8 ####[facility] LABCLIA [id number] [place] [address] [place] Nucleated RBC/100 WBC (Bld) [Ratio] 0.0 /100 WBC Normal [facility] Comment on above: Order Comment: Speci men Type: BLOOD SPECIMENOrdering Facility: [facility] Address: [address] [place] [address], [place] [address] Performed By: #### 5 7021-8 ####[facility] LABCLIA [id number] [address] [address] [place] Platelet mean volume (Bld) [Entitic vol] 9.1 fL Normal 9.0-12.7 [facility] Comment on above: Order Comment: Speci men Type: BLOOD SPECIMENOrdering Facility: [facility] Address: [facility] [address] [place] [address] Performed By: #### 5 7021-8 ####[facility] LABIA [id number] [place] [id number] [place] Platelets (Bld) [#/Vol] 198 10*3/uL Normal 150-400 [facility] Comment on above: Order Comment: Speci men Type: BLOOD SPECIMENOrdering Facility: [facility] Address: [facility] [address] [place] [address] Performed By: #### 5 7021-8 ####[facility]IA [id number] [address] [address] [place] RBC (Bld) [#/Vol] 4.62 10*6/uL Normal 4.20-6.00 [facility] Comment on above: Order Comment: Speci men Type: BLOOD SPECIMENOrdering Facility: [facility] Address: [facility] [address] [place] [address] Performed By: #### 5 7021-8 ####[facility]IA [id number] [address] [address] [place] WBC (Bld) [#/Vol] 8.48 10*3/uL Normal 3.70-11.00 [facility] Comment on above: Order Comment: Speci men Type: BLOOD SPECIMENOrdering Facility: [facility] Address: [facility] [address] [place] [address] Performed By: #### 5 7021-8 ####[facility] LABDEAN [id number] MERRY KRISHNAN [address] [address] [place] Cardiology Visit Reporton Cardiology Visit Report [facility] [address] [place] [address] OFFICE VISIT Date of Service: 10/23/24 MR#: [id number] Acct: [id number] Name: ZORAIDA AMBROSE [facility] Rep #: [id number] : 1945 Provider: ELAYNE marquez Age/Sex: 79/M [place] [facility] Status: Signed HPI HPI History of Present Illness Details: ZORAIDA AMBROSE, is a 79 M who presents to the office today for a cardiovascular follow-up.??? He has a cardiac history of paroxysmal atrial fibrillation and diastolic dysfunction.??? He also has a history of objective sleep apnea with CPAP therapy and prostate cancer.??? He was admitted in November 2016 for atrial fibrillation.??? He converted on his own.??? He had a Holter from monitor placed in May of this year and had an episode of atrial fibrillation approximately 0.1% of the time and was started on anticoagulation. He denies chest, arm, jaw, or neck discomfort. He states occasional palpitations at night over the last 3-4 weeks. He denies bilateral lower extremity edema. He denies claudication. He states shortness of breath with activity during his morning walk. This has been ongoing for 3-4 weeks and not worsening. He denies shortness of breath at rest, orthopnea, or PND. He denies chronic cough. He denies significant, sudden weight gain. He denies lightheadedness, dizziness, near-syncope, or syncope. He denies blood in urine, blood in stool, or epistaxis. He denies fever with chills. He denies myalgia. He denies fatigue. His exercise level has remained stable. Intake Vital Signs 01/24/24 10:56 10/23/24 09:24 Height 5 ft 10 in 5 ft 10 in Weight: 177 lb 175 lb BMI 25.1 BP 117/94 H Blood Pressure Location Lt brachial Position Sitting Respiration 16 Pulse 98 Pulse Source NIBP Pulse Oximetry (%) 97 Oxygen Delivery Method room air Intake Visit Reasons: Variable HR: see clinicals. 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 Is patient in pain?: No Allergies No Known Allergies Allergy (Verified 10/23/24 10:07) Medications ???Medication ???Instructions ???Recorded ???Confirmed ???Type omega-3 fatty acids 1,000 mg 1,000 mg PO QDAY SUPPLEMENT 10/23/24 History capsule Fiber Therapy 2 cap PO BID fiber 12/26/17 History multivitamin 1 ea PO DAILY vitamin 01/19/2012/07 History cholecalciferol (vitamin D3) 50 50 mcg PO DAILY 01/23/20 10/23/24 History mcg (2,000 unit) capsule vitamin B complex 1 cap PO DAILY 12/07/20 10/23/24 H istory rosuvastatin 10 mg tablet 10 mg PO QHS cholesterol #90 tabs 08/30/23 10/23/24 Rx aspirin 81 mg tablet,delayed 81 mg PO QDAY 12/14/23 10/23/24 Hi story release (Adult Aspirin Regimen) coconut oil 1,000 mg capsule 1,000 mg PO DAILY 12/14/23 5 History magnesium aspart,citrate,oxide 250 mg PO DAILY 12/14/23 10/23/24 History vitamin E mixed 400 unit capsule unit PO 12/14/23 10/23/24 History apixaban 5 mg tablet (Eliquis) 5 mg PO BID #180 tabs 09/19/2412/07 Rx diltiazem HCl 120 mg 120 mg PO QDAY atrial fibrillation 10/23/24 10/23/24 Rx capsule,extended release 24 hr #90 caps (Cardizem CD) levothyroxine 50 mcg tablet 50 mcg PO QDAY 10/23/24 10/23/24 H istory metoprolol tartrate 25 mg tablet 25 mg PO BID afib #180 tabs 10/23/24 Rx Ejection fraction %: 60 Have you fallen in the past year?: No PFSH Medical History JACOB on CPAP Nonrheumatic aortic (valve) insufficiency Aortic valve insufficiency Diastolic dysfunction without heart failure Prostate cancer Obstructive sleep apnea Paroxysmal a-fib Surgical History excision of tumor right knee H/O left inguinal hernia repair Family History Mother Heart disease A-FIB Hypertension Father Hypertension Social History (Updated 10/23/24 @ 10:11 by Chloe Jang) Smoking Status: Never smoker alcohol intake: current alcohol intake frequency: holidays/special occasions only Alcohol type: beer substance use type: does not use caffeine: No ROS Const Const: Negative for fatigue or weakness Eyes Eyes: Negative for change in vision ENT ENT: Negative for dizziness or balance problems Cardio Chest Pain: No Palpitations: Yes (Occasionally at night) Edema: None Muscle aches with walking: None Resp Respiratory: Positive for SOB with activity (With morning walk); Negative for SOB at rest or SOB orthopnea SOB lying down GI GI: Negative nausea or heartburn : Negative for hematuria or frequent nighttime urination/ nocturia Musc Musc: Negative for balance problems Skin Skin: Negative non-healing lesions or rash Neuro Neuro: Negative for dizz (more content not included)... Normal [facility] Magnesium SerPl-mCncon 10-23 Magnesium [Mass/Vol] 2.2 mg/dL Normal 1.7-2.3 [facility] Comment on above: Order Comment: Speci men Type: BLOOD SPECIMENOrdering Facility: [facility] Address: [address] [place] [address] Performed By: #### 2 4321-2, 01018-9, 4-7, 3016-3 ####[facility] LABCLIA [id number] [address] [address] [place] T4 Free SerPl-mCncon 025 Free T4 [Mass/Vol] 1.3 ng/dL Normal 0.9-1.7 [facility] Comment on above: Order Comment: Speci men Type: BLOOD SPECIMENOrdering Facility: [facility] Address: [address] [place] [address] Performed By: #### 2 4321-2, 63785-0, 3024-7, 3016-3 ####[facility] LABCLIA [id number] [address] [address] [place] TSH SerPl-aCncon 10-23-2024 TSH Qn 3.020 m[IU]/L Normal 0.270-4.200 [facility] Comment on above: Order Comment: Speci men Type: BLOOD SPECIMENOrdering Facility: [facility] Address: [address] [place], [place] [address] [id number] Performed By: #### 2 4321-2, 96875-2, 3024-7, 3016-3 ####[facility] LABCLIA [id number] [address] [address] [place] POLYSOMNOGRAM (PSG)/HOME SLE EP APNEA TEST (HSAT)on 09-18-2024 POLYSOMNOGRAM (PSG)/HOME SLEEP APNEA TEST (HSAT) [facility] at [address], [place] [address] ; Home Sleep Apnea Test (HSAT) Study Report Name: ZORAIDA AMBROSE Date of Study: 09/18/2024 [facility]#: [id number] Age: 78 (: 1945) ESS: 11/06 Neck Circ. (cm): 38 Height (cm): 178 cm Weight (kg): 75 kg BMI: 24.5 Referring Provider: AMRIT BIRMINGHAM Mailcode: [id number] Sleep history: The patient is a 78 year old male with a history of obstructive sleep apnea (records not available for review) treated using PAP who presents with waking up with a dry mouth. He endorses being a habitual side and back sleeper. The patient is here for reassessment of obstructive sleep apnea. Pertinent medical history: Atrial fibrillation, Obstructive sleep apnea Medications: Diltiazem, Rosuvastatin, Levothyroxine, Eliquis, Aspirin Sleep procedure: PSG unattended Type III, minimum of 4 parameters (68642) Procedure: This study was performed using a Type III ambulatory PSG device and was unattended. The patient was instructed on proper use of the device by a registered molecular technologist. The monitored parameters included heart rate, oxygen saturation, continuous airflow with thermistor and nasal pressure transducer, snoring via nasal pressure transducer, chest and abdominal effort, and body position. MELLISA definition: Respiratory event index (MELLISA), calculated as respiratory events x 60 / TRT (total recording time in minutes). Note: the apnea hypopnea index has been replaced by the respiratory event index for home sleep apnea test. Since the home sleep apnea test does not measure sleep, the MELLISA is most accurate index of respiratory events. The MELLISA is a surrogate of the AHI per the AASM Manual for Scoring of Sleep and Associated Events version 3. Apnea definition: The peak signal excursions drop by >90% of pre-event baseline using an oronasal thermal sensor (diagnostic study), PAP device flow (titration study) or an alternative apnea sensor (diagnostic study). The duration of the >90% drop in signal excursion is >=10 seconds. Hypopnea definition: The peak signal excursions drop by >= 30% of pre-event baseline using nasal pressure (diagnostic study), PAP device flow (titration study) or an alternative hypopnea sensor (diagnostic study). The duration of the >= 30% drop in signal excursion is >=10 seconds. There is a greater than or equal to 4% oxygen desaturation from pre-event baseline. RESPIRATORY DATA: The study started at 22:45:08 and ended at 06:27:34 and the total recording time was 462 minutes. By convention, sleep is assumed for the whole recording. Snoring was noted. There was a total of 151 respiratory events. Of these events, the total number of apneas was 100 (58 obstructive, 21 mixed, and 21 central (13.9%)) and 51 hypopneas. The central apnea index (STERLING) was 2.7. The respiratory event index (MELLISA) was 19.6 events per hour of study time. The mean oxygen saturation during the study was 94.0%, with a minimum oxygen saturation of 71.0%. The patient spent 12.5 minutes at oxygen saturation measured less than 90% (2.7% of recording time) and 9.2 minutes at oxygen saturation measured at or less than 88% (2.0% of recording time). Time MELLISA/AHI Supine 180.5 min 29.9 Off-Supine 282.0 min 13.0 Total 462.5 min 19.6 ECG DATA: The average heart rate was 50 bpm with a range of 39 bpm to 76 bpm. ICSD DIAGNOSIS: Obstructive Sleep Apnea Syndrome [G47.33] IMPRESSION/RECOMMEND ATIONS: 1. This study confirms a diagnosis of at least moderate obstructive sleep apnea. 2. The results of this study may represent an underestimation of the degree of obstructive sleep apnea, especially hypopneas, because of the known limitations of HSAT, such as inability to record arousals because EEG is not recorded. 3. Untreated sleep apnea is associated with a variety of consequences including but not limited to hypertension, heart disease, stroke, obesity and daytime sleepiness that can affect normal daytime functioning. 4. PAP therapy is the usual first line therapy. Other treatment options for JACOB may include positional therapy, oral appliance, upper airway surgery, upper airway stimulation, treatment of allergies and avoidance of alcohol and sedating medications (such as opioids, benzodiazepines, and muscle relaxers) that can cause respiratory depression. INTERPRETING PHYSICIAN: Gabriel Dailey MD I attest that I have performed epoch by epoch review of the entire raw data and find this study to be technically adequate. Report Digitally Signed By: GABRIEL DAILEY MD (10/11/2024 5:37:47 PM) Normal [facility] CNOVon 07-30-2024 CNOV Office Visit (INTMWS) ZORAIDA AMBROSE ([id number]) 1945 [facility] Date Time Provider Department 07/30/24 8:00 AM AMRIT BIRMINGHAM INTMWS During your visit today, we recorded the following information about you: Pulse Respiration Blood pressure Weight 53/minute 16/minute 132/70 78.1 kg Height 1.785 m Amrit Birmingham MD 08/09/2024 6:13 PM Addendum Zoraida Ambrose is a 78 year old male here for a Medicare wellness visit. Medicare Health Risk Assessment General Health Very good Exercise: Minutes/Day 40 min Exercise: Days/Week 4 days Alcohol: Daily Use Monthly or less Alcohol: Drinks/Day 1 or 2 Alcohol: 6 or more drinks Never Feel off balance No Concerns: Teeth/Dentures No Concerns: Sexual function no Troubled by feelings None of the above Frequency: Eating healthy diet Nearly every day ADLs requiring help None of the above Safety precautions in home/vehicle Yes Smoke, vape, chews tobacco No Difficulty hearing Yes Difficulty seeing No Current Providers Specialists: I have reviewed specialist-related care of the patient in the medical record. Medical/Family history review Reviewed and updated problem list, medical/surgical/fam teri/social history, medications, and allergies. Opioid use review Opioid Medications (last 90 days) No data to display Anxiety/Depression screening BILL-7 Score: 3 (Minimal Anxiety) Recommendation: no further intervention at this time Cognitive screening Mini Cog Score: 5 Cognitive screening reviewed and Recommended referral for further evaluation (score 0-2). Functional Observation Was the patient's Timed Up AND Go test unsteady or >= 12 seconds? No Advance Care Planning Surrogate decision maker and/or advance care plan documented Measurements BP 132/70 Pulse (!) 53 Resp 16 Ht 178.5 cm (5' 10.28") Wt 78.1 kg (172 lb 1.9 oz) BMI 24.50 kg/m? Vision Screening: Follows with optometry/ophthalmol ogy Assessment/Plan Medicare annual wellness visit, subsequent (Z00.00) - Counseled on healthy diet and regular exercise - Fall avoidance information provided - Personalized prevention plan provided Reason for Visit HPI Zach Ambrose is a 78-year-old male with a history of AFib, sudden sensorineural hearing loss, and sleep apnea, presenting for a follow-up visit. Zach reports a recent evaluation by a photographic equipment assembler for AFib and a consultation for otalgia, which has since resolved. 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 He denies any current otalgia and has not required treatment for the past month. 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 He received two courses of steroids, which initially improved his hearing, but the hearing loss recurred after a few weeks. He reports poor hearing in the left ear and finds his hearing aids unhelpful due to high-frequency squealing. He also notes a history of exposure to loud noises during service. Zach is currently taking Eliquis, Crestor, aspirin, thyroid medication, and metoprolol, though he rarely takes metoprolol. He reports easy bruising since starting Eliquis six months ago. He denies feeling tired and maintains an exercise routine of brisk walking for 40 minutes, four days a week, totaling approximately 160 minutes per week. He also walks a couple of miles with his dog regularly. Zach expresses dissatisfaction with his CPAP machine, stating that it disrupts his sleep. He reports nocturia every two hours but is able to return to sleep easily. He acknowledges feeling somewhat tired at times and has a history of sleep apnea, with at least two overnight studies conducted in the past. He denies snoring. Zach is socially active, living with his son, [id number], and three granddaughters in [place]. He participates in a prayer group and enjoys playing cards with friends. He reports good general health, does not drink alcohol, smoke, or use tobacco, and denies feelings of sadness or depression. He is independent in his activities of daily living and has advance directives in place. Social History Tobacco Use Smoking status: Never Smokeless tobacco: Never Substance Use Topics Alcohol use: Yes Comment: occasional beer - once a month Drug use: No Past medical history, appointments, medications, allergies reviewed. Pertinent Lab/Diagnostic Studies are reviewed and discussed today Current Outpatient Medications: aspirin, enteric coated (ASPIRIN, ENTERIC COATED) 81 mg EC tablet ELIQUIS 5 mg tab(s) levothyroxine (LEVOXYL) 50 mcg tablet CPAP/BIPAP/OTHER MAGNESIUM OXIDE,ASPARTATE,CITR ORAL omega 6-job-uiu-fish oil (FISH OIL) 100-160-1,000 mg cap metoprolol tar (more content not included)... Normal [facility] CBC panel Auto (Bld)on 07-25 Erythrocyte distribution width (RBC) [Ratio] 13.3 % Normal 11.5-15.0 [facility] Comment on above: Order Comment: Speci men Type: BLOOD SPECIMENOrdering Facility: [facility] Address: [address] [place] [address] Performed By: #### 5 8410-2 ####[facility] LABCLIA [id number] [place] [address] [place] Hematocrit (Bld) [Volume fraction] 40.8 % Normal 39.0-51.0 [facility] Comment on above: Order Comment: Speci men Type: BLOOD SPECIMENOrdering Facility: [facility] Address: [address] [place] [address] Performed By: #### 5 8410-2 ####[facility] LABCLIA [id number] [place] [address] [place] Hemoglobin (Bld) [Mass/Vol] 14.0 g/dL Normal 13.0-17.0 [facility] Comment on above: Order Comment: Speci men Type: BLOOD SPECIMENOrdering Facility: [facility] Address: [address] [place] [address] Performed By: #### 5 8410-2 ####[facility] LABCLIA [id number] [place] [address] [place] MCH (RBC) [Entitic mass] 30.4 pg Normal 26.0-34.0 [facility] Comment on above: Order Comment: Speci men Type: BLOOD SPECIMENOrdering Facility: [facility] Address: [address] [place] [address] Performed By: #### 5 8410-2 ####[facility] LABCLIA [id number] [place] [id number] [place] MCHC (RBC) [Mass/Vol] 34.3 g/dL Normal 30.5-36.0 [facility] Comment on above: Order Comment: Speci men Type: BLOOD SPECIMENOrdering Facility: [facility] Address: [address] [place] [address] Performed By: #### 5 8410-2 ####[facility] LABIA [id number] [place] [address] [place] MCV (RBC) [Entitic vol] 88.7 fL Normal 80.0-100.0 C [facility] Comment on above: Order Comment: Speci men Type: BLOOD SPECIMENOrdering Facility: [facility] Address: [address] [place] [address] Performed By: #### 5 8410-2 ####[facility] LABIA [id number] [place] [address] [place] Nucleated RBC (Bld) [#/Vol] 10*3/uL Normal <0.01 [facility] Comment on above: Order Comment: Speci men Type: BLOOD SPECIMENOrdering Facility: [facility] Address: [address] [place] [address] Performed By: #### 5 8410-2 ####[facility] [id number] [place] [address] [place] Platelet mean volume (Bld) [Entitic vol] 9.0 fL Normal 9.0-12.7 [facility] Comment on above: Order Comment: Speci men Type: BLOOD SPECIMENOrdering Facility: [facility] Address: [address] [place] [address] Performed By: #### 5 8410-2 ####[facility] LABIA [id number] [place] [address] [place] Platelets (Bld) [#/Vol] 215 10*3/uL Normal 150-400 [facility] Comment on above: Order Comment: Speci men Type: BLOOD SPECIMENOrdering Facility: [facility] Address: [address] [place] [address] Performed By: #### 5 8410-2 ####[facility] LABIA [id number] [place] [address] [place] RBC (Bld) [#/Vol] 4.60 10*6/uL Normal 4.20-6.00 [facility] Comment on above: Order Comment: Speci men Type: BLOOD SPECIMENOrdering Facility: [facility] Address: [address] [place] [address] Performed By: #### 5 8410-2 ####[facility] LABCLIA [id number] [place] [address] [place] WBC (Bld) [#/Vol] 7.14 10*3/uL Normal 3.70-11.00 [facility] Comment on above: Order Comment: Speci men Type: BLOOD SPECIMENOrdering Facility: [facility] Address: [address] [place] [address] Performed By: #### 5 8410-2 ####[facility] LABCLIA [id number] [place] [address] [place] 12 Lead EKG performed by [facility] on 01-31-2024 12 Lead EKG performed by [facility] [address] [place] [address] 12 Lead EKG performed by [facility] 01/31/24 1005 MR#: [id number] Acct: [id number] Name: ZORAIDA AMBROSE Rep #: [id number] : 1945 78 From: Randy Sousa MD Attending Dr: Dr. Randy Sousa MD Status: DEP A MB Ordering Dr: Randy Sousa MD Date: 01/31/24 [place] [facility] Sex: M C Admitted: BMS/12 Lead EKG performed by [facility] ECG Report Interpretation ------ atrial fibrillation Low voltage -possible pulmonary disease. ABNORMAL Electronically signed on 02/08/2024 at 09:49 by Randy Sousa Software Version [id number] 02/08/24 0951 Date Randy Sousa MD CC: Dr. Amrit Birmingham MD Date Dictated: 01/31/241004 Date Transcribed: 01/31/241004 Manager Of Transportation: [place] Signed [facility] Office Visit Reporton 2023 Office Visit Report [facility] [address] [facility] [place] [address] OFFICE VISIT Date of Service: 01/31/24 MR#: [id number] Acct: [id number] Patient: ZORAIDA AMBROSE Rep #: [id number] : 1945 Provider: Dr. Randy Sousa MD Age/Sex: 78/M Location: [facility] Status: Signed Intake Vital Signs 12/14/23 12:57 01/24/24 10:56 Height 5 ft 10 in 5 ft 10 in Intake Visit Reasons: s/p DCCV Allergies No Known Allergies Allergy (Verified 12/14/23 13:11) Have you fallen in the past year?: No Nursing Note Patient in office for post DCCV EKG. States he has been feeling much better since the procedure, less SOB. EKG done and given to MMM to review. She states she will discuss with Dr. Sousa and call patient later today. Assessment and Plan Assessment and Plan Orders: Orders 12 Lead EKG performed by [facility] 01/31/24 I48.19 - Other persistent atrial fibrillation Clinical Quality Measures Falls Risk Screening/Assistive Devices Have you fallen in the past year?: No 02/01/24 0852 Date Randy Sousa MD Cosigner Signature: Date (if applicable) CC: [facility] 12 Lead EKGon 01-24-2024 12 Lead EKG [facility] Cardiovascular Services [address] [place] [address] 12 Lead EKG 01/24/24 1040 MR#: [id number] Acct: [id number] Name: ZORAIDA AMBROSE [facility] Rep #: [id number] : 1945 78 From: Randy Sousa MD Attending Dr: Dr. Randy Sousa MD Status: DEP DC Ordering Dr: Randy Sousa MD Date: 01/24/24 Location: [facility] Sex: M C Admitted: Test Reason : AFIB Blood Pressure : */* mmHG Vent. Rate : 125 BPM Atrial Rate : 107 BPM P-R Int : * ms QRS Dur : 76 ms QT Int : 332 ms P-R-T Axes : * 14 -36 degrees QTcB Int : 479 ms Atrial fibrillation Nonspecific ST abnormality , probably digitalis effect Abnormal ECG Confirmed by RANDY SOUSA MD ([id number]), telegraph editor NICO MEADOWS ([id number]) on 01/25/2024 6:28:45 AM Referred By: Randy Sousa Confirmed By: RANDY SOUSA MD 01/25/24 0628 Date Randy Sousa MD CC: Dr. Amrit Birmingham MD; Dr. Randy Sousa MD Signed Normal [facility] Cardioversion Reporton 01-23 Cardioversion Report [facility] [address] [place] [address] MR#: [id number] Acct: [id number] Name: ZORAIDA AMBROSE [facility] Rep #: [id number] : 1945 78 From: Jhon Villatoro DO Primary Care: Dr. Amrit Birmingham MD Status: [facility] Referring Dr: Randy Sousa MD Sex: M C Cardioversion Cardioversion: CONSCIOUS SEDATION REPORT DATE OF SERVICE: January 24, 2024 BRIEF HISTORY OF PRESENT ILLNESS: The patient is a 78-year-old male who presented to [facility] to undergo an elective outpatient cardioversion due to underlying atrial fibrillation. The patient is a lifelong non- smoker. He denied any prior anesthetic complications. The patient is systemically anticoagulated on Eliquis. His last surface echocardiogram demonstrated an ejection fraction of approximately 60%. The patient does have a known history of obstructive sleep apnea on nocturnal PAP therapy. PHYSICAL EXAMINATION: VITAL SIGNS: Reviewed and were acceptable. GENERAL: The patient is a male, in no apparent distress, speaking in full sentences. HEENT: Normocephalic, atraumatic. Mucous membranes are moist and pink. Good mouth opening noted. Trachea is midline. Good neck mobility. CHEST: S1, S2 irregularly irregular. No murmurs, rubs or gallops were noted. LUNGS: Clear to auscultation bilaterally without appreciable wheezes, rales or rhonchi. ABDOMEN: Soft, nontender, nondistended. Positive bowel sounds. EXTREMITIES: There is no clubbing, cyanosis or edema. ASA Class: II DESCRIPTION OF PROCEDURE: After confirmation of informed consent, the patient's anesthesia plan was reviewed in detail. Propofol was chosen. Risks and benefits were reviewed and the patient agreed to proceed. At 1207, the patient was given 40 mg of propofol. The patient achieved an appropriate level of sedation and was given a 200 joule synchronized cardioversion by Dr. Sousa at the bedside. This was successful in achieving normal sinus rhythm. The patient was monitored until 1220, at which time he reached his baseline mental status and function. The patient tolerated the procedure well. COMPLICATIONS: None ESTIMATED BLOOD LOSS: None RECOMMENDATIONS: Okay to recover in usual fashion. Procedures Pulmonary Pulmonary Procedures /Diagnostic Testin Con Sedation 01/24/24 1256 Date Jhon Villatoro DO CC: Dr. Amrit Birmingham MD; Dr. Randy Sousa MD Date Dictated: 01/24/24 1255 Date Transcribed: 01/24/24 125 Manager Of Transportation: DB Signed Normal [facility] Procedure Reporton Procedure Report [facility] Medical Records Department [address] [place] [address] Procedure Report 01/24/241213 MR#: [id number] Acct: [id number] Name: ZORAIDA AMBROSE TAMIE Rep #: [id number] : 1945 78 From: Randy Sousa MD PCP: Dr. Amrit Birmingham MD Status:REG [facility] Location: [facility] Problems Associated Problem List Diagnoses (1) Paroxysmal a-fib: Non-invasive Procedural Procedure Information Date of Procedure: 01/24/24 Pre-Procedure Diagnosis: Atrial fibrillation Post-Procedure Diagnosis: Same Procedure Performed:: DC cardioversion Procedure Time Out: 12:02 Procedure Start Time: 12:07 Procedure Stop Time: 12:08 Special Medications: Intravenous propofol 40 mg Fluids Replaced: KVO Description of procedure: Patient was brought to the cardiac catheterization lab in the postabsorptive nonsedated state. Informed consent was obtained. The patient was seen by Dr. Villatoro of the critical care division. Informed consent was obtained. Anterior-posterior pads were applied. The patient was administered 40 mg intravenous propofol. 200 J of synchronized biphasic DC cardioversion energy were applied with prompt reversal to sinus rhythm. Procedure findings: Successful DC cardioversion from atrial fibrillation to sinus rhythm Complications Complications: No 01/24/24 1216 Cosigner Signature (if applicable): CC: Dr. Amrit Birmingham MD; Dr. Randy Souas MD Signed Normal [facility] Basic metabolic 2000 panelon 01-16-2024 Anion gap [Moles/Vol] 11 mmol/L Normal 8-15 [facility] Comment on above: Order Comment: Speci men Type: BLOOD SPECIMENOrdering Facility: [facility] Address: [address] [place] [address] Performed By: #### 2 4321-2 ####[facility] LABCLIA [id number] [place] [id number] [place] Calcium [Mass/Vol] 9.3 mg/dL Normal 8.5-10.2 [facility] Comment on above: Order Comment: Speci men Type: BLOOD SPECIMENOrdering Facility: [facility] Address: [address] [place] [address] Performed By: #### 2 4321-2 ####[facility] LABCLIA [id number] [address] [address] [place] Chloride [Moles/Vol] 107 mmol/L Normal 98-107 [facility] Comment on above: Order Comment: Speci men Type: BLOOD SPECIMENOrdering Facility: [facility] Address: [address] [place] [address] Performed By: #### 2 4321-2 ####[facility] LABCLIA [id number] [place] [id number] [place] CO2 [Moles/Vol] 24 mmol/L Normal 22-30 [facility] Comment on above: Order Comment: Speci men Type: BLOOD SPECIMENOrdering Facility: [facility] Address: [address] [place], [place] [address]E., [place] [address] Performed By: #### 2 4321-2 ####[facility] LABCLIA [id number] [address] [place] Creatinine [Mass/Vol] 1.17 mg/dL Normal 0.73-1.22 [facility] Comment on above: Order Comment: Speci men Type: BLOOD SPECIMENOrdering Facility: [facility] Address: [address] [place] [address] [address] [place] [address] Performed By: #### 2 4321-2 ####[facility] LABCLIA [id number] [address] Creatinine and Glomerular filtration rate.predicted panel (S/P/Bld) 65 mL/min/1.73m??? Normal >=60 [facility] Comment on above: Order Comment: Speci men Type: BLOOD SPECIMENOrdering Facility: [facility] Address: [address] [place] [address] [address] [place] [address] Result Comment: Marina mated Glomerular Filtration Rate (eGFR) is calculated using the 2020 CKD-EPI creatinine equation. This equation utilizes serum creatinine, sex, and age as parameters. The creatinine assay has traceable calibration to isotope dilution-mass spectrometry. Refer to KDIGO guidelines for clinical interpretation. In patients with unstable renal function, e.g. those with acute kidney injury, the eGFR may not accurately reflect actual GFR. Performed By: #### 2 4321-2 ####[facility] LABCLIA [id number] [address] [address] [place] Glucose [Mass/Vol] 85 mg/dL Normal 74-99 [facility] Comment on above: Order Comment: Speci men Type: BLOOD SPECIMENOrdering Facility: [facility] Address: [address] [place] [address] [address] [place] [address] Result Comment: The [place] [employer] (ADA) provides guidance for cutoff values for fasting glucose and random glucose. The ADA defines fasting as no caloric intake for at least 8 hours. Fasting plasma glucose results between 100 to 125 mg/dL indicate increased risk for diabetes (prediabetes). Fasting plasma glucose results greater than or equal to 126 mg/dL meet the criteria for diagnosis of diabetes. In the absence of unequivocal hyperglycemia, results should be confirmed by repeat testing. In a patient with classic symptoms of hyperglycemia or hyperglycemic crisis, random plasma glucose results greater than or equal to 200 mg/dL meet the criteria for diagnosis of diabetes. Reference: Standards of Medical Care in Diabetes 2016, [place] [employer]. Diabetes Care. 2016.39(Suppl 1). Performed By: #### 2 4321-2 ####[facility] LABCLIA [id number] [place] [address] [place] Potassium [Moles/Vol] 4.3 mmol/L Normal 3.7-5.1 [facility] Comment on above: Order Comment: Speci men Type: BLOOD SPECIMENOrdering Facility: [facility] Address: [address] [place], [place] [address] [place] [address] Performed By: #### 2 4321-2 ####[facility] LABCLIA [id number] [place] [id number] [place] Sodium [Moles/Vol] 142 mmol/L Normal 136-144 [facility] Comment on above: Order Comment: Speci men Type: BLOOD SPECIMENOrdering Facility: [facility] Address: [address] [place] [address] [place] [address] Performed By: #### 2 4321-2 ####[facility] LABCLIA [id number] [address] [address] [place] Urea nitrogen [Mass/Vol] 17 mg/dL Normal 9-24 [facility] Comment on above: Order Comment: Speci men Type: BLOOD SPECIMENOrdering Facility: [facility] Address: [address], [place] [id number] Performed By: #### 2 4321-2 ####[facility] LABCLIA [id number] [address] [address] [place] XR CHEST 2V FRONTAL/LATon XR CHEST 2V FRONTAL/LAT * * *Final Repor t* * * DATE OF EXAM: Jan 16 2024 12:16PM WOX 5291 - XR CHEST 2V FRONTAL/LAT / PROCEDURE REASON: palpitations * * * * Physician Interpretation * * * * EXAMINATION: CHEST RADIOGRAPH (2 VIEW FRONTAL and LATERAL) CLINICAL HISTORY: Tachycardia. Palpitations MQ: XC2_6 EXAM DATE/TIME: 01/16/2024 12:16 PM COMPARISON: Chest x-ray dated 02/03/2023 RESULT: Lines, tubes, and devices: None. Lungs and pleura: New patchy opacities at the right greater than left lung bases. No significant discernible pleural effusion. No pneumothorax. Cardiomediastinal silhouette: Study cardiomediastinal silhouette. Bones and soft tissues: Degenerative changes are present within the thoracic spine. IMPRESSION: New patchy opacities at the right greater than left lung bases suspect for pneumonia in the appropriate clinical setting. Manager Of Transportation: EDDIE Transcribe Date/Time: Jan 16 2024 1:15P Dictated by : ANNMARIE MONTIEL MD This examination was interpreted and the report reviewed and electronically signed by: ANNMARIE MONTIEL MD on Jan 16 2024 1:16PM EST [id number] Normal [facility] XR Chest PA and Lateralon IMPRESSION: New patchy opacities at the right greater than left lung bases suspect for pneumonia in the appropriate clinical setting. Manager Of Transportation: EDDIE Transcribe Date/Time: Jan 16 2024 1:15P Dictated by : ANNMARIE MONTIEL MD This examination was interpreted and the report reviewed and electronically signed by: ANNMARIE MONTIEL MD on Jan 16 2024 1:16PM [facility] DIVISION OF RADIOLOGY * * *Final Report* * * DATE OF EXAM: Jan 16 2024 12:16PM WOX [id number] - XR CHEST 2V FRONTAL/LAT / PROCEDURE REASON: palpitations * * * * Physician Interpretation * * * * EXAMINATION: CHEST RADIOGRAPH (2 VIEW FRONTAL & LATERAL) CLINICAL HISTORY: Tachycardia. Palpitations MQ: XC2_6 EXAM DATE/TIME: 01/16/2024 12:16 PM COMPARISON: Chest x-ray dated 02/03/2023 RESULT: Lines, tubes, and devices: None. Lungs and pleura: New patchy opacities at the right greater than left lung bases. No significant discernible pleural effusion. No pneumothorax. Cardiomediastinal silhouette: Study cardiomediastinal silhouette. Bones and soft tissues: Degenerative changes are present within the thoracic spine. DIVISION OF RADIOLOGY Provider, [facility] - 01/16/2024 * * *Final Report* * * DATE OF EXAM: Jan 16 2024 12:16PM WOX [id number] - XR CHEST 2V FRONTAL/LAT / PROCEDURE REASON: palpitations * * * * Physician Interpretation * * * * EXAMINATION: CHEST RADIOGRAPH (2 VIEW FRONTAL & LATERAL) CLINICAL HISTORY: Tachycardia. Palpitations MQ: XC2_6 EXAM DATE/TIME: 01/16/2024 12:16 PM COMPARISON: Chest x-ray dated 02/03/2023 RESULT: Lines, tubes, and devices: None. Lungs and pleura: New patchy opacities at the right greater than left lung bases. No significant discernible pleural effusion. No pneumothorax. Cardiomediastinal silhouette: Study cardiomediastinal silhouette. Bones and soft tissues: Degenerative changes are present within the thoracic spine. IMPRESSION IMPRESSION: New patchy opacities at the right greater than left lung bases suspect for pneumonia in the appropriate clinical setting. Manager Of Transportation: EDDIE Transcribe Date/Time: Jan 16 2024 1:15P Dictated by : ANNMARIE MONTIEL MD This examination was interpreted and the report reviewed and electronically signed by: ANNMARIE MONTIEL MD on Jan 16 2024 1:16PM [facility] Radiology Study observation (narrative) [facility] XR Chest PA and LateralOrder ed By: [facility] Provider on 01-16-2024 [facility] XR Chest PA and LateralOrder ed By: [facility] Provider on 02-03-2023 Interpretation and review of laboratory results Abnormal [facility] Radiology Result ACTIONABLE Abnormal [facility] Comment on above: This report contains an incidental or actionable finding. This finding may be a new finding separate from the reason your provider ordered the imaging test or it may be an already known finding that needs additional or continued follow-up. Because of this incidental or actionable finding, you may need another test (imaging or a different type of test). Please contact your provider for the next steps. [facility] XR Chest PA and Lateralon IMPRESSION: 1. Linear nodular density noted in the mid right lung which may represent an area of scarring. Recommend correlation with prior plain films or follow-up radiographs or chest CT to monitor stability. 2. Findings suggestive of bibasilar discoid atelectasis or scarring 3. Nondisplaced right rib fractures of uncertain chronicity. ACTIONABLE RESULT: FOLLOW-UP Acuity: Actionable Findings: Thoracic-Lung nodules Routing code: RI_1 Recommendation: CT Chest WO IVCON Time Frame: 1-3 months COMMUNICATION: Results will be communicated with the ordering provider via [email or web address] staff message or phone message by [employer] within 2 business days of report finalization. --END OF FINDING-- Manager Of Transportation: EDDIE Transcribe Date/Time: Feb 03 2023 3:46P Dictated by : SAGAR BEDOLLA MD This examination was interpreted and the report reviewed and electronically signed by: SAGAR BEDOLLA MD on Feb 03 2023 3:52PM [facility] DIVISION OF RADIOLOGY * * *Final Report* * * DATE OF EXAM: Feb 03 2023 3:42PM WOX [id number] - XR CHEST 2V FRONTAL/LAT / PROCEDURE REASON: Acute cough * * * * Physician Interpretation * * * * EXAMINATION: CHEST RADIOGRAPH (2 VIEW FRONTAL & LATERAL) CLINICAL HISTORY: Acute cough MQ: XC2_6 EXAM DATE/TIME: 02/03/2023 3:42 PM COMPARISON: No relevant prior studies available. RESULT: Lines, tubes, and devices: None. Lungs and pleura: No consolidation. No lung mass. No pleural effusion. No pneumothorax. There is a linear nodular density noted in the peripheral aspect of the right near the posterior aspect of the right eighth rib. Mild linear densities are noted the lung bases suggestive of scarring/atelectasis . Cardiomediastinal silhouette: The cardiac silhouette appears within normal limits. The thoracic aorta is tortuous and ectatic. Bones and soft tissues: Degenerative changes are present within the thoracic spine. There are nondisplaced rib fractures involving the right sixth and seventh ribs which are of uncertain chronicity DIVISION OF RADIOLOGY Provider, [facility] - 02/03/2023 * * *Final Report* * * DATE OF EXAM: Feb 03 2023 3:42PM WOX [id number] - XR CHEST 2V FRONTAL/LAT / PROCEDURE REASON: Acute cough * * * * Physician Interpretation * * * * EXAMINATION: CHEST RADIOGRAPH (2 VIEW FRONTAL & LATERAL) CLINICAL HISTORY: Acute cough MQ: XC2_6 EXAM DATE/TIME: 02/03/2023 3:42 PM COMPARISON: No relevant prior studies available. RESULT: Lines, tubes, and devices: None. Lungs and pleura: No consolidation. No lung mass. No pleural effusion. No pneumothorax. There is a linear nodular density noted in the peripheral aspect of the right near the posterior aspect of the right eighth rib. Mild linear densities are noted the lung bases suggestive of scarring/atelectasis . Cardiomediastinal silhouette: The cardiac silhouette appears within normal limits. The thoracic aorta is tortuous and ectatic. Bones and soft tissues: Degenerative changes are present within the thoracic spine. There are nondisplaced rib fractures involving the right sixth and seventh ribs which are of uncertain chronicity IMPRESSION IMPRESSION: 1. Linear nodular density noted in the mid right lung which may represent an area of scarring. Recommend correlation with prior plain films or follow-up radiographs or chest CT to monitor stability. 2. Findings suggestive of bibasilar discoid atelectasis or scarring 3. Nondisplaced right rib fractures of uncertain chronicity. ACTIONABLE RESULT: FOLLOW-UP Acuity: Actionable Findings: Thoracic-Lung nodules Routing code: RI_1 Recommendation: CT Chest WO IVCON Time Frame: 1-3 months COMMUNICATION: Results will be communicated with the ordering provider via [email or web address] staff message or phone message by [facility] within 2 business days of report finalization. --END OF FINDING-- Manager Of Transportation: EDDIE Transcribe Date/Time: Feb 03 2023 3:46P Dictated by : SAGAR BEDOLLA MD This examination was interpreted and the report reviewed and electronically signed by: SAGAR BEDOLLA MD on Feb 03 2023 3:52PM EST [facility] Radiology Study observation (narrative) [facility] Basophil percentageOrdered B y: Shirin Wilcox on 07-27-2022 Basophil percentage < 0.9 mg/dL 0.70-1.30 [facility] XR CHEST 2 VIEWSon 8 XR CHEST 2 VIEWS ORIGINALXR CHEST 2 VIEWS CLINICAL STATEMENT: right rib injury COMPARISON: CT of the thorax dated 12/26/2017 FINDINGS:Multiple RIGHT rib fractures are again identified. No vascular congestion or pneumothorax is seen. There is linear atelectasis within the RIGHT lung. There is a decreased opacity within the RIGHT midlung, likely related to the pleural thickening/hematoma seen on the recent CT exam. No pleural effusion is identified. Degenerative changes are seen within the spine. IMPRESSION:Redemonst ration of multiple RIGHT rib fractures. No pneumothorax is identified. Interpreted By: Sun Charles MDPreliminary Report By: Sun Charles MDElectronically Signed By: Sun Charles MD Dictated Date: 12/27/2017 9:14:37 AM Prelim Date: 12/27/2017 9:14:37 AM Sign Date: 12/27/2017 9:18:09 AM Normal [facility] (MD) Office Visiton 01-10-2017 Documentation of current medications (procedure) Done Invalid Interpretation Code [facility] Work Phone: Clinical Lists Update: Prelo tissue packer 01-02-2017 Left ventricular Ejection fraction 65 % Invalid Interpretation Code [facility] Work Phone: Office Visit: [facility] 12-07-19 Fall risk assessment No Invalid Interpretation Code [facility] Work Phone: Tobacco use [facility] Never smoker Invalid Interpretation Code [facility] Work Phone: Vital Signs Date Time Vital Sign Value Performing Clinician Facility 12-13-2024 07:50-0400 Body height 177.[address] Amrit Birmingham MD Work Phone: 9(455)256-409387 [place] [address] 12-13-2024 07:50-0400 Body mass index (BMI) [Ratio] 25.2 kg/m2 Dr. Amrit Birmingham MD Work Phone: 1(986)286-674587 [place] [address] 12-13-2024 07:50-0400 Body weight 79.[address] Amrit Birmingham MD Work Phone: 1(814)839-721587 [place] [address] 12-13-2024 07:50-0400 Diastolic blood pressure 72 mm[Hg] Dr. Amrit Birmingham MD Work Phone: 7(183)739-770287 [place] [address] 12-13-2024 07:50-0400 Heart rate 87 /min Dr. Amrit Birmingham MD Work Phone: 1(506)459-514187 [place] [address] 12-13-2024 07:50-0400 Respiratory rate 18 /min Dr. Amrit Birmingham MD Work Phone: 1(504)540-632287 [place] [address] 12-13-2024 07:50-0400 SaO2% (BldA) [Mass fraction] 99 % Dr. Amrit Birmingham MD Work Phone: 0(624)796-192887 [place] [address] 12-13-2024 07:50-0400 Systolic blood pressure 100 mm[Hg] Dr. Amrit Birmingham MD Work Phone: 9(605)235-225187 [place] [address] 11-25-2024 10:52-0400 Body height 177.[address] Amrit Birmingham MD Work Phone: 5(353)295-452687 [place] [address] 11-25-2024 10:52-0400 Body weight 78.[address] Amrit Birmingham MD Work Phone: 0(263)223-827987 [place] [address] 11-22-2024 08:58-0400 Body mass index (BMI) [Ratio] 25 kg/m2 Dr. Amrit Birmingham MD Work Phone: 9(554)631-692287 [place] [address] 11-21-2024 07:51-0400 Body height 177.[address] Amrit Birmingham MD Work Phone: 4(448)655-710587 [place] [address] 11-21-2024 07:51-0400 Body mass index (BMI) [Ratio] 25 kg/m2 Dr. Amrit Birmingham MD Work Phone: [facility] 11-21-2024 07:51-0400 Body weight 78.[address] Amrit Birmingham MD Work Phone: [facility] 11-21-2024 07:51-0400 Diastolic blood pressure 72 mm[Hg] Dr. Amrit Birmingham MD Work Phone: [facility] 11-21-2024 07:51-0400 Heart rate 127 /min Dr. Amrit Birmingham MD Work Phone: [facility] 11-21-2024 07:51-0400 Respiratory rate 14 /min Dr. Amrit Birmingham MD Work Phone: [facility] 11-21-2024 07:51-0400 Systolic blood pressure 103 mm[Hg] Dr. Amrit Birmingham MD Work Phone: [facility] 10-28-2024 09:02-0400 Body mass index (BMI) [Ratio] 24.79 kg/m2 Leni Tanner APRN.[employer] Work Phone: [facility] 10-28-2024 09:02-0400 Body temperature 97.5 [degF] Leni Tanner APRN.[employer] Work Phone: [facility] 10-28-2024 09:02-0400 Body weight 79 kg Leni Tanner APRN.[employer] Work Phone: [facility] 10-28-2024 09:02-0400 Diastolic blood pressure 84 mm[Hg] Leni Tanner APRN.[employer] Work Phone: [facility] 10-28-2024 09:02-0400 Heart rate 117 /min Leni Tanner APRN.[employer] Work Phone: [facility] 10-28-2024 09:02-0400 Respiratory rate 20 /min Leni Tanner APRN.[employer] Work Phone: [facility] 10-28-2024 09:02-0400 SaO2% (BldA) [Mass fraction] 97 % Leni Tanner WASTE COLLECTION DRIVER.[employer] Work Phone: [facility] 10-28-2024 09:02-0400 Systolic blood pressure 118 mm[Hg] Leni Tanner WASTE COLLECTION DRIVER.[employer] Work Phone: [facility] 10-23-2024 09:24-0400 Body height 177.[address] Amrit Birmingham MD Work Phone: [facility] 10-23-2024 09:24-0400 Body mass index (BMI) [Ratio] 25.1 kg/m2 Dr. Amrit Birmingham MD Work Phone: [facility] 10-23-2024 09:24-0400 Body weight 79.[address] Amrit Birmingham MD Work Phone: [facility] 10-23-2024 09:24-0400 Diastolic blood pressure 94 mm[Hg] Dr. Amrit Birmingham MD Work Phone: [facility] 10-23-2024 09:24-0400 Heart rate 98 /min Dr. Amrit Birmingham MD Work Phone: [facility] 10-23-2024 09:24-0400 Respiratory rate 16 /min Dr. Amrit Birmingham MD Work Phone: [facility] 10-23-2024 09:24-0400 SaO2% (BldA) [Mass fraction] 97 % Dr. Amrit Birmingham MD Work Phone: [facility] 10-23-2024 09:24-0400 Systolic blood pressure 117 mm[Hg] Dr. Amrit Birmingham MD Work Phone: [facility] 07-30-2024 08:07-0400 Body height 178.5 cm Amrit Birmingham MD Work Phone: [facility] 07-30-2024 08:07-0400 Body mass index (BMI) [Ratio] 24.5 kg/m2 Amrit Birmingham MD Work Phone: [facility] 07-30-2024 08:07-0400 Body weight 78.07 kg Amrit Birmingham MD Work Phone: [facility] 07-30-2024 08:07-0400 Diastolic blood pressure 70 mm[Hg] Amrit Birmingham MD Work Phone: [facility] 07-30-2024 08:07-0400 Heart rate 53 /min Amrit Birmingham MD Work Phone: [facility] 07-30-2024 08:07-0400 Respiratory rate 16 /min Amrit Birmingham MD Work Phone: [facility] 07-30-2024 08:07-0400 Systolic blood pressure 132 mm[Hg] Amrit Birmingham MD Work Phone: [facility] 11-22-2023 08:31-0400 Body mass index (BMI) [Ratio] 25.99 kg/m2 Laly Older W[employer]E COLLECTION DRIVER[employer] Work Phone: [facility] 11-22-2023 08:31-0400 Body weight 79.83 kg Laly Older [employer]E COLLECTION DRIVER[employer] Work Phone: [facility] 11-22-2023 08:31-0400 Diastolic blood pressure 78 mm[Hg] Laly Older W[employer]E COLLECTION DRIVER.[employer] Work Phone: [facility] 11-22-2023 08:31-0400 Heart rate 56 /min Laly Older WASTE COLLECTION DRIVER.[employer] Work Phone: [facility] 11-22-2023 08:31-0400 Respiratory rate 16 /min Laly Older WASTE COLLECTION DRIVER.[employer] Work Phone: [facility] 11-22-2023 08:31-0400 SaO2% (BldA) [Mass fraction] 96 % Laly Older W[employer]E COLLECTION DRIVER.[employer] Work Phone: [facility] 11-22-2023 08:31-0400 Systolic blood pressure 120 mm[Hg] Laly Older WASTE COLLECTION DRIVER[employer] Work Phone: [facility] 06-05-2023 08:48-0400 Body mass index (BMI) [Ratio] 26.05 kg/m2 Gely Augustine Work Phone: [facility] 06-05-2023 08:48-0400 Body weight 80 kg Gely Augustine Work Phone: [facility] 06-05-2023 08:48-0400 Diastolic blood pressure 74 mm[Hg] Gely Augustine Work Phone: [facility] 06-05-2023 08:48-0400 Heart rate 47 /min Gely Augustine Work Phone: [facility] 06-05-2023 08:48-0400 SaO2% (BldA) [Mass fraction] 96 % Gely Augustine Work Phone: [facility] 06-05-2023 08:48-0400 Systolic blood pressure 131 mm[Hg] Gely Augustine Work Phone: [facility] 02-17-2023 09:47-0500 Body weight 82.1 kg Laly Older WASTE COLLECTION DRIVER.[employer] Work Phone: [facility] 02-17-2023 09:47-0500 Diastolic blood pressure 80 mm[Hg] Laly Older WASTE COLLECTION DRIVER.DU[employer] LAYER Work Phone: [facility] 02-17-2023 09:47-0500 Heart rate 60 /min Laly Older WASTE COLLECTION DRIVER.DU[employer] LAYER Work Phone: [facility] 02-17-2023 09:47-0500 Respiratory rate 16 /min Laly Older WASTE COLLECTION DRIVER.DUCT LAYER Work Phone: [facility] 02-17-2023 09:47-0500 SaO2% (BldA) [Mass fraction] 97 % Laly Older WASTE COLLECTION DRIVER.DUCT LAYER Work Phone: [facility] 02-17-2023 09:47-0500 Systolic blood pressure 128 mm[Hg] Laly Older WASTE COLLECTION DRIVER.DUCT LAYER Work Phone: [facility] 02-01-2023 11:48-0500 Body temperature 97.59 [degF] Sharla TRINH Work Phone: [facility] 02-01-2023 11:48-0500 Body weight 82.64 kg Krislyn Aberegg PA Work Phone: [facility] 02-01-2023 11:48-0500 Diastolic blood pressure 80 mm[Hg] Krislyn Aberegg PA Work Phone: [facility] 02-01-2023 11:48-0500 Heart rate 69 /min Krislyn Aberegg PA Work Phone: [facility] 02-01-2023 11:48-0500 Respiratory rate 18 /min Krislyn Aberegg PA Work Phone: [facility] 02-01-2023 11:48-0500 SaO2% (BldA) [Mass fraction] 100 % Krislyn Aberegg PA Work Phone: [facility] 02-01-2023 11:48-0500 Systolic blood pressure 132 mm[Hg] Krislyn Aberegg PA Work Phone: [facility] 10-10-2022 13:31-0400 Body height 175.3 cm Dian Denbow PA-C Work Phone: [facility] 10-10-2022 13:31-0400 Body temperature 97.39 [degF] Dian Denbow PA-C Work Phone: [facility] 10-10-2022 13:31-0400 Body weight 81.65 kg Dian Denbow PA-C Work Phone: [facility] 10-10-2022 13:31-0400 Diastolic blood pressure 60 mm[Hg] Dian Denbow PA-C Work Phone: [facility] 10-10-2022 13:31-0400 Heart rate 63 /min Dian Denbow PA-C Work Phone: [facility] 10-10-2022 13:31-0400 Respiratory rate 12 /min Dian Denbow PA-C Work Phone: [facility] 10-10-2022 13:31-0400 SaO2% (BldA) [Mass fraction] 96 % Dian Rosa PA-C Work Phone: [facility] 10-10-2022 13:31-0400 Systolic blood pressure 106 mm[Hg] Dian TRINH-Ezekiel Work Phone: [facility] 01-04-2022 10:13-0500 Body height 176.5 cm Amrit Birmingham MD Work Phone: [facility] 01-04-2022 10:13-0500 Body temperature 97.59 [degF] Amrit Birmingham MD Work Phone: [facility] 01-04-2022 10:13-0500 Body weight 79.38 kg Amrit Birmingham MD Work Phone: [facility] 01-04-2022 10:13-0500 Diastolic blood pressure 80 mm[Hg] Amrit Birmingham MD Work Phone: [facility] 01-04-2022 10:13-0500 Heart rate 55 /min Amrit Birmingham MD Work Phone: [facility] 01-04-2022 10:13-0500 Respiratory rate 16 /min Amrit Birmingham MD Work Phone: [facility] 01-04-2022 10:13-0500 SaO2% (BldA) [Mass fraction] 96 % Amrit Birmingham MD Work Phone: [facility] 01-04-2022 10:13-0500 Systolic blood pressure 118 mm[Hg] Amrit Birmingham MD Work Phone: [facility] 01-10-2017 09:53-0500 BMI (Body Mass Index) 25.94 kg/m2 [facility] Work Phone: 01-10-2017 09:53-0500 BP Diastolic 64 mm[Hg] [facility] Work Phone: 01-10-2017 09:53-0500 BP Systolic 118 mm[Hg] [facility] Work Phone: 01-10-2017 09:53-0500 Height 180.34 cm [facility] Work Phone: 01-10-2017 09:53-0500 Pulse (Heart Rate) 58 /min [facility] Work Phone: 01-10-2017 09:53-0500 Respiratory Rate 16 /min [facility] Work Phone: 01-10-2017 09:53-0500 Weight 84.37 kg [facility] Work Phone: 12-06-2016 09:18-0400 BMI (Body Mass Index) 25.14 kg/m2 [facility] Work Phone: 12-06-2016 09:18-0400 BP Diastolic 78 mm[Hg] [facility] Work Phone: 12-06-2016 09:18-0400 BP Systolic 120 mm[Hg] [facility] Work Phone: 12-06-2016 09:18-0400 Height 180.34 cm [facility] Work Phone: 12-06-2016 09:18-0400 Pulse (Heart Rate) 52 /min [facility] Work Phone: 12-06-2016 09:18-0400 Respiratory Rate 18 /min [facility] Work Phone: 12-06-2016 09:18-0400 Weight 81.76 kg [facility] Work Phone: Encounters Encounter Date Encounter Type Care Provider Facility Start: 12-30-2024 ambulatory Randy Sousa Facility:[facility] Start: 12-13-2024 End: 12-13-2024 ambulatory Katih Tyson NP [place] Start: 12-12-2024 End: 12-12-2024 ambulatory AMRIT RODRIGUEZTA Facility:[facility] Start: 12-06-2024 ambulatory LALY COLON Facility:[facility] Start: 12-05-2024 End: 12-05-2024 Patient encounter procedure Kathi Tyson WASHER OPERATOR-C [facility] Work Phone: Start: 12-05-2024 End: 12-05-2024 ambulatory Kathi Tyson WASHER OPERATOR Facility:[facility] Start: 11-25-2024 ambulatory Randy Sousa Facility:[facility] Start: 11-25-2024 Non-patient / Non-visit Dr. Jhon toth DO -[facility] Start: 11-25-2024 End: 11-25-2024 Admission to same day surgery center Dr. Randy Sousa MD -Deal Architect/Special Procedures Work Phone: Start: 11-25-2024 End: 11-25-[address] Amrit Birmingham MD Work Phone: -Deal Architect/Special Procedures Start: 11-21-2024 ambulatory [facility] Facility:[facility] Start: 11-21-2024 Non-patient / Non-visit Dr. Lily PERDOMO -[facility] Start: 11-21-2024 End: 11-21-2024 Patient encounter procedure Kathi Tyson WASHER OPERATOR-C [facility] Work Phone: Start: 11-21-2024 End: 11-21-[address] Amrit Birmingham MD Work Phone: -[facility] Start: 11-21-2024 End: 11-21-2024 [facility] Start: 11-06-2024 End: 11-06-2024 ambulatory [facility] Facility:[facility] Start: 10-28-2024 End: 10-28-2024 E-mail encounter from caregiver Leni Ciro CAI Work Phone: [facility] [place] Start: 10-28-2024 End: 10-28-2024 Subsequent hospital visit by physician 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] Start: 10-28-2024 End: 10-28-2024 Office outpatient visit 25 minutes Leni Tanner APRN.DUCT LAYER Work Phone: [facility] [place] Comment on above: Community acquired p neumonia, unspecified laterality (Primary Dx) Start: 10-28-2024 End: 10-28-2024 ambulatory Leni Tanner APRN.DUCT LAYER Work Phone: [facility] [place] Comment on above: RESULTS Start: 10-23-2024 End: 10-23-2024 ambulatory AMRIT BIRMINGHAM Facility:[facility] Start: 10-23-2024 End: 10-23-2024 Patient encounter procedure Jacobo Ryan WASHER OPERATORSarah [facility] Work Phone: Start: 10-23-2024 End: 10-23-[address] Amrit Birmingham MD Work Phone: -[facility] Start: 09-17-2024 End: 09-18-2024 ambulatory AMRIT [place] Facility:[facility] Start: 08-01-2024 End: 10-01-2024 Follow-up encounter Amrit Birmingham MD Work Phone: [facility] [place] Start: 07-30-2024 End: 07-30-2024 Office outpatient visit 25 minutes Amrit Birmingham MD Work Phone: [facility] [place] Comment on above: Medicare annual well ness visit, subsequent (Primary Dx); Sleep apnea, unspecified type; Paroxysmal A-fib (HCC); Obstructive sleep apnea syndrome; Hypothyroidism, unspecified type; History of prostate cancer; 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 Start: 01-31-2024 End: 01-31-2024 ambulatory [facility] Sosa Facility:[facility] Start: 01-24-2024 ambulatory Jhon Brown Facility:[facility] Start: 01-24-2024 End: 01-24-2024 ambulatory [facility] Facility:[facility] Start: 01-16-2024 ambulatory [facility] Start: 01-16-2024 End: 01-16-2024 ambulatory [facility] Facility:[facility] Start: 01-16-2024 End: 01-16-2024 Subsequent hospital visit by physician [facility] Work Phone: Radiology Start: 01-16-2024 End: 01-16-2024 [facility] Facility:[facility] Start: 01-09-2024 ambulatory [facility] Facility:[facility] Start: 01-09-2024 End: 01-09-2024 ambulatory [facility] Facility:[facility] Start: 11-29-2023 End: 11-29-2023 Subsequent hospital visit by physician [facility] [employer] [employer] 2 Work Phone: Radiology Comment on above: Renal cyst [N28.1] Start: 11-22-2023 End: 11-22-2023 Patient encounter procedure Laly Colon APRN.CNP Work Phone: [facility] Comment on above: Paroxysmal A-fib (HC C) (Primary Dx); Aortic root dilatation (HCC); Mixed hyperlipidemia; Renal cyst; Hypothyroidism, unspecified type; History of prostate cancer Start: 11-07-2023 End: 11-10-2023 ambulatory Amrit Birmingham MD Work Phone: Internal [facility] Start: 08-08-2023 ambulatory Amrit Vaughan Work Phone: Internal [facility] Start: 06-20-2023 Refill Amrit Vaughan Work Phone: [facility] Comment on above: Refill Request Start: 06-09-2023 End: 06-09-2023 [facility] Work Phone: Start: 06-09-2023 End: 06-09-2023 Patient encounter procedure [facility] Work Phone: Start: 06-06-2023 ambulatory Gely hardwick Work Phone: Pulmonary Medicine Comment on above: lung nodules Start: 06-06-2023 E-mail encounter fro m caregiver Gely Augustine Work Phone: Pulmonary Medicine Start: 06-06-2023 Telephone encounter Gely winter Work Phone: Pulmonary Medicine Comment on above: has a few questions from updated visit Start: 06-05-2023 Telephone encounter Gely winter Work Phone: [facility] Comment on above: Results FILM REQ-JOSE LUISLORAINEMARGA Start: 06-05-2023 End: 06-05-2023 Patient encounter procedure Gely Augustine Work Phone: [facility] Comment on above: Lung nodules (Primar y Dx) Start: 05-22-2023 End: 05-22-2023 Subsequent hospital visit by physician [facility] Wstr (I-Stat) Work Phone: Cat Scan Comment on above: Lung nodules [R91.8] Start: 02-17-2023 End: 02-17-2023 Patient encounter procedure Laly Colon APRN.CNP Work Phone: [facility] [place] Comment on above: Paroxysmal A-fib (HC C) (Primary Dx); Obstructive sleep apnea syndrome; Hypothyroidism, unspecified type; Malignant neoplasm (HCC); Lung nodules Start: 02-03-2023 End: 02-03-2023 Subsequent hospital visit by physician Xr [facility] [place] Work Phone: Radiology Comment on above: Acute cough [R05.1] Start: 02-01-2023 End: 02-01-2023 Patient encounter procedure Sharla TRINH Work Phone: [facility] Comment on above: Acute cough (Primary Dx) Start: 12-27-2022 ambulatory Amrit Vaughan Work Phone: [facility] Start: 10-10-2022 End: 10-10-2022 Patient encounter procedure Dian Rosa PA-C Work Phone: Internal [facility] [place] Comment on above: Obstructive sleep ap nelson syndrome (Primary Dx); Acquired hypothyroidism; History of prostate cancer Start: 10-04-2022 Telephone encounter Dian Hilton PA-C Work Phone: [facility] [place] Comment on above: Appointment Start: 07-27-2022 End: 07-27-2022 ambulatory [facility] Work Phone: Start: 07-27-2022 End: 07-27-2022 Patient encounter procedure [facility] Start: 01-04-2022 End: 01-04-2022 Patient encounter procedure Amrit Birmingham MD Work Phone: Internal [facility] [place] Comment on above: Mixed hyperlipidemia (Primary Dx); Paroxysmal A-fib (HCC); Hypothyroidism, unspecified type; Obstructive sleep apnea syndrome Start: 12-21-2021 ambulatory Amrit Vaughan Work Phone: [facility] Start: 10-26-2021 End: 10-26-2021 Nursing evaluation of patient and report Mi Nurse Work Phone: [facility] Comment on above: Need for shingles va ccine (Primary Dx) Start: 10-13-2021 Telephone encounter Amrit hurley MD Work Phone: Internal [facility] [place] Comment on above: Orders Start: 12-26-2017 End: 12-27-2017 Patient encounter procedure PATIENT UNSURE PHYSICIAN Facility:A Procedures Date Procedure Procedure Detail Performing Clinician Start: 11-21-2024 Radiologic exam ches t [address] Amrit Birmingham MD Work Phone: Start: 10-28-2024 Radiologic exam ches t 2 views Leni Tanner APRN.DUCT LAYER Work Phone: Start: 01-16-2024 Radiologic exam ches t 2 views [facility] Provider Start: 02-03-2023 Radiologic exam ches t 2 views Yobany Rut WASTE COLLECTION DRIVER.DUCT LAYER Work Phone: Start: 07-27-2022 CT angiography of ch est with contrast Start: 12-28-2021 Lipid 1996 panel - S bethel or Plasma Amrit Birmingham MD Work Phone: Start: 12-31-2020 Adult depression scr eening assessment Amrit Birmingham MD Work Phone: Start: 04-04-2019 Colonoscopy Amrit hurley MD Work Phone: Start: 01-10-2017 End: 01-10-2017 DJN Bakari Hernandez MD Work Phone: Start: 01-10-2017 End: 01-10-2017 Follow Up Appt 6 months Bakari Hernandez MD Work Phone: Start: 12-06-2016 End: 12-06-2016 Follow Up Appt 6 weeks Shirin diaz PA-C Work Phone: Start: 12-06-2016 End: 12-06-2016 [facility] Shirin Wilcox PA-C Work Phone: Plan of Treatment Date Care Activity Detail Author Start: 10-24-2027 [facility] Start: 01-15-2027 [facility] Screening [facility] Start: 12-28-2026 Lipid 1996 panel - S bethel or Plasma Lipid Screening [facility] Start: 12-28-2026 Lip[address] Lipid Screening [facility] Start: 12-28-2026 LIPID SCREEN LIPID SCREEN [facility] Start: 11-19-2026 Diabetes Screening Diabetes [facility] Start: 01-13-2026 Diabetes Screening [facility] Start: 12-28-2025 LIPID SCREEN LIPID SCREEN [facility] Start: 07-30-2025 Annual PCP Team Income Auditor adriana Disease Visit Annual PCP Team Chronic Disease Visit [facility] Start: 01-29-2025 End: 04-30-2025 CBC panel - Blood by Automated count COMPLETE BLOOD COUNT Lab Routine Paroxysmal A-fib (HCC) Expected: 01/29/2025, Expires: 04/30/2025 [facility] Comment on above: Expected: 01/29/2025 , Expires: 04/30/2025 Start: 01-29-2025 End: 04-30-2025 Comprehensive metabolic 2000 panel - Serum or Plasma COMPREHENSIVE METABOLIC PANEL Lab Routine Paroxysmal A-fib (HCC) Expected: 01/29/2025, Expires: 04/30/2025 [facility] Comment on above: Expected: 01/29/2025 , Expires: 04/30/2025 Start: 01-29-2025 End: 04-30-2025 Lipid 1996 panel - Serum or Plasma LIPID PANEL, FASTING Lab Routine Paroxysmal A-fib (HCC) Expected: 01/29/2025, Expires: 04/30/2025 [facility] Work Phone: Comment on above: Expected: 01/29/2025 , Expires: 04/30/2025 Start: 01-29-2025 End: 04-30-2025 PSA/PROSTATE SPECIFIC ANTIGEN SCREENING PSA/PROSTATE SPECIFIC ANTIGEN SCREENING Lab Routine History of prostate cancer Expected: 01/29/2025, Expires: 04/30/2025 [facility] Comment on above: Expected: 01/29/2025 , Expires: 04/30/2025 Start: 01-29-2025 End: 04-30-2025 Thyrotropin [Units/volume] in Serum or Plasma THYROID STIMULATING HORMONE Lab Routine Hypothyroidism, unspecified type Expected: 01/29/2025, Expires: 04/30/2025 [facility] Comment on above: Expected: 01/29/2025 , Expires: 04/30/2025 Start: 01-29-2025 End: 04-30-2025 Thyroxine (T4) free [Mass/volume] in Serum or Plasma T4 FREE/FREE THYROXINE Lab Routine Hypothyroidism, unspecified type Expected: 01/29/2025, Expires: 04/30/2025 [facility] Comment on above: Expected: 01/29/2025 , Expires: 04/30/2025 Start: 01-29-2025 End: 04-30-2025 Triiodothyronine (T3) [Mass/volume] in Serum or Plasma T3 Lab Routine Hypothyroidism, unspecified type Expected: 01/29/2025, Expires: 04/30/2025 [facility] Comment on above: Expected: 01/29/2025 , Expires: 04/30/2025 Start: 01-14-2025 End: 01-14-2025 Patient encounter procedure 01/14/2025 8:40 AM EST Office Visit [facility] [place] [address] [place] [address] Amrit Birmingham MD [address] [place] [address] 6 month follow up [facility] [place] Comment on above: 6 month follow up Start: 12-30-2024 Cardioversion [facility] Start: 12-28-2024 DIABETES SCREEN DIABETES SCREEN [facility] Start: 12-28-2024 Diabetes Screening [facility] Start: 12-13-2024 End: 12-13-2024 Patient encounter procedure Decreased cardiac ejection fraction -[facility] Work Phone: Start: 12-05-2024 End: 12-05-2024 Evaluation of diagnostic study results [facility] Start: 12-05-2024 End: 12-05-2024 Patient encounter procedure Departed Physician/Provider Office Visit -[facility] Work Phone: Start: 11-25-2024 Patient discharge [facility] Start: 11-21-2024 Annual PCP Team Income Auditor adriana Disease Visit Annual PCP Team Chronic Disease Visit [facility] Start: 11-21-2024 End: 11-21-2024 Evaluation of diagnostic study results [facility] Start: 10-23-2024 T4 free measurement [facility] Start: 10-23-2024 Thyroid stimulating hormone measurement [facility] Start: 10-23-2024 End: 10-23-2024 Evaluation of diagnostic study results [facility] Start: 10-14-2024 Influenza vaccination [facility] Start: 08-12-2024 Influenza vaccination Influenza Vacc ine (#1) [facility] Comment on above: Postponed from 10/14 (Declined at this time) Start: 07-30-2024 End: 07-30-2024 Patient encounter procedure 07/30/2024 8:00 AM EDT Office Visit [facility] [place] [address] [place] [address] Amrit Birmingham MD [address] [place] [address] Medicare wellness [facility] Comment on above: Medicare wellness Start: 07-16-2024 End: 10-15-2024 CBC panel - Blood by Automated count COMPLETE BLOOD COUNT Lab Routine Medication management Expected: 07/16/2024, Expires: 10/15/2024 [facility] Work Phone: Comment on above: Expected: 07/16/2024 , Expires: 10/15/2024 Start: 04-04-2024 Colonoscopy COLONOSCOPY [facility] Start: 04-04-2024 COLORECTAL CANCER SCREENING COLORECTAL CANCER SCREENING [facility] Start: 04-04-2024 Screening for malign ant neoplasm of colon [facility] Start: 02-18-2024 Annual PCP Team Income Auditor adriana Disease Visit Annual PCP Team Chronic Disease Visit [facility] Start: 02-18-2024 Covid-19 Vaccine ( season) Covid-19 Vaccine ( season) [facility] Comment on above: Postponed from 10/14 (Declined at this time) Start: 02-18-2024 RSV Vaccine (1 - 1-d ose 60+ series) RSV Vaccine (1 - 1-dose 60+ series) [facility] Comment on above: Postponed from 09/22 (Declined at this time) Start: 02-18-2024 RSV Vaccine (1 - 1-d ose 75+ series) RSV Vaccine (1 - 1-dose 75+ series) [facility] Comment on above: Postponed from 09/22 (Declined at this time) Start: 02-18-2024 Urine microalbumin profile DTa P,Tdap,Td Vaccine (2 - Td or Tdap) [facility] Comment on above: Postponed from 09/14 (Declined at this time) Start: 02-14-2024 Advance Directive Discussion Advance Directive Discussion [facility] Start: 02-14-2024 Medicare Advantage A nnual Wellness Visit Medicare Advantage Annual Wellness Visit [facility] Start: 12-29-2023 DIABETES SCREEN DIABETES SCREEN [facility] Start: 11-29-2023 End: 11-29-2023 Patient encounter procedure 11/29/2023 8:30 AM EDT Appointment Radiology [address] [place] [address] Renal cyst [N28.1] Radiology Comment on above: Renal cyst [N28.1] Start: 11-22-2023 End: 02-21-2024 Hepatic function 2000 panel - Serum or Plasma [facility] Comment on above: Expected: 11/22/2023 , Expires: 02/21/2024 Start: 11-22-2023 End: 02-21-2024 Prostate specific Ag [Mass/volume] in Serum or Plasma [facility] Comment on above: Expected: 11/22/2023 , Expires: 02/21/2024 Start: 11-22-2023 End: 11-22-2023 Patient encounter procedure 11/22/2023 8:40 AM EDT [facility] [place] [address] [facility] [place] [address] Laly Colon APRN.DUCT LAYER [address] [place] [address] 6 month follow up- Ct scan [facility] [place] Comment on above: 6 month follow up- C t scan Start: 11-07-2023 End: 02-06-2024 Basic metabolic 2000 panel - Serum or Plasma BASIC METABOLIC PANEL Lab Routine Medication management Expected: 11/07/2023, Expires: 02/06/2024 [facility] Work Phone: Comment on above: Expected: 11/07/2023 , Expires: 02/06/2024 Start: 11-07-2023 End: 02-06-2024 Lipid 1996 panel - Serum or Plasma LIPID PANEL BASIC Lab Routine Medication management Expected: 11/07/2023, Expires: 02/06/2024 [facility] Comment on above: Expected: 11/07/2023 , Expires: 02/06/2024 Start: 11-07-2023 End: 02-06-2024 Thyrotropin [Units/volume] in Serum or Plasma THYROID STIMULATING HORMONE Lab Routine Hypothyroidism Expected: 11/07/2023, Expires: 02/06/2024 [facility] Comment on above: Expected: 11/07/2023 , Expires: 02/06/2024 Start: 10-15-2023 Covid-19 Vaccine ( season) Covid-19 Vaccine ( season) [facility] Start: 10-15-2023 Covid-19 Vaccine () Covid-19 Vaccine () [facility] Start: 10-15-2023 Influenza vaccination [facility] Start: 10-11-2023 ANNUAL PCP TEAM SOLAR RESOURCE ASSESSOR ADRIANA DISEASE VISIT ANNUAL PCP TEAM CHRONIC DISEASE VISIT [facility] Start: 08-23-2023 End: 08-23-2023 Patient encounter procedure 08/23/2023 9:00 AM EDT Office Visit [facility] [place] [address] [place] [address] Laly Colon APRN.DUCT LAYER [address] [place], [place] [id number] 6 month follow up- Ct scan [facility] [place] Comment on above: 6 month follow up- C t scan Start: 08-13-2023 Influenza vaccination Influenza Vacc ine (#1) [facility] Comment on above: Postponed from 10/14 (Declined at this time) Start: 08-08-2023 End: 11-07-2023 Lipid 1996 panel - Serum or Plasma LIPID PANEL BASIC Lab Routine Medication management Expected: 08/08/2023, Expires: 11/07/2023 [facility] Work Phone: Comment on above: Expected: 08/08/2023 , Expires: 11/07/2023 Start: 05-19-2023 End: 03-18-2024 Ct thorax w/o contrast material CT CHEST WO IVCON Radiology Routine Lung nodules Expected: 05/19/2023 (Approximate), Expires: 03/18/2024 [facility] Work Phone: Comment on above: Expected: 05/19/2023 (Approximate), Expires: 03/18/2024 Start: 02-13-2023 Behavioral Health Screening Behavioral Health Screening [facility] Start: 01-04-2023 ANNUAL PCP TEAM SOLAR RESOURCE ASSESSOR ADRIANA DISEASE VISIT ANNUAL PCP TEAM CHRONIC DISEASE VISIT [facility] Start: 01-04-2023 COVID-19 VACCINE (2 - Booster for Sanjuana series) COVID-19 VACCINE (2 - Booster for Sanjuana series) [facility] Comment on above: Postponed from 08/10 (Declined at this time) Start: 12-28-2022 End: 02-27-2023 CBC W Auto Differential panel - Blood CBC + DIFF Lab Routine Acquired hypothyroidism Expected: 12/28/2022 (Approximate), Expires: 02/27/2023 [facility] Work Phone: Comment on above: Expected: 12/28/2022 (Approximate), Expires: 02/27/2023 Start: 12-28-2022 End: 02-27-2023 Hepatic function 2000 panel - Serum or Plasma HEPATIC FUNCTION PNL Lab Routine Acquired hypothyroidism Expected: 12/28/2022 (Approximate), Expires: 02/27/2023 [facility] Work Phone: Comment on above: Expected: 12/28/2022 (Approximate), Expires: 02/27/2023 Start: 12-28-2022 End: 02-27-2023 PSA/PROSTSPECAG SCRN PSA/PROSTSPECAG SCRN Lab Routine History of prostate cancer Expected: 12/28/2022 (Approximate), Expires: 02/27/2023 [facility] Work Phone: Comment on above: Expected: 12/28/2022 (Approximate), Expires: 02/27/2023 Start: 12-28-2022 End: 02-27-2023 Thyrotropin [Units/volume] in Serum or Plasma TSH BLD Lab Routine Acquired hypothyroidism Expected: 12/28/2022 (Approximate), Expires: 02/27/2023 [facility] Work Phone: Comment on above: Expected: 12/28/2022 (Approximate), Expires: 02/27/2023 Start: 12-27-2022 End: 03-28-2023 Basic metabolic 2000 panel - Serum or Plasma BASIC METABOLIC PNL Lab Routine Medication management Expected: 12/27/2022, Expires: 03/28/2023 [facility] Work Phone: Comment on above: Expected: 12/27/2022 , Expires: 03/28/2023 Start: 10-14-2022 Covid-19 Vaccine ( season) Covid-19 Vaccine ( season) [facility] Start: 10-14-2022 Influenza vaccination C [facility] Start: 09-22-2022 RSV Vaccine (1 - 1-d ose 75+ series) RSV Vaccine (1 - 1-dose 75+ series) [facility] Start: 08-12-2022 Influenza vaccination INFLUENZA (#1) [facility] Comment on above: Postponed from 10/14 (Declined at this time) Start: 02-13-2022 ADVANCE DIRECTIVE DISCUSSION ADVANCE DIRECTIVE DISCUSSION [facility] Start: 01-04-2022 ANNUAL PCP TEAM SOLAR RESOURCE ASSESSOR ADRIANA DISEASE VISIT ANNUAL PCP TEAM CHRONIC DISEASE VISIT [facility] Start: 12-31-2021 Adult depression scr eening assessment DEPRESSION SCREENING [facility] Start: 12-21-2021 End: 02-20-2022 Basic metabolic 2000 panel - Serum or Plasma BASIC METABOLIC PNL Lab Routine Medication management Expected: 12/21/2021, Expires: 02/20/2022 [facility] Work Phone: Comment on above: Expected: 12/21/2021 , Expires: 02/20/2022 Start: 12-21-2021 End: 02-20-2022 Lipid 1996 panel - Serum or Plasma LIPID PANEL BASIC Lab Routine Hyperlipidemia, unspecified hyperlipidemia type Expected: 12/21/2021, Expires: 02/20/2022 [facility] Work Phone: Comment on above: Expected: 12/21/2021 , Expires: 02/20/2022 Start: 12-21-2021 End: 02-20-2022 SCHEDULE LAB TESTING SCHEDULE LAB TESTING Lab Routine Expected: 12/21/2021, Expires: 02/20/2022 [facility] Work Phone: Comment on above: Expected: 12/21/2021 , Expires: 02/20/2022 Start: 12-21-2021 End: 02-20-2022 Thyrotropin [Units/volume] in Serum or Plasma TSH BLD Lab Routine Acquired hypothyroidism Expected: 12/21/2021, Expires: 02/20/2022 [facility] Work Phone: Comment on above: Expected: 12/21/2021 , Expires: 02/20/2022 Start: 10-19-2021 SHINGRIX VACCINE (3 of 3) SHUKLA GRIX VACCINE (3 of 3) [facility] Start: 10-14-2021 Influenza vaccination INFLUENZA (#1) [facility] Start: 09-14-2021 Urine microalbumin profile [facility] Start: 02-13-2021 ADVANCE DIRECTIVE DISCUSSION ADVANCE DIRECTIVE DISCUSSION [facility] Start: 02-13-2021 DEPRESSION ASSESSMENT DEPRESSION ASS ESSMENT [facility] Start: 08-10-2020 COVID-19 VACCINE (2 - Booster for Sanjuana series) COVID-19 VACCINE (2 - Booster for Sanjuana series) [facility] Start: 08-07-2017 End: 08-07-2017 Appointment Appointment [facility] Work Phone: Start: 01-10-2017 End: 01-10-2017 DEVON OSORIO [facility] Work Phone: Start: 01-10-2017 End: 01-10-2017 Follow Up Appt 6 months Follow Up Appt 6 months [facility] Work Phone: Start: 01-10-2017 End: 01-10-2017 Appointment Appointment [facility] Work Phone: Start: 12-06-2016 End: 12-06-2016 Follow Up Appt 6 weeks Follow Up Appt 6 weeks [facility] Work Phone: Start: 12-06-2016 End: 12-06-2016 MMM MMM [facility] Work Phone: Start: 12-06-2016 End: 12-06-2016 [facility] mobile cv telemetry w/i&report 30 days 30 Day Holter Monitor [facility] Work Phone: Start: 2007 RSV Vaccine (1 - 1-d ose 60+ series) RSV Vaccine (1 - 1-dose 60+ series) [facility] Start: 09-22-1992 COLOGUARD (FIT-DNA) COLOGUARD (FIT-D NA) [facility] Start: 09-22-[address] COLONOGRAPHY [facility] Start: 09-22-1992 FECAL OCCULT BLOOD FECAL OCCULT BLOO D [facility] Start: 09-22-1992 Screening for malign ant neoplasm of colon [facility] Start: 09-22-1992 SIGMOIDOSCOPY SIGMOIDOSCOPY [facility] Start: 09-22-1965 Anxiety Screening Anxiety Screening [facility] Start: 09-22-1965 Depression Screening Depression Scre ening [facility] Basic metabolic 2008 panel with ionized calcium - Serum or Plasma [facility] Basic metabolic 2008 panel with ionized calcium - Serum or Plasma [facility] CBC W Auto Different ial panel - Blood [facility] CT Chest WO contrast CT CHEST WO IVCON Radiology Routine Lung nodules 05/22/2023 8:59 AM EDT [facility] Work Phone: End: 07-30-2025 HOME SLEEP APNEA TEST (HSAT) HOME SLEEP APNEA TEST (HSAT) Procedures Routine Sleep apnea, unspecified type 1 Occurrences starting 07/30/2024 until 07/30/2025 [facility] Comment on above: 1 Occurrences starti ng 07/30/2024 until 07/30/2025 Hzv zoster vacc recombinant adjuvanted im njx ZOSTER VACC RECOMBINANT,IM Immunization/Injection Routine Encounter for immunization Ordered: 10/13/2021 [facility] Work Phone: Comment on above: Ordered: 10/13/2021 Magnesium measurement [facility] US Heart [facility] End: 12-21-2024 US Kidney - bilateral and Urinary bladder US KIDNEY/BLADDER Radiology Routine Renal cyst 1 Occurrences starting 11/22/2023 until 12/21/2024 [facility] Work Phone: Comment on above: 1 Occurrences starti ng 11/22/2023 until 12/21/2024 US Kidney - bilatera l and Urinary bladder US KIDNEY/BLADDER Radiology Routine Renal cyst 11/29/2023 8:39 AM EDT [facility] Work Phone: XR Chest PA and Lateral [facility] Immunizations Immunization Date Immunization Notes Care Provider Cookie santiagomónica 10-26-2021 zoster vaccine recombinant Mi Nurse Work Phone: [facility] Work Phone: 08-24-2021 zoster vaccine recombinant Amrit Birmingham MD Work Phone: [facility] 12-05-2020 influenza, high-dose , quadrivalent vaccine (FLUZONE HIGH DOSE QUADRIVALENT) Amrit Birmingham MD Work Phone: [facility] 12-05-2020 influenza virus vacc ine, unspecified formulation Amrit Birmingham MD Work Phone: [facility] 06-15-2020 COVID-19 vaccine (SANJUANA) Amrit Birmingham MD Work Phone: [facility] 12-07-2019 influenza, high-dose , quadrivalent vaccine (FLUZONE HIGH DOSE QUADRIVALENT) Amrit Birmingham MD Work Phone: [facility] Work Phone: 10-31-2018 influenza, high dose seasonal, preservative-free Amrit Birmingham MD Work Phone: [facility] 11-29-2017 influenza, high dose seasonal, preservative-free Amrit Birmingham MD Work Phone: [facility] 11-18-2016 influenza, injectabl e, quadrivalent, preservative free [facility] 11-18-2016 influenza, seasonal, injectable [facility] 11-17-2016 influenza, injectabl e, quadrivalent, contains preservative Amrit Birmingham MD Work Phone: [facility] Work Phone: 09-20-2016 pneumococcal polysaccharide vaccine, 23 valent Amrit Birmingham MD Work Phone: [facility] Work Phone: 10-14-2015 influenza, high dose seasonal, preservative-free Amrit Birmingham MD Work Phone: [facility] Work Phone: 07-20-2015 pneumococcal conjuga te vaccine, 13 valent Amrit Birmingham MD Work Phone: [facility] Work Phone: 10-14-2012 influenza virus vacc ine, unspecified formulation Amrit Birmingham MD Work Phone: [facility] 09-15-2011 tetanus toxoid, redu sabrina diphtheria toxoid, and acellular pertussis vaccine, adsorbed Amrit Birmingham MD Work Phone: [facility] 09-13-2009 pneumococcal polysaccharide vaccine, 23 valent Amrit Birmingham MD Work Phone: [facility] 09-13-2009 zoster vaccine, live Amrit Birmingham MD Work Phone: [facility] Payers Date Payer Category Payer Self-pay [id number] 2018 Medicare [id number] 2018 Medicare (Managed Care) GRACE VILLASENOR [id number] 2017 Medicare [id number] 2017 Private Health Insurance [id number] 2012 Medicare MEDICARE PART A B [id number] 1945 Unknown [id number] Unknown [id number] .[id number] Unknown [id number] .2.462 Unknown [id number] .[id number] Unknown [id number] .[id number] Unknown [id number] .2.462 Unknown [id number] [id number] .2.462 Unknown [id number] [id number] .2.462 Unknown [id number] [id number] .2.462 Unknown [id number] [id number] .2.462 Unknown [id number] [id number] .2.462 Unknown [id number] [id number] .2.462 Unknown [id number] [id number] .2.462 Unknown [id number] [id number] .2.462 Unknown [id number] .2.462 Unknown [id number] .2.462 Unknown [id number] .2.462 Unknown [id number] .2.462 Social History Date Type Detail Facility Start: 11-29-2017 End: 11-25-2024 Tobacco smoking status AZIS Never smoked tobacco [facility] Start: 11-29-2017 End: 01-04-2022 Tobacco use and exposure Smokeless tobacco non-user [facility] Start: 01-04-2021 End: 10-28-2024 Alcohol intake Current drinker of alcohol (finding) [facility] Start: 01-01-2020 End: 12-31-2021 History SDOH Alcohol Frequency 2 [facility] Start: 01-01-2020 End: 12-31-2021 History SDOH Alcohol Std Drinks 1 [facility] Start: 08-05-2015 History SDOH Alcohol Comment occasional beer - once a month [facility] Start: 01-01-2020 End: 12-31-2021 History SDOH Social Connections Phone 5 [facility] Start: 01-01-2020 End: 12-31-2021 History SDOH Social Connections Anabaptism 3 [facility] Start: 01-01-2020 End: 12-31-2021 History SDOH Physical Activity MPS 4 [facility] Start: 01-01-2020 Education 18 [facility] Start: 1945 Sex Assigned At Male [facility] Start: 12-18-2021 End: 12-28-2021 Exposure to SARS-CoV-2 (event) Not sure [facility] Start: 12-27-2021 End: 10-25-2022 Tobacco smoking status NHIS Unknown if ever smoked [facility] Start: 01-19-2020 None [facility] Start: 01-19-2020 Spouse/ Significant Other [facility] Start: 01-20-2020 Non-smoker [facility] Start: 07-21-2022 End: 11-20-2023 History of Social function [facility] Start: 07-21-2022 End: 11-20-2023 Social connection and isolation panel [facility] Do you belong to any clubs or organizations such as tenriism groups, unions, fraternal or athletic groups, or school groups? Yes [facility] Are you now , , , , never or living with a partner? [facility] How often to you hav e a drink containing alcohol? Monthly or less [facility] Start: 01-21-2013 How many standard drinks containing alcohol do you have on a typical day? Patient does not drink [facility] How often do you hav e 6 or more drinks on 1 occasion? Never [facility] Do you feel stress - tense, restless, nervous, or anxious, or unable to sleep at night because your mind is troubled all the time - these days [OSQ] Only a little [facility] (I/We) worried whejeremiah er (my/our) food would run out before (I/we) got money to buy more. Never true [facility] In the past 12 month s, was there a time when you were not able to pay the mortgage or rent on time? No [facility] Start: 08-02-2018 Gender identity Identifies as male gender (finding) [facility] Start: 08-02-2018 Sexual orientation Bisexual (finding) [facility] Start: 05-31-2023 Sexual orientation Choose not to disclose [facility] How many standard dr inks containing alcohol do you have on a typical day? 1 or 2 [facility] Medical Equipment Procedure Code Equipment Code Equipment Origin al Text Equipment Identifier Dates [id number] Implant - [id number] Start: 11-11-2015 Functional Status Date Assessment Result Facility 01-23-2014 Are you deaf, or do you have serious difficulty hearing No 01/23/2014 8:31 AM Mohini Lal LPN No [facility] 01-23-2014 Are you blind, or do you have serious difficulty seeing, even when wearing glasses No 01/23/2014 8:31 AM Mohini Lal LPN No [facility] 01-23-2014 Do you have serious difficulty walking or climbing stairs No 01/23/2014 8:31 AM Mohini Lal LPN No [facility] 01-23-2014 Do you have difficul ty dressing or bathing No 01/23/2014 8:31 AM Mohini Lal LPN No [facility] 01-23-2014 Because of a physica l, mental, or emotional condition, do you have difficulty doing errands alone such as visiting a physician's office or shopping No 01/23/2014 8:31 AM Mohini Lal LPN No [facility] Mental Status Date Assessment Result Facility 01-23-2014 Because of a physica l, mental, or emotional condition, do you have serious difficulty concentrating, remembering, or making decisions No 01/23/2014 8:31 AM Mohini Lal LPN No [facility] Clinical Notes 08-05-2015 to 12-12-2024 Nata James, RT(R) - 10/28/2024 9:30 AM Leni Gaspar APRN.DUCT LAYER - 10/28/2024 9:25 AM EDTPatient Instructions Note Date & Type Note Facility 12-12-2024 Note HNO ID: [id number] Author: AMRIT BIRMINGHAM MD Service: ? Author Type: Physician Type: Progress Notes Filed: 12/12/2024 16:59 Note Text: Reason for Visit Follow up HPI Zach Ambrose is a 79-year-old male with a history of A-fib and moderate JACOB, presenting for follow-up. Zach underwent cardioversion on the , which was reportedly ineffective, as he was found to be in A-fib again within a few days. An ECG performed last week confirmed A-fib, and he is scheduled for a follow-up appointment tomorrow to discuss further management options, including the possibility of an ablation. He reports a family history of A-fib, with his mother having had the condition. He is currently experiencing dyspnea as his main symptom, particularly when initiating physical activities such as his daily 2-3 mile walks with his dog. The dyspnea improves after a few minutes of walking. He denies feeling tired or experiencing low heart rate while sitting, but notes that his heart rate is usually around 100-110 bpm, as measured by his ring monitor. He is currently on diltiazem and metoprolol tartrate 250 mg daily for heart rate control, and suspects that these medications may be contributing to occasional naps. He has been diagnosed with moderate JACOB and uses a CPAP machine every night, which he believes has improved his condition. However, he notes a change in his sleep habits, now sometimes staying awake for 30-60 minutes after getting up at night, which he attributes to age. He denies feeling tired during the day. He inquires about his last colonoscopy, which was performed in 2019 by Jacobo Rich and revealed a colon polyp. He was advised to repeat the procedure in 5 years and plans to schedule it soon. He mentions that he will be moving to [place], [place], near [place], around January 22, and will be flexible with scheduling medical appointments. SOCIAL HISTORY[1] Past medical history, appointments, medications, allergies reviewed. Pertinent Lab/Diagnostic Studies are reviewed and discussed today Current Outpatient Medications: metoprolol tartrate, short acting, (LOPRESSOR) 50 mg tablet levothyroxine (LEVOXYL) 50 mcg tablet apixaban (ELIQUIS) 5 mg tab(s) CPAP/BIPAP/OTHER aspirin, enteric coated (ASPIRIN, ENTERIC COATED) 81 mg EC tablet ELIQUIS 5 mg tab(s) CPAP/BIPAP/OTHER MAGNESIUM OXIDE,ASPARTATE,CITR ORAL omega 3-chr-nod-fish oil (FISH OIL) 100-160-1,000 mg cap rosuvastatin (CRESTOR) 10 mg tablet dilTIAZem CD (CARDIZEM CD, CARTIA XT) 120 mg 24 hr capsule psyllium Husk 0.52 gram capsule multivitamin tablet azithromycin (ZITHROMAX Z-ROSS) 250 mg tablet sodium chloride (SALINE NASAL) 0.65 % nasal spray metoprolol tartrate, short acting, (LOPRESSOR) 25 mg tablet Health Maintenance DTaP,Tdap,Td Vaccine(2 - Td or Tdap) RSV Vaccine(1 - 1-dose 75+ series) Advance Directive Discussion@ Review Of Systems Constitutional: (-) fatigue Respiratory: (+) shortness of breath Psychiatric: (+) insomnia Physical Exam BP 94/62 Pulse 60 Resp 16 Wt 80.3 kg (177 lb) BMI 25.20 kg/m? GENERAL: NAD, alert and oriented. SKIN: Unremarkable, no rash or skin lesions. HEAD: Normocephalic. EYES: PERRLA, EOMI, conjunctiva clear. NECK: Supple, no lymphadenopathy, normal thyroid, no carotid bruits. LUNGS: Clear to auscultation bilaterally, no wheezes/rhonchi/rales. HEART: Regular rate and rhythm, no murmurs. No ectopy. EXTREMITIES: Normal, no deformities, no skin discoloration, no edema. NEURO: Awake, alert and oriented x3, cranial nerves II-XII grossly intact, normal gait, no involuntary motions. Tests AND Prior Procedures: - (March) Colonoscopy: Colon polyp. - Home sleep study: Moderate obstructive sleep apnea. Assessment and Plan 1. Persistent atrial fibrillation (HCC) (I48.19) Recent cardioversion was unsuccessful in maintaining sinus rhythm; patient remains in persistent AFib with ongoing exertional dyspnea. Current rate control regimen includes diltiazem and metoprolol tartrate 250 mg daily. - Discussed that further medication adjustments or ablation may be considered by cardiology. - Follow-up with cardiology tomorrow to discuss next steps. 2. Obstructive sleep apnea syndrome (G47.33) Home sleep study confirmed moderate JACOB; patient is compliant with nightly CPAP use and reports some improvement in sleep quality. - Continue nightly CPAP use. - Reinforced that effective JACOB management may benefit cardiac status. 3. Tubular adenoma (D36.9) Colonoscopy in 2020 identified a polyp; repeat colonoscopy recommended at 5-year interval. - Advised patient to schedule repeat colonoscopy, as due. 4. Acquired hypothyroidism (E03.9) - tsh was in normal ranges Voice recognition software was used to compose this office note. Please excuse any unintended typographical errors. Recording using Heap software for draft documentation of the visit was discussed with th (more content not included)... [facility] 12-02-2024 Note HNO ID: [id number] Author: JELLY AGUIAR CPhT Service: ? Author Type: Paralegal Instructor Type: Progress Notes Filed: 12/02/2024 13:18 Note Text: Patient is identified through a medication adherence outreach initiative based on pharmacy claims data from: [facility] Medication Adherence Category: Statins Second Attempt Medication(s) Rosuvastatin 10 mg 1 tab daily Last Filled 07/24/24 for 90 DS, Next fill due 10/30/24 Medication Status per portal/Epic "Reconcile Dispense": Filled late - Greater than 7 days after next fill date Date Filled (MM/DD): 12/02 Day Supply: 90 Medication Status per Profile Review: No issues per profile review Patient identified by name and Outreach to patient: No outreach required, patient filled medication Jelly Aguiar CPhT Value Based Care Pharmacy Team [facility] 12-02-2024 Note Patient Outreach ([facility]) ZORAIDA AMBROSE ([id number]) 1945 [facility] Date Time Provider Department 12/02/24 AMRIT BIRMINGHAM LYNNEMDMahad During your visit today, we recorded the following information about you: Jelly Aguiar CPhT 12/02/2024 1:18 PM Signed Patient is identified through a medication adherence outreach initiative based on pharmacy claims data from: [facility] Medication Adherence Category: Statins Second Attempt Medication(s) Rosuvastatin 10 mg 1 tab daily Last Filled 07/24/24 for 90 DS, Next fill due 10/30/24 Medication Status per portal/Epic "Reconcile Dispense": Filled late - Greater than 7 days after next fill date Date Filled (MM/DD): 12/02 Day Supply: 90 Medication Status per Profile Review: No issues per profile review Patient identified by name and Outreach to patient: No outreach required, patient filled medication Jelly Aguiar CPhT [facility] Pharm[facility] Team Allergies As of Date: 12/02/2024 Noted Allergy Reaction SEASONAL ALLERGIES 09/20/2016 14 - Other: See Comments Comments: watery eyes Date Reviewed: 11/06/2024 Reviewed by: Lexii Licea MA - Fully Assessed Reason for Visit: Allied Health Visit [5] Cmt: Medication Adherence Outreach Prescriptions as of 12/02/2024 - azithromycin (ZITHROMAX Z-ROSS) 250 mg tablet Two (2) tablets by mouth the first day and then one (1) tablet by mouth daily for 4 days. - apixaban (ELIQUIS) 5 mg tab(s) Take by mouth two times a day. - sodium chloride (SALINE NASAL) 0.65 % nasal spray Use 1 spray in the nose two times a day. - CPAP/BIPAP/OTHER Type .CPAPSettings into a note to see current settings/supplies/DME information. - aspirin, enteric coated (ASPIRIN, ENTERIC COATED) 81 mg EC tablet Take 1 tablet by mouth once daily. Take with food. - ELIQUIS 5 mg tab(s) Take 5 mg by mouth two times a day. - levothyroxine (LEVOXYL) 50 mcg tablet Take 1 tablet by mouth once daily. Take on empty stomach. For Thyroid - CPAP/BIPAP/OTHER Type .CPAPSettings into a note to see current settings/supplies/DME information. - MAGNESIUM OXIDE,ASPARTATE,CITR ORAL Take by mouth. - omega 7-rsd-mvk-fish oil (FISH OIL) 100-160-1,000 mg cap Take 1,000 mg by mouth. - metoprolol tartrate, short acting, (LOPRESSOR) 25 mg tablet Use 2/3 times a day 6 hours apart for increased heart rate prn - rosuvastatin (CRESTOR) 10 mg tablet Take 1 tablet by mouth once daily. - dilTIAZem CD (CARDIZEM CD, CARTIA XT) 120 mg 24 hr capsule Take 1 capsule by mouth once daily. - psyllium Husk 0.52 gram capsule Take 0.52 g by mouth three times daily. - multivitamin tablet Take 1 tablet by mouth once daily. 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 Amrit Birmingham MD Status: PRE S DC Study:Chest PA and Lateral Date of Exam: 11/21/24 Exam# [id number] Ordering Dr: Kathi Tyson WASHER OPERATOR WASHER OPERATOR-C PROCEDURE: CHEST PA AND LATERAL 11/21/2024 REASON FOR EXAM: PRE-OPERATIVE: DCCV TECHNIQUE: Procedure Code: RADCXR Modality: DX Procedure: CHEST PA AND LATERAL COMPARISON: None FINDINGS: Hardware: None Heart: The heart size is normal. Mediastinum: The mediastinal contour is unremarkable. Lungs: Chronic interstitial changes in both lung headley without a superimposed acute pulmonary process Bones: Degenerative bony changes, old healed right rib fractures RAD/Chest PA and Lateral IMPRESSION: Chronic interstitial changes, no superimposed acute pulmonary process Reading Location: [place] [address] CC: WASHER OPERATOR-C Kathi Tyson; Dr. Amrit Birmingham MD ~ Manager Of Transportation: Signed [facility] 11-20-2024 Note HNO ID: [id number] Author: COREEN ADAMS CPhT Service: ? Author Type: Paralegal Instructor Type: Progress Notes Filed: 11/20/2024 12:01 Note Text: Patient is identified through a medication adherence outreach initiative based on pharmacy claims data from: [employer] Medication Adherence Category: Statins First Review Attribution Status: Correct attribution Medication(s) Rosuvastatin 10 mg Last Filled 07/24 for 90DS, Next fill due 10/30 Medication Status per portal/Epic "Reconcile Dispense": Not filled Medication Status per Profile Review: No issues per profile review Patient/provider appropriate for outreach? Yes Patient identified by name and Outreach to patient: Left Voicemail/message for return call and Sent Puzl message What was primary intervention? Remind patient to meat pickler or fill Coreen Adams CPhT [facility] Pharmacy Team [facility] 11-20-2024 Note Patient Outreach (PH POHE) ZORAIDA AMBROSE ([id number]) 1945 [facility] Date Time Provider Department 11/20/24 [facility] [place] During your visit today, we recorded the following information about you: Coreen Adams CPhT 11/20/2024 12:01 PM Signed Patient is identified through a medication adherence outreach initiative based on pharmacy claims data from: [employer] Medication Adherence Category: Statins First Review Attribution Status: Correct attribution Medication(s) Rosuvastatin 10 mg Last Filled 07/24 for 90DS, Next fill due 10/30 Medication Status per portal/Epic "Reconcile Dispense": Not filled Medication Status per Profile Review: No issues per profile review Patient/provider appropriate for outreach? Yes Patient identified by name and Outreach to patient: Left Voicemail/message for return call and Sent Puzl message What was primary intervention? Remind patient to meat pickler or fill Coreen Adams CPhT [facility] Pharm[facility] Team Allergies As of Date: 11/20/2024 Noted Allergy Reaction SEASONAL ALLERGIES 09/20/2016 14 - Other: See Comments Comments: watery eyes Date Reviewed: 11/06/2024 Reviewed by: Lexii Licea MA - Fully Assessed Reason for Visit: Allied Health Visit [5] Cmt: Medication Adherence Outreach Prescriptions as of 11/20/2024 - azithromycin (ZITHROMAX Z-ROSS) 250 mg tablet Two (2) tablets by mouth the first day and then one (1) tablet by mouth daily for 4 days. - apixaban (ELIQUIS) 5 mg tab(s) Take by mouth two times a day. - sodium chloride (SALINE NASAL) 0.65 % nasal spray Use 1 spray in the nose two times a day. - CPAP/BIPAP/OTHER Type .CPAPSettings into a note to see current settings/supplies/DME information. - aspirin, enteric coated (ASPIRIN, ENTERIC COATED) 81 mg EC tablet Take 1 tablet by mouth once daily. Take with food. - ELIQUIS 5 mg tab(s) Take 5 mg by mouth two times a day. - levothyroxine (LEVOXYL) 50 mcg tablet Take 1 tablet by mouth once daily. Take on empty stomach. For Thyroid - CPAP/BIPAP/OTHER Type .CPAPSettings into a note to see current settings/supplies/DME information. - MAGNESIUM OXIDE,ASPARTATE,CITR ORAL Take by mouth. - omega 6-vdu-iit-fish oil (FISH OIL) 100-160-1,000 mg cap Take 1,000 mg by mouth. - metoprolol tartrate, short acting, (LOPRESSOR) 25 mg tablet Use 2/3 times a day 6 hours apart for increased heart rate prn - rosuvastatin (CRESTOR) 10 mg tablet Take 1 tablet by mouth once daily. - dilTIAZem CD (CARDIZEM CD, CARTIA XT) 120 mg 24 hr capsule Take 1 capsule by mouth once daily. - psyllium Husk 0.52 gram capsule Take 0.52 g by mouth three times daily. - multivitamin tablet Take 1 tablet by mouth once daily. 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 Author Type: Nurse Practitioner Type: Progress Notes Filed: 11/06/2024 11:37 Note Text: CC: Patient presents with: Recheck: Follow up UC, cough HPI Zoraida Workman Halie is a 79 year old male who presents today for cough and UC pneumonia follow up. Has had a productive cough of yellow sputum for 2 weeks, dyspnea but unsure if this is due to his a-fib, small amount of sinus drainage, and fatigue. Denies fever, chills, chest pain, wheezing, edema, dizziness, syncope or GI symptoms. Has been taking nyquil which helps some. Went to urgent care on 10/28 and was given 5 days doxycycline for suspected CAP as CXR showed some linear opacities which thought to be scarring or atelectasis. Sore throat resolved with treatment and cough somewhat improved but is still deep and concerning to him. Is having a cardioversion on 11/25 and is worried doing this with ongoing cough and illness. 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 Dermatofibroma left leg Herpes zoster Left inguinal hernia 08/05/2015 Mitral regurgitation Obstructive sleep apnea Paroxysmal atrial fibrillation (HCC) Pneumonia Prostate cancer (HCC) 09/2009 Seborrheic keratoses PAST SURGICAL HISTORY Procedure Laterality Date COLONOSCOPY 01/2010 HERNIA REPAIR W/MESH 05/2011 by -right inguinal HERNIA REPAIR W/MESH Left 11/11/15 REMOVE TUMOR,TEMPORAL BONE right knee SKIN BIOPSY HX 02/21/2012 left medial thigh TONSILLECTOMY HX TRURL ELECTROSURG RESCJ PROSTATE BLEED COMPLETE 09/2009 done at [facility]- prostate cancer ALLERGIES Seasonal Allergies MEDICATIONS apixaban (ELIQUIS) 5 mg tab(s) Take by mouth two times a day. sodium chloride (SALINE NASAL) 0.65 % nasal spray Use 1 spray in the nose two times a day. CPAP/BIPAP/OTHER Type .CPAPSettings into a note to see current settings/supplies/DME information. aspirin, enteric coated (ASPIRIN, ENTERIC COATED) 81 mg EC tablet Take 1 tablet by mouth once daily. Take with food. ELIQUIS 5 mg tab(s) Take 5 mg by mouth two times a day. levothyroxine (LEVOXYL) 50 mcg tablet Take 1 tablet by mouth once daily. Take on empty stomach. For Thyroid CPAP/BIPAP/OTHER Type .CPAPSettings into a note to see current settings/supplies/DME information. MAGNESIUM OXIDE,ASPARTATE,CITR ORAL Take by mouth. omega 3-rug-pke-fish oil (FISH OIL) 100-160-1,000 mg cap Take 1,000 mg by mouth. metoprolol tartrate, short acting, (LOPRESSOR) 25 mg tablet Use 2/3 times a day 6 hours apart for increased heart rate prn rosuvastatin (CRESTOR) 10 mg tablet Take 1 tablet by mouth once daily. dilTIAZem CD (CARDIZEM CD, CARTIA XT) 120 mg 24 hr capsule Take 1 capsule by mouth once daily. psyllium Husk 0.52 gram capsule Take 0.52 g by mouth three times daily. multivitamin tablet Take 1 tablet by mouth once daily. FAMILY HISTORY Problem Relation Age of Onset Diabetes Mother Heart Mother other (leukemia) Mother Prostate Cancer Father Prostate Alzheimer's Disease Father Prostate Cancer Brother Prostate Psychiatry Brother Manic Depressive SOCIAL HISTORY[1] PHYSICAL EXAM BP 104/72 Pulse 77 Temp 36.1 ?C (96.9 ?F) (Temporal) Resp 16 SpO2 99% General Appearance: well appearing, in no acute distress, alert Lungs: Lungs with expiratory low pitched wheezing in the bases. No rhonchi, rales. Heart: apical irregular without murmur, gallop, or rubs. No ectopy Health maintenance reviewed with patient: Depression Screening Never done Anxiety Screening Never done DTaP,Tdap,Td Vaccine(2 - Td or Tdap) due on 09/14/2021 RSV Vaccine(1 - 1-dose 75+ series) Never done Advance Directive Discussion due on 02/14/2024 Medicare Advantage Annual Wellness Visit Never done Influenza Vaccine(1) due on 10/14/2024 Annual PCP Team Chronic Disease Visit due on 11/06/2025 Diabetes Screening due on 10/24/2027 Hepatitis C Screening Completed Shingrix Vaccine Completed Pneumococcal Vaccine: 50+ Completed Colorectal Cancer Screening Discontinued DATA REVIEWED: Most recent labs and imaging results. Assessment/Plan ASSESSMENT/PLAN: 1. Community acquired pneumonia, unspecified laterality - ICD9: 486, ICD10: J18.9 (primary diagnosis) With the abnormal lung sounds fatigue and xray will treat for pneumonia prior to his cardioversion. Will be done with treatment 2 weeks prior to the cardioversion. Patient to update his cardiology team so they are aware of current infection. Will also fax this note to their office as well. Repeat cxr in 6 weeks - follow up if this does not continue to improve - go to er for worsening symptoms - XR CHEST 2V FRONTAL/LAT 2. Paroxysmal A-fib (HCC) - ICD9: 427.31, ICD10: I48.0 As above Prescription instructions reviewed with patient as applicable. Potential red flag (more content not included)... [facility] 10-28-2024 History of Present illness Narrative Radiology Service Progress Note PATIENT NAME: Zoraida Ambrose DATE OF SERVICE: October 28, 2024 TIME: 9:28 AM PATIENT IDENTITY VERIFICATION COMPLETED USING TWO (2) IDENTIFIERS: Name and Date of confirmed by patient verbally. FALL SCREENING: Has the patient had 2 falls in the last year or 1 fall with injury or currently using an Ambulatory Assistive Device (Walker, Cane, Wheelchair, Crutches, etc.)? No PATIENT GENDER DATA: Assigned male at PATIENT RELEVANT IMPLANT DATA REVIEWED: Yes PATIENT PRESENTS WITH AN IMPLANTABLE OR ATTACHED LEAD LOADER: No RADIOLOGY DEPARTMENT: General X-ray: Exam(s) Completed: Chest X-Ray PERIPHERAL IV DATA: Not applicable SIGNED BY: RT John(Patrick) October 28, 2024 9:28 AM documented in this encounter [facility] 10-28-2024 Note HNO ID: [id number] Author: NATA JAMES RT(R) Service: ? Author Type: Technologist Type: Progress Notes Filed: 10/28/2024 09:37 Note Text: Radiology Service Progress Note PATIENT NAME: Zoraida Ambrose DATE OF SERVICE: October 28, 2024 TIME: 9:28 AM PATIENT IDENTITY VERIFICATION COMPLETED USING TWO (2) IDENTIFIERS: Name and Date of confirmed by patient verbally. FALL SCREENING: Has the patient had 2 falls in the last year or 1 fall with injury or currently using an Ambulatory Assistive Device (Walker, Cane, Wheelchair, Crutches, etc.)? No PATIENT GENDER DATA: Assigned male at PATIENT RELEVANT IMPLANT DATA REVIEWED: Yes PATIENT PRESENTS WITH AN IMPLANTABLE OR ATTACHED LEAD LOADER: No RADIOLOGY DEPARTMENT: General X-ray: Exam(s) Completed: Chest X-Ray PERIPHERAL IV DATA: Not applicable SIGNED BY: RT John(Patrick) October 28, 2024 9:28 AM [facility] 10-28-2024 Note HNO ID: [id number] Author: LENI TANNER APRN.DUCT LAYER Service: ? Author Type: Nurse Practitioner Type: Progress Notes Filed: 10/28/2024 09:31 Note Text: [facility] Subjective Zoraida Ambrose is a 79 year old male. Recording using ambient [employer] software for draft documentation of the visit was discussed with the patient/authorized signs sales representative; all questions welcomed and answered. Patient/authorized signs sales representative agreed to proceed Patient presents with: Cough: Sore throat x 5 days HPI The patient is a 79-year-old male with a history of atrial fibrillation, presenting with cough and dyspnea x5 days. Cough and Dyspnea: - Symptoms began 5 days ago; no improvement since onset. - Cough is sometimes productive; denies hemoptysis. - c/o some shortness of breath - Associated postnasal drip; denies significant facial or sinus pressure. - Denies otalgia, cephalgia, nausea, emesis, diarrhea, or abdominal discomfort. - Taking NyQuil for symptom relief; no use of nasal sprays. - Denies exposure to sick contacts. - Denies history of asthma or inhaler use. - Denies tobacco use. - No known allergies to antibiotics. Atrial Fibrillation: - Experiences episodes of atrial fibrillation. - Current medications include aspirin, Eliquis, levothyroxine, magnesium, omega, metoprolol, Crestor, Cardizem, and psyllium. Review of Systems Head: (-) headache Ears/Nose/Mouth/Throat: (+) postnasal drip, (-) ear pain, (-) facial pressure Respiratory: (+) cough, (+) sputum production, (+) dyspnea, (-) wheezing, (-) hemoptysis Gastrointestinal: (-) nausea, (-) vomiting, (-) diarrhea, (-) abdominal pain Objective BP 118/84 Pulse 117 Temp 36.4 ?C (97.5 ?F) Resp 20 Wt 79 kg (174 lb 2.6 oz) SpO2 97% BMI 24.79 kg/m? Physical Exam Vitals and nursing note reviewed. Constitutional: General: He is not in acute distress. Appearance: Normal appearance. He is not ill-appearing or toxic-appearing. HENT: Head: Normocephalic and atraumatic. Right Ear: Ear canal and external ear normal. Left Ear: Ear canal and external ear normal. Ears: Comments: TM's slightly bulging with clear fluid Nose: Congestion (mild mucosal edema) and rhinorrhea (clear fluid in nares) present. Right Turbinates: Swollen. Left Turbinates: Swollen. Right Sinus: No maxillary sinus tenderness or frontal sinus tenderness. Left Sinus: No maxillary sinus tenderness or frontal sinus tenderness. Mouth/Throat: Mouth: Mucous membranes are moist. Pharynx: Oropharynx is clear. Posterior oropharyngeal erythema (mild with clear fluid) present. No pharyngeal swelling or oropharyngeal exudate. Eyes: Extraocular Movements: Extraocular movements intact. Conjunctiva/sclera: Conjunctivae normal. Pupils: Pupils are equal, round, and reactive to light. Cardiovascular: Rate and Rhythm: Normal rate and regular rhythm. Pulses: Normal pulses. Heart sounds: Normal heart sounds. Pulmonary: Effort: Pulmonary effort is normal. Breath sounds: Wheezing (Right upper lobe faint end expiratory wheeze, clears mostly with coughing and deep breathing) present. No rhonchi. Abdominal: General: Bowel sounds are normal. Palpations: Abdomen is soft. Musculoskeletal: Cervical back: Normal range of motion and neck supple. No tenderness. Lymphadenopathy: Cervical: No cervical adenopathy. Skin: General: Skin is warm. Capillary Refill: Capillary refill takes less than 2 seconds. Neurological: General: No focal deficit present. Mental Status: He is alert and oriented to person, place, and time. General: No acute distress. HEENT: Oropharynx clear. Resp: Lungs clear to auscultation bilaterally. ASSESSMENT/PLAN: 1. Community acquired pneumonia, unspecified laterality - ICD9: 486, ICD10: J18.9 - XR CHEST 2V FRONTAL/LAT - DOXYCYCLINE HYCLATE 100 MG CAPSULE - SALINE NASAL 0.65 % SPRAY AEROSOL - BENZONATATE 100 MG CAPSULE Leni Tanner APRN.DUCT LAYER History and Record Review External record(s) reviewed: prior outpatient record. Findings from review of outpatient records: History of A-fib Differential Diagnoses - Community Acquired Pneumonia is more likely for the following reason(s): suggested by HANDP - Viral URI is less likely for the following reason(s): HANDP not suggestive Management I performed an independent interpretation of the following:imaging Imaging: My interpretation is see CXR Additional Tests or Interventions The following testing was considered but ultimately not selected after discussion with patient/family: Viral Swab Disposition The patient was discharged. Patient given educational materials - see patient instructions. Discussed use, benefit, and side effects of prescribed medications. All patient questions answered. Pt voiced understanding and agrees with treatment plan. Patient advised to follow up with PCP within one week, or sooner if symptoms worsen or persist. If s (more content not included)... [facility] 10-28-2024 History of Present illness Narrative [facility] Hernandez Jacinta Ambrose is a 79 year old male. Recording using [employer] software for draft documentation of the visit was discussed with the patient/authorized signs sales representative; all questions welcomed and answered. Patient/authorized signs sales representative agreed to proceed Patient presents with: Cough: Sore throat x 5 days HPI The patient is a 79-year-old male with a history of atrial fibrillation, presenting with cough and dyspnea x5 days. Cough and Dyspnea: - Symptoms began 5 days ago; no improvement since onset. - Cough is sometimes productive; denies hemoptysis. - c/o some shortness of breath - Associated postnasal drip; denies significant facial or sinus pressure. - Denies otalgia, cephalgia, nausea, emesis, diarrhea, or abdominal discomfort. - Taking NyQuil for symptom relief; no use of nasal sprays. - Denies exposure to sick contacts. - Denies history of asthma or inhaler use. - Denies tobacco use. - No known allergies to antibiotics. Atrial Fibrillation: - Experiences episodes of atrial fibrillation. - Current medications include aspirin, Eliquis, levothyroxine, magnesium, omega, metoprolol, Crestor, Cardizem, and psyllium. Review of Systems Head: (-) headache Ears/Nose/Mouth/Throat: (+) postnasal drip, (-) ear pain, (-) facial pressure Respiratory: (+) cough, (+) sputum production, (+) dyspnea, (-) wheezing, (-) hemoptysis Gastrointestinal: (-) nausea, (-) vomiting, (-) diarrhea, (-) abdominal pain Objective BP 118/84 Pulse 117 Temp 36.4 C (97.5 F) Resp 20 Wt 79 kg (174 lb 2.6 oz) SpO2 97% BMI 24.79 kg/m Physical Exam Vitals and nursing note reviewed. Constitutional: General: He is not in acute distress. Appearance: Normal appearance. He is not ill-appearing or toxic-appearing. HENT: Head: Normocephalic and atraumatic. Right Ear: Ear canal and external ear normal. Left Ear: Ear canal and external ear normal. Ears: Comments: TM's slightly bulging with clear fluid Nose: Congestion (mild mucosal edema) and rhinorrhea (clear fluid in nares) present. Right Turbinates: Swollen. Left Turbinates: Swollen. Right Sinus: No maxillary sinus tenderness or frontal sinus tenderness. Left Sinus: No maxillary sinus tenderness or frontal sinus tenderness. Mouth/Throat: Mouth: Mucous membranes are moist. Pharynx: Oropharynx is clear. Posterior oropharyngeal erythema (mild with clear fluid) present. No pharyngeal swelling or oropharyngeal exudate. Eyes: Extraocular Movements: Extraocular movements intact. Conjunctiva/sclera: Conjunctivae normal. Pupils: Pupils are equal, round, and reactive to light. Cardiovascular: Rate and Rhythm: Normal rate and regular rhythm. Pulses: Normal pulses. Heart sounds: Normal heart sounds. Pulmonary: Effort: Pulmonary effort is normal. Breath sounds: Wheezing (Right upper lobe faint end expiratory wheeze, clears mostly with coughing and deep breathing) present. No rhonchi. Abdominal: General: Bowel sounds are normal. Palpations: Abdomen is soft. Musculoskeletal: Cervical back: Normal range of motion and neck supple. No tenderness. Lymphadenopathy: Cervical: No cervical adenopathy. Skin: General: Skin is warm. Capillary Refill: Capillary refill takes less than 2 seconds. Neurological: General: No focal deficit present. Mental Status: He is alert and oriented to person, place, and time. General: No acute distress. HEENT: Oropharynx clear. Resp: Lungs clear to auscultation bilaterally. ASSESSMENT/PLAN: 1. Community acquired pneumonia, unspecified laterality - ICD9: 486, ICD10: J18.9 - XR CHEST 2V FRONTAL/LAT - DOXYCYCLINE HYCLATE 100 MG CAPSULE - SALINE NASAL 0.65 % SPRAY AEROSOL - BENZONATATE 100 MG CAPSULE Leni Tanner APRN.DUCT LAYER History and Record Review External record(s) reviewed: prior outpatient record. Findings from review of outpatient records: History of A-fib Differential Diagnoses - Community Acquired Pneumonia is more likely for the following reason(s): suggested by H&P - Viral URI is less likely for the following reason(s): H&P not suggestive Management I performed an independent interpretation of the following:imaging Imaging: My interpretation is see CXR Additional Tests or Interventions The following testing was considered but ultimately not selected after discussion with patient/family: Viral Swab Disposition The patient was discharged. Patient given educational materials - see patient instructions. Discussed use, benefit, and side effects of prescribed medications. All patient questions answered. Pt voiced understanding and agrees with treatment plan. Patient advised to follow up with PCP within one week, or sooner if symptoms worsen or persist. If symptoms become severe- GO TO ED. Patient agreeable with treatment plan. documented in this encounter [facility] 10-28-2024 Instructions Leni Tanner APRN.CNP - 10/28/2024 9:15 AM EDT GENERAL INFORMATION: Pneumonia is a lung infection caused by bacteria, viruses, or bacteria-like germs. It usually cannot be spread to other people. INSTRUCTIONS: 1. If you are given a prescription for antibiotics, take them as ordered by your doctor until they are all gone. 2. Use a cool-mist humidifier or vaporizer to increase air moisture. This will make it easier for you to breathe. Do not use hot steam. 3. Rest in until your temperature is normal (98.6 F or 37 C) and your chest pain and shortness of breath are gone. 4. Slowly restart your normal activities. You may feel weak and tired for up to six weeks. 5. Drink at least one glass of water or other liquid every hour. This will help thin sputum and make it easier to cough up. 6. If you have chest pain, applying a heating pad or warm compresses for 10 to 20 minutes several times a day to the painful area may lessen the pain. 7. Take several deep breaths and then cough frequently during the day. This will help get rid of the infection. 8. You may take medicines that you can buy without a prescription to treat pain and fever. Use cough medicine only if absolutely necessary as coughing helps clear the infection. CONTACT YOUR DOCTOR IF: 1. Your temperature is over 102 F (39 C). 2. Your chest pain, fever or chills do not get better with medicine in 2-3 days. 3. You develop nausea, vomiting or diarrhea. 4. You are coughing up large amounts of bloody sputum. 5. You have any problems that may be related to the medicine that you are taking (such as rash, itching, swelling, or stomach pain). RETURN TO THE EMERGENCY DEPARTMENT IF: 1. You have a lot of trouble breathing or you have dark or bluish fingernails, toenails, or skin. 2. You have a severe headache, neck stiffness, or feel confused. 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 November 7:58am Dilated aortic root chronic Octob er 2024 7:58am Nonrheumatic aortic (valve) insufficiency chronic November 7:58am [facility] Work Phone: 1(107) 415-723509-10-2025 Evaluation note* Diagnosis Onset Date Resolution Status Admit Date Diastolic dysfunction withou t heart failure chronic October 23, 2024 9:52am Dilated aortic root chronic Septe mb2024 9:52am Nonrheumatic aortic (valve) insufficiency chronic October 23, 2024 9:52am Persistent atrial fibrillation acute November 21, 2024 7:58am Diastolic dysfunction withou t heart failure chronic November 21 7:58am Dilated aortic root chronic Octob er 2024 7:58am Nonrheumatic aortic (valve) insufficiency chronic November 21 7:58am Decreased cardiac ejection fraction acute December 13 8:34am Persistent atrial fibrillation acute December 13, 2024 8:34am Dilated aortic root chronic Octob er 2024 8:34am Nonrheumatic aortic (valve) insufficiency chronic December 13 8:34am [employer] [facility] Work Phone: 1(131) 566-315408-08-2025 NoteHNO ID: [id number] Author: ?, ?, ? Service: ? Author Type: ? Type: Progress Notes Filed: 09/20/2024 10:43 Note Text: Sleep Study Check-In Documentation Date: September 20, 2024 Name: Zoraida Ambrose Comments: HST was returned in working order with all sleep questionnaires [facility] NoteHNO ID: [id number] Author: ?, ?, ? Service: ? Author Type: ? Type: Progress Notes Filed: 09/20/2024 10:43 Note Text: Nomad # [id number] , date shipped out 09-17-24 FED EX ONLY Tracking mailout: [id number] Tracking return: [id number]07-15-2025 NoteHNO ID: [id number] Author: VIRGINIA DAVIS APRN.CNP Service: ? Author Type: Nurse Practitioner Type: Progress Notes Filed: 09/20/2024 10:43 Note Text: August 27, 2024 Standing PSG Orders signed in the last 90 days None Future PSG Orders signed in the last 90 days Ordered Auth. provider HOME SLEEP APNEA TEST (HSAT) [[id number]] 07/30/24 Amrit Birmingham MD Assoc. diagnoses: Sleep apnea, unspecified type [G47.30] Q: Indications: A: Obstructive sleep apnea Q: STOP-BANG conditions - Select All That Apply: A: GENDER = male A2: AGE > 50 A3: TIREDNESS, fatigue or sleepiness during the day A4: SNORING that is loud or disruptive Q: Current use of supplemental oxygen during sleep period?: A: No All Prior Sleep Studies (past 365 days) 07/30/2024 08:34 Sleep Studies HOME SLEEP APNEA TEST (HSAT) HOME SLEEP APNEA TEST (HSAT) Order Status: Ordered, Future Expires: 07/30/25 BMI Readings from Last 2 Encounters: 07/30/24 : 24.50 kg/m? 11/22/23 : 25.99 kg/m? 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 Indications for study: JACOB suspected without comorbid medical or sleep disorders Sleep study to be performed: Home Sleep Apnea Test (HSAT) Special instructions: None-follow laboratory protocol Kathrin Paulino [facility] Staff Note: I have read the above protocol, edited as needed, and agree to the plan. Virginia Davis APRN.DUCT LAYER 11:36 AM, 08/28/2024[facility]07-15-2025 NoteHNO ID: [id number] Author: ?, ?, ? Service: ? Author Type: ? Type: Progress Notes Filed: 09/20/2024 10:43 Note Text: August 27, 2024 An order has been received for Home Sleep Apnea Test (HSAT) from Amrit Rodríguez a B. [facility] Staff. Visit prep complete. Comments :No The sleep study is scheduled for 09/18. Insurance: Payor: [employer] MEDICARE / Plan: [employer] MEDICARE PPO / Product Type: PPO / Payer/Plan Subscr Sex Relation Sub. Ins. ID Effective Group Num 1. [employer] MEDICA* ZORAIDA AMBROSE 1945 Male Self [id number] 02/13/18 [id number] [address] [address] [facility]06-17-2025 Instructions* Patient Instructions* Amrit Birmingham MD - 07/30/2024 8:36 AM EDT We discussed your ear pain and tinnitus: - Your ear pain has resolved, and no further treatment is needed at this time. - The tinnitus in your left ear is ongoing. 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 Warm compresses and Tylenol as needed were previously recommended, but you have not needed these recently. - Your hearing in the left ear remains poor due to sudden sensorineural hearing loss earlier this year. You received two courses of steroids, which initially helped, but the hearing loss returned andhas not improved. - Your hearing aids are not very helpful due to the nature of the nerve damage. If they provide anybenefit, I recommend using them, especially in social settings, as hearing loss is linked to an increased risk of dementia. We discussed your general health and exercise: - You are maintaining good health habits, including walking briskly with your dog for a couple of miles several times a week. Continue this routine to support your overall health. - Your recent blood tests, including glucose, kidney function, liver function, and thyroid levels, were normal. The bilirubin level was mildly elevated but not concerning. - You are due for your next set of labs in January, including fasting glucose, thyroid function, and PSA (to monitor your history of prostate cancer). These labs can be done without an office visit if you prefer. We discussed your medications: - You are currently taking Eliquis, Crestor, aspirin, thyroid medication, and occasionally metoprolol. You mentioned that you rarely take metoprolol, which is appropriate given your current heart rate. - If you feel tired or have concerns about your medications, please let me know. We discussed your sleep apnea: - You are not sleeping well with your CPAP and would like to reassess your sleep apnea. I have ordered a home sleep study for you. This test will monitor your oxygen levels, heart rate, and breathingpatterns while you sleep. You will be contacted with further instructions. Follow-up: - Please complete your home sleep study as instructed. - Plan to have your labs done in January. If you are unable to come in for a visit, you can complete the labs without an appointment. - If you experience any new or worsening symptoms, please contact our office. Thank you for continuing to prioritize your health. documented in [facility]06-17-2025 NoteHNO ID: [id number] Author: AMRIT BIRMINGHAM MD Service: ? Author Type: Physician Type: Progress Notes Filed: 08/09/2024 18:13 Note Text: Zoraida Ambrose is a 78 year old male here for a Medicare wellness visit. Medicare Health Risk Assessment General Health Very good Exercise: Minutes/Day 40 min Exercise: Days/Week 4 days Alcohol: Daily Use Monthly or less Alcohol: Drinks/Day 1 or 2 Alcohol: 6 or more drinks Never Feel off balance No Concerns: Teeth/Dentures No Concerns: Sexual function no Troubled by feelings None of the above Frequency: Eating healthy diet Nearly every day ADLs requiring help None of the above Safety precautions in home/vehicle Yes Smoke, vape, chews tobacco No Difficulty hearing Yes Difficulty seeing No Current Providers Specialists: I have reviewed specialist-related care of the patient in the medical record. Medical/Family history review Reviewed and updated problem list, medical/surgical/family/social history, medications, and allergies. Opioid use review Opioid Medications (last 90 days) No data to display Anxiety/Depression screening BILL-7 Score: 3 (Minimal Anxiety) Recommendation: no further intervention at this time Cognitive screening Mini Cog Score: 5 Cognitive screening reviewed and Recommended referral for further evaluation (score 0-2). Functional Observation Was the patient's Timed Up AND Go test unsteady or >= 12 seconds? No Advance Care Planning Surrogate decision maker and/or advance care plan documented Measurements BP 132/70 Pulse (!) 53 Resp 16 Ht 178.5 cm (5' 10.28") Wt 78.1 kg (172 lb 1.9 oz) BMI 24.50 kg/m? Vision Screening: Follows with optometry/ophthalmology Assessment/Plan Medicare annual wellness visit, subsequent (Z00.00) - Counseled on healthy diet and regular exercise - Fall avoidance information provided - Personalized prevention plan provided Reason for Visit HPI Zach Ambrose is a 78-year-old male with a history of AFib, sudden sensorineural hearing loss, and sleep apnea, presenting for a follow-up visit. Zach reports a recent evaluation by a photographic equipment assembler for AFib and a consultation for otalgia, which has since resolved. 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 He denies any current otalgia and has not required treatment for the past month. 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 He received two courses of steroids, which initially improved his hearing, but the hearing loss recurred after a few weeks. He reports poor hearing in the left ear and finds his hearing aids unhelpful due to high-frequency squealing. He also notes a history of exposure to loud noises during service. Zach is currently taking Eliquis, Crestor, aspirin, thyroid medication, and metoprolol, though he rarely takes metoprolol. He reports easy bruising since starting Eliquis six months ago. He denies feeling tired and maintains an exercise routine of brisk walking for 40 minutes, four days a week, totaling approximately 160 minutes per week. He also walks a couple of miles with his dog regularly. Zach expresses dissatisfaction with his CPAP machine, stating that it disrupts his sleep. He reports nocturia every two hours but is able to return to sleep easily. He acknowledges feeling somewhat tired at times and has a history of sleep apnea, with at least two overnight studies conducted in the past. He denies snoring. Zach is socially active, living with his son, [id number], and three granddaughters in [place]. He participates in a prayer group and enjoys playing cards with friends. He reports good general health, does not drink alcohol, smoke, or use tobacco, and denies feelings of sadness or depression. He is independent in his activities of daily living and has advance directives in place. Social History Tobacco Use Smoking status: Never Smokeless tobacco: Never Substance Use Topics Alcohol use: Yes Comment: occasional beer - once a month Drug use: No Past medical history, appointments, medications, allergies reviewed. Pertinent Lab/Diagnostic Studies are reviewed and discussed today Current Outpatient Medications: aspirin, enteric coated (ASPIRIN, ENTERIC COATED) 81 mg EC tablet ELIQUIS 5 mg tab(s) levothyroxine (LEVOXYL) 50 mcg tablet CPAP/BIPAP/OTHER MAGNESIUM OXIDE,ASPARTATE,CITR ORAL omega 5-vmo-nxd-fish oil (FISH OIL) 100-160-1,000 mg cap metoprolol tartrate, short acting, (LOPRESSOR) 25 mg tablet rosuvastatin (CRESTOR) 10 mg tablet dilTIAZem CD (CARDIZEM CD, CARTIA XT) 120 mg 24 hr capsule psyllium Husk 0.52 gram capsule multivitamin tablet Health Maintenance Depression Screening Anxiety Screening DTaP,Tdap,Td Vaccine(2 - Td or (more content not included)...[facility]06-17-2025 History of Present illness Narrative* Amrit Birmingham MD - 07/30/2024 8:15 AM EDT Images from the original note were not included. Zoraida Ambrose is a 78 year old male here for a Medicare wellness visit. Medicare Health Risk Assessment General Health Very good Exercise: Minutes/Day 40 min Exercise: Days/Week 4 days Alcohol: Daily Use Monthly or less Alcohol: Drinks/Day 1 or 2 Alcohol: 6 or more drinks Never Feel off balance No Concerns: Teeth/Dentures No Concerns: Sexual function Troubled by feelings None of the above Frequency: Eating healthy diet Nearly every day ADLs requiring help None of the above Safety precautions in home/vehicle Yes Smoke, vape, chews tobacco No Difficulty hearing Yes Difficulty seeing No Current Providers Specialists: I have reviewed specialist-related care of the patient in the medical record. Medical/Family history review Reviewed and updated problem list, medical/surgical/family/social history, medications, and allergies. Opioid use review Opioid Medications (last 90 days) No data to display Anxiety/Depression screening BILL-7 Score: 3 (Minimal Anxiety) Recommendation: no further intervention at this time Cognitive screening Mini Cog Score: 5 Cognitive screening reviewed and Recommended referral for further evaluation (score 0-2). Functional Observation Was the patient's Timed Up & Go test unsteady or >= 12 seconds? No Advance Care Planning Surrogate decision maker and/or advance care plan documented Measurements BP 132/70 Pulse (!) 53 Resp 16 Ht 178.5 cm (5' 10.28") Wt 78.1 kg (172 lb 1.9 oz) BMI 24.50 kg/m Vision Screening: Follows with optometry/ophthalmology Assessment/Plan Medicare annual wellness visit, subsequent (Z00.00) - Counseled on healthy diet and regular exercise - Fall avoidance information provided - Personalized prevention plan provided Reason for Visit HPI Zach Ambrose is a 78-year-old male with a history of AFib, sudden sensorineural hearing loss, andsleep apnea, presenting for a follow-up visit. Zach reports a recent evaluation by a photographic equipment assembler for AFib and a consultation for otalgia, which has since resolved. 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 He deniesany current otalgia and has not required treatment for the past month. 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 He received two courses of steroids, which initially improved his hearing, but the hearing loss recurred after a few weeks. He reports poor hearing in the left ear and finds his hearing aids unhelpful due to high-frequency squealing. He also notes a history of exposure to loud noises during service. Zach is currently taking Eliquis, Crestor, aspirin, thyroid medication, and metoprolol, though he rarely takes metoprolol. He reports easy bruising since starting Eliquis six months ago. He denies feeling tired and maintains an exercise routine of brisk walking for 40 minutes, four days a week, totaling approximately 160 minutes per week. He also walks a couple of miles with his dog regularly. Zach expresses dissatisfaction with his CPAP machine, stating that it disrupts his sleep. He reports nocturia every two hours but is able to return to sleep easily. He acknowledges feeling somewhat tired at times and has a history of sleep apnea, with at least two overnight studies conducted in [facility]. He denies snoring. Zach is socially active, living with his son, [id number], and three granddaughters in [place]. He participates in a prayer group and enjoys playing cards with friends. He reports good general health, does not drink alcohol, smoke, or use tobacco, and denies feelings of sadness or depression. He is independent in his activities of daily living and has advance directives in place. Social History Tobacco Use Smoking status: Never Smokeless tobacco: Never Substance Use Topics Alcohol use: Yes Comment: occasional beer - once a month Drug use: No Past medical history, appointments, medications, allergies reviewed. Pertinent Lab/Diagnostic Studies are reviewed and discussed today Current Outpatient Medications: aspirin, enteric coated (ASPIRIN, ENTERIC COATED) 81 mg EC tablet ELIQUIS 5 mg tab(s) levothyroxine (LEVOXYL) 50 mcg tablet CPAP/BIPAP/OTHER MAGNESIUM OXIDE,ASPARTATE,CITR ORAL omega 8-yte-lee-fish oil (FISH OIL) 100-160-1,000 mg cap metoprolol tartrate, short acting, (LOPRESSOR) 25 mg tablet rosuvastatin (CRESTOR) 10 mg tablet dilTIAZem CD (CARDIZEM CD, CARTIA XT) 120 mg 24 hr capsule psyllium Husk 0.52 gram capsule multivitamin tablet Health Maintenance Depression Screening Anxiety Screening DTaP,Tdap,Td Vaccine(2 - Td or Tdap) RSV Vaccine(1 - 1-dose 75+ series) Covid-19 Vaccine(2 - season) Advance Directive Discussion Medicare Advantage Annual Wellness Visit@ Review Of Systems Constitutional: (+) fatigue, (+) sleep disturbance Ears/Nose/Mouth/Throat: (+) left ear hearing loss, (+) left ear tinnitus, (-) right ear pain Genitourinary: (+) nocturia Musculoskeletal: (-) shoulder pain Psychiatric: (-) depressed mood Hematologic/Lymphatic: (+) easy bruising Physical Exam BP 132/70 Pulse (!) 53 Resp 16 Ht 178.5 cm (5' 10.28") Wt 78.1 kg (172 lb 1.9 oz) BMI 24.50 kg/m GENERAL: NAD, alert and oriented. SKIN: Unremarkable, no rash or skin lesions. HEAD: Normocephalic. EYES: PERRLA, EOMI, conjunctiva clear. LUNGS: Clear to auscultation bilaterally, no wheezes/rhonchi/rales. HEART: Regular rate and rhythm, no murmurs. No ectopy. EXTREMITIES: Normal, no deformities, no skin discoloration, no edema. NEURO: Awake, alert and oriented x3, cranial nerves II-XII grossly intact, normal gait, no involuntary motions. Labs: - - Bilirubin: 0.2 mg/dL (mildly elevated but clinically within normal limits) - Blood counts: Normal - - Glucose: Normal - Kidney function: Normal - Liver function: Normal - PSA: Normal Tests: - (Today) Mini-Co out of 5 (normal) Assessment and Plan 1. Medicare annual wellness visit, subsequent (Z00.00) Patient is in good general health, exercises regularly, and maintains a healthy lifestyle. No cognitive issues noted; Mini-Cog test score is 5/5. Patient is socially active and has advanced directives in place. - Continue current healthy lifestyle and exercise regimen. - Scheduled follow-up in January for annual labs including fasting glucose, thyroid function tests, and PSA. 2. Sleep apnea, unspecified type (G47.30) Obstructive sleep apnea syndrome (G47.33) Patient reports difficulty sleeping with CPAP and frequent nocturia. History of sleep apnea with previous studies conducted. - Ordered home sleep study to assess current status of sleep apnea. 3. Paroxysmal A-fib (HCC) (I48.0) Managed with Eliquis and Dofetilide. Patient rarely takes Metoprolol. Heart rate is consistently inthe 40s-50s. - Continue Eliquis and Dofetilide as prescribed. - Discontinue Metoprolol. 4. Hypothyroidism, unspecified type (E03.9) Stable on current thyroid medication. - Continue current thyroid medication. - Monitor thyroid function tests in January. 5. History of prostate cancer (Z85.46) PSA levels have been undetectable for an extended period. - Monitor PSA levels in January. 6. 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, unspecified hearing status on contralateral side (H91.22) Sudden sensorineural hearing loss in left ear since March 2022. Two courses of steroids providedinitial improvement, but hearing loss recurred. Right ear hearing remains intact. Patient has hearing aids but reports they are not effective due to high-frequency feedback. - Advised patient to continue using hearing aids, especially in social settings, to mitigate risk of cognitive decline. - Consider audiology referral for hearing aid adjustment. 7. Essential (primary) hypertension (I10) Blood pressure is well-controlled. Continue current antihypertensive regimen. 8. 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 No current pain or discomfort. - Continue as needed with warm compresses and Tylenol for any future discomfort. Voice recognition software was used to compose this office note. Please excuse any unintended typographical errors. Recording using Heap software for draft documentation of the visit was discussed with the patient/authorized signs sales representative; all questions welcomed and answered. Patient/authorized signs sales representative agreed to proceed Amrit Birmingham MD documented in this encounterDel[facility]06-03-2025 NotePatient Outreach (INTMMN) HALIEZORAIDA ([id number]) 1945 [facility] Date Time Provider Department 07/16/24 AMRIT BIRMINGHAM During your visit today, we recorded the following information about you: Allergies As of Date: 07/16/2024 Noted Allergy Reaction SEASONAL ALLERGIES 09/20/2016 14 - Other: See Comments Comments: watery eyes Date Reviewed: 11/22/2023 Reviewed by: Lexii Licea MA - Fully Assessed Visit Diagnosis:Medication management [Z79.899] Order(s):COMPLETE BLOOD COUNT [SQCBC] Order #: [id number] FUTURE Prescriptions as of 07/19/2024 - aspirin, enteric coated (ASPIRIN, ENTERIC COATED) 81 mg EC tablet Take 1 tablet by mouth once daily. Take with food. - ELIQUIS 5 mg tab(s) Take 5 mg by mouth two times a day. - levothyroxine (LEVOXYL) 50 mcg tablet Take 1 tablet by mouth once daily. Take on empty stomach. For Thyroid - CPAP/BIPAP/OTHER Type .CPAPSettings into a note to see current settings/supplies/DME information. - MAGNESIUM OXIDE,ASPARTATE,CITR ORAL Take by mouth. - omega 6-ydu-cse-fish oil (FISH OIL) 100-160-1,000 mg cap Take 1,000 mg by mouth. - metoprolol tartrate, short acting, (LOPRESSOR) 25 mg tablet Use 2/3 times a day 6 hours apart for increased heart rate prn - rosuvastatin (CRESTOR) 10 mg tablet Take 1 tablet by mouth once daily. - dilTIAZem CD (CARDIZEM CD, CARTIA XT) 120 mg 24 hr capsule Take 1 capsule by mouth once daily. - psyllium Husk 0.52 gram capsule Take 0.52 g by mouth three times daily. - multivitamin tablet Take 1 tablet by mouth once daily. Problem List As Of Date 07/16/2024 Noted Resolved History of prostate cancer [Z85.46] 01/21/2013 Obstructive sleep apnea syndrome [G47.33] 07/20/2015 Left inguinal hernia [K40.90] 08/05/2015 01/04/2022 Arrhythmia, atrial [I49.8] 09/20/2016 Paroxysmal a-fib (HCC) [I48.0] 09/20/2016 Hypothyroidism [E03.9] 01/04/2022 Aortic root dilatation (HCC) [I77.810] 02/17/2023 Malignant neoplasm (HCC) [C80.1] 02/17/2023 11/22/2023 Encounter Status:Closed by [employer], PRODUSER on 07/19/24[facility] 01-16-2024 [facility] Medical Records Department [address] [place] [address] History Physical Exam 01/16/242118 MR#: [id number] Acct: [id number] Name: ZORAIDA AMBROSE [facility] Rep #: [id number] : 1945 78 From: Randy Sousa MD PCP: Dr. Amrit Birmingham MD Status:PRE [facility] [place] Location: [facility] History and Physical Date of Admission: 01/24/24 ZORAIDA AMBROSE, is a 78 M who presents to the blood bank laboratory professional today for a cardioversion.??? He has a cardiac history of paroxysmal atrial fibrillation and diastolic dysfunction.??? He also has a history of objective sleep apnea with CPAP therapy and prostate cancer.??? He was admitted in November 2016 for atrial fibrillation.??? He converted on his own.??? He had a Holter from monitor placed in May year and had an episode of atrial fibrillation approximately 0.1% of the time and was started on anticoagulation. He had a Holter monitor completed in December 2023 that showed atrial fibrillation with an elevated heart rate. On account of this, he will proceed with cardioversion. Previous 12 lead ECG in November 2023 show sinus rhythm. He denies chest, arm, jaw, or neck discomfort. He states intermittent palpitations. He denies bilateral lower extremity edema. He denies claudication. He denies shortness of breath with activity, shortness of breath at rest, orthopnea, or PND. He denies chronic cough. He denies significant, sudden weight gain. He denies lightheadedness, dizziness, near- syncope, or syncope. He denies blood in urine, blood in stool, or epistaxis. He denies fever with chills. He denies myalgia. He denies fatigue. His exercise level has remained stable two miles a day. 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 Accompanied by: Self Is patient in pain?: No Allergies No Known Allergies Allergy (Verified 12/14/23 13:11) Medications: See EMR Have you fallen in the past year?: No PFSH Medical History JACOB on CPAP Nonrheumatic aortic (valve) insufficiency Aortic valve insufficiency Diastolic dysfunction without heart failure Prostate cancer Obstructive sleep apnea Paroxysmal a-fib Surgical History excision of tumor right knee H/O left inguinal hernia repair Family History Mother Heart disease A-FIB HypertensionFather Hypertension Social History Smoking Status: Never smoker ROS Const Const: Negative for fatigue, weakness, headache(s), daytime sleepiness or difficulty sleeping ENT ENT: Negative for headache(s), dizziness or Nosebleed/epistaxis Cardio Chest Pain: No Palpitations: Yes (rarely usually at night) Resp Respiratory: Negative for SOB with activity, SOB at rest, SOB orthopnea SOB lying down or Cough GI GI: Negative nausea, vomiting or heartburn Neuro Neuro: Negative for dizziness, lightheadedness, near syncope, headache(s) or weakness Endo Endo: Negative for fatigue Cardiology Exam Const Appearance: cooperative, healthy appearing, comfortable and no acute distress Nutritional Appearance: well nourished and overweight Orientation: alert, awake and oriented x3 Head Head: normal to inspection Ears: hearing grossly normal bilaterally Nose: external nose normal Face and Sinus: face symmetric Mouth: moist mucous membranes Eyes General: appearance normal, both eyes and all related structures Eyelids: eyelids normal EOM: EOM intact bilaterally Neck Neck: normal visual inspection and no JVD Carotids: normal carotid upstroke Chest Chest inspection: normal inspection of the chest, symmetric chest movement and normal respiratory effort; Negative cough Auscultation: Bilateral: Clear to Auscultation Cardio Rhythm: irregular rhythm Heart sounds: S1 normal and S2 normal; Negative rub, gallop or murmur GI GI: normal to inspection Neuro General: patient alert, patient awake, patient oriented x3 and CN's II-XI intact bilaterally Skin Skin: no rashes or lesions noted Extremities Pulses: Normal: Right Posterior Tibial Pulse, Left Posterior Tibial Pulse, Right Radial Pulse and Left Radial Pulse Lower Extremity Edema: None: Bilateral Psych Psychological: normal affect Supplemental Info Supplemental Information Echocardiogram 01/20/2020: Normal LV size. Left ventricular systolic function is normal. The estimated ejection fraction is 60 %. Stage 2 diastolic dysfunction. Mildly dilated aortic root. Mild (1+) eccentric aortic valve insufficiency. Pulmonary artery systolic pressure is 30 mmHg. The global longitudinal strain is normal. The global longitudinal strain = -20 % (normal). Stress Test Report 01-20-2020 Impression: 1. Rest and s (more content not included)...[facility]12-03-2024 History of Present illness Narrative* Leni Harden RT(R) - 01/16/2024 11:20 AM EST Radiology Service Progress Note PATIENT NAME: Zoraida Ambrose DATE OF SERVICE: January 16, 2024 TIME: 12:07 PM PATIENT IDENTITY VERIFICATION COMPLETED USING TWO (2) IDENTIFIERS: Name and Date of confirmedby patient verbally. FALL SCREENING: Has the patient had 2 falls in the last year or 1 fall with injury or currently using an Ambulatory Assistive Device (Walker, Cane, Wheelchair, Crutches, etc.)? No PATIENT GENDER DATA: Male PATIENT RELEVANT IMPLANT DATA REVIEWED: Yes PATIENT PRESENTS WITH AN IMPLANTABLE OR ATTACHED LEAD LOADER: No RADIOLOGY DEPARTMENT: General X-ray: Exam(s) Completed: Chest X-Ray PERIPHERAL IV DATA: Not applicable SIGNED BY: KEKE Augustin) January 16, 2024 12:07 PM documented in this encounterDelaware [facility]12-[facility]-2024 NoteHNO ID: [id number] Author: LENI HARDEN RT(R) Service: ? Author Type: Product Test Engineer Type: Progress Notes Filed: 01/16/2024 12:15 Note Text: Radiology Service Progress Note PATIENT NAME: Zoraida Ambrose DATE OF SERVICE: January 16, 2024 TIME: 12:07 PM PATIENT IDENTITY VERIFICATION COMPLETED USING TWO (2) IDENTIFIERS: Name and Date of confirmed by patient verbally. FALL SCREENING: Has the patient had 2 falls in the last year or 1 fall with injury or currently using an Ambulatory Assistive Device (Walker, Cane, Wheelchair, Crutches, etc.)? No PATIENT GENDER DATA: Male PATIENT RELEVANT IMPLANT DATA REVIEWED: Yes PATIENT PRESENTS WITH AN IMPLANTABLE OR ATTACHED LEAD LOADER: No RADIOLOGY DEPARTMENT: General X-ray: Exam(s) Completed: Chest X-Ray PERIPHERAL IV DATA: Not applicable SIGNED BY: RT Charli(R) January 16, 2024 12:07 [facility]10-16-2024 History of Present illness Narrative* Micaela Cameron RDMS - 11/29/2023 8:30 AM EDT Radiology Service Progress Note PATIENT NAME: Zoraida Ambrose DATE OF SERVICE: November 29, 2023 TIME: 8:40 AM PATIENT IDENTITY VERIFICATION COMPLETED USING TWO (2) IDENTIFIERS: Name and Date of confirmedby patient verbally. FALL SCREENING: Has the patient had 2 falls in the last year or 1 fall with injury or currently using an Ambulatory Assistive Device (Walker, Cane, Wheelchair, Crutches, etc.)? No PATIENT GENDER DATA: Male PATIENT RELEVANT IMPLANT DATA REVIEWED: Not Applicable PATIENT PRESENTS WITH AN IMPLANTABLE OR ATTACHED LEAD LOADER: No RADIOLOGY DEPARTMENT: Ultrasound PERIPHERAL IV DATA: Not applicable SIGNED BY: Micaela Cameron RDMS November 29, 2023 8:40 AM documented in this encounterDelaware [facility]10-09-2024 History of Present illness Narrative* Laly Colon APRN.TRISTA - 11/22/2023 8:37 AM EDT CC: Patient presents with: Recheck: 6 month follow up HPI Zoraida Ambrose is a 78 year old male who presents today for routine follow up. Paroxysmal A-fib, aortic root dilation, and HLD : Uses PRN metroprolol a few times a year. Last episode was this past July and started on eliquis. Follow with [facility] annually. For exercise walks his dog a few miles 6 days a week and tries to maintain a healthy low fat low salt diet. Denies chest pain, shortness of breath, palpitations, or exercise intolerance. Hypothyroidism: Taking medication as ordered. Denies any abnormal changes in weight or energy. JACOB: As long as he is home he uses almost nightly but does not take when he is traveling. When usedhe averages 7-8 hours. When used he does sleep well and wakes up feeling refreshed. CT of chest earlier this year incidentally showed left renal cyst that needs further evaluation by US. History of prostate CA with prostatectomy many years ago. No concerns but due for his annual PSA. 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 Dermatofibroma left leg Herpes zoster Left inguinal hernia 08/05/2015 Mitral regurgitation Obstructive sleep apnea Paroxysmal atrial fibrillation (HCC) Pneumonia Prostate cancer (HCC) 09/2009 Seborrheic keratoses PAST SURGICAL HISTORY Procedure Laterality Date COLONOSCOPY 01/2010 HERNIA REPAIR W/MESH 05/2011 by -right inguinal HERNIA REPAIR W/MESH Left 11/11/15 REMOVE TUMOR,TEMPORAL BONE right knee SKIN BIOPSY HX 02/21/2012 left medial thigh TONSILLECTOMY HX TRURL ELECTROSURG RESCJ PROSTATE BLEED COMPLETE 09/2009 done at [facility]- prostate cancer ALLERGIES Seasonal Allergies MEDICATIONS omega 7-yts-itb-fish oil (FISH OIL) 100-160-1,000 mg cap Take 1,000 mg by mouth. rosuvastatin (CRESTOR) 10 mg tablet Take 1 tablet by mouth once daily. levothyroxine (LEVOXYL) 50 mcg tablet Take 1 tablet by mouth once daily. Take on empty stomach. ForThyroid CPAP/BIPAP/OTHER Type .CPAPSettings into a note to see current settings/supplies/DME information. MAGNESIUM OXIDE,ASPARTATE,CITR ORAL Take by mouth. metoprolol tartrate, short acting, (LOPRESSOR) 25 mg tablet Use 2/3 times a day 6 hours apart for increased heart rate prn dilTIAZem CD (CARDIZEM CD, CARTIA XT) 120 mg 24 hr capsule Take 1 capsule by mouth once daily. psyllium Husk 0.52 gram capsule Take 0.52 g by mouth three times daily. multivitamin tablet Take 1 tablet by mouth once daily. aspirin, enteric coated 325 mg EC tablet Take 1 tablet by mouth once daily. Take with food. FAMILY HISTORY Problem Relation Age of Onset Diabetes Mother Heart Mother other (leukemia) Mother Prostate Cancer Father Prostate Alzheimer's Disease Father Prostate Cancer Brother Prostate Psychiatry Brother Manic Depressive Social History Tobacco Use Smoking status: Never Smokeless tobacco: Never Substance Use Topics Alcohol use: Yes Comment: occasional beer - once a month Drug use: No PHYSICAL EXAM BP 120/78 Pulse (!) 56 Resp 16 Wt 79.8 kg (176 lb) SpO2 96% BMI 25.99 kg/m General Appearance: well appearing, in no acute distress, alert Pysch: mood and affect broad and appropriate Eyes: conjunctiva pink and moist, no icterus, sclera white, non-injected Lungs: Lungs clear to auscultation. No wheezing, rhonchi, rales. Heart: RRR without murmur, gallop, or rubs. No ectopy Health maintenance reviewed with patient: Depression Screening Never done Anxiety Screening Never done Covid-19 Vaccine(2023- season) due on 10/15/2023 DTaP,Tdap,Td Vaccine(2 - Td or Tdap) due on 02/18/2024 RSV Vaccine(1 - 1-dose 75+ series) due on 02/18/2024 Influenza Vaccine(1) due on 08/12/2024 Annual PCP Team Chronic Disease Visit due on 11/21/2024 Diabetes Screening due on 11/19/2026 Advance Directive Discussion Completed Hepatitis C Screening Completed Shingrix Vaccine Completed Pneumococcal Vaccine: 65+ Completed HPV Vaccine Aged Out Colorectal Cancer Screening Discontinued DATA REVIEWED: Most recent labs ASSESSMENT/PLAN: 1. Paroxysmal A-fib (HCC) - ICD9: 427.31, ICD10: I48.0 (primary diagnosis) Stable and asymptomatic Continue with current treatments and recommendations by cardiology 2. Aortic root dilatation (HCC) - ICD9: 447.71, ICD10: I77.810 As above 3. Mixed hyperlipidemia - ICD9: 272.2, ICD10: E78.2 - Controlled - Continue current medications - Counseled on healthy diet and regular exercise - Discussed need for and benefit of weight loss. BMI 25.99 kg/(m^2) - HEPATIC FUNCTION PNL 4. Renal cyst - ICD9: 753.10, ICD10: N28.1 Incidentally found and needs further evaluation by US - US KIDNEY/BLADDER 5. Hypothyroidism, unspecified type - ICD9: 244.9, ICD10: E03.9 - asymptomatic and TSH in normal range - Instructed patient on importance of taking on an empty stomach either first thing in the morning or at bedtime. 6. History of prostate cancer - ICD9: V10.46, ICD10: Z85.46 - PROSTATE-SPECIFIC ANTIGEN DIAGNOSTIC Prescription instructions reviewed with patient as applicable. Potential red flag symptoms discussed with the patient. Reviewed appropriate action plan to take if red flag symptoms occur. Patient agreeable to treatment plan. Laly Colon APRN.CNP documented in this encounterDelaware [facility] Hospital05-07-2024 Telephone encounter Note * Telephone Encounter - Jenny Brownlee - 06/20/2023 11:53 AM EDT Pharmacy verified in [facility] Patient has been identified by name and date of : Yes Patient aware RX will be sent to pharmacy. No need to notify patient. Patient phones for refill(s): Requested Prescriptions Pending Prescriptions Disp Refills levothyroxine (LEVOXYL) 50 mcg tablet 90 tablet 3 Sig: Take 1 tablet by mouth once daily. Take on empty stomach. For Thyroid Date of last office visit : 02/17/2023 Date of next office visit : 08/23/2023 Last 2 Encounter Wt Readings: Date: Wt: 06/05/2023 80 kg (176 lb 5.9 oz) 02/17/2023 82.1 kg (181 lb) Not applicable Please advise. Jenny M Sim Pss [facility]05-07-2024 Miscellaneous Notes* Telephone Encounter - Jenny Brownlee - 06/20/2023 11:53 AM EDT Pharmacy verified in Epic Patient has been identified by name and date of : Yes Patient aware RX will be sent to pharmacy. No need to notify patient. Patient phones for refill(s): Requested Prescriptions Pending Prescriptions Disp Refills levothyroxine (LEVOXYL) 50 mcg tablet 90 tablet 3 Sig: Take 1 tablet by mouth once daily. Take on empty stomach. For Thyroid Date of last office visit : 02/17/2023 Date of next office visit : 08/23/2023 Last 2 Encounter Wt Readings: Date: Wt: 06/05/2023 80 kg (176 lb 5.9 oz) 02/17/2023 82.1 kg (181 lb) Not applicable Please advise. Jenny Mesa Pss documented in this encounterDelaware County Hospital04-23-2024 Telephone encounter Note * Telephone Encounter - Gely Augustine - 06/06/2023 4:36 PM EDT Called back . No answer. Left msg [facility]04-23-2024 Miscellaneous Notes* Telephone Encounter - Gely Augustine - 06/06/2023 4:36 PM EDT Called back . No answer. Left msg * Telephone Encounter - Eliza Robles - 06/06/2023 4:13 PM EDT Please call patient at [phone] as he has a few questions from updated visit. Thank you. documented in this encounterDelaware County Hospital04-23-2024 Telephone encounter Note * Telephone Encounter - Eliza Robles - 06/06/2023 4:13 PM EDT Please call patient at [phone] as he has a few questions from updated visit. Thank you. [facility]04-23-[facility] History of Present illness Narrative* Gely Augustine - 06/06/2023 4:01 PM EDT Reviewed uploaded images from [facility] chest CT 2018. All lung nodules from recent scan 05/22/23 were present on 2018 scan and remained stable/unchanged. Therefore given stability >2yrs likely benign-- no follow up needed per current guidelines Called patient to review the above. No answer. Left msg with this information. Will also send [facility] msg with this information and our dept number if aptient should have any questions. Follow Up Diagnosis: Lung Nodule Enrolled in Lung Nodule program: Completed Lung Nodule Program Location: [facility] documented in this encounterDelaware [facility] Hospital04-22-2024 Telephone encounter Note * Telephone Encounter - Kelly Alvarado RN - 06/05/2023 5:00 PM EDT 06/05/23: Gely Augustine requests [facility] to push images for chest CT 12/26/17. Chiquita pushing now. Kelly Alvarado, RN Respiratory [facility]04-22-2024 Miscellaneous Notes* Telephone Encounter - Kelly Alvarado RN - 06/05/2023 5:00 PM EDT 06/05/23: Gely Augustine requests [facility] to push images for chest CT 12/26/17. Chiquita pushing now. Kelly Alvarado, RN Respiratory [facility] documented in this encounterDelaware County Hospital04-22-2024 Telephone encounter Note * Telephone Encounter - Gely Augustine - 06/05/2023 4:19 PM EDT Patient here for lung nodule consult. Can see patient completed chest CT from [facility] in 12/26/17. BREE completed and faxed. Will try to obtain images as only report is available [facility]04-22-2024 Miscellaneous Notes* Telephone Encounter - Gely Augustine - 06/05/2023 4:19 PM EDT Patient here for lung nodule consult. Can see patient completed chest CT from [facility] in 12/26/17. BREE completed and faxed. Will try to obtain images as only report is available documented in this encounterDelaware County Hospital04-22-2024 Instructions* Patient Instructions* Gely Augustine - 06/05/2023 9:38 AM EDT Reviewed your lung nodules with you from your CT chest 05/22/23. Can see you had a chest CT in Dec 2017 at [facility], we will try to get those images to use for comparison. Next steps will be based off the review and comparison of those images. I will give you a call with next steps Gely Augustine [facility] F: documented in this encounterDelaware County Hospital04-22-2024 History of Present illness Narrative* Gely Augustine - 06/05/2023 9:00 AM EDT Images from the original note were not included. [facility] INCIDENTAL LUNG NODULE PROGRAM Impression / Recommendations Lung nodules. Lung nodules incidentally noted on chest CT 05/22/23 on bilateral lungs with largest being 6mm RML nodule. Never smoked, no family hx of lung cancer. Hx of prostate cancer in 2009. There is a prior radiology report for chest CT 12/26/17 from [facility], listing nodules; however the images are not available. Will try to obtain for comparison. If nodules stable, no further follow up will be warranted given stability >2yrs. Will wait for image review to determine next steps and update patient accordingly. ADDENDUM: Chest CT images from [facility] 12/26/17 reviewed. All nodules were present and stable. Given stability >2 yrs, no further nodular surveillance is needed per current guidelines. Zoraida Ambrose presents today for consultation / opinion regarding incidental lung nodule(s). Nature of the lung nodule(s) and the options for further evaluation discussed in detail with patient. Zoraida Ambrose expresses understanding and is in agreement with plan. All questions were answered to their apparent satisfaction. Gely Augustine CNP Follow Up Enrolled in Lung Nodule program: Completed Lung Nodule Program Location: [facility] Thank you for allowing me to participate in the care of Zoraida Ambrose. Please feel free to contact me with any questions or concerns. I spent a total of 30 minutes on the date of the service which included preparing to see the patient, [id number] patient care, completing clinical documentation, obtaining and/or reviewing separately obtained history, performing a medically appropriate examination, counseling and educating the pat ient/family/caregiver, communicating with other HCPs (not separately reported), independently interpreting results (not separately reported), communicating results to the patient/family/caregiver, and care coordination (not separately reported). Consulting Physician Laly Colon [id number] [facility] [id number] Reason for the Consult Zoraida Ambrose presents today for consultation / opinion regarding lung nodule(s). My impressionand final recommendations will be communicated back to the requesting physician by way of shared medical record or letter via US mail. History of Present Illness Zoraida Ambrose is a 77 year old male Never smoker with a past medical history significant for afib, aortic root dilatation, JACOB, hypothyroidism, prostate cancer who is being seen as a new consultation for evaluation of a lung nodule(s). Patient completed chest CT 05/22/23 following abnormal CXR during work up for cough in Jan 2023. Chest CT revealed multiple nodules in bilateral lungs with largest measuring 6mm in size in RML. He was referred to lung nodule clinic Here in office with , reports breathing feels good. Walks dog daily for exercise. States his cough resolved with the abx prescribed back in January. No respiratory concerns or complaints. Patient denies unintentional weight loss. Patient does not have a new or concerning cough, and denies hemoptysis. Patient denies having any respiratory infections or COVID-19 in the past few months. No recent exposure, unusual activity or travel. Denies fever, chills, night sweats, rashes, difficulty swallowing. Hx of prostate cancer 2010 s/p resection. Follows with PCP now who monitors PSA No family history of lung cancer Environmental exposures: working on house reconstruction the last few months, occasional gardening No secondhand smoke exposure Occupational exposures: none COVID History: never Birds/Bat exposure: owned chickens growing up GERD: none Last 12 Encounter Wt Readings: Date: Wt: 06/05/2023 80 kg (176 lb 5.9 oz) 02/17/2023 82.1 kg (181 lb) 02/03/2023 82.1 kg (181 lb) 02/01/2023 82.6 kg (182 lb 3.2 oz) 10/10/2022 81.6 kg (180 lb) 07/27/2022 78.5 kg (173 lb) 01/04/2022 79.4 kg (175 lb) 01/04/2021 77.6 kg (171 lb) 01/03/2020 82.1 kg (181 lb) 09/17/2019 81.2 kg (179 lb) 11/28/2018 79.9 kg (176 lb 0.6 oz) 01/01/2018 84.8 kg (187 lb) Modified Medical Research [place] Dyspnea Scale (MMRC) I only get breathless with strenous exercise 0 ECOG PERFORMANCE STATUS: 1- Restricted in physically strenuous activity. Carries out light duty. Lung Nodule(s) Characteristics Date of imaging study: 05/22/23 Type of imaging study: chest CT Nodule detection: Incidentally Number of nodules: 5 Size of most concerning nodule: 6mm Density of most concerning nodule: Solid Border of most concerning nodule: Smooth Location of most concerning nodule: Right middle lobe Has the patient had prior chest imaging? Yes What type of prior imaging? CT Scan Was the nodule of concern seen on prior imaging? Unknown as there is a report from [facility] CT in 2018 but images are not available. Lung Nodule Risk Factors: Tobacco Use: Never Does the patient have a prior history malignancy? Yes: Prostate Does the patient have COPD/Emphysema? No Does the patient have a family history of lung cancer? No Initial estimation of malignancy based on size was: Low (<=8 mm) Malignancy Risk ([facility] model) Lung Nodule Calculator: (if applicable) 14.3% risk of malignancy. 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 Dermatofibroma left leg Herpes zoster Left inguinal hernia 08/05/2015 Mitral regurgitation Obstructive sleep apnea Paroxysmal atrial fibrillation (HCC) Pneumonia Prostate cancer (HCC) 09/2009 Seborrheic keratoses Past Surgical History PAST SURGICAL HISTORY Procedure Laterality Date COLONOSCOPY 01/2010 HERNIA REPAIR W/MESH 05/2011 by -right inguinal HERNIA REPAIR W/MESH Left 11/11/15 REMOVE TUMOR,TEMPORAL BONE right knee SKIN BIOPSY HX 02/21/2012 left medial thigh TONSILLECTOMY HX TRURL ELECTROSURG RESCJ PROSTATE BLEED COMPLETE 09/2009 done at [facility]- prostate cancer Medications levothyroxine (LEVOXYL) 50 mcg tablet Take 1 tablet by mouth once daily. Take on empty stomach. ForThyroid CPAP/BIPAP/OTHER Type .CPAPSettings into a note to see current settings/supplies/DME information. MAGNESIUM OXIDE,ASPARTATE,CITR ORAL Take by mouth. omega 2-izl-fkh-fish oil (FISH OIL) 100-160-1,000 mg cap Take 1,000 mg by mouth. metoprolol tartrate, short acting, (LOPRESSOR) 25 mg tablet Use 2/3 times a day 6 hours apart for increased heart rate prn rosuvastatin (CRESTOR) 10 mg tablet Take 1 tablet by mouth once daily. dilTIAZem CD (CARDIZEM CD, CARTIA XT) 120 mg 24 hr capsule Take 1 capsule by mouth once daily. psyllium Husk 0.52 gram capsule Take 0.52 g by mouth three times daily. multivitamin tablet Take 1 tablet by mouth once daily. aspirin, enteric coated 325 mg EC tablet Take 1 tablet by mouth once daily. Take with food. Allergies ALLERGIES Allergen Reactions Seasonal Allergies Other: See Comments watery eyes Family History FAMILY HISTORY Problem Relation Age of Onset Diabetes Mother Heart Mother other (leukemia) Mother Prostate Cancer Father Prostate Alzheimer's Disease Father Prostate Cancer Brother Prostate Psychiatry Brother Manic Depressive Social History Social History Tobacco Use Smoking status: Never Smokeless tobacco: Never Substance Use Topics Alcohol use: Yes Comment: occasional beer - once a month Drug use: No Review of Systems Constitutional: Negative for chills, diaphoresis, fever, malaise/fatigue and weight loss. Respiratory: Negative for cough, hemoptysis, sputum production, shortness of breath and wheezing. Cardiovascular: Negative for chest pain, palpitations and orthopnea. Musculoskeletal: Negative for myalgias. Neurological: Negative for dizziness. BP 131/74 Pulse (!) 47 Wt 80 kg (176 lb 5.9 oz) SpO2 96% BMI 26.05 kg/m Physical Exam Vitals reviewed. Constitutional: General: He is not in acute distress. Appearance: He is not ill-appearing, toxic-appearing or diaphoretic. Cardiovascular: Rate and Rhythm: Normal rate and regular rhythm. Heart sounds: Normal heart sounds. No murmur heard. No friction rub. No gallop. Pulmonary: Effort: Pulmonary effort is normal. No respiratory distress. Breath sounds: No stridor. No wheezing, rhonchi or rales. Neurological: Mental Status: He is alert. Diagnostic Data RML nodules, with red arrow showing largest 6mm nodule 5mm JAVED nodule 4mm JAVED nodule 4mm RLL nodule RLL 3mm nodule I have personally reviewed and confirmed the imaging findings. No textual results found for the specified procedure(s). I have personally visualized, reviewed and confirmed the findings on pulmonary function testing. Impression / Recommendations To optimize physician communication via the electronic health record, the Impression & Recommendations section has been placed at the beginning of this note. Gely Augustine CNP Pulmonary & Critical Care Medicine Respiratory Mica June 04, 2023 8:32 PM CC: Laly Colon [id number] [facility] [id number] Amrit Birmingham MD documented in this encounterDelaware [facility] Hospital04-08-2024 History of Present illness Narrative* Mary Kate Rene RT(R) - 05/22/2023 8:40 AM EDT Radiology Service Progress Note PATIENT NAME: Zoraida Ambrose DATE OF SERVICE: May 22, 2023 TIME: 3:29 PM PATIENT IDENTITY VERIFICATION COMPLETED USING TWO (2) IDENTIFIERS: Name and Date of confirmedby patient verbally. FALL SCREENING: Has the patient had 2 falls in the last year or 1 fall with injury or currently using an Ambulatory Assistive Device (Walker, Cane, Wheelchair, Crutches, etc.)? No PATIENT GENDER DATA: Male PATIENT RELEVANT IMPLANT DATA REVIEWED: Yes PATIENT PRESENTS WITH AN IMPLANTABLE OR ATTACHED LEAD LOADER: No RADIOLOGY DEPARTMENT: CT; Exam(s) Completed: Chest PERIPHERAL IV DATA: Not applicable SIGNED BY: RT Octavio(Patrick) May 22, 2023 3:29 PM documented in this encounterDelaware County Hospital01-05-2024 History of Present illness Narrative* Laly Colon APRN.CNP - 02/17/2023 10:04 AM EST CC: Patient presents with: Recheck: 6 month follow up HPI Zoraida Ambrose is a 77 year old male who presents today for routine follow up. JACOB: Uses CPAP nightly on average 5-7 hours, sleeps well, and wakes up refreshed Has not needed his PRN metoprolol in years as he has not had any palpitations or episodes of A-fib.Seems to be sensitive to caffiene which he avoids. Takes his diltiazem as ordered and an aspirin. Mr. Ambrose indicates that he is feeling well and denies any symptoms referable to elevated blood pressure. Specifically denies headache, chest pain, palpitations, dyspnea, and peripheral edema. Patient denies any side effects of his medication(s) and is compliant with their regimen. He does not check BP's generally. Zoraida works out regularly 7 times per week with walking. He watches his diet forsodium, low fat and low cholesterol most of the time. Last 3 Encounter BP Readings: Date: BP: 02/17/2023 128/80 02/03/2023 139/84 02/01/2023 132/80 Hypothyroidism: Takes medication as ordered. Denies any abnormal change in weight or energy. Prostate Cancer: Had prostatectomy a few years ago in [place]. Does not see anyone in urology and just gets PSA checked every now and then without concern Recent respiratory illness incidentally found lung nodule that is recommended to be rechecked in a few months. REVIEW OF SYSTEMS General: no fevers, no chills, no night sweats, no recurrent infections, no change in appetite, no change in energy, and no significant changes in weight Respiratory: no cough, no wheezing, no shortness of breath, no hemoptysis Cardiovascular: no chest pain, no chest pressure, no palpitations, and no swelling Endocrine: no fatigue, no polyuria, no polyphagia, and no polydipsia Neurologic: No headache, weakness, numbness, dizziness, memory loss, syncope. 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 Dermatofibroma left leg Herpes zoster Left inguinal hernia 08/05/2015 Mitral regurgitation Obstructive sleep apnea Paroxysmal atrial fibrillation (HCC) Pneumonia Prostate cancer (HCC) 09/2009 Seborrheic keratoses PAST SURGICAL HISTORY Procedure Laterality Date COLONOSCOPY 01/2010 HERNIA REPAIR W/MESH 05/2011 by -right inguinal HERNIA REPAIR W/MESH Left 11/11/15 REMOVE TUMOR,TEMPORAL BONE right knee SKIN BIOPSY HX 02/21/2012 left medial thigh TONSILLECTOMY HX TRURL ELECTROSURG RESCJ PROSTATE BLEED COMPLETE 09/2009 done at [facility]- prostate cancer ALLERGIES Seasonal Allergies MEDICATIONS benzonatate (TESSALON PERLES) 100 mg capsule Take 1 capsule by mouth three times a day as needed for cough. levothyroxine (LEVOXYL) 50 mcg tablet Take 1 tablet by mouth once daily. Take on empty stomach. ForThyroid CPAP/BIPAP/OTHER Type .CPAPSettings into a note to see current settings/supplies/DME information. MAGNESIUM OXIDE,ASPARTATE,CITR ORAL Take by mouth. omega 5-plp-mhk-fish oil (FISH OIL) 100-160-1,000 mg cap Take 1,000 mg by mouth. metoprolol tartrate, short acting, (LOPRESSOR) 25 mg tablet Use 2/3 times a day 6 hours apart for increased heart rate prn rosuvastatin (CRESTOR) 10 mg tablet Take 1 tablet by mouth once daily. dilTIAZem CD (CARDIZEM CD, CARTIA XT) 120 mg 24 hr capsule Take 1 capsule by mouth once daily. psyllium Husk 0.52 gram capsule Take 0.52 g by mouth three times daily. multivitamin tablet Take 1 tablet by mouth once daily. aspirin, enteric coated 325 mg EC tablet Take 1 tablet by mouth once daily. Take with food. FAMILY HISTORY Problem Relation Age of Onset Diabetes Mother Heart Mother other (leukemia) Mother Cancer Father Prostate Alzheimer's Disease Father Cancer Brother Prostate Psychiatry Brother Manic Depressive Social History Tobacco Use Smoking status: Never Smokeless tobacco: Never Substance Use Topics Alcohol use: Yes Comment: occasional beer - once a month Drug use: No PHYSICAL EXAM BP 128/80 Pulse 60 Resp 16 Wt 82.1 kg (181 lb) SpO2 97% BMI 26.73 kg/m General Appearance: well appearing, in no acute distress, alert Eyes: PERRLA, EOM's intact, conjunctiva pink and moist, no icterus, sclera white, non-injected Lungs: Lungs clear to auscultation. No wheezing, rhonchi, rales. Heart: RRR without murmur, gallop, or rubs. No ectopy Health maintenance reviewed with patient: Advance Directive Discussion Never done Depression Assessment due on 02/13/2023 Influenza Vaccine(1) due on 08/13/2023 DTaP,Tdap,Td Vaccine(2 - Td or Tdap) due on 02/18/2024 RSV Vaccine(1 - 1-dose 60+ series) due on 02/18/2024 Covid-19 Vaccine(2 - season) due on 02/18/2024 Annual PCP Team Chronic Disease Visit due on 10/11/2023 Colorectal Cancer Screening due on 04/04/2024 Diabetes Screening due on 01/13/2026 Lipid Screening due on 12/28/2026 Hepatitis C Screening Completed Shingrix Vaccine Completed Pneumococcal Vaccine: 65+ Completed DATA REVIEWED: Most recent labs ASSESSMENT/PLAN: 1. Paroxysmal A-fib (HCC) - ICD9: 427.31, ICD10: I48.0 (primary diagnosis) Controlled Apical regular and asymptomatic Continue current medications 2. Obstructive sleep apnea syndrome - ICD9: 327.23, ICD10: G47.33 Compliant with CPAP and getting benefits from usage 3. Hypothyroidism, unspecified type - ICD9: 244.9, ICD10: E03.9 - asymptomatic - Instructed patient on importance of taking on an empty stomach either first thing in the morning or at bedtime. 4. Malignant neoplasm (HCC) - ICD9: 199.1, ICD10: C80.1 Recent PSA normal 5. Lung nodules - ICD9: 793.19, ICD10: R91.8 -incidentally found on CXR - CT CHEST WO IVCON Prescription instructions reviewed with patient as applicable. Potential red flag symptoms discussed with the patient. Reviewed appropriate action plan to take if red flag symptoms occur. Patient agreeable to treatment plan. Laly Colon APRN.CNP documented in this encounterDelaware [facility] Hospital12-22-2023 History of Present illness Narrative* Mireya Russo RT(R) - 02/03/2023 3:50 PM EST Radiology Service Progress Note PATIENT NAME: Zoraida Ambrose DATE OF SERVICE: February 03, 2023 TIME: 3:34 PM PATIENT IDENTITY VERIFICATION COMPLETED USING TWO (2) IDENTIFIERS: Name and Date of confirmedby patient verbally. FALL SCREENING: Has the patient had 2 falls in the last year or 1 fall with injury or currently using an Ambulatory Assistive Device (Walker, Cane, Wheelchair, Crutches, etc.)? No PATIENT GENDER DATA: Male PATIENT RELEVANT IMPLANT DATA REVIEWED: Yes RADIOLOGY DEPARTMENT: General X-ray: Exam(s) Completed: Chest X-Ray PERIPHERAL IV DATA: Not applicable SIGNED BY: RT Dom(R) February 03, 2023 3:34 PM documented in this encounterDelaware County Hospital12-20-2023 History of Present illness Narrative* Sharla Butt PA - 02/01/2023 11:58 AM EST This note was created using [employer]. Subjective Zoraida Ambrose is a 77 year old male. HPI 77-year-old male presents for cough x 2 to 3 days. Patient states he starting a dry cough about2 to 3 days ago. He has not had any fevers. No congestion. No chest pain or shortness of breath. Hereports a history of bronchitis and this feels similar. He has not a smoker. No other complaint. 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 Dermatofibroma left leg Herpes zoster Left inguinal hernia 08/05/2015 Mitral regurgitation Obstructive sleep apnea Paroxysmal atrial fibrillation (HCC) Pneumonia Prostate cancer (HCC) 09/2009 Seborrheic keratoses PAST SURGICAL HISTORY Procedure Laterality Date COLONOSCOPY 01/2010 HERNIA REPAIR W/MESH 05/2011 by -right inguinal HERNIA REPAIR W/MESH Left 11/11/15 REMOVE TUMOR,TEMPORAL BONE right knee SKIN BIOPSY HX 02/21/2012 left medial thigh TONSILLECTOMY HX TRURL ELECTROSURG RESCJ PROSTATE BLEED COMPLETE 09/2009 done at [facility]- prostate cancer ALLERGIES Seasonal Allergies MEDICATIONS levothyroxine (LEVOXYL) 50 mcg tablet Take 1 tablet by mouth once daily. Take on empty stomach. ForThyroid CPAP/BIPAP/OTHER Type .CPAPSettings into a note to see current settings/supplies/DME information. MAGNESIUM OXIDE,ASPARTATE,CITR ORAL Take by mouth. omega 1-tkw-hhe-fish oil (FISH OIL) 100-160-1,000 mg cap Take 1,000 mg by mouth. metoprolol tartrate, short acting, (LOPRESSOR) 25 mg tablet Use 2/3 times a day 6 hours apart for increased heart rate prn rosuvastatin (CRESTOR) 10 mg tablet Take 1 tablet by mouth once daily. dilTIAZem CD (CARDIZEM CD, CARTIA XT) 120 mg 24 hr capsule Take 1 capsule by mouth once daily. psyllium Husk 0.52 gram capsule Take 0.52 g by mouth three times daily. multivitamin tablet Take 1 tablet by mouth once daily. aspirin, enteric coated 325 mg EC tablet Take 1 tablet by mouth once daily. Take with food. benzonatate (TESSALON PERLES) 100 mg capsule Take 1 capsule by mouth three times a day as needed for cough. predniSONE (DELTASONE) 20 mg tablet Take 2 tablets by mouth once daily for 4 days. Take daily with food. FAMILY HISTORY Problem Relation Age of Onset Diabetes Mother Heart Mother other (leukemia) Mother Cancer Father Prostate Alzheimer's Disease Father Cancer Brother Prostate Psychiatry Brother Manic Depressive Social History Tobacco Use Smoking status: Never Smokeless tobacco: Never Substance Use Topics Alcohol use: Yes Comment: occasional beer - once a month Drug use: No Review of Systems Constitutional: Negative for chills and fever. HENT: Negative for congestion and sore throat. Respiratory: Positive for cough. Negative for chest tightness, shortness of breath and wheezing. Cardiovascular: Negative for chest pain. Gastrointestinal: Negative for diarrhea and vomiting. Objective BP 132/80 Pulse 69 Temp 36.4 C (97.6 F) (Tympanic) Resp 18 Wt 82.6 kg (182 lb 3.2 oz) SpO2 100% BMI 26.91 kg/m Physical Exam Vitals and nursing note reviewed. Constitutional: General: He is not in acute distress. Appearance: Normal appearance. He is not toxic-appearing. HENT: Right Ear: Tympanic membrane and ear canal normal. Left Ear: Tympanic membrane and ear canal normal. Nose: Nose normal. Mouth/Throat: Mouth: Mucous membranes are moist. Eyes: Conjunctiva/sclera: Conjunctivae normal. Cardiovascular: Rate and Rhythm: Normal rate and regular rhythm. Pulmonary: Effort: Pulmonary effort is normal. Breath sounds: Normal breath sounds. No wheezing, rhonchi or rales. Skin: General: Skin is warm and dry. Neurological: Mental Status: He is alert. Assessment and Plan ASSESSMENT/PLAN: 1. Acute cough - ICD9: 786.2, ICD10: R05.1 -Suspected viral cough. -Declines COVID/flu/RSV swab. -Lungs clear on exam. No fevers. Pulse ox 100% on room air. Low suspicion for pneumonia. Suspect viral illness. -Patient reports history of bronchitis and some wheezing in the past. Rx for prednisone if symptomsworsen. -Rx Tessalon Perles to help with cough. Diagnosis and treatment plan were discussed and questions were answered to the patient's satisfaction. Pt acknowledged understanding of concepts and follow up plan. Specific signs and symptoms that would indicate the need for higher level of care were discussed in detail warranting prompt ER evaluation. AGYATHRI Paul documented in this encounterDelaware County Hospital08-28-2023 History of Present illness Narrative* Dian Rosa PA-Ezekiel - 10/10/2022 1:47 PM EDT CC: Patient presents with: Follow Up: review CPAP use HPI Zoraida Ambrose is a 77 year old male who presents today for review of CPAP use as required per insurance - see telephone encounter. Patient presents today with sleep therapy report, which reveals that he has been compliant with useof CPAP since he received CPAP mid August. Wears CPAP nightly. He is benefitting from use as he feels much improved upon awakening with the use of new device. Denies any issues with leaks, mask not fitting properly, snoring, or excessive daytime drowsiness. PMH significant for A Fib and mild aortic root dilatation for which he sees cardiology. Will be seeing Jacobo Ryan CNP in a couple weeks. REVIEW OF SYSTEMS See HPI All other systems negative. 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 Dermatofibroma left leg Herpes zoster Left inguinal hernia 08/05/2015 Mitral regurgitation Obstructive sleep apnea Paroxysmal atrial fibrillation (HCC) Pneumonia Prostate cancer (HCC) 09/2009 Seborrheic keratoses PAST SURGICAL HISTORY Procedure Laterality Date COLONOSCOPY 01/2010 HERNIA REPAIR W/MESH 05/2011 by -right inguinal HERNIA REPAIR W/MESH Left 11/11/15 REMOVE TUMOR,TEMPORAL BONE right knee SKIN BIOPSY HX 02/21/2012 left medial thigh TONSILLECTOMY HX TRURL ELECTROSURG RESCJ PROSTATE BLEED COMPLETE 09/2009 done at [facility]- prostate cancer ALLERGIES Seasonal Allergies MEDICATIONS CPAP/BIPAP/OTHER Type .CPAPSettings into a note to see current settings/supplies/DME information. MAGNESIUM OXIDE,ASPARTATE,CITR ORAL Take by mouth. levothyroxine (LEVOXYL) 50 mcg tablet Take 1 tablet by mouth once daily. Take on empty stomach. ForThyroid omega 0-bzq-pgg-fish oil (FISH OIL) 100-160-1,000 mg cap Take 1,000 mg by mouth. metoprolol tartrate, short acting, (LOPRESSOR) 25 mg tablet Use 2/3 times a day 6 hours apart for increased heart rate prn rosuvastatin (CRESTOR) 10 mg tablet Take 1 tablet by mouth once daily. dilTIAZem CD (CARDIZEM CD, CARTIA XT) 120 mg 24 hr capsule Take 1 capsule by mouth once daily. psyllium Husk 0.52 gram capsule Take 0.52 g by mouth three times daily. multivitamin tablet Take 1 tablet by mouth once daily. aspirin, enteric coated 325 mg EC tablet Take 1 tablet by mouth once daily. Take with food. FAMILY HISTORY Problem Relation Age of Onset Diabetes Mother Heart Mother other (leukemia) Mother Cancer Father Prostate Alzheimer's Disease Father Cancer Brother Prostate Psychiatry Brother Manic Depressive Social History Tobacco Use Smoking status: Never Smokeless tobacco: Never Substance Use Topics Alcohol use: Yes Comment: occasional beer - once a month Drug use: No PHYSICAL EXAM BP 106/60 (BP Site: Left Arm, BP Position: Sitting, BP Cuff Size: Large Adult) Pulse 63 Temp 36.3 C (97.4 F) Resp 12 Ht 175.3 cm (5' 9") Wt 81.6 kg (180 lb) SpO2 96% BMI 26.58 kg/m General Appearance: well appearing, in no acute distress, alert Pysch: mood and affect broad and appropriate Skin: Skin color, texture, turgor normal for age; Head: normocephalic, atraumatic Lymph nodes: No cervical lymphadenopathy Lungs: Lungs clear to auscultation. No wheezing, rhonchi, rales. Heart: RRR without murmur, gallop, or rubs. No ectopy Abdomen: Normal abdominal exam Extremities: No gross deformities, significant edema, skin discoloration, clubbing or cyanosis. Neurological: Gait normal. No focal neurological deficits. Sensation grossly intact. ASSESSMENT/PLAN: 1. Obstructive sleep apnea syndrome - ICD9: 327.23, ICD10: G47.33 (primary diagnosis) Reviewed CPAP report, beginning in mid August. Report reveals patient is compliant with CPAP device and benefitting from use. Will fax over appropriate documentation to [facility]. 2. Acquired hypothyroidism - ICD9: 244.9, ICD10: E03.9 - Instructed patient on importance of taking on an empty stomach either first thing in the morning or at bedtime. - check TSH in 3 months - continue current dose of Synthroid 0.050 mg-refills provided per patient request - LEVOTHYROXINE 50 MCG TABLET - TSH BLD - CBC + DIFF - HEPATIC FUNCTION PNL 3. History of prostate cancer - ICD9: V10.46, ICD10: Z85.46 Status post prostatectomy; will check PSA for surveillance - PSA/PROSTSPECAG SCRN Prescription instructions reviewed with patient as applicable. Potential red flag symptoms discussed with the patient. Reviewed appropriate action plan to take if red flag symptoms occur. Patient agreeable to treatment plan. Dian Rosa PA-C documented in this encounterDelaware County Hospital08-22-2023 Miscellaneous Notes* Telephone Encounter - Rosaura Ospina LPN - 10/04/2022 2:04 PM EDT Pt calls to report he received a Cpap replacement machine through [facility] and they told him he needed to get something from the dr's office to show he was compliant. Called [facility] who advised pt needs an appt 31-90 days after starting cpap machine per Medicare guidelines. In appt notes it needs to state that the pt has cpap set up, is compliant, and benefits from use. Pt notified of need for appt. Appt scheduled for 10/10/22. Rosaura Ospina LPN documented in this encounterDelaware County Hospital11-22-2022 History of Present illness Narrative* Amrit Birmingham MD - 01/04/2022 10:28 AM EST Reason for Visit Patient presents with: Yearly Exam Zoraida Ambrose is a 76 year old male who presents here today for Above Complaints.. Health Maintenance ADVANCE DIRECTIVE DISCUSSION DEPRESSION ASSESSMENT DTAP,TDAP,TD(2 - Td or Tdap) HPI Hypothyroidism. She is doing well on her current dose of Synthroid. Denies fatigue, cold intolerance and swelling in feet. TSH recently checked and normal. HPL: labs are with in normal limits with out him being on medication for the same. Has afib, the thinner he is on is asa not yet on stronger ones, cards is in discussion with him about that. On cardizem. He is on metoprolol as needed for afib. Sleep apnea: was diagnosed, 25 years ago in [place], has been using the machine for all this time, Every night he has the machine on for atleast 6 hours. Some times he sleeps on his stomach and it does not work with the mask. He has been getting some supplies on a regular basis. He has lost around 10 pounds since the past 25 years. He feels rested when he uses the mask. He is not sure he needs the mask No problem-specific Assessment & Plan notes found for this encounter. 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 Dermatofibroma left leg Herpes zoster Mitral regurgitation Obstructive sleep apnea Paroxysmal atrial fibrillation (HCC) Pneumonia Prostate cancer (HCC) 09/2009 Seborrheic keratoses PAST SURGICAL HISTORY Procedure Laterality Date COLONOSCOPY 01/2010 HERNIA REPAIR W/MESH 05/2011 by -right inguinal HERNIA REPAIR W/MESH Left 11/11/15 REMOVE TUMOR,TEMPORAL BONE right knee SKIN BIOPSY HX 02/21/2012 left medial thigh TONSILLECTOMY HX TRURL ELECTROSURG RESCJ PROSTATE BLEED COMPLETE 09/2009 done at [facility]- prostate cancer FAMILY HISTORY Problem Relation Age of Onset Diabetes Mother Heart Mother other (leukemia) Mother Cancer Father Prostate Alzheimer's Disease Father Cancer Brother Prostate Psychiatry Brother Manic Depressive Social History Tobacco Use Smoking status: Never Smokeless tobacco: Never Substance Use Topics Alcohol use: Yes Comment: occasional beer - once a month Drug use: No Past medical history, appointments, medications, allergies reviewed. Pertinent Lab/Diagnostic Studies are reviewed and discussed today Current Outpatient Medications: MAGNESIUM OXIDE,ASPARTATE,CITR ORAL levothyroxine (LEVOXYL) 50 mcg tablet omega 9-urm-fsh-fish oil (FISH OIL) 100-160-1,000 mg cap metoprolol tartrate, short acting, (LOPRESSOR) 25 mg tablet rosuvastatin (CRESTOR) 10 mg tablet dilTIAZem CD (CARDIZEM CD, CARTIA XT) 120 mg 24 hr capsule psyllium Husk 0.52 gram capsule multivitamin tablet [place]-3 Fatty Acids-Vitamin E 1,000 mg cap aspirin, enteric coated 325 mg EC tablet Review of Systems CONSTITUTIONAL: No fevers, chills night sweats, unintended weight loss CARDIOVASCULAR: No chest pain, dyspnea, palpitations, orthopnea, PND, ankle edema. PULM: No dyspnea, unexplained cough. GI: No dysphagia/odynophagia, problematic reflux, constipation, diarrhea, changes in stool habits, hematochezia, melena. : No new urinary complaints, including dysuria, gross hematuria or pyuria. NEURO: No new balance problems, peripheral weakness/paresthesias or numbness of concern. Physical Exam BP 118/80 Pulse (!) 55 Temp 36.4 C (97.6 F) Resp 16 Ht 176.5 cm (5' 9.49") Wt 79.4 kg (175 lb) SpO2 96% BMI 25.48 kg/m General appearance: Well appearing, alert, in no acute distress, well nourished. Skin: Skin color, texture, turgor normal, no suspicious rashes or lesions Head: Normocephalic, no masses, lesions, tenderness or abnormalities Eyes: Anicteric sclera. Pupils are equally round and reactive to light. Extraocular movements are intact. Lungs: Lungs clear to auscultation. No wheezing, rhonchi, rales Heart: RRR without murmur, gallop, or rubs. Extremities: No deformities, edema, skin discoloration, clubbing or cyanosis. Good capillary refill. ASSESSMENT/PLAN: 1. Mixed hyperlipidemia - ICD9: 272.2, ICD10: E78.2 (primary diagnosis) - good control - Continue current medication. 2. Paroxysmal A-fib (HCC) - ICD9: 427.31, ICD10: I48.0 To cont with the current medications that were given 3. Hypothyroidism, unspecified type - ICD9: 244.9, ICD10: E03.9 - Instructed patient on importance of taking on an empty stomach either first thing in the morning or at bedtime. Stable thyroid 4. Obstructive sleep apnea syndrome - ICD9: 327.23, ICD10: G47.33 He may need sleep apnea testing to be done. Amrit Birmingham MD documented in this encounterDelaware County Hospital09-13-2022 History of Present illness Narrative* Sheba Dubois LPN - 10/26/2021 10:36 AM EDT Patient here for 2nd shingrix vaccine. Tolerated injection well. documented in this encounterDelaware County Hospital08-31-2022 Miscellaneous Notes* Telephone Encounter - Susanne Drew LPN - 10/13/2021 10:32 AM EDT Patient scheduled for nurse visit 10/26/21 to receive Shingrix vaccine. Please place order at this time. Susanne Drew LPN documented in this encounterDelaware County Hospital06-22-2016 History of Past illness Narrative* Problem Noted Date Resolved Date Left inguinal hernia 08/05/2015 01/04/2022 documented as of this encounter (statuses as of 01/04/2022) [facility] of Past illness Narrative* Problem Noted Date Diagnosed Date Resolved Date Left inguinal hernia 08/05/2015 022 documented as of this encounter (statuses as of 10/11/2022) [facility] of Past illness Narrative* Problem Noted Date Diagnosed Date Resolved Date Left inguinal hernia 08/05/2015 022 documented as of this encounter (statuses as of 12/30/2022) [facility] of Past illness Narrative* Problem Noted Date Diagnosed Date Resolved Date Left inguinal hernia 08/05/2015 022 documented as of this encounter (statuses as of 02/02/2023) [facility] History of Past illness Narrative* Problem Noted Date Diagnosed Date Resolved Date Left inguinal hernia 08/05/2015 022 documented as of this encounter (statuses as of 02/19/2023) [facility] History of Past illness Narrative* Problem Noted Date Diagnosed Date Resolved Date Left inguinal hernia 08/05/2015 022 documented as of this encounter (statuses as of 04/18/2023) [facility] History of Past illness Narrative* Problem Noted Date Diagnosed Date Resolved Date Left inguinal hernia 08/05/2015 022 documented as of this encounter (statuses as of 05/23/2023) [facility] note* Diagnosis Encounter for immunization- Primary Need for other specified prophylactic vaccination against single bacterial disease documented [facility] this [facility] [place] [facility]* Diagnosis Need for shingles vaccine- Primary Need for prophylactic vaccination and inoculation against other viral diseases documented in this encounter [facility] [place] [facility]* Diagnosis Medication management Encounter for long-term (current) use of other medications Hyperlipidemia, unspecified hyperlipidemia type Acquired hypothyroidism Unspecified hypothyroidism documented in this encounter [facility] [place] [facility]* Diagnosis Mixed hyperlipidemia- Primary Paroxysmal A-fib (HCC) Atrial fibrillation Hypothyroidism, unspecified type Obstructive sleep apnea syndrome Obstructive sleep apnea (adult) (pediatric) documented in this encounter [facility] [place] noteNo assessment information availableWAultman [facility] Work Phone: Evaluation note* Diagnosis Obstructive sleep apnea syndrome- Primary Obstructive sleep apnea (adult) (pediatric) Acquired hypothyroidism Unspecified hypothyroidism History of prostate cancer Personal history of malignant neoplasm of prostate documented in this encounter [facility] [place] [facility]* Diagnosis Medication management Encounter for long-term (current) use of other medications documented in this encounter [facility] [place] [facility]* Diagnosis Acute cough- Primary documented in this encounter [facility] [place] [facility]* Diagnosis Paroxysmal A-fib (HCC)- Primary Atrial fibrillation Obstructive sleep apnea syndrome Obstructive sleep apnea (adult) (pediatric) Hypothyroidism, unspecified type Malignant neoplasm (HCC) Other malignant neoplasm without specification of site Lung nodules Other nonspecific abnormal finding of lung field [facility] Lung nodules Other nonspecific abnormal finding of lung field [facility] Diagnosis Lung nodules- Primary Other nonspecific abnormal finding of lung field [facility] Diagnosis Acquired hypothyroidism Unspecified hypothyroidism [facility]* Diagnosis Medication management Encounter for long-term (current) use of other medications [facility] [place] [facility]* Diagnosis Prostate cancer (HCC)- Primary Malignant neoplasm of prostate Elevated TSH Nonspecific abnormal results of thyroid function study Medicare annual wellness visit, subsequent- Primary Routine general medical examination at a health care facility Prostate cancer (HCC) Malignant neoplasm of prostate Paroxysmal A-fib (HCC) Atrial fibrillation Need for vaccination Need for prophylactic vaccination and inoculation against unspecified single disease Obstructive sleep apnea syndrome Obstructive sleep apnea (adult) (pediatric) Acute cough [facility] Prostate cancer (HCC)- Primary Malignant neoplasm of prostate Elevated TSH Nonspecific abnormal results of thyroid function study Medicare annual wellness visit, subsequent- Primary Routine general medical examination at a health care facility Prostate cancer (HCC) Malignant neoplasm of prostate Paroxysmal A-fib (HCC) Atrial fibrillation Need for vaccination Need for prophylactic vaccination and inoculation against unspecified single disease Obstructive sleep apnea syndrome Obstructive sleep apnea (adult) (pediatric) Medication management Encounter for long-term (current) use of other medications Hypothyroidism Unspecified hypothyroidism [facility] Diagnosis Prostate cancer (HCC)- Primary Malignant neoplasm of prostate Elevated TSH Nonspecific abnormal results of thyroid function study Medicare annual wellness visit, subsequent- Primary Routine general medical examination at a health care facility Prostate cancer (HCC) Malignant neoplasm of prostate Paroxysmal A-fib (HCC) Atrial fibrillation Need for vaccination Need for prophylactic vaccination and inoculation against unspecified single disease Obstructive sleep apnea syndrome Obstructive sleep apnea (adult) (pediatric) Paroxysmal A-fib (HCC)- Primary Atrial fibrillation Aortic root dilatation (HCC) Thoracic aortic ectasia Mixed hyperlipidemia Renal cyst Unspecified congenital cystic kidney disease Hypothyroidism, unspecified type History of prostate cancer Personal history of malignant neoplasm of prostate [facility] Diagnosis Prostate cancer (HCC)- Primary Malignant neoplasm of prostate Elevated TSH Nonspecific abnormal results of thyroid function study Medicare annual wellness visit, subsequent- Primary Routine general medical examination at a health care facility Prostate cancer (HCC) Malignant neoplasm of prostate Paroxysmal A-fib (HCC) Atrial fibrillation Need for vaccination Need for prophylactic vaccination and inoculation against unspecified single disease Obstructive sleep apnea syndrome Obstructive sleep apnea (adult) (pediatric) Renal cyst Unspecified congenital cystic kidney disease documented in this encounter [facility] [place] [facility]* Diagnosis Prostate cancer (HCC)- Primary Malignant neoplasm of prostate Elevated TSH Nonspecific abnormal results of thyroid function study Medicare annual wellness visit, subsequent- Primary Routine general medical examination at a health care facility Prostate cancer (HCC) Malignant neoplasm of prostate Paroxysmal A-fib (HCC) Atrial fibrillation Need for vaccination Need for prophylactic vaccination and inoculation against unspecified single disease Obstructive sleep apnea syndrome Obstructive sleep apnea (adult) (pediatric) Medication management Encounter for long-term (current) use of other medications [facility] Diagnosis Prostate cancer (HCC)- Primary Malignant neoplasm of prostate Elevated TSH Nonspecific abnormal results of thyroid function study Medicare annual wellness visit, subsequent- Primary Routine general medical examination at a health care facility Prostate cancer (HCC) Malignant neoplasm of prostate Paroxysmal A-fib (HCC) Atrial fibrillation Need for vaccination Need for prophylactic vaccination and inoculation against unspecified single disease Obstructive sleep apnea syndrome Obstructive sleep apnea (adult) (pediatric) Medicare annual wellness visit, subsequent- Primary Routine general medical examination at a health care facility Sleep apnea, unspecified type Paroxysmal A-fib (HCC) Atrial fibrillation Obstructive sleep apnea syndrome Obstructive sleep apnea (adult) (pediatric) Hypothyroidism, unspecified type History of prostate cancer Personal history of malignant neoplasm of prostate 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, unspecified hearing status on contralateral side Essential (primary) hypertension Unspecified essential hypertension Osteoarthritis of temporomandibular joint Other specified temporomandibular joint disorders documented in this encounter [facility] note* Diagnosis Onset Date Resolution Status Admit Date Diastolic dysfunction withou t heart failure chronic October 23, 2024 9:52am Dilated aortic root chronic Septe mb2024 9:52am Nonrheumatic aortic (valve) insufficiency chronic October 23, 2024 9:52am [employer] Work Phone: Evaluation note* Diagnosis Prostate cancer (HCC)- Primary Malignant neoplasm of prostate Elevated TSH Nonspecific abnormal results of thyroid function study Medicare annual wellness visit, subsequent- Primary Routine general medical examination at a health care facility Prostate cancer (HCC) Malignant neoplasm of prostate Paroxysmal A-fib (HCC) Atrial fibrillation Need for vaccination Need for prophylactic vaccination and inoculation against unspecified single disease Obstructive sleep apnea syndrome Obstructive sleep apnea (adult) (pediatric) Community acquired pneumonia, unspecified laterality- Primary Community acquired pneumonia, unspecified laterality [facility] Diagnosis Prostate cancer (HCC)- Primary Malignant neoplasm of prostate Elevated TSH Nonspecific abnormal results of thyroid function study Medicare annual wellness visit, subsequent- Primary Routine general medical examination at a health care facility Prostate cancer (HCC) Malignant neoplasm of prostate Paroxysmal A-fib (HCC) Atrial fibrillation Need for vaccination Need for prophylactic vaccination and inoculation against unspecified single disease Obstructive sleep apnea syndrome Obstructive sleep apnea (adult) (pediatric) Community acquired pneumonia, unspecified laterality [facility])* Diagnostic Procedure Only (Routine) - Authorized Specialty Diagnoses / Procedures Referred By Zhane gonzalez Referred To Contact US IMAGING Diagnoses Renal cyst Procedures US KIDNEY/BLADDER US RETROPERITONEAL REAL TIME W/IMAGE COMPLETE Laly Colon APRN.[employer] [address] [place] [address] [place] [address] Referral ID Status Reason Start Date Expiration Date Visits Requested Visits Authorized [id number] Authorized Auto-Generat ed Referral 11/22/2023 12/21/2024 1 1 [facility] (narrative)No reason for referral information availableHouston [facility] Work Phone: Relqsj for visit Narrative* Diagnostic Procedure Only (Routine) - Closed Specialty Diagnoses / Procedures Referred By Zhane gonzalez Referred To Contact US IMAGING Diagnoses Renal cyst Procedures US KIDNEY/BLADDER US RETROPERITONEAL REAL TIME W/IMAGE Laly Gibson APRN.[employer] [address] [place] [address] [place] [address] Referral ID Status Reason Start Date Expiration Date V isits Requested Visits Authorized [id number] Closed Auto-Generate d Referral 11/22/2023 12/21/2024 1 1 [facility] Summary Purpose Family History Relationship Condition Age at Onset Recorded Date/T gordon mother Cardiac disease Unknown Hypertension Unknown father Hypertension Unknown Advance Directives Documents on File Type Date Recorded 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 Yes November 25, 2024 10:52am Name of Medical Power of Wet Room Supervisor Jazmyn, November 25, 2024 10:52am Advance Directives Yes November 25, 2024 10:52am Advance Directive Response Recorded Date/ Time Advance Directives on File No Octob er 2024 9:52am Living Will Yes November 25 9:52am Do you have a Healthcare Power of Wet Room Supervisor? Yes November 25, 2024 9:52am Name of Medical Power of Wet Room Supervisor Jazmyn, November 25, 2024 9:52am Advance Directives Yes November 25, 2024 9:52am Chief Complaint and Reason for Visit Chief Complaint DILATED AORTIC ROOT Chief Complaint Paroxysmal atrial fi brillation Chief Complaint Admit Date Variable HR: see clinicals. October 232024 9:52am Reason for Visit Admit Date Diastolic dysfunction without heart fail ure October 23, 2024 9:52am Dilated aortic root October 23, 2024 9:52am Nonrheumatic aortic (valve) insufficienc y October 23, 2024 9:52am Chief Complaint Admit Date Variable HR: see clinicals. October 232024 9:52am 1 Y FU November 21, 2024 7: 58am Reason for Visit Admit Date Diastolic dysfunction without heart fail ure October 23, 2024 9:52am Dilated aortic root October 23, 2024 9:52am Nonrheumatic aortic (valve) insufficienc y October 23, 2024 9:52am Persistent atrial fibrillation November 212024 7:58am Diastolic dysfunction without heart fail ure November 21, 2024 7:58am Dilated aortic root November 21, 2024 7: 58am Nonrheumatic aortic (valve) insufficienc y November 21, 2024 7:58am Chief Complaint Admit Date Variable HR: see clinicals. October 232024 9:52am 1 Y FU November 21, 2024 7: 58am PAROXYSMAL ATRIAL FIBRILLATION November 212024 8:55am AFIB November 25, 2024 1 0:08am Atrial fibrillation November 25, 2024 1 2:20pm Atrial fibrillation November 25, 2024 1 2:47pm EKG PER KRR December 05, 2024 9 :05am Chief Complaint Admit Date Variable HR: see clinicals. October 232024 9:52am 1 Y FU November 21, 2024 7: 58am PAROXYSMAL ATRIAL FIBRILLATION November 212024 8:55am AFIB November 25, 2024 1 0:08am Atrial fibrillation November 25, 2024 1 2:20pm Atrial fibrillation November 25, 2024 1 2:47pm EKG PER KRR December 05, 2024 9 :05am SEE NOTES December 13, 2024 8 :34am Reason for Visit Admit Date Diastolic dysfunction without heart fail ure October 23, 2024 9:52am Dilated aortic root October 23, 2024 9:52am Nonrheumatic aortic (valve) insufficienc y October 23, 2024 9:52am Persistent atrial fibrillation November 212024 7:58am Diastolic dysfunction without heart fail ure November 21, 2024 7:58am Dilated aortic root November 21, 2024 7: 58am Nonrheumatic aortic (valve) insufficienc y November 21, 2024 7:58am Decreased cardiac ejection fraction Octo 2024 8:34am Persistent atrial fibrillation November 152024 8:34am Dilated aortic root December 13, 2024 8 :34am Nonrheumatic aortic (valve) insufficienc y December 13, 2024 8:34am Reason for Referral Specialty Diagnoses / Procedures Referred By Zhane t Referred To Contact CT IMAGING Diagnoses Lung nodules Procedures CT CHEST WO IVCON DIAGNOSTIC COMPUTED TOMOGRAPHY THORAX W/O CNTRST Laly Colon, [employer] COLLECTION DRIVER.[employer] [address] [place] [address] [place] [id number] Referral ID Status Reason Start Date Expiration Date Visits Requested Visits Authorized [id number] Pending Review Auto-Generat ed Referral 05/19/2023 03/18/2024 1 1 Additional Source Comments (unrecognized sect ion and content) No Status Records FoundNo Status Records FoundNo Status Records Found INFORMATION SOURCE (unrecogn ized section and content) DATE CREATED AUTHOR 01/22/2018 [facility] ([place]) DATE CREATED AUTHOR AUTHOR'S ORGANIZ ATION 12/14/2024 [facility] DATE CREATED AUTHOR AUTHOR'S ORGANIZ ATION 12/18/2024 [facility] Source Comments (unrecognize d section and content) In the event this informatio n is protected by the Federal Confidentiality of Alcohol and Drug Abuse Patient Records regulations: The Federal rules restrict any use of the information to criminally investigate or prosecute any alcohol or drug abuse patient.[facility] the event this information is protected by the Federal Confidentiality of Alcohol and Drug Abuse Patient Records regulations: The Federal rules restrict any use of the information to criminally investigate or prosecute any alcohol or drug abuse patient.[facility]In the event this information is protected by the Federal Confidentiality of Alcohol and Drug Abuse Patient Records regulations: The Federal rules restrict any use of the information to criminally investigate or prosecute any alcohol or drug abuse patient.[facility]In the event this information is protected by the Federal Confidentiality of Alcohol and Drug Abuse Patient Records regulations: The Federal rules restrict any use of the information to criminally investigate or prosecute any alcohol or drug abuse patient.[facility] HospitalIn the event this information is protected by the Federal Confidentiality of Alcohol and Drug Abuse Patient Records regulations: The Federal rules restrict any use of the information to criminally investigate or prosecute any alcohol or drug abuse patient.[facility] HospitalIn the event this information is protected by the Federal Confidentiality of Alcohol and Drug Abuse Patient Records regulations: The Federal rules restrict any use of the information to criminally investigate or prosecute any alcohol or drug abuse patient.[facility] HospitalIn the event this information is protected by the Federal Confidentiality of Alcohol and Drug Abuse Patient Records regulations: The Federal rules restrict any use of the information to criminally investigate or prosecute any alcohol or drug abuse patient.[facility] HospitalIn the event this information is protected by the Federal Confidentiality of Alcohol and Drug Abuse Patient Records regulations: The Federal rules restrict any use of the information to criminally investigate or prosecute any alcohol or drug abuse patient.[facility] HospitalIn the event this information is protected by the Federal Confidentiality of Alcohol and Drug Abuse Patient Records regulations: The Federal rules restrict any use of the information to criminally investigate or prosecute any alcohol or drug abuse patient.[facility] HospitalIn the event this information is protected by the Federal Confidentiality of Alcohol and Drug Abuse Patient Records regulations: The Federal rules restrict any use of the information to criminally investigate or prosecute any alcohol or drug abuse patient.[facility] HospitalIn the event this information is protected by the Federal Confidentiality of Alcohol and Drug Abuse Patient Records regulations: The Federal rules restrict any use of the information to criminally investigate or prosecute any alcohol or drug abuse patient.[facility] HospitalIn the event this information is protected by the Federal Confidentiality of Alcohol and Drug Abuse Patient Records regulations: The Federal rules restrict any use of the information to criminally investigate or prosecute any alcohol or drug abuse patient.[facility] HospitalIn the event this information is protected by the Federal Confidentiality of Alcohol and Drug Abuse Patient Records regulations: The Federal rules restrict any use of the information to criminally investigate or prosecute any alcohol or drug abuse patient.[facility] HospitalIn the event this information is protected by the Federal Confidentiality of Alcohol and Drug Abuse Patient Records regulations: The Federal rules restrict any use of the information to criminally investigate or prosecute any alcohol or drug abuse patient.[facility] HospitalIn the event this information is protected by the Federal Confidentiality of Alcohol and Drug Abuse Patient Records regulations: The Federal rules restrict any use of the information to criminally investigate or prosecute any alcohol or drug abuse patient.[facility] HospitalIn the event this information is protected by the Federal Confidentiality of Alcohol and Drug Abuse Patient Records regulations: The Federal rules restrict any use of the information to criminally investigate or prosecute any alcohol or drug abuse patient.[facility] HospitalIn the event this information is protected by the Federal Confidentiality of Alcohol and Drug Abuse Patient Records regulations: The Federal rules restrict any use of the information to criminally investigate or prosecute any alcohol or drug abuse patient.[facility] HospitalIn the event this information is protected by the Federal Confidentiality of Alcohol and Drug Abuse Patient Records regulations: The Federal rules restrict any use of the information to criminally investigate or prosecute any alcohol or drug abuse patient.[facility] HospitalIn the event this information is protected by the Federal Confidentiality of Alcohol and Drug Abuse Patient Records regulations: The Federal rules restrict any use of the information to criminally investigate or prosecute any alcohol or drug abuse patient.[facility] HospitalIn the event this information is protected by the Federal Confidentiality of Alcohol and Drug Abuse Patient Records regulations: The Federal rules restrict any use of the information to criminally investigate or prosecute any alcohol or drug abuse patient.[facility] HospitalIn the event this information is protected by the Federal Confidentiality of Alcohol and Drug Abuse Patient Records regulations: The Federal rules restrict any use of the information to criminally investigate or prosecute any alcohol or drug abuse patient.[facility] HospitalIn the event this information is protected by the Federal Confidentiality of Alcohol and Drug Abuse Patient Records regulations: The Federal rules restrict any use of the information to criminally investigate or prosecute any alcohol or drug abuse patient.[facility] HospitalIn the event this information is protected by the Federal Confidentiality of Alcohol and Drug Abuse Patient Records regulations: The Federal rules restrict any use of the information to criminally investigate or prosecute any alcohol or drug abuse patient.[facility] HospitalIn the event this information is protected by the Federal Confidentiality of Alcohol and Drug Abuse Patient Records regulations: The Federal rules restrict any use of the information to criminally investigate or prosecute any alcohol or drug abuse patient.[facility] HospitalIn the event this information is protected by the Federal Confidentiality of Alcohol and Drug Abuse Patient Records regulations: The Federal rules restrict any use of the information to criminally investigate or prosecute any alcohol or drug abuse patient.[facility] HospitalIn the event this information is protected by the Federal Confidentiality of Alcohol and Drug Abuse Patient Records regulations: The Federal rules restrict any use of the information to criminally investigate or prosecute any alcohol or drug abuse patient.[facility] HospitalIn the event this information is protected by the Federal Confidentiality of Alcohol and Drug Abuse Patient Records regulations: The Federal rules restrict any use of the information to criminally investigate or prosecute any alcohol or drug abuse patient.[facility] HospitalIn the event this information is protected by the Federal Confidentiality of Alcohol and Drug Abuse Patient Records regulations: The Federal rules restrict any use of the information to criminally investigate or prosecute any alcohol or drug abuse patient.[facility] HospitalIn the event this information is protected by the Federal Confidentiality of Alcohol and Drug Abuse Patient Records regulations: The Federal rules restrict any use of the information to criminally investigate or prosecute any alcohol or drug abuse patient.[facility] HospitalIn the event this information is protected by the Federal Confidentiality of Alcohol and Drug Abuse Patient Records regulations: The Federal rules restrict any use of the information to criminally investigate or prosecute any alcohol or drug abuse patient.[facility] Reason for Visit (unrecogniz ed section and content) Reason Comments Orders Reason Comments Yearly Exam Reason Comments Follow Up review CPAP use Reason Comments Cough Cough x 2-3 days Reason Comments Recheck 6 month follow up Reason Comments Appointment Reason Comments Radiology CT Specialty Diagnoses / Procedures Referred By Contac t Referred To Contact CT IMAGING Diagnoses Lung nodules Procedures CT CHEST WO IVCON DIAGNOSTIC COMPUTED TOMOGRAPHY THORAX W/O CNTRST Laly Colon, WASTE 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 DRIVER.[employer]CT [employer]ER [address] [place] [address] [place] [address] Referral ID Status Reason Start Date Expiration Date V isits Requested Visits Authorized [id number] Closed Auto-Generate d Referral 05/22/2023 06/21/2023 1 1 Reason Comments Results Reason Comments FILM REQ-LALLEY Reason Comments has a few questions from updated visit Reason Comments New Patient Lung Nodule Reason Onset Date Comments Refill Request 06/20/2023 Reason Comments Medicare Wellness Exam Reason Comments Cough Sore throat x 5 days Care Teams (unrecognized sec tion and content) Contract Project Manager Relationship Specialty Start Date End Date Amrit Birmingham MD [address] [place] [address] PCP - General Internal Medicine 11/05/15 Contract Project Manager Relationship Specialty Start Date End Date Amrit Birmingham MD [address] [place] [address] PCP - General Internal Medicine 11/05/15 Contract Project Manager Relationship Specialty Start Date End Date Amrit Birmingham MD [address] [place] [address] PCP - General Internal Medicine 11/05/15 Contract Project Manager Relationship Specialty Start Date End Date Amrit Birmingham MD [address] [place], [place] [address] [phone] PCP - General Internal Medicine 11/05/15 Team Status: Active Member Role Status Dates Dr. Amrit Birmingham MD Family Provider Active Dr. Amrit Birmingham MD Primary Care Provider Active Team Status: Inactive Member Role Status Dates Dr. Amrit Birmingham MD Primary Care Provider Active Shirin Wilcox PA, PA Attending Provider, Referr ing Provider Active Contract Project Manager Relationship Specialty Start Date End Date Amrit Birmingham MD [address] [place] [address] PCP - General Internal Medicine 11/05/15 Contract Project Manager Relationship Specialty Start Date End Date Amrit Birmingham MD [address] [place] [address] PCP - General Internal Medicine 11/05/15 Contract Project Manager Relationship Specialty Start Date End Date Amrit Birmingham MD [address] [place] [address] PCP - General Internal Medicine 11/05/15 Contract Project Manager Relationship Specialty Start Date End Date Amrit Birmingham MD [address] [place] [address] PCP - General Internal Medicine 11/05/15 Contract Project Manager Relationship Specialty Start Date End Date Amrit Birmingham MD [address] [place] [address] PCP - General Internal Medicine 11/05/15 Contract Project Manager Relationship Specialty Start Date End Date Amrit Birmingham MD [address] [place] [address] PCP - General Internal Medicine 11/05/15 Contract Project Manager Relationship Specialty Start Date End Date Amrit Birmingham MD [address] [place] [address] PCP - General Internal Medicine 11/05/15 Contract Project Manager Relationship Specialty Start Date End Date Amrit Birmingham MD [address] [facility] [place] [address] PCP - General Internal Medicine 11/05/15 Contract Project Manager Relationship Specialty Start Date End Date Amrit Birmingham MD [address] [facility] [place] [address] PCP - General Internal Medicine 11/05/15 Team Status: Inactive Member Role Status Dates Dr. Amrit Birmingham MD Primary Care Provider Active Jacobo Ryan WASHER OPERATOR, WASHER OPERATOR-C Attending Provider, Referring Pro vider Active Contract Project Manager Relationship Specialty Start Date End Date Amrit Birmingham MD [address] [facility] [place] [address] PCP - General Internal Medicine 11/05/15 Contract Project Manager Relationship Specialty Start Date End Date Amrit Birmingham MD [address] [facility] [place] [address] PCP - General Internal Medicine 11/05/15 Contract Project Manager Relationship Specialty Start Date End Date Amrit Birmingham MD [address] [facility] [place] [address] PCP - General Internal Medicine 11/05/15 Contract Project Manager Relationship Specialty Start Date End Date Amrit Birmingham MD [address] [facility] [place] [address] PCP - General Internal Medicine 11/05/15 Contract Project Manager Relationship Specialty Start Date End Date Amrit Birmingham MD [address] [facility] [place] [address] PCP - General Internal Medicine 11/05/15 Contract Project Manager Relationship Specialty Start Date End Date Amrit Birmingham MD [address] [facility] [place], [place] [id number] PCP - General Internal Medicine 11/05/15 Laly Colon APRN.DUCT LAYER [address] [facility], [place] [address] Business Services Assistant Internal Medicine 01/21/24 Contract Project Manager Relationship Specialty Start Date End Date Amrit Birmingham MD [address] [facility] [place], [place] [address] PCP - General Internal Medicine 11/05/15 Laly Colon APRN.DUCT LAYER [address] [facility], [place] [address] Business Services Assistant Internal Medicine 01/21/24 Team Status: Active Member Role/Relationship Status Dates Dr. Amrit Birmingham MD Family Provider Active Dr. Amrit Birmingham MD Primary Care Provider Active Team Status: Inactive Member Role/Relationship Status Dates Dr. Amrit Birmingham MD Primary Care Provider Active Start: October 23, 2024 End: October 23, 2024 Dr. Amrit Birmingham MD Referring Provider Active Start: October 23, 2024 End: October 23, 2024 Jacobo Ryan WASHER OPERATOR, WASHER OPERATOR-C Attending Provider Active S tart: October 23, 2024 End: October 23, 2024 Contract Project Manager Relationship Specialty Start Date End Date Amrit Birmingham MD [address] [facility] [place], [place] [id number] PCP - General Internal Medicine 11/05/15 Laly Colon APRN.DUCT [employer]ER [address] [facility], [place] [address] Business Services Assistant Internal Medicine 01/21/24 Contract Project Manager Relationship Specialty Start Date End Date Amrit Birmingham MD [address] [facility] [place] [address] PCP - General Internal Medicine 11/05/15 Laly Colon APRN.DUCT [address]ER [address] [facility] [place] [address] Business Services Assistant Internal Medicine 01/21/24 Contract Project Manager Relationship Specialty Start Date End Date Amrit Birmingham MD [address] [facility] [place] [address] PCP - General Internal Medicine 11/05/15 Laly Colon APRN.[facility]ER [address] [facility] [place] [address] Business Services Assistant Internal Medicine 01/21/24 Team Status: Active Member Role/Relationship Status Dates Dr. Amrit Birmingham MD Primary care physician Active Team Status: Inactive Member Role/Relationship Status Dates Dr. Amrit Birmingham MD Primary care physician Active Start: October 23, 2024 End: October 23, 2024 Dr. Amrit Birmingham MD Referring Provider Active Start: October 23, 2024 End: October 23, 2024 Jacobo Ryan WASHER OPERATOR, WASHER OPERATOR-C Attending physician Active Start: October 23, 2024 End: October 23, 2024 Team Status: Inactive Member Role/Relationship Status Dates Dr. Amrit Birmingham MD Primary care physician Active Start: November 21, 2024 End: November 21, 2024 Dr. Amrit Birmingham MD Referring Provider Active Start: November 21, 2024 End: November 21, 2024 Kathi Tyson WASHER OPERATOR, WASHER OPERATOR-C Attending physician Active Start: November 21, 2024 End: November 21, 2024 Team Status: Inactive Member Role/Relationship Status Dates Dr. Amrit Birmingham MD Primary care physician Active Start: November 21, 2024 End: November 21, 2024 Jacobo Ryan WASHER OPERATOR, WASHER OPERATOR-C Attending physician Active Start: November 21, 2024 End: November 21, 2024 Jacobo H Roof WASHER OPERATOR, WASHER OPERATOR-C Referring Provider Active S tart: November 21, 2024 End: November 21, 2024 Team Status: Active Member Role/Relationship Status Dates Dr. Amrit Birmingham MD Primary care physician Active Start: November 21, 2024 Dr. Randy Sousa MD Attending physician Active Start: November 21, 2024 Team Status: Inactive Member Role/Relationship Status Dates Dr. Amrit Birmingham MD Primary care physician Active Start: November 25, 2024 End: November 25, 2024 Dr. Randy Sousa MD Attending physician Active Start: November 25, 2024 End: November 25, 2024 Dr. Randy Sousa MD Referring Provider Active S tart: November 25, 2024 End: November 25, 2024 Team Status: Active Member Role/Relationship Status Dates Dr. Amrit Birmingham MD Primary care physician Active Start: November 25, 2024 Dr. Randy Sousa MD Attending physician Active Start: November 25, 2024 Dr. Randy Sousa MD Referring Provider Active S tart: November 25, 2024 Dr. Randy Sousa MD Nurse Practitioner Active S tart: November 25, 2024 Team Status: Active Member Role/Relationship Status Dates Dr. Amrit Birmingham MD Primary care physician Active Start: November 25, 2024 Dr. Randy Sousa MD Referring Provider Active S tart: November 25, 2024 Dr. Randy Sousa MD Nurse Practitioner Active S tart: November 25, 2024 Dr. Jhon Villatoro DO Attending physician Active Start: November 25, 2024 Team Status: Inactive Member Role/Relationship Status Dates Dr. Amrit Birmingham MD Primary care physician Active Start: December 05, 2024 End: December 05, 2024 Dr. Amrit Birmingham MD Referring Provider Active Start: December 05, 2024 End: December 05, 2024 Kathi Tyson WASHER OPERATOR, WASHER OPERATOR-C Attending physician Active Start: December 05, 2024 End: December 05, 2024 Team Status: Inactive Member Role/Relationship Status Dates Dr. Amrit Birmingham MD Primary care physician Active Start: December 13, 2024 End: December 13, 2024 Dr. Amrit Birmingham MD Referring Provider Active Start: December 13, 2024 End: December 13, 2024 Kathi Tyson NP, WASHER OPERATOR-C Attending physician Active Start: December 13, 2024 End: December 13, 2024 Goals (unrecognized section and content) Goals may be documented in a n alternate sectionGoals may be documented in an alternate sectionGoals may be documented in an alternate sectionGoals may be documented in an alternate sectionGoals may be documented in an alternate sectionGoals may be documented in an alternate section FOR RECORDS PERTAINING TO PATIENTS WHO ARE OR HAVE BEEN ENROLLED IN A CHEMICAL DEPENDENCY/SUBSTANCEABUSE PROGRAM, SOME INFORMATION MAY BE OMITTED. This clinical summary was aggregated from multiple sources. Caution should be exercised in using it in the provision of clinical care. This summary normalizes information from multiple sources, and as a consequence, information in this document may materially change the coding, format and clinical context of patient data. In addition, data may be omitted in some cases. CLINICAL DECISIONS SHOULD BE BASED ON THE PRIMARY CLINICAL RECORDS. [facility]. provides no warranty or guarantee of the accuracy or completeness of information in this document.
--- NOTE | 2024-12-30 13:05 | PCM.OP.PRO2 ---
Procedures Pulmonary Pulmonary Procedures /Diagnostic Testin Con Sedation Bedside Procedural Bedside Procedure Information Date of Procedure: 12/30/24 Description of procedure: CONSCIOUS SEDATION REPORT DATE OF SERVICE: December 30, 2024 BRIEF HISTORY OF PRESENT ILLNESS: The patient is a 79-year-old male who presented to [facility] to undergo an elective outpatient cardioversion due to underlying atrial fibrillation. The patient is a lifelong non-smoker. He did undergo a prior cardioversion in November 2024. He denied any history of any anesthetic complications. The patient is systemically anticoagulated on Eliquis. His last surface echocardiogram demonstrated an ejection fraction of approximately 45%. He does have a known history of obstructive sleep apnea on nocturnal PAP therapy. PHYSICAL EXAMINATION: VITAL SIGNS: Reviewed and were acceptable. GENERAL: The patient is a male, in no apparent distress, speaking in full sentences. HEENT: Normocephalic, atraumatic. Mucous membranes are moist and pink. Good mouth opening noted. Trachea is midline. Good neck mobility. CHEST: S1, S2 irregularly irregular. No murmurs, rubs or gallops were noted. LUNGS: Clear to auscultation bilaterally without appreciable wheezes, rales or rhonchi. ABDOMEN: Soft, nontender, nondistended. Positive bowel sounds. EXTREMITIES: There is no clubbing, cyanosis or edema. ASA Class: II DESCRIPTION OF PROCEDURE: After confirmation of informed consent, the patient's anesthesia plan was reviewed in detail. Propofol was chosen. Risks and benefits were reviewed and the patient agreed to proceed. At 1223, the patient was given 40 mg of propofol. The patient achieved an appropriate level of sedation and was given a 200 joule synchronized cardioversion by Dr. Sousa at the bedside. This was successful in achieving normal sinus rhythm. The patient was monitored until 1237, at which time he reached his baseline mental status and function. The patient tolerated the procedure well. COMPLICATIONS: None ESTIMATED BLOOD LOSS: None RECOMMENDATIONS: Okay to recover in usual fashion.
== END 2024-12-30 13:30 | disposition home or self-care (01) ==
PROVIDERS: Nurse Practitioner Gerontology; PCP Internal Medicine; Referring Provider Internal Medicine Cardiovascular Disease; Visit Provider Internal Medicine Cardiovascular Disease
DX: I48.0 Paroxysmal atrial fibrillation (principal); I48.19 Other persistent atrial fibrillation; Z79.01 Long term (current) use of anticoagulants; I35.1 Nonrheumatic aortic (valve) insufficiency; I77.810 Thoracic aortic ectasia; R93.1 Abnormal findings on diagnostic imaging of heart and coronary circulation
CPT/HCPCS: 36415; 80048; 92960; 93005

== ENCOUNTER → 2025-01-06 | Outpatient (CLI) | payer MEDICARE, SELFPAY ==
[2025-01-06 16:05] LABS: Hematocrit 39.3 % (40-54); Hemoglobin 13.0 g/dL (13.0-16.5); Immature Granulocytes Count 0.030 X10^3/uL (0.0-0.0); Mean Corp Hgb Conc 33.1 g/dL (32-36); Mean Corpuscular Volume 89.5 fL (80-94); Mean Platelet Vol. 9.3 fl (6.2-12.0); NRBC Flagged by Analyzer 0 % (0-5); Platelet Count 181 K/mm3 (150-450); RBC Distribution Width CV 14.6 % (11.6-14.6); RBC Distribution Width SD 47.8 fl (35.1-43.9); Red Blood Count 4.39 M/mm3 (4.6-6.2); White Blood Count 7.8 K/mm3 (4.4-11.0)
[2025-01-06 17:09] LABS: Anion Gap 11 (5-15); BUN 26 mg/dL (4-19); BUN/Creat Ratio 18.1 RATIO (10-20); Calcium,Total 9.1 mg/dL (7.6-11.0); Carbon Dioxide 24.7 mmol/L (21.0-32.0); Chloride 105 mmol/L (98-108); Glucose 90 mg/dL (70-99); Potassium 4.5 mmol/L (3.3-5.1); Pro- Brain NATRIURETIC PEPTIDE 1827 pg/mL (<=1800)
== END | disposition home or self-care (01) ==
LOC: LAB 14:31
PROVIDERS: PCP Internal Medicine; Referring Provider Nurse Practitioner Gerontology; Visit Provider Nurse Practitioner Gerontology
DX: R06.09 Other forms of dyspnea (principal); I48.0 Paroxysmal atrial fibrillation
CPT/HCPCS: 36415; 80048; 83880; 84443; 85025